=== PATIENT | female | born 1965 | race Two or more races ===

== ENCOUNTER 2019-12-07 19:19 | Emergency (ER) | payer OTHER ==
[~2019-12-07] VITALS: Ht 157.5 cm; Wt 164.7 kg
[2019-12-07 20:30] LABS: Basophils # (auto) 0.1 uL; Basophils % (auto) 0.8 % (0.0-2.0); Eosinophils # (auto) 0.1 uL; Eosinophils % (auto) 2.2 % (0.0-7.0); Hematocrit 37.6 % (36.0-46.0); Hemoglobin 12.5 g/dL (12.2-16.2); Lymphocytes # (auto) 1.5 uL; Lymphocytes % (auto) 24.2 % (10.0-50.0); Mean Corpuscular Hemoglobin 29.4 pg (28.0-32.0); Mean Corpuscular Hgb Conc. 33.3 g/dL (32.0-36.0); Mean Corpuscular Volume 88.4 fL (80.0-100.0); Monocytes # (auto) 0.5 uL; Monocytes % (auto) 7.3 % (0.0-12.0); Neutrophils # (auto) 4.1 uL; Neutrophils % (auto) 65.5 % (37.0-80.0); Platelet Count (auto) 228 10^3/uL (140-450); Red Blood Cells 4.26 10^6/uL (4.0-5.20); Red Cell Distribution Width 13.6 % (11.8-14.3); White Blood Cell 6.2 10^3/uL (4.4-10.8)
[2019-12-07 20:37] LABS: Urine Bacteria NONE SEEN /hpf (None Seen); Urine Blood Negative /uL (Negative); Urine Mucus FEW (None Seen); Urine Specific Gravity 1.028 (1.001-1.035); Urine WBC <1 /hpf (0 - 5)
[2019-12-07 20:46] LABS: INR 0.98 (0.9-1.15); Partial Thromboplastin Time 27.1 sec (23.64-32.05)
[2019-12-07 20:47] LABS: Albumin 3.2 g/dL (3.4-5.0); Amylase 63 U/L (25-115); Anion Gap 7 (5-15); BUN/Creatinine Ratio 16.7; Blood Urea Nitrogen 11 mg/dL (7-18); Calcium 8.2 mg/dL (8.5-10.1); Carbon Dioxide 23 mmol/L (21-32); Chloride 109 mmol/L (98-107); GFR African American 120 mL/min; GFR Non-African American 100 mL/min; Glucose 102 mg/dL (74-106); Lipase 77 U/L (73-393); Potassium 3.6 mmol/L (3.5-5.1); Sodium 139 mmol/L (136-145)
[2019-12-07 20:54] LABS: Alanine Aminotransferase 16 U/L (13-56); Alkaline Phosphatase 98 U/L (45-117); Aspartate Aminotransferase 15 U/L (15-37); Bilirubin, Total 0.9 mg/dL (0.2-1.0)
[2019-12-08] MEDS ORDERED: ONDANSETRON HCL 4 MG/2 ML VIAL IV ONE (00:15)
[2019-12-08] MEDS ORDERED: HYDROmorphone HCL 2 MG/ML VL IV ONE (00:15)
[2019-12-08] MEDS ORDERED: HYDROmorphone HCL 2 MG TAB PO ONE (00:45)
[2019-12-08] MEDS ORDERED: ONDANSETRON ODT 4 MG TAB PO ONE (00:45)
[2019-12-08 01:00] VITALS: BP 126/52
== END 2019-12-08 02:02 | disposition home or self-care (01) ==
LOC: ER 19:19
DX: N83.202 Unspecified ovarian cyst, left side (principal); J45.909 Unspecified asthma, uncomplicated; K21.9 Gastro-esophageal reflux disease without esophagitis
CPT/HCPCS: 36415; 74176; 80053; 81001; 82150; 83690; 83735; 85025; 85610; 85730; 99284; Q0162

== ENCOUNTER 2024-02-27 22:55 | Inpatient (IN) | payer OTHER ==
[~2024-02-27] VITALS: Ht 157.5 cm; Wt 186.6 kg
[2024-02-28 00:57] LABS: Basophils # (auto) 0 10 ^3/uL (0-0.2); Basophils % (auto) 0.2 % (0.0-2.0); Eosinophils # (auto) 0 10 ^3/uL (0-0.8); Eosinophils % (auto) 0.1 % (0.0-7.0); Hematocrit 39.1 % (36.0-46.0); Hemoglobin 12.7 g/dL (12.2-16.2); Lymphocytes # (auto) 0.7 10 ^3/uL (0.4-5.4); Mean Corpuscular Hemoglobin 26.2 pg (28.0-32.0); Mean Corpuscular Hgb Conc. 32.4 g/dL (32.0-36.0); Mean Corpuscular Volume 80.9 fL (80.0-100.0); Monocytes # (auto) 0.9 10 ^3/uL (0-1.3); Monocytes % (auto) 8.4 % (0.0-12.0); Neutrophils # (auto) 8.9 10 ^3/uL (1.6-8.6); Neutrophils % (auto) 84.3 % (37.0-80.0); Red Blood Cells 4.83 10^6/uL (4.0-5.20); Red Cell Distribution Width 17.4 % (11.8-14.3); White Blood Cell 10.5 10^3/uL (4.4-10.8)
[2024-02-28 01:15] LABS: INR 1.11 (0.9-1.15); Partial Thromboplastin Time 24.9 SEC (24.5-34.5); Prothrombin Time 11.6 sec (9.3-11.8)
[2024-02-28 01:16] LABS: Alanine Aminotransferase 13 U/L (7-40); Alkaline Phosphatase 88 U/L (46-116); Anion Gap 6 (5-15); Aspartate Aminotransferase 25 U/L (13-40); BUN/Creatinine Ratio 20.5 (10.0-20.0); Blood Urea Nitrogen 15 mg/dL (9-23); Carbon Dioxide 27 mmol/L (20-30); Chloride 103 mmol/L (98-107); Glucose 136 mg/dL (74-106); Lipase 22 U/L (12-53); Potassium 3.9 mmol/L (3.5-5.1); Sodium 136 mmol/L (136-145)
[2024-02-28 01:17] LABS: Albumin 4.1 g/dL (3.2-4.8); Bilirubin, Total 3.7 mg/dL (0.2-1.0); Total Protein 7.8 g/dL (5.7-8.2)
[2024-02-28 02:00] VITALS: PULSE 88; RESP 17; O2SAT 97
[2024-02-28] MEDS: SODIUM CHLORIDE 0.9% 1,000 ML IVB ONE (02:49)
[2024-02-28] MEDS: HYDROmorphone HCL 2 MG/ML VL/or syr IV ONE (02:50)
[2024-02-28] MEDS: METOCLOPRAMIDE HCL 5MG/ml INJ 2ml VIAL IV ONE (02:50)
[2024-02-28] MEDS ORDERED: HYDROcodone-ACET 5/325MG TAB PO PRN (03:15)
[2024-02-28] MEDS: SODIUM CHLORIDE 0.9% 1,000 ML IV SCH ×3 (03:15→21:01)
[2024-02-28] MEDS ORDERED: ACETAMINOPHEN 325 MG TAB PO PRN ×2 (03:15→07:00)
[2024-02-28] MEDS: PIPERACILLIN-TAZOB 3.375GM 100 ML IV ONE (04:24)
[2024-02-28 04:28] LABS: Basophils # (auto) 0 10 ^3/uL (0-0.2); Eosinophils # (auto) 0 10 ^3/uL (0-0.8); Mean Corpuscular Volume 81.2 fL (80.0-100.0)
[2024-02-28 04:32] LABS: Basophils % (auto) 0.2 % (0.0-2.0); Eosinophils % (auto) 0.1 % (0.0-7.0); Hematocrit 39.9 % (36.0-46.0); Hemoglobin 12.9 g/dL (12.2-16.2); Lymphocytes # (auto) 1.1 10 ^3/uL (0.4-5.4); Lymphocytes % (auto) 10.9 % (10.0-50.0); Mean Corpuscular Hemoglobin 26.2 pg (28.0-32.0); Mean Corpuscular Hgb Conc. 32.3 g/dL (32.0-36.0); Monocytes # (auto) 0.9 10 ^3/uL (0-1.3); Monocytes % (auto) 9.7 % (0.0-12.0); Neutrophils # (auto) 7.6 10 ^3/uL (1.6-8.6); Neutrophils % (auto) 79.1 % (37.0-80.0); Nucleated Red Blood Cells % 0.1 %; Red Blood Cells 4.92 10^6/uL (4.0-5.20); Red Cell Distribution Width 17.4 % (11.8-14.3); White Blood Cell 9.6 10^3/uL (4.4-10.8)
[2024-02-28 04:49] LABS: Alanine Aminotransferase 17 U/L (7-40); Albumin 4.2 g/dL (3.2-4.8); Alkaline Phosphatase 89 U/L (46-116); Anion Gap 6 (5-15); Aspartate Aminotransferase 36 U/L (13-40); BUN/Creatinine Ratio 18.9 (10.0-20.0); Bilirubin, Total 3.9 mg/dL (0.2-1.0); Blood Urea Nitrogen 14 mg/dL (9-23); Calcium 9.5 mg/dL (8.7-10.4); Carbon Dioxide 26 mmol/L (20-30); Chloride 104 mmol/L (98-107); Glucose 136 mg/dL (74-106); Potassium 4.1 mmol/L (3.5-5.1); Sodium 136 mmol/L (136-145); Total Protein 7.8 g/dL (5.7-8.2)
[2024-02-28] MEDS ORDERED: NITROGLYCERIN 0.4 MG SL TAB SL PRN (07:00)
[2024-02-28] MEDS ORDERED: MORPHINE SULFATE INJ 2 MG/ml SYRG IV PRN (07:00)
[2024-02-28] MEDS ORDERED: DOCUSATE SOD 100 MG CAP PO PRN (07:00)
[2024-02-28 08:00] VITALS: PULSE 76; RESP 8; O2SAT 97
[2024-02-28] MEDS: PANTOPRAZOLE 40 MG/10 ML VIAL INJ IV SCH (10:35)
[2024-02-28] MEDS: ONDANSETRON HCL 4 MG/2 ML VIAL IV PRN (10:35)
[2024-02-28] MEDS: HYDROmorphone HCL 2 MG/ML VL/or syr IV PRN (10:35)
[2024-02-28] MEDS: LIDOCAINE VISCOUS 2% 15ML UD PO ONE (13:25)
[2024-02-28 20:00] VITALS: PULSE 78; O2SAT 95
[2024-02-28 20:51] VITALS: BP 120/57; PULSE 77; RESP 18; TEMP 98; O2SAT 98
[2024-02-28] MEDS: cefTRIAXone 1GM/50ML D5W 50 ML IV ONE (21:01)
[2024-02-28] MEDS: metroNIDAZOLE 500MG/100ML 100 ML IV SCH (23:36)
[2024-02-29] MEDS: MORPHINE SULFATE INJ 2 MG/ml SYRG IV PRN (00:19)
[2024-02-29 00:44] VITALS: BP 134/71; PULSE 72; RESP 20; TEMP 97.9; O2SAT 100
[2024-02-29] MEDS: diphenhdrAMINE HCL 50 MG/1 ML VL IV PRN (02:23)
[2024-02-29] MEDS: HYDROmorphone HCL 2 MG/ML VL/or syr IV PRN (04:05)
[2024-02-29] MEDS: ONDANSETRON HCL 4 MG/2 ML VIAL IV PRN (04:05)
[2024-02-29 05:00] VITALS: BP 109/59; PULSE 92; RESP 20; TEMP 98.1; O2SAT 94
[2024-02-29] MEDS ORDERED: GABA-339 PO (05:36)
[2024-02-29 07:27] LABS: Basophils # (auto) 0 10 ^3/uL (0-0.2); Basophils % (auto) 0.2 % (0.0-2.0); Eosinophils # (auto) 0.1 10 ^3/uL (0-0.8); Hematocrit 35.9 % (36.0-46.0); Hemoglobin 11.4 g/dL (12.2-16.2); Monocytes # (auto) 0.7 10 ^3/uL (0-1.3); Neutrophils # (auto) 3.8 10 ^3/uL (1.6-8.6); Neutrophils % (auto) 68.4 % (37.0-80.0); Nucleated Red Blood Cells % 0.1 %; White Blood Cell 5.5 10^3/uL (4.4-10.8)
[2024-02-29 07:30] LABS: Eosinophils % (auto) 1.3 % (0.0-7.0); Lymphocytes % (auto) 17.5 % (10.0-50.0); Mean Corpuscular Hgb Conc. 31.7 g/dL (32.0-36.0); Monocytes % (auto) 12.6 % (0.0-12.0); Red Blood Cells 4.38 10^6/uL (4.0-5.20); Red Cell Distribution Width 16.9 % (11.8-14.3)
[2024-02-29 07:55] LABS: Alanine Aminotransferase 20 U/L (7-40); Alkaline Phosphatase 79 U/L (46-116); Amylase 23 U/L (30-118); Anion Gap 5 (5-15); BUN/Creatinine Ratio 19.7 (10.0-20.0); Blood Urea Nitrogen 15 mg/dL (9-23); Calcium 8.9 mg/dL (8.5-10.1); Carbon Dioxide 27 mmol/L (20-30); Chloride 106 mmol/L (98-107); Glucose 102 mg/dL (74-106); Potassium 4.1 mmol/L (3.5-5.1); Sodium 138 mmol/L (136-145)
[2024-02-29 07:56] LABS: Albumin 3.9 g/dL (3.2-4.8); Aspartate Aminotransferase 27 U/L (13-40); Bilirubin, Total 2.6 mg/dL (0.2-1.0); Total Protein 6.8 g/dL (5.7-8.2)
[2024-02-29 08:00] VITALS: PULSE 84
[2024-02-29 08:01] LABS: Urine Bacteria FEW /hpf (None Seen); Urine Blood Negative /uL (Negative); Urine Clarity Turbid (Clear); Urine Color Yellow (Yellow); Urine Mucus FEW (None Seen); Urine Protein, UAD 1+ (Negative); Urine Specific Gravity 1.029 (1.001-1.035); Urine Urobilinogen Normal (Negative); Urine WBC 5 /hpf (0 - 5); Urine pH 5.5 (5.0-9.0)
[2024-02-29] MEDS: cefTRIAXone 1GM/50ML D5W 50 ML IV SCH (08:35)
[2024-02-29 09:17] LABS: Lipase 22 U/L (12-53)
[2024-02-29] MEDS: ENOXAPARIN SOD 40 MG/0.4 ML SYRINGE SC SCH (10:00)
[2024-02-29] MEDS: GASTROGRAFIN 120 ML SOL ONE (10:31)
[2024-02-29] MEDS ORDERED: GABA-1250 PO (12:15)
[2024-02-29] MEDS ORDERED: CYCL-839 PO (12:15)
[2024-02-29] MEDS ORDERED: PANT1INJ3 PO (12:15)
[2024-02-29] MEDS ORDERED: CITA-77 PO (12:15)
[2024-02-29] MEDS ORDERED: KETO10TA PO (12:15)
[2024-02-29] MEDS ORDERED: ALBU2TAB11 IN (12:15)
[2024-02-29] MEDS ORDERED: BENA10TA93 PO (12:15)
[2024-02-29 17:00] VITALS: BP 136/69; PULSE 76; RESP 20; TEMP 98.1; O2SAT 89
[2024-02-29 20:00] VITALS: PULSE 95
[2024-02-29 21:00] VITALS: BP 110/63; PULSE 85; RESP 19; TEMP 98.3; O2SAT 95
[2024-03-01] VITALS (8 sets, daily range): BP systolic 105–123; BP diastolic 46–66; PULSE 65–80; RESP 17–20; TEMP 97.7–98.6; O2SAT 90–99
[2024-03-01] MEDS: HYDROcodone-ACET 5/325MG TAB PO PRN (09:52)
[2024-03-02] VITALS (7 sets, daily range): BP systolic 96–131; BP diastolic 58–75; PULSE 65–73; RESP 17–21; TEMP 97.6–97.9; O2SAT 92–100
[2024-03-02] MEDS ORDERED: CYCLOBENZAPRINE HCL 10 MG TAB PO PRN (11:15)
[2024-03-02] MEDS: GABAPENTIN 300 MG CAP PO SCH (21:46)
[2024-03-03] VITALS (8 sets, daily range): BP systolic 101–129; BP diastolic 54–71; PULSE 64–79; RESP 16–19; TEMP 97.2–98.6; O2SAT 95–99
[2024-03-03 06:08] LABS: Anion Gap 6 (5-15); Carbon Dioxide 32 mmol/L (20-30); Chloride 99 mmol/L (98-107); Sodium 137 mmol/L (136-145)
[2024-03-03 06:14] LABS: Glucose 106 mg/dL (74-106)
[2024-03-03 06:15] LABS: Magnesium 1.5 mg/dL (1.6-2.6)
[2024-03-03 06:24] LABS: BUN/Creatinine Ratio 8.1 (10.0-20.0); Blood Urea Nitrogen < 5 mg/dL (9-23)
[2024-03-03] MEDS: POTASSIUM CHL 20 Meq TABLET PO ONE (09:08)
[2024-03-03] MEDS: CITALOPRAM HYDROBR 20 MG TAB PO SCH (09:09)
[2024-03-03] MEDS: MAGNESIUM SULFATE 1GM/100ML 100 ML IV SCH (10:43)
[2024-03-04] VITALS (8 sets, daily range): BP systolic 99–137; BP diastolic 50–60; PULSE 64–76; RESP 16–19; TEMP 97.6–98.3; O2SAT 92–98
[2024-03-04 07:35] LABS: Chloride 100 mmol/L (98-107); Potassium 3.3 mmol/L (3.5-5.1); Sodium 137 mmol/L (136-145)
[2024-03-04 07:36] LABS: Anion Gap 4 (5-15); Carbon Dioxide 33 mmol/L (20-30)
[2024-03-04 07:37] LABS: Calcium 9.3 mg/dL (8.7-10.4)
[2024-03-04 07:41] LABS: Glucose 99 mg/dL (74-106)
[2024-03-04 07:42] LABS: Magnesium 1.7 mg/dL (1.6-2.6)
[2024-03-04 07:44] LABS: BUN/Creatinine Ratio 7.8 (10.0-20.0); Blood Urea Nitrogen < 5 mg/dL (9-23)
[2024-03-04] MEDS: POTASSIUM CHL 20 Meq TABLET PO ONE (10:45)
[2024-03-04] MEDS: MAGNESIUM SULFATE 1GM/100ML 100 ML IV SCH (11:00)
[2024-03-05 01:00] VITALS: BP 116/70; PULSE 64; RESP 16; TEMP 97.6; O2SAT 99
[2024-03-05 05:00] VITALS: BP 104/48; PULSE 64; RESP 18; TEMP 97.5; O2SAT 99
[2024-03-05 08:00] VITALS: PULSE 65
[2024-03-05 09:00] VITALS: BP 116/51; PULSE 62; RESP 19; TEMP 97.9; O2SAT 98
[2024-03-05 13:00] VITALS: BP 137/70; PULSE 70; RESP 19; TEMP 97.8; O2SAT 90
== END 2024-03-05 14:35 | disposition home or self-care (01) | DRG 389 ==
LOC: EDBD 22:55 → ER 22:55 → TELE 02-28 03:13 → ER 02-28 03:13 → TELE 02-28 06:56 → TELE-CENTR 02-28 16:54
PROVIDERS: ADMIT Nurse Practitioner Family; ATTEND Internal Medicine Geriatric Medicine
PROC: 0DH67UZ Insertion of Feeding Device into Stomach, Via Natural or Artificial Opening (ICD-10-PCS; principal; 2024-02-28)
PROC: 05HY33Z Insertion of Infusion Device into Upper Vein, Percutaneous Approach (ICD-10-PCS; 2024-03-02)
PROC: B54NZZA Ultrasonography of Left Upper Extremity Veins, Guidance (ICD-10-PCS; 2024-03-02)
DX: K56.600 Partial intestinal obstruction, unspecified as to cause (principal); Z68.45 Body mass index [BMI] 70 or greater, adult; K56.7 Ileus, unspecified; K42.9 Umbilical hernia without obstruction or gangrene; E66.01 Morbid (severe) obesity due to excess calories; I89.0 Lymphedema, not elsewhere classified; J45.909 Unspecified asthma, uncomplicated; F32.A Depression, unspecified; K21.9 Gastro-esophageal reflux disease without esophagitis; D64.9 Anemia, unspecified; E80.4 Gilbert syndrome; E87.6 Hypokalemia; E83.42 Hypomagnesemia
CPT/HCPCS: 36415; 71045; 74176; 74250; 80048; 80053; 81001; 82150; 83036; 83605; 83690; 83735; 84484; 85025; 85610; 85730; 87040; 96361; 96365; 96366; 96375; 97163; C9113; G0378; J2405; J2543; J3490

== ENCOUNTER 2024-08-24 16:51 | Inpatient (IN) | payer OTHER ==
[~2024-08-24] VITALS: Ht 157.5 cm; Wt 108.1 kg
[~2024-08-24 16:51] MED LIST: ALBU2TAB11 IN; BENA10TA93 PO; CITA-77 PO; CYCL-839 PO; GABA-339 PO; KETO10TA PO; PANT1INJ3 PO
[2024-08-24] MEDS: ONDANSETRON HCL 4 MG/2 ML VIAL IV ONE ×2 (18:56→23:26)
[2024-08-24] MEDS: MORPHINE SULFATE 4 MG/ML SYR/VIAL IV ONE ×2 (18:57→23:27)
[2024-08-24 19:10] LABS: Basophils # (auto) 0 10 ^3/uL (0-0.2); Basophils % (auto) 0.3 % (0.0-2.0); Eosinophils # (auto) 0.1 10 ^3/uL (0-0.8); Eosinophils % (auto) 1.1 % (0.0-7.0); Hematocrit 33.5 % (36.0-46.0); Lymphocytes # (auto) 1.3 10 ^3/uL (0.4-5.4); Lymphocytes % (auto) 20.2 % (10.0-50.0); Mean Corpuscular Hemoglobin 27.1 pg (28.0-32.0); Mean Corpuscular Hgb Conc. 32.8 g/dL (32.0-36.0); Mean Corpuscular Volume 82.8 fL (80.0-100.0); Monocytes # (auto) 0.4 10 ^3/uL (0-1.3); Monocytes % (auto) 6.8 % (0.0-12.0); Neutrophils # (auto) 4.6 10 ^3/uL (1.6-8.6); Neutrophils % (auto) 71.6 % (37.0-80.0); Nucleated Red Blood Cells % 0.3 %; Platelet Count (auto) 223 10^3/uL (140-450); Red Blood Cells 4.05 10^6/uL (4.0-5.20); Red Cell Distribution Width 16.6 % (11.8-14.3); White Blood Cell 6.5 10^3/uL (4.4-10.8)
[2024-08-24 19:47] LABS: Alkaline Phosphatase 96 U/L (46-116); Anion Gap 7 (5-15); Aspartate Aminotransferase 13 U/L (13-40); Blood Urea Nitrogen 8 mg/dL (9-23); Carbon Dioxide 30 mmol/L (20-31); Chloride 102 mmol/L (98-107); Glucose 104 mg/dL (74-106); Lipase 26 U/L (12-53); Potassium 3.6 mmol/L (3.5-5.1); Sodium 139 mmol/L (136-145)
[2024-08-24 19:48] LABS: Bilirubin, Total 2.1 mg/dL (0.2-1.0); Total Protein 7.5 g/dL (5.7-8.2)
[2024-08-24 20:41] LABS: Alanine Aminotransferase < 9 U/L (7-40)
[2024-08-24] MEDS ORDERED: ONDANSETRON HCL 4 MG/2 ML VIAL IM ONE (23:30)
[2024-08-25] MEDS: SODIUM CHLORIDE 0.9% 1,000 ML IV SCH (02:30)
[2024-08-25 05:00] VITALS: BP 116/56; PULSE 76; RESP 18; TEMP 97.6; O2SAT 92
[2024-08-25 09:00] VITALS: BP 120/72; PULSE 78; RESP 21; TEMP 97.9; O2SAT 94
[2024-08-25] MEDS: PANTOPRAZOLE 40 MG/10 ML VIAL INJ IV SCH (09:33)
[2024-08-25] MEDS: ONDANSETRON HCL 4 MG/2 ML VIAL IV PRN (09:34)
[2024-08-25] MEDS: MORPHINE SULFATE INJ 2 MG/ml SYRG IV PRN (09:38)
[2024-08-25 10:57] LABS: INR 1.07 (0.9-1.15); Partial Thromboplastin Time 24.4 SEC (24.5-34.5); Prothrombin Time 11.3 sec (9.3-11.8)
[2024-08-25 13:00] VITALS: BP 119/67; PULSE 70; RESP 20; TEMP 97.9; O2SAT 91
[2024-08-25] MEDS ORDERED: diphenhdrAMINE HCL 12.5 MG/5 ML UD PO PRN (14:45)
[2024-08-25] MEDS ORDERED: ACETAMINOPHEN 500 MG TAB PO PRN (14:45)
[2024-08-25 16:31] VITALS: BP 127/89; PULSE 75; RESP 19; TEMP 98.8; O2SAT 92
[2024-08-25 16:39] LABS: Basophils # (auto) 0 10 ^3/uL (0-0.2); Basophils % (auto) 0.2 % (0.0-2.0); Eosinophils # (auto) 0.1 10 ^3/uL (0-0.8); Hemoglobin 10.8 g/dL (12.2-16.2); Lymphocytes # (auto) 0.9 10 ^3/uL (0.4-5.4); Monocytes # (auto) 0.5 10 ^3/uL (0-1.3); Monocytes % (auto) 8.1 % (0.0-12.0); Neutrophils # (auto) 5.2 10 ^3/uL (1.6-8.6)
[2024-08-25 16:41] LABS: Eosinophils % (auto) 0.8 % (0.0-7.0); Hematocrit 33.1 % (36.0-46.0); Lymphocytes % (auto) 12.9 % (10.0-50.0); Mean Corpuscular Hgb Conc. 32.8 g/dL (32.0-36.0); Mean Corpuscular Volume 82.5 fL (80.0-100.0); Platelet Count (auto) 209 10^3/uL (140-450); Red Blood Cells 4.01 10^6/uL (4.0-5.20); Red Cell Distribution Width 16.3 % (11.8-14.3); White Blood Cell 6.6 10^3/uL (4.4-10.8)
[2024-08-25 16:50] LABS: Anion Gap 4 (5-15); Carbon Dioxide 33 mmol/L (20-31); Chloride 102 mmol/L (98-107); Potassium 3.7 mmol/L (3.5-5.1); Sodium 139 mmol/L (136-145)
[2024-08-25 16:52] LABS: Calcium 8.9 mg/dL (8.7-10.4)
[2024-08-25 16:56] LABS: BUN/Creatinine Ratio 12.5 (10.0-20.0); Blood Urea Nitrogen 9 mg/dL (9-23); Glucose 111 mg/dL (74-106)
[2024-08-25 20:30] VITALS: PULSE 84; RESP 18; O2SAT 99
[2024-08-25 21:00] VITALS: BP 126/75; PULSE 84; RESP 17; TEMP 98.4; O2SAT 99
[2024-08-26] VITALS (8 sets, daily range): BP systolic 119–134; BP diastolic 60–67; PULSE 60–79; RESP 16–21; TEMP 97.6–98.7; O2SAT 92–99
[2024-08-26] MEDS: HYDROcodone-ACET 5/325MG TAB PO PRN (00:57)
[2024-08-26 04:57] LABS: Basophils # (auto) 0 10 ^3/uL (0-0.2); Basophils % (auto) 0.2 % (0.0-2.0); Eosinophils # (auto) 0 10 ^3/uL (0-0.8); Eosinophils % (auto) 0.2 % (0.0-7.0); Hematocrit 32.9 % (36.0-46.0); Hemoglobin 10.7 g/dL (12.2-16.2); Lymphocytes % (auto) 15.7 % (10.0-50.0); Mean Corpuscular Hemoglobin 27.1 pg (28.0-32.0); Mean Corpuscular Hgb Conc. 32.4 g/dL (32.0-36.0); Mean Corpuscular Volume 83.5 fL (80.0-100.0); Monocytes # (auto) 0.5 10 ^3/uL (0-1.3); Monocytes % (auto) 8.4 % (0.0-12.0); Neutrophils # (auto) 4.9 10 ^3/uL (1.6-8.6); Neutrophils % (auto) 75.5 % (37.0-80.0); Platelet Count (auto) 196 10^3/uL (140-450); Red Blood Cells 3.94 10^6/uL (4.0-5.20); Red Cell Distribution Width 16.3 % (11.8-14.3); White Blood Cell 6.5 10^3/uL (4.4-10.8)
[2024-08-26 05:18] LABS: Alanine Aminotransferase 10 U/L (7-40); Albumin 3.9 g/dL (3.2-4.8); Alkaline Phosphatase 99 U/L (46-116); Anion Gap 5 (5-15); BUN/Creatinine Ratio 12.3 (10.0-20.0); Blood Urea Nitrogen 8 mg/dL (9-23); Calcium 8.9 mg/dL (8.7-10.4); Carbon Dioxide 32 mmol/L (20-31); Chloride 105 mmol/L (98-107); Glucose 106 mg/dL (74-106); Potassium 3.6 mmol/L (3.5-5.1); Sodium 142 mmol/L (136-145)
[2024-08-26 05:19] LABS: Aspartate Aminotransferase 18 U/L (13-40); Bilirubin, Total 2.1 mg/dL (0.2-1.0); Total Protein 7.3 g/dL (5.7-8.2)
[2024-08-26] MEDS: CITALOPRAM HYDROBR 20 MG TAB PO SCH (10:16)
[2024-08-27] VITALS (7 sets, daily range): BP systolic 108–140; BP diastolic 47–83; PULSE 61–71; RESP 18–23; TEMP 97–98; O2SAT 91–95
[2024-08-27 09:32] LABS: Chloride 102 mmol/L (98-107); Potassium 3.4 mmol/L (3.5-5.1); Sodium 140 mmol/L (136-145)
[2024-08-27 09:33] LABS: Anion Gap 4 (5-15); Carbon Dioxide 34 mmol/L (20-31)
[2024-08-27 09:34] LABS: Calcium 9.1 mg/dL (8.7-10.4)
[2024-08-27 09:39] LABS: BUN/Creatinine Ratio 9.2 (10.0-20.0); Blood Urea Nitrogen 6 mg/dL (9-23); Glucose 107 mg/dL (74-106)
[2024-08-27 10:15] LABS: Basophils # (auto) 0 10 ^3/uL (0-0.2); Basophils % (auto) 0.3 % (0.0-2.0); Eosinophils # (auto) 0.1 10 ^3/uL (0-0.8); Eosinophils % (auto) 1.8 % (0.0-7.0); Hematocrit 33.4 % (36.0-46.0); Hemoglobin 10.5 g/dL (12.2-16.2); Lymphocytes # (auto) 1.2 10 ^3/uL (0.4-5.4); Lymphocytes % (auto) 21.2 % (10.0-50.0); Mean Corpuscular Hemoglobin 26.5 pg (28.0-32.0); Mean Corpuscular Hgb Conc. 31.3 g/dL (32.0-36.0); Mean Corpuscular Volume 84.5 fL (80.0-100.0); Monocytes # (auto) 0.5 10 ^3/uL (0-1.3); Neutrophils # (auto) 3.9 10 ^3/uL (1.6-8.6); Neutrophils % (auto) 68.7 % (37.0-80.0); Nucleated Red Blood Cells % 0.2 %; Platelet Count (auto) 197 10^3/uL (140-450); Red Blood Cells 3.96 10^6/uL (4.0-5.20); Red Cell Distribution Width 16.3 % (11.8-14.3); White Blood Cell 5.7 10^3/uL (4.4-10.8)
[2024-08-27] MEDS: POTASSIUM EFFERVESENT TAB 25 MEQ PO ONE (12:21)
[2024-08-28] VITALS (8 sets, daily range): BP systolic 106–132; BP diastolic 57–85; PULSE 63–76; RESP 18–22; TEMP 36.7; O2SAT 92–95
[2024-08-28 07:28] LABS: Basophils # (auto) 0 10 ^3/uL (0-0.2); Basophils % (auto) 0.3 % (0.0-2.0); Eosinophils # (auto) 0.1 10 ^3/uL (0-0.8); Eosinophils % (auto) 1.6 % (0.0-7.0); Hematocrit 30.5 % (36.0-46.0); Lymphocytes % (auto) 17.6 % (10.0-50.0); Mean Corpuscular Hemoglobin 27.4 pg (28.0-32.0); Mean Corpuscular Hgb Conc. 32.8 g/dL (32.0-36.0); Mean Corpuscular Volume 83.5 fL (80.0-100.0); Monocytes # (auto) 0.5 10 ^3/uL (0-1.3); Monocytes % (auto) 8.6 % (0.0-12.0); Neutrophils # (auto) 3.9 10 ^3/uL (1.6-8.6); Neutrophils % (auto) 71.9 % (37.0-80.0); Nucleated Red Blood Cells % 0.1 %; Platelet Count (auto) 185 10^3/uL (140-450); Red Blood Cells 3.66 10^6/uL (4.0-5.20); Red Cell Distribution Width 16.7 % (11.8-14.3); White Blood Cell 5.5 10^3/uL (4.4-10.8)
[2024-08-28 07:30] LABS: Chloride 102 mmol/L (98-107); Potassium 3.3 mmol/L (3.5-5.1); Sodium 141 mmol/L (136-145)
[2024-08-28 07:31] LABS: Anion Gap 3 (5-15); Carbon Dioxide 36 mmol/L (20-31)
[2024-08-28 07:32] LABS: Calcium 8.6 mg/dL (8.7-10.4)
[2024-08-28 07:37] LABS: BUN/Creatinine Ratio 11.7 (10.0-20.0); Blood Urea Nitrogen 7 mg/dL (9-23); Glucose 95 mg/dL (74-106)
[2024-08-28] MEDS: GASTROGRAFIN 120 ML SOL ONE (07:40)
[2024-08-28] MEDS: POTASSIUM EFFERVESENT TAB 25 MEQ PO ONE (11:34)
[2024-08-28 12:54] LABS: Albumin 3.6 g/dL (3.2-4.8); Alkaline Phosphatase 85 U/L (46-116); Aspartate Aminotransferase 12 U/L (13-40)
[2024-08-28 12:55] LABS: Bilirubin, Direct 0.6 mg/dL (<0.3); Bilirubin, Total 1.7 mg/dL (0.2-1.0); Total Protein 6.9 g/dL (5.7-8.2)
[2024-08-28 13:05] LABS: Alanine Aminotransferase < 9 U/L (7-40)
[2024-08-28] MEDS: Juven Orange Powder PACKET 27.5gm PO SCH (18:00)
[2024-08-29 01:00] VITALS: BP 132/68; PULSE 63; RESP 92; TEMP 97.3; O2SAT 92
[2024-08-29 05:00] VITALS: BP 123/70; PULSE 68; RESP 20; TEMP 98.2; O2SAT 90
[2024-08-29 07:31] LABS: Basophils # (auto) 0 10 ^3/uL (0-0.2); Basophils % (auto) 0.5 % (0.0-2.0); Eosinophils # (auto) 0.1 10 ^3/uL (0-0.8); Eosinophils % (auto) 1.7 % (0.0-7.0); Hematocrit 32.3 % (36.0-46.0); Hemoglobin 10.4 g/dL (12.2-16.2); Lymphocytes # (auto) 1.2 10 ^3/uL (0.4-5.4); Lymphocytes % (auto) 19.5 % (10.0-50.0); Mean Corpuscular Hemoglobin 27.2 pg (28.0-32.0); Mean Corpuscular Hgb Conc. 32.4 g/dL (32.0-36.0); Mean Corpuscular Volume 83.9 fL (80.0-100.0); Monocytes # (auto) 0.5 10 ^3/uL (0-1.3); Monocytes % (auto) 7.8 % (0.0-12.0); Neutrophils # (auto) 4.2 10 ^3/uL (1.6-8.6); Neutrophils % (auto) 70.5 % (37.0-80.0); Platelet Count (auto) 179 10^3/uL (140-450); Red Blood Cells 3.84 10^6/uL (4.0-5.20); Red Cell Distribution Width 16.7 % (11.8-14.3); White Blood Cell 5.9 10^3/uL (4.4-10.8)
[2024-08-29 07:43] LABS: Anion Gap 4 (5-15); Carbon Dioxide 35 mmol/L (20-31); Chloride 101 mmol/L (98-107); Potassium 3.3 mmol/L (3.5-5.1); Sodium 140 mmol/L (136-145)
[2024-08-29 07:44] LABS: Calcium 8.7 mg/dL (8.7-10.4)
[2024-08-29 07:49] LABS: Blood Urea Nitrogen 6 mg/dL (9-23); Glucose 90 mg/dL (74-106)
[2024-08-29 09:00] VITALS: BP 139/55; PULSE 66; RESP 24; TEMP 98.3; O2SAT 91
[2024-08-29 12:50] VITALS: BP 125/68; PULSE 70; RESP 24; TEMP 98.5; O2SAT 89
[2024-08-29] MEDS: POTASSIUM CHL 20MEQ/100ML 100 ML IV ONE (14:36)
[2024-08-29 17:00] VITALS: BP 128/58; PULSE 67; RESP 24; TEMP 98.5; O2SAT 95
[2024-08-29 21:00] VITALS: BP 138/56; PULSE 64; RESP 19; TEMP 98.1; O2SAT 93
[2024-08-30 01:00] VITALS: BP 117/54; PULSE 60; RESP 19; TEMP 98.2; O2SAT 88
[2024-08-30 05:00] VITALS: BP 110/59; PULSE 58; RESP 18; TEMP 98.3; O2SAT 96
[2024-08-30 08:00] VITALS: PULSE 61; RESP 20; O2SAT 97
[2024-08-30 09:00] VITALS: BP 135/68; PULSE 61; RESP 20; TEMP 97.9; O2SAT 97
[2024-08-30 13:27] VITALS: BP 123/70; PULSE 70; RESP 20; TEMP 98.3; O2SAT 94
[2024-08-30] MEDS ORDERED: MUPI2CRE17 EX (14:00)
== END 2024-08-30 15:43 | disposition home or self-care (01) | DRG 394 ==
LOC: ER 16:51 → EDBD 16:51 → OVERFLOW 08-25 02:28 → WEST WING 08-25 04:00
PROVIDERS: ADMIT Internal Medicine; ATTEND Internal Medicine
DX: K42.0 Umbilical hernia with obstruction, without gangrene (principal); K56.600 Partial intestinal obstruction, unspecified as to cause; Z68.41 Body mass index [BMI] 40.0-44.9, adult; K43.2 Incisional hernia without obstruction or gangrene; E66.01 Morbid (severe) obesity due to excess calories; J45.909 Unspecified asthma, uncomplicated; I89.0 Lymphedema, not elsewhere classified; E80.4 Gilbert syndrome; K21.9 Gastro-esophageal reflux disease without esophagitis; F32.A Depression, unspecified; G47.30 Sleep apnea, unspecified; Z82.49 Family history of ischemic heart disease and other diseases of the circulatory system; Z83.3 Family history of diabetes mellitus; Z79.899 Other long term (current) drug therapy
CPT/HCPCS: 36415; 74018; 74176; 74250; 80048; 80053; 80076; 83615; 83690; 85025; 85610; 85730; 86850; 86900; 86901; 87077; 87186; 87205; 93005; 97163; G0378; J2405; J2470; J3480

== ENCOUNTER 2024-09-29 19:16 | Inpatient (IN) | payer OTHER ==
[~2024-09-29] VITALS: Ht 170.2 cm; Wt 182.5 kg
[~2024-09-29 19:16] MED LIST changes: +MUPI2CRE17 EX
--- NOTE | 2024-09-29 19:28 | ED.PDOC ---
GI ASSESSMENT HPI Comments 59-year-old female presents with a chief complaint of abdominal pain x 15 years but worsening over the past x 2 days with associated nausea, vomiting, and diarrhea. Patient reports that her pain is localized to her periumbilical region, non-radiating, and states that the source of her pain is her umbilical hernia. Patient has some distention to the periumbilical area. Patient was given Fentanyl and Zofran en route by EMS. Patient reports relief of symptoms after being given pain meds and nausea meds by EMS. Time Seen by MD: 19:22 Primary Care Provider: ILDEFONSO Hyman Notes: Medications, Allergies Allergies: Coded Allergies: NO KNOWN ALLERGIES (Unverified , 08/24/24) Home Meds Active Scripts Mupirocin Calcium (Topical) (MUPIROCIN) 2 % Cre, 2 % EX TID for 10 Days, #1 CRE Prov:FOSTER SERRANO RESIDENT 08/30/24 Reported Medications Albuterol Sulfate (Albuterol Sulfate) 2 Mg Tab, 2 MG IN Q6HP PRN for SHORTNESS OF BREATH, MG 02/29/24 Benazepril HCl (Benazepril Hydrochloride) 10 Mg Tab, 12.5 MG PO DAILY, TAB 02/29/24 Cyclobenzaprine Hcl (Cyclobenzaprine Hcl) 10 Mg Tab, 10 MG PO Q8HP PRN for FOR MUSCLE SPASM for 30 Days, MG 02/29/24 Ketorolac Tromethamine (Ketorolac Tromethamine) 10 Mg Tab, 10 MG PO DAILY, TAB 02/29/24 Citalopram Hydrobromide (Citalopram Hydrobromide) 20 Mg Tab, 20 MG PO DAILY, TAB 02/29/24 Pantoprazole Sodium (PANTOPRAZOLE SODIUM) 40 Mg Inj, 40 MG PO DAILY, INJ 02/29/24 Gabapentin (Gabapentin) 600 Mg Tab, 600 MG PO BID, TAB 02/29/24 Information Source: Patient, Emergency Med Personnel Mode of Arrival: EMS Timing: Days Duration: Since onset Prehospital treatment: Pain Meds (Fentanyl ), Treatment (Zofran ) Quality: Aching Vomitus: Bilious Stool: Loose Severity: Moderate Recent: None Recent Hx of: None Pain Location: Periumbilical Past Medical History PAST MEDICAL HISTORY: Asthma, Depression, GERD Surgical History: Denies all surgeries 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 Family History Family History: Reviewed,noncontributory to illness Social History Smoker: Non-Smoker Alcohol: Denies ETOH Use Drugs: Denies Drug Use Constitutional: denies: chills, diaphoresis, fatigue, fever, malaise, sweats, weakness, others EENTM: denies: blurred vision, double vision, ear bleeding, ear discharge, ear drainage, ear pain, ear ringing, eye pain, eye redness, hearing loss, mouth pain, mouth swelling, nasal discharge, nose bleeding, nose congestion, nose pain, photophobia, tearing, throat pain, throat swelling, voice changes, others Respiratory: denies: cough, hemoptysis, orthopnea, SOB at rest, shortness of breath, SOB with excertion, stridor, wheezing, others Cardiovascular: denies: chest pain, dizzy spells, diaphoresis, Dyspnea on exertion, edema, irregular heart beat, left arm pain, lightheadedness, palpitations, PND, syncope, others Gastrointestinal: reports: abdominal pain, diarrhea, nausea, vomiting; denies: abdomen distended, blood streaked bowels, constipated, dysphagia, difficulty swallowing, hematemesis, melena, poor appetite, poor fluid intake, rectal bleeding, rectal pain, others Genitourinary: denies: abnormal vagina bleeding, burning, dyspareunia, dysuria, flank pain, frequency, hematuria, incontinence, pain, , vagina discharge, urgency, others Neurological: denies: dizziness, fainting, headache, left sided numbness, left sided weakness, numbness, paresthesia, pre-existing deficit, right sided numbness, right sided weakness, seizure, speech problems, tingling, tremors, weakness, others Musculoskeletal: denies: back pain, gout, joint pain, joint swelling, muscle pain, muscle stiffness, neck pain, others Integumetry: denies: bruises, change in color, change in hair/nails, dryness, laceration, lesions, lumps, rash, wounds, others Allergic/Immunocompromised: denies: Difficulty Healing, Frequent Infections, Hives, Itching, others Hematologic/Lymphatic: denies: anemia, blood clots, easy bleeding, easy bruisi ng, swollen glands, others Endocrine: denies: excessive hunger, excessive sweating, excessive thirst, exce ssive urination, flushing, intolerance to cold, intolerance to heat, unexplained weight gain, unexplained weight loss, others Psychiatric: denies: anxiety, bipolar disorder, depression, hopeless, panic disorder, schizophrenia, sleepless, suicidal, others All Other Systems: Reviewed and Negative Physical Exam General Appearance: Moderate Distress, Obese HEENT: Normal ENT Inspection, Pharynx Normal, TMs Normal Neck: Full Range of Motion, Non-Tender, Normal, Normal Inspection Respiratory: Chest Non-Tender, Lungs Clear, No Accessory Muscle Use, No Respiratory Distress, Normal Breath Sounds Cardiovascular: No Edema, No JVD, No Murmur, No Gallop, Normal Peripheral Pulses, Regular Rate/Rhythm Breast Exam: Deferred Gastrointestinal: No Organomegaly, Non Tender, No Pulsatile Mass, Normal Bowel Sounds, Soft Genitalia: Deferred Pelvic: Deferred Rectal: Deferred Extremities: No calf tenderness, Normal capillary refill, Normal inspection, Normal range of motion, Non-tender, Pedal edema (Bilateral lower extremity lymph edema) Musculoskeletal : Apperance: Normal Neurologic: Alert, mailer apprentice II-XII nml as Tested, No Motor Deficits, Normal Affect, Normal Mood, No Sensory Deficits Cerebellar Function: Normal Reflexes: Normal Skin: Dry, Normal Color, Warm Lymphatic: No Adenopathy Was a procedure done? Was a procedure done?: No GI differential Dx Differential Diagnosis: Appendicitis, Cholecystitis, Constipation, Diverticular disease, Gastritis/PUD, Gastroenteritis, Hernia, Ovarian cyst/torsion, Pancreatitis X-Ray, Labs, Meds, VS Vital Signs Date Time Temp Pulse Resp B/P (MAP) Pulse Ox O2 Delivery O2 Flow Rate FiO2 09/30/24 00:34 84 16 124/74 09/29/24 23:32 89 18 121/86 09/29/24 23:04 89 18 90 Room Air* 0 21 09/29/24 23:04 97.8 89 18 121/86 (98) 90 97.8 09/29/24 19:37 98.2 89 20 149/86 (107) 98 09/29/24 19:20 82 Lab Test 09/29/24 23:00 09/29/24 20:30 Range/Units Urine Color Light-orange Yellow Urine Clarity Turbid H Clear Urine pH 5.5 5.0-9.0 Urine Specific [place] 1.027 1.001-1.035 Urine Protein Trace H Negative Urine Ketones Negative Negative Urine Blood Negative Negative /uL Urine Nitrite 2+ H Negative Urine Bilirubin Negative Negative Urine Urobilinogen 3 H Negative mg/dL Urine Leukocyte Esterase 3+ Negative /uL Urine RBC 5 0 - 4 /hpf Urine WBC 121 0 - 5 /hpf Urine WBC Clumps Present None Seen /hpf Urine Squamous Epithelial Cells Mod <5 /hpf Urine Bacteria Many H None Seen /hpf Urine Mucus Few None Seen Urine Glucose Normal Normal mg/dL White Blood Count 8.5 4.4-10.8 10^3/uL Red Blood Count 5.05 4.0-5.20 10^6/uL Hemoglobin 13.1 12.2-16.2 g/dL Hematocrit 40.9 36.0-46.0 % Mean Corpuscular Volume 81.1 80.0-100.0 fL Mean Corpuscular Hemoglobin 26.0 L 28.0-32.0 pg Mean Corpuscular Hemoglobin Concent 32.1 32.0-36.0 g/dL Red Cell Distribution Width 17.8 H 11.8-14.3 % Platelet Count 264 140-450 10^3/uL Mean Platelet Volume 8.0 6.9-10.8 fL Neutrophils (%) (Auto) 78.9 37.0-80.0 % Lymphocytes (%) (Auto) 13.7 10.0-50.0 % Monocytes (%) (Auto) 6.5 0.0-12.0 % Eosinophils (%) (Auto) 0.7 0.0-7.0 % Basophils (%) (Auto) 0.2 0.0-2.0 % Neutrophils # (Auto) 6.7 1.6-8.6 10 ^3/uL Lymphocytes # (Auto) 1.2 0.4-5.4 10 ^3/uL Monocytes # (Auto) 0.6 0-1.3 10 ^3/uL Eosinophils # (Auto) 0.1 0-0.8 10 ^3/uL Basophils # (Auto) 0 0-0.2 10 ^3/uL Nucleated Red Blood Cells 0.2 % Sodium Level 136 136-145 mmol/L Potassium Level 3.4 L 3.5-5.1 mmol/L Chloride Level 102 98-107 mmol/L Carbon Dioxide Level 27 20-31 mmol/L Anion Gap 7 5-15 Blood Urea Nitrogen 10 9-23 mg/dL Creatinine 0.70 0.550-1.02 mg/dL Glomerular Filtration Rate Calc 100 >90 mL/min BUN/Creatinine Ratio 14.3 10.0-20.0 Serum Glucose 101 74-106 mg/dL Lactic Acid Level 1.7 0.4-2.0 mmol/L Calcium Level 9.5 8.7-10.4 mg/dL Magnesium Level 1.9 1.6-2.6 mg/dL Total Bilirubin 2.9 H 0.2-1.0 mg/dL Aspartate Amino Transferase (AST) 15 13-40 U/L Alanine Aminotransferase (ALT) < 9 7-40 U/L Alkaline Phosphatase 106 46-116 U/L Total Protein 8.5 H 5.7-8.2 g/dL Albumin 4.5 3.2-4.8 g/dL Lipase 30 12-53 U/L Current Medications Medications (Trade) Dose Ordered Sig/Tello Route Start Time Stop Time Status Last Admin Ondansetron HCl (Zofran) 4 mg ONCE ONCE IV 09/29/24 19:30 09/29/24 19:38 DC 09/29/24 23:31 Morphine Sulfate 4 mg ONCE ONCE IV 09/29/24 23:15 09/29/24 23:18 DC 09/29/24 23:32 Levofloxacin/ Dextrose 100 ml @ 100 mls/hr ONCE ONCE IV 09/30/24 01:00 09/30/24 01:59 DC 09/30/24 01:11 PATIENT: PAUL MUHAMMADACCT: [id number]: [id number] : 1965 LOC: ER ROOM / BED: / AGE / SEX: 59 / F ADM STATUS: REG ER SERVICE 38 ORDERING PHYSICIAN: JORDEN SAWYER MD PROCEDURE(s): ABPL - CT AB PEL WO CON-NO ORAL OR IV REASON: umbilical hernia ORDER NUMBER(s): [id number], ACCESSION NUMBER(s): [id number] Exam: CT CT AB PEL WO CON-NO ORAL OR IV History: umbilical hernia Comparison Study: None available at time of dictation. TECHNIQUE: Multidetector CT of the abdomen was performed from lung bases to pubic symphysis. Imaging was performed without IV contrast. Axial, coronal and sagittal multiplanar reformats were obtained from the axial data set by the technologist. Radiation Dose Information: CT Dose: CTDI volume is 25.53 mGy. Dose-length product is 1413.87 mGy*cm FINDINGS: Evaluation of solid organs is limited due to lack of intravenous contrast use. Findings: Lung Bases: No acute or significant lung base finding. Normal heart size. No pleural or pericardial effusion. Liver: The liver is normal in size. No focal lesions. Gallbladder and Biliary Tree: Unremarkable Spleen: Unremarkable Pancreas: The pancreas is grossly normal in appearance. Adrenal Glands: Unremarkable Kidneys: Kidneys are grossly normal without calculi or hydronephrosis. Bladder: Grossly unremarkable for degree of distention. Bowel: The stomach is grossly normal in appearance. Small bowel and colon are normal in caliber and distribution. The appendix is not visualized; however, no secondary findings of acute appendicitis identified. Ascites: Absent Lymphadenopathy: No mesenteric, retroperitoneal or periportal lymphadenopathy. Abdominal Wall and Mesentery: Unremarkable. Vasculature: The visualized abdominal aorta is normal in size and caliber. Evaluation of abdominal and pelvic vessels is limited due to lack of intravenous contrast. Pelvic Organs: Unremarkable Musculoskeletal: No aggressive focal bony lesions, acute fractures or dislocation. Soft tissues: Unremarkable IMPRESSION: 1. Suboptimal study the anterior abdomen not included and therefore free air can not be excluded. Recommend repeat study. 2. Possible cholelithiasis correlate with surgical history. 3. Area of the umbilicus is excluded in this study. Radiation optimization: All CT scans at this facility use at least one of these dose optimization techniques: automated exposure control mA and/or kV adjustment per patient size (includes targeted exams where dose is matched to clinical indication) or iterative reconstruction. ENT: PAUL MUHAMMADACCT: [id number] UNIT: [id number] : 1965 LOC: ER ROOM / BED: / AGE / SEX: 59 / F ADM STATUS: REG ER SERVICE 25 ORDERING PHYSICIAN: JORDEN SAWYER MD PROCEDURE(s): ABDL - ABDOMEN LIMITED REASON: abd hernia ORDER NUMBER(s): [id number], ACCESSION NUMBER(s): [id number] ABDOMINAL ULTRASOUND CLINICAL HISTORY: abd hernia TECHNIQUE: Multiple grayscale and color Doppler ultrasound images were obtained of the abdomen. WID: COMPARISON: CT abdomen and pelvis from same day FINDINGS/IMPRESSION: 1. There is fat and bowel within an umbilical hernia. 2. Abdominal wall defect measures approximately 10.2 cm. 3. There is also dystrophic calcification within the hernia sac measuring 1.5 cm ATED BY: LINDA GARNER MD DICTATED DATE/TIME: 09/29/242231 SIGNED BY: LINDA GARNER MD SIGNED DATE/TIME: 09/29/242231 UA reveals urinary tract infection. Abdominal pelvis US reveals cholelithiasis and fat and bowel within the umbilical hernia. CBC is normal. Lipase is 30. Bilirubin is 2.9. The patient was placed on Levaquin for urinary tract infection. NG tube was ordered and Dr. Billy will take the patient to the emergency room for small bowel obstruction in a.m. Time of 1ST Reevaluation: 19:52 Reevaluation 1ST: Unchanged Patient Education/Counseling: Diagnosis, Treatment, Prognosis Family Education/Counseling: No Family Present Departure 1 Departure Time of Disposition: 04:31 Impression: Primary Impression: Urinary tract infection Qualified Codes: N30.01 - Acute cystitis with hematuria Additional Impressions: Acute abdominal pain Small bowel obstruction Umbilical hernia Qualified Codes: K42.9 - Umbilical hernia without obstruction or gangrene Left ovarian cyst Hepatosplenomegaly Cholelithiasis Qualified Codes: K80.20 - Calculus of gallbladder without cholecystitis without obstruction Disposition: ADMITTED INPATIENT Admit to: [facility] Condition: Guarded Discharged With: Self Critical Care Note Critical Care Time?: Yes (55 min-critical care time only) Stability Stability form required: No I personally scribed for JORDEN SAWYER MD ([email or web address]) on 09/29/24 at 19:28. Electronically submitted by Maximus Callaway ([email or web address]). I personally scribed for JORDEN SAWYER MD ([email or web address]) on 09/29/24 at 21:22. Electronically submitted by Maximus Callaway ([email or web address]). I personally scribed for JORDEN SAWYER MD ([email or web address]) on 09/30/24 at 00:54. E lectronically submitted by Maximus Callaway ([email or web address]). JORDEN SAWYER MD Sep 29, 2024 19:28
--- NOTE | 2024-09-29 20:54 | DVH ---
Exam: CT CT AB PEL WO CON-NO ORAL OR IV History: umbilical hernia Comparison Study: None available at time of dictation. TECHNIQUE: Multidetector CT of the abdomen was performed from lung bases to pubic symphysis. Imaging was performed without IV contrast. Axial, coronal and sagittal multiplanar reformats were obtained fr om the axial data set by the technologist. Radiation Dose Information: CT Dose: CTDI volume is 25.53 mGy. Dose-length product is 1413.87 mGy*cm FINDINGS: Evaluation of solid organs is limited due to lack of intravenous contrast use. Findings: Lung Bases: No acute or significant lung base finding. Normal heart size. No pleural or pericardial effusion. Liver: The liver is normal in size. No focal lesions. Gallbladder and Biliary Tree: Unremarkable Spleen: Unremarkable Pancreas: The pancreas is grossly normal in appearance. Adrenal Glands: Unremarkable Kidneys: Kidneys are grossly normal without calculi or hydronephrosis. Bladder: Grossly unremarkable for degree of distention. Bowel: The stomach is grossly normal in appearance. Small bowel and colon are normal in caliber and d istribution. The appendix is not visualized; however, no secondary findings of acute appendicitis id entified. Ascites: Absent Lymphadenopathy: No mesenteric, retroperitoneal or periportal lymphadenopathy. Abdominal Wall and Mesentery: Unremarkable. Vasculature: The visualized abdominal aorta is normal in size and caliber. Evaluation of abdominal a nd pelvic vessels is limited due to lack of intravenous contrast. Pelvic Organs: Unremarkable Musculoskeletal: No aggressive focal bony lesions, acute fractures or dislocation. Soft tissues: Unremarkable IMPRESSION: 1. Suboptimal study the anterior abdomen not included and therefore free air can not be excluded. Rec ommend repeat study. 2. Possible cholelithiasis correlate with surgical history. 3. Area of the umbilicus is excluded in this study. Radiation optimization: All CT scans at this facility use at least one of these dose optimization axel hniques: automated exposure control mA and/or kV adjustment per patient size (includes targeted exam s where dose is matched to clinical indication) or iterative reconstruction.
[2024-09-29 21:02] LABS: Basophils # (auto) 0 10 ^3/uL (0-0.2); Eosinophils # (auto) 0.1 10 ^3/uL (0-0.8); Eosinophils % (auto) 0.7 % (0.0-7.0); Lymphocytes # (auto) 1.2 10 ^3/uL (0.4-5.4); Monocytes # (auto) 0.6 10 ^3/uL (0-1.3); Neutrophils # (auto) 6.7 10 ^3/uL (1.6-8.6); Nucleated Red Blood Cells % 0.2 %; White Blood Cell 8.5 10^3/uL (4.4-10.8)
[2024-09-29 21:04] LABS: Basophils % (auto) 0.2 % (0.0-2.0); Hematocrit 40.9 % (36.0-46.0); Hemoglobin 13.1 g/dL (12.2-16.2); Lymphocytes % (auto) 13.7 % (10.0-50.0); Mean Corpuscular Hgb Conc. 32.1 g/dL (32.0-36.0); Mean Corpuscular Volume 81.1 fL (80.0-100.0); Monocytes % (auto) 6.5 % (0.0-12.0); Neutrophils % (auto) 78.9 % (37.0-80.0); Platelet Count (auto) 264 10^3/uL (140-450); Red Blood Cells 5.05 10^6/uL (4.0-5.20); Red Cell Distribution Width 17.8 % (11.8-14.3)
[2024-09-29 21:23] LABS: Albumin 4.5 g/dL (3.2-4.8); Alkaline Phosphatase 106 U/L (46-116); Anion Gap 7 (5-15); Aspartate Aminotransferase 15 U/L (13-40); BUN/Creatinine Ratio 14.3 (10.0-20.0); Bilirubin, Total 2.9 mg/dL (0.2-1.0); Blood Urea Nitrogen 10 mg/dL (9-23); Calcium 9.5 mg/dL (8.7-10.4); Carbon Dioxide 27 mmol/L (20-31); Chloride 102 mmol/L (98-107); Glucose 101 mg/dL (74-106); Lipase 30 U/L (12-53); Magnesium 1.9 mg/dL (1.6-2.6); Potassium 3.4 mmol/L (3.5-5.1); Sodium 136 mmol/L (136-145); Total Protein 8.5 g/dL (5.7-8.2)
[2024-09-29 21:24] LABS: Alanine Aminotransferase < 9 U/L (7-40)
--- NOTE | 2024-09-29 22:34 | DVH ---
ABDOMINAL ULTRASOUND CLINICAL HISTORY: abd hernia TECHNIQUE: Multiple grayscale and color Doppler ultrasound images were obtained of the abdomen. WID: COMPARISON: CT abdomen and pelvis from same day FINDINGS/IMPRESSION: 1. There is fat and bowel within an umbilical hernia. 2. Abdominal wall defect measures approximately 10.2 cm. 3. There is also dystrophic calcification within the hernia sac measuring 1.5 cm
[2024-09-29 23:04] VITALS: PULSE 89; RESP 18; O2SAT 90
[2024-09-29] MEDS: SODIUM CHLORIDE 0.9% 1,000 ML IV ONE (23:04)
[2024-09-29] MEDS: ONDANSETRON HCL 4 MG/2 ML VIAL IV ONE (23:04)
[2024-09-29] MEDS: MORPHINE SULFATE 4 MG/ML SYR/VIAL IV ONE (23:32)
[2024-09-29 23:52] LABS: Urine Bacteria MANY /hpf (None Seen); Urine Blood Negative /uL (Negative); Urine Clarity Turbid (Clear); Urine Color Light-Orange (Yellow); Urine Mucus FEW (None Seen); Urine Protein, UAD TRACE (Negative); Urine Specific Gravity 1.027 (1.001-1.035); Urine Urobilinogen 3 mg/dL (Negative); Urine WBC 121 /hpf (0 - 5); Urine WBC Clumps PRESENT /hpf (None Seen); Urine pH 5.5 (5.0-9.0)
[2024-09-30] MEDS: levoFLOXacin 500MG 100 ML IV ONE (01:11)
--- NOTE | 2024-09-30 02:05 | DVH ---
CLINICAL HISTORY: nonconclusive ct TECHNIQUE: CT of the abdomen and pelvis was performed without intravenous contrast. This exam was per formed according to our departmental dose optimization program. Up-to-date CT equipment and radiation dose reduction techniques are utilized as appropriate. [Radimetrics Exposure Report] CTDI: [CTDIvol] DLP: 1463.1 WID: COMPARISON: CT CT AB PEL WO CON-NO ORAL OR IV on DOS: 09/29/24 FINDINGS/IMPRESSION: 1. There is a moderate-sized umbilical hernia containing fat and a segment of small bowel as well as dystrophic calcification. The neck of the hernia measures 5.6 cm. 2. Findings of distal small bowel obstruction with transition point in the umbilical hernia; mild-to- moderate fluid distention of mid to lower small bowel loops leading to a segment of distal small maia l coursing in an umbilical hernia. The small bowel exiting the hernia sac is decompressed. 3. No free air, pneumatosis intestinalis, or fluid collection to suggest abscess. 4. Cystic lesion in the left ovary measuring 6.5 cm which has been present since most remote study fr om 12/08/2019 although has increased in size since then. This could reflect a benign cystic neoplasm . Recommend obtaining nonemergent/ outpatient with pelvic ultrasound for characterization. 5. Mild hepatosplenomegaly. 6. See separately dictated recent CT abdomen and pelvis for additional discussion of findings.
[2024-09-30] MEDS: cefTRIAXone 1GM/50ML D5W 50 ML IV ONE (05:34)
[2024-09-30 06:02] LABS: INR 1.08 (0.9-1.15); Partial Thromboplastin Time 26.5 SEC (24.5-34.5); Prothrombin Time 11.4 sec (9.3-11.8)
[2024-09-30] MEDS: POTASSIUM CHL 20MEQ/100ML 100 ML IV ONE (06:12)
[2024-09-30] MEDS: SODIUM CHLORIDE 0.9% 1,000 ML IV SCH (06:13)
--- NOTE | 2024-09-30 06:14 | DVHHP2 ---
History of Present Illness Reason for Visit: Abdominal pain History of Present Illness 59-year-old female presents for evaluation of abdominal pain. The patient reports worsening abdominal pain over the past two days. She states having abdominal pain for 15 years due to an abdominal hernia. She states that over the past two days she has been having worsening periumbilical sharp pain that is nonradiating with associated nausea, vomiting and some diarrhea. Denies fever or chills. No other acute complaints reported. Past Medical History GERD, Gilbert syndrome, depression, asthma Past Surgical History Denies Family History Noncontributory Smoke: No ALCOHOL: none Drugs: None Lives: with Family Review of Systems Review of Systems Review of systems are currently negative otherwise addressed in HPI. Allergies: Coded Allergies: NO KNOWN ALLERGIES (Unverified , 08/24/24) Medications Current Medications Medications Dose Ordered Sig/Tello Route Start Time Stop Time Status Last Admin Dose Admin Ceftriaxone Sodium 50 ml @ 100 mls/hr DAILY IV 10/01/24 10:00 Sodium Chloride 1,000 ml @ 75 mls/hr [id number] IV 09/30/24 05:00 Ondansetron HCl 4 mg Q4HP PRN IV 09/30/24 05:00 Morphine Sulfate 2 mg Q4HPRN PRN IV 09/30/24 05:00 Exam Vital Signs Vital Signs Date Time Temp Pulse Resp B/P (MAP) Pulse Ox O2 Delivery O2 Flow Rate FiO2 09/30/24 00:34 84 16 124/74 09/29/24 23:04 90 Room Air* 0 21 09/29/24 23:04 97.8 97.8 Exam Gen: 59-year-old female in mild distress, morbidly obese Skin: Warm, dry, normal color and texture, no rash. HEENT: Normocephalic atraumatic, mucous membranes moist and pink. Neck: Cervical and supraclavicular nodes normal without enlargement, trachea is midline, thyroid gland is normal without masses. Pulmonary: Clear to auscultation and percussion bilaterally. Cardiac: Regular rate and rhythm. No murmur Abdomen: Soft, periumbilical tenderness, nondistended, bowel sounds present all 4 quadrants, no guarding, no rigidity, no organomegaly. Extremities: No cyanosis, clubbing, no edema Neuro: Cranial nerves II through XII grossly intact, normal affect and speech, no focal motor deficits. Labs/Xrays ORDERING PHYSICIAN: JORDEN SAWYER MD PROCEDURE(s): ABDL - ABDOMEN LIMITED REASON: abd hernia ORDER NUMBER(s): [id number], ACCESSION NUMBER(s): [id number] ABDOMINAL ULTRASOUND CLINICAL HISTORY: abd hernia TECHNIQUE: Multiple grayscale and color Doppler ultrasound images were obtained of the abdomen. WID: COMPARISON: CT abdomen and pelvis from same day FINDINGS/IMPRESSION: 1. There is fat and bowel within an umbilical hernia. 2. Abdominal wall defect measures approximately 10.2 cm. 3. There is also dystrophic calcification within the hernia sac measuring 1.5 cm RING PHYSICIAN: JORDEN SAWYER MD PROCEDURE(s): ABPL - CT AB PEL WO CON-NO ORAL OR IV REASON: nonconclusive ct ORDER NUMBER(s): [id number], ACCESSION NUMBER(s): [id number] CLINICAL HISTORY: nonconclusive ct TECHNIQUE: CT of the abdomen and pelvis was performed without intravenous contrast. This exam was performed according to our departmental dose optimization program. Up-to-date CT equipment and radiation dose reduction techniques are utilized as appropriate. [Radimetrics Exposure Report] CTDI: [CTDIvol] DLP: 1463.1 WID: COMPARISON: CT CT AB PEL WO CON-NO ORAL OR IV on DOS: 09/29/24 FINDINGS/IMPRESSION: 1. There is a moderate-sized umbilical hernia containing fat and a segment of small bowel as well as dystrophic calcification. The neck of the hernia measures 5.6 cm. 2. Findings of distal small bowel obstruction with transition point in the umbilical hernia; [id number] fluid distention of mid to lower small bowel loops leading to a segment of distal small bowel coursing in an umbilical hernia. The small bowel exiting the hernia sac is decompressed. 3. No free air, pneumatosis intestinalis, or fluid collection to suggest abscess. 4. Cystic lesion in the left ovary measuring 6.5 cm which has been present since most remote study from 12/08/2019 although has increased in size since then. This could reflect a benign cystic neoplasm. Recommend obtaining nonemergent/ outpatient with pelvic ultrasound for characterization. 5. Mild hepatosplenomegaly. 6. See separately dictated recent CT abdomen and pelvis for additional discussi on of findings. Labs Test 09/30/24 05:19 09/29/24 23:00 09/29/24 20:30 Range/Units Prothrombin Time 11.4 9.3-11.8 sec Prothrombin Time INR 1.08 0.9-1.15 Activated Partial Thromboplast Time 26.5 24.5-34.5 SEC Urine Color Light-orange Yellow Urine Clarity Turbid H Clear Urine pH 5.5 5.0-9.0 Urine Specific [place] 1.027 1.001-1.035 Urine Protein Trace H Negative Urine Ketones Negative Negative Urine Blood Negative Negative /uL Urine Nitrite 2+ H Negative Urine Bilirubin Negative Negative Urine Urobilinogen 3 H Negative mg/dL Urine Leukocyte Esterase 3+ Negative /uL Urine RBC 5 0 - 4 /hpf Urine WBC 121 0 - 5 /hpf Urine WBC Clumps Present None Seen /hpf Urine Squamous Epithelial Cells Mod <5 /hpf Urine Bacteria Many H None Seen /hpf Urine Mucus Few None Seen Urine Glucose Normal Normal mg/dL White Blood Count 8.5 4.4-10.8 10^3/uL Red Blood Count 5.05 4.0-5.20 10^6/uL Hemoglobin 13.1 12.2-16.2 g/dL Hematocrit 40.9 36.0-46.0 % Mean Corpuscular Volume 81.1 80.0-100.0 fL Mean Corpuscular Hemoglobin 26.0 L 28.0-32.0 pg Mean Corpuscular Hemoglobin Concent 32.1 32.0-36.0 g/dL Red Cell Distribution Width 17.8 H 11.8-14.3 % Platelet Count 264 140-450 10^3/uL Mean Platelet Volume 8.0 6.9-10.8 fL Neutrophils (%) (Auto) 78.9 37.0-80.0 % Lymphocytes (%) (Auto) 13.7 10.0-50.0 % Monocytes (%) (Auto) 6.5 0.0-12.0 % Eosinophils (%) (Auto) 0.7 0.0-7.0 % Basophils (%) (Auto) 0.2 0.0-2.0 % Neutrophils # (Auto) 6.7 1.6-8.6 10 ^3/uL Lymphocytes # (Auto) 1.2 0.4-5.4 10 ^3/uL Monocytes # (Auto) 0.6 0-1.3 10 ^3/uL Eosinophils # (Auto) 0.1 0-0.8 10 ^3/uL Basophils # (Auto) 0 0-0.2 10 ^3/uL Nucleated Red Blood Cells 0.2 % Sodium Level 136 136-145 mmol/L Potassium Level 3.4 L 3.5-5.1 mmol/L Chloride Level 102 98-107 mmol/L Carbon Dioxide Level 27 20-31 mmol/L Anion Gap 7 5-15 Blood Urea Nitrogen 10 9-23 mg/dL Creatinine 0.70 0.550-1.02 mg/dL Glomerular Filtration Rate Calc 100 >90 mL/min BUN/Creatinine Ratio 14.3 10.0-20.0 Serum Glucose 101 74-106 mg/dL Lactic Acid Level 1.7 0.4-2.0 mmol/L Calcium Level 9.5 8.7-10.4 mg/dL Magnesium Level 1.9 1.6-2.6 mg/dL Total Bilirubin 2.9 H 0.2-1.0 mg/dL Aspartate Amino Transferase (AST) 15 13-40 U/L Alanine Aminotransferase (ALT) < 9 7-40 U/L Alkaline Phosphatase 106 46-116 U/L Total Protein 8.5 H 5.7-8.2 g/dL Albumin 4.5 3.2-4.8 g/dL Lipase 30 12-53 U/L Assessment/Plan Assessment/Plan Assessment Small-bowel obstruction Hypokalemia Morbid obesity Plan Admit the patient to [facility] to the hospitalist Surgical consultation NPO Maintenance IV fluids Pain management Continue treatment per orders. Plan discussed with: Patient My Orders Orders - JOSE SALVADOR AGACNP Procedure Category Date Status Time Chest Xray 1 View XY 09/30/24 Logged 04:46 Small Bowel Series-W XY 09/30/24 Logged Gastrogra 04:46 Type And Screen BBK 09/30/24 In Process 04:46 * Surgical Consult CONS 09/30/24 Transmitted Potassium Chl PHA 09/30/24 In Process 20meq/100ml 05:00 Sodium Chloride 0.9% PHA 11/13/24 In Process 05:00 Admit ADMIT 09/30/24 Transmitted 04:46 Ondansetron Hcl PHA 09/30/24 In Process (Zofran) 05:00 Complete Blood Count LAB 10/01/24 Verified 04:00 Comprehensive LAB 10/01/24 Verified Metabolic Panel 04:00 Npo (Nothing By DIET 09/30/24 Transmitted Mouth) Diet Breakfast Condition: Stable GISSEL 09/30/24 In Process 04:46 Bedrest With Bathroom GISSEL 09/30/24 In Process Privileg 04:46 Morphine Sulfate PHA 09/30/24 In Process Injection 05:00 Ceftriaxone 1gm/50ml PHA 10/01/24 In Process D5w (Rocephin) 10:00 Date of Service: Sep 30, 2024 Billing Provider: JOSE SALVADOR Common Visit Codes: [id number] INP/OBS CARE (HIGH) JOSE SALVADOR Sep 30, 2024 06:14
[2024-09-30] MEDS: SUCCINYLCHOLINE CHLORIDE 20 MG/ML 10ML VIAL IV ONE (06:54)
[2024-09-30] MEDS ORDERED: fentaNYL CITRATE 100 MCG/2 ML VL ONE (06:55)
[2024-09-30] MEDS ORDERED: PROPOFOL 10 MG/ML 20 ML IV ONE (06:55)
--- NOTE | 2024-09-30 07:00 | DVH ---
CHEST RADIOGRAPH Indication:sob Technique: Single frontal view of the chest was obtained Comparison: XY CHEST PORTABLE on DOS: 02/29/24, XY CHEST PORTABLE on DOS: 02/29/24 FINDINGS: Lines and Tubes: NG tube in stomach. Lungs: No focal consolidation. Pleura: No effusion. No pneumothorax. Cardiomediastinal contours: Unremarkable Bones: No acute osseous abnormality. IMPRESSION: NG tube in stomach. No acute cardiopulmonary disease.
[2024-09-30] MEDS: ceFAZolin 2 GM/D5W100ml 100 ML IV ONE (07:36)
--- NOTE | 2024-09-30 07:40 | DVHINCON2 ---
Date of service: Sep 30, 2024 Family History: Diabetes mellitus MOTHER BROTHER Hypercholesterolemia MOTHER Hypertension MOTHER Allergies: Coded Allergies: NO KNOWN ALLERGIES (Unverified , 08/24/24) Home Meds Active Scripts Mupirocin Calcium (Topical) (MUPIROCIN) 2 % Cre, 2 % EX TID for 10 Days, #1 CRE Prov:FOSTER SERRANO RESIDENT 08/30/24 Reported Medications Albuterol Sulfate (Albuterol Sulfate) 2 Mg Tab, 2 MG IN Q6HP PRN for SHORTNESS OF BREATH, MG 02/29/24 Benazepril HCl (Benazepril Hydrochloride) 10 Mg Tab, 12.5 MG PO DAILY, TAB 02/29/24 Cyclobenzaprine Hcl (Cyclobenzaprine Hcl) 10 Mg Tab, 10 MG PO Q8HP PRN for FOR MUSCLE SPASM for 30 Days, MG 02/29/24 Ketorolac Tromethamine (Ketorolac Tromethamine) 10 Mg Tab, 10 MG PO DAILY, TAB 02/29/24 Citalopram Hydrobromide (Citalopram Hydrobromide) 20 Mg Tab, 20 MG PO DAILY, TAB 02/29/24 Pantoprazole Sodium (PANTOPRAZOLE SODIUM) 40 Mg Inj, 40 MG PO DAILY, INJ 02/29/24 Gabapentin (Gabapentin) 600 Mg Tab, 600 MG PO BID, TAB 02/29/24 Current Medications Current Medications Medications (Trade) Dose Ordered Sig/Tello Route PRN Reason Start Time Stop Time Status Last Admin Ceftriaxone Sodium 50 ml @ 100 mls/hr DAILY IV 10/01/24 10:00 Sodium Chloride 1,000 ml @ 75 mls/hr [id number] IV 09/30/24 05:00 09/30/24 06:13 Ondansetron HCl (Zofran) 4 mg Q4HP PRN IV NAUSEA / VOMITING 09/30/24 05:00 Morphine Sulfate 2 mg Q4HPRN PRN IV SEVERE PAIN (7-10 PAIN SCALE) 09/30/24 05:00 Vital Signs Vital Signs Date Time Temp Pulse Resp B/P (MAP) Pulse Ox O2 Delivery O2 Flow Rate FiO2 09/30/24 06:00 85 14 135/76 (95) 96 09/30/24 04:10 98.1 98.1 09/29/24 23:04 Room Air* 0 21 Labs/Diagnostic Data Labs Test 09/30/24 05:19 09/29/24 23:00 09/29/24 20:30 Range/Units Prothrombin Time 11.4 9.3-11.8 sec Prothrombin Time INR 1.08 0.9-1.15 Activated Partial Thromboplast Time 26.5 24.5-34.5 SEC Urine Color Light-orange Yellow Urine Clarity Turbid H Clear Urine pH 5.5 5.0-9.0 Urine Specific [place] 1.027 1.001-1.035 Urine Protein Trace H Negative Urine Ketones Negative Negative Urine Blood Negative Negative /uL Urine Nitrite 2+ H Negative Urine Bilirubin Negative Negative Urine Urobilinogen 3 H Negative mg/dL Urine Leukocyte Esterase 3+ Negative /uL Urine RBC 5 0 - 4 /hpf Urine WBC 121 0 - 5 /hpf Urine WBC Clumps Present None Seen /hpf Urine Squamous Epithelial Cells Mod <5 /hpf Urine Bacteria Many H None Seen /hpf Urine Mucus Few None Seen Urine Glucose Normal Normal mg/dL White Blood Count 8.5 4.4-10.8 10^3/uL Red Blood Count 5.05 4.0-5.20 10^6/uL Hemoglobin 13.1 12.2-16.2 g/dL Hematocrit 40.9 36.0-46.0 % Mean Corpuscular Volume 81.1 80.0-100.0 fL Mean Corpuscular Hemoglobin 26.0 L 28.0-32.0 pg Mean Corpuscular Hemoglobin Concent 32.1 32.0-36.0 g/dL Red Cell Distribution Width 17.8 H 11.8-14.3 % Platelet Count 264 140-450 10^3/uL Mean Platelet Volume 8.0 6.9-10.8 fL Neutrophils (%) (Auto) 78.9 37.0-80.0 % Lymphocytes (%) (Auto) 13.7 10.0-50.0 % Monocytes (%) (Auto) 6.5 0.0-12.0 % Eosinophils (%) (Auto) 0.7 0.0-7.0 % Basophils (%) (Auto) 0.2 0.0-2.0 % Neutrophils # (Auto) 6.7 1.6-8.6 10 ^3/uL Lymphocytes # (Auto) 1.2 0.4-5.4 10 ^3/uL Monocytes # (Auto) 0.6 0-1.3 10 ^3/uL Eosinophils # (Auto) 0.1 0-0.8 10 ^3/uL Basophils # (Auto) 0 0-0.2 10 ^3/uL Nucleated Red Blood Cells 0.2 % Sodium Level 136 136-145 mmol/L Potassium Level 3.4 L 3.5-5.1 mmol/L Chloride Level 102 98-107 mmol/L Carbon Dioxide Level 27 20-31 mmol/L Anion Gap 7 5-15 Blood Urea Nitrogen 10 9-23 mg/dL Creatinine 0.70 0.550-1.02 mg/dL Glomerular Filtration Rate Calc 100 >90 mL/min BUN/Creatinine Ratio 14.3 10.0-20.0 Serum Glucose 101 74-106 mg/dL Lactic Acid Level 1.7 0.4-2.0 mmol/L Calcium Level 9.5 8.7-10.4 mg/dL Magnesium Level 1.9 1.6-2.6 mg/dL Total Bilirubin 2.9 H 0.2-1.0 mg/dL Aspartate Amino Transferase (AST) 15 13-40 U/L Alanine Aminotransferase (ALT) < 9 7-40 U/L Alkaline Phosphatase 106 46-116 U/L Total Protein 8.5 H 5.7-8.2 g/dL Albumin 4.5 3.2-4.8 g/dL Lipase 30 12-53 U/L Assessment 59 year old morbidly obese female with an umbilical hernia of"15 years standing" came in because of pain, was found to have an incarcerated umbilical hernia with developing bowel obstruction.abdomen obese with visible umbilical hernia and excoriation of her umbilicus with obvious omphalitis, explained to patient(and her daughter on the phone) that the hernia will most likely recur due to her obesity (BMI 47.1)) and that dueto the infection in her umbilicus we can not use any prosthetic material to reinforce the repair. Plan discussed with: Patient, Other BONIFACIO CHRISTENSEN MD Sep 30, 2024 07:40
[2024-09-30] MEDS ORDERED: ONDANSETRON HCL 4 MG/2 ML VIAL ONE (08:04)
[2024-09-30] MEDS ORDERED: ROCURONIUM 10MG/ML 10ML VIAL IV ONE (08:04)
[2024-09-30] MEDS ORDERED: MEPERIDINE HCL (50 MG/ML) 1 ML VIAL ONE (08:04)
[2024-09-30] MEDS ORDERED: PHENYLEPHRINE HCL 10 MG/ML VL ONE (08:06)
[2024-09-30] MEDS ORDERED: SUGAMMADEX 200mg/2ml Vial (100MG/ML) IV ONE (08:46)
[2024-09-30] MEDS: BUPIVACAINE 0.5% P/F INJ 10 ML VIAL ONE (08:51)
[2024-09-30] MEDS: LIDOCAINE W/ EPINEPHRINE 1% 20ML VIAL ONE (08:52)
--- NOTE | 2024-09-30 08:58 | ECG ---
[facility] Test Date: 2024-09-29 Test Time: 19:20:06 Pat Name: PAUL MUHAMMAD Department: ED Room: 0250 Gender: F [employer] Supervisor: cristo : 1965 Requested By: JORDEN SAWYER Order Number: [id number] Reading MD: Jagdeep Monteiro Measurements Intervals [place] Rate: 82 P: 54 FL: 141 QRS: -42 QRSD: 101 T: 56 QT: 394 QTc: 461 Interpretive Statements Sinus rhythm Left axis deviation Abnormal R-wave progression, late transition Electronically Signed On 10-08-2024 12:57:51 PST by Jagdeep Monteiro Please click the below link to view image of tracing.
[2024-09-30 09:02] VITALS: RESP 18; O2SAT 96
[2024-09-30] MEDS ORDERED: MEPERIDINE HCL (25 MG/ML) 1ML VIAL IV PRN (09:15)
[2024-09-30] MEDS: ONDANSETRON HCL 4 MG/2 ML VIAL IV ONE (09:15)
[2024-09-30] MEDS ORDERED: ACETAMINOPHEN IV 1000 MG/100ML (10MG/ML) IV PRN (09:15)
[2024-09-30] MEDS ORDERED: HYDROmorphone HCL 2 MG/ML VL/or syr IV PRN (09:15)
--- NOTE | 2024-09-30 09:18 | DVHOP ---
DATE OF SURGERY: 09/30/2024 PREOPERATIVE DIAGNOSES: Incarcerated umbilical hernia impending small-bowel obstruction and morbid obesity. POSTOPERATIVE DIAGNOSES: Incarcerated umbilical hernia impending small-bowel obstruction and morbid obesity. SURGEON: Vick Reis MD DIRECTOR PHYSICAL THERAPY: Cornel Jeffery NP ANESTHESIA: General endotracheal. ANESTHESIOLOGIST: ____. PROCEDURE: Repair of incarcerated umbilical hernia and omentectomy. DESCRIPTION OF PROCEDURE: Under adequate anesthesia, with the patient's skin prepped and draped, a vertical incision was made centered around the infected inflamed umbilicus with the incarcerated hernia visible and palpable. The adipose tissue was divided. The hernia defect was encountered. It was very difficult to reach inside of peritoneal cavity due to the patient's morbid obesity, incarcerated bowel, and huge amount of omental fat, which was incarcerated in the hernia. The defect measured approximately 3-4 cm in length. Through this, many loops of small bowel, which was viable and nonedematous and nonischemic appearing were reduced back into the peritoneal cavity. An omentectomy was accomplished, the stalks of the omentum were ligated with 0 ligatures and then the defect of the hernia was grasped with Garry clamps and the fascia placed on tension. The fascia was under swept with the dissecting finger so as to minimize the potential for inadvertent injury to the small bowel and the patient's hernia defect was approximated using #1 double stranded Prolene suture in a horizontal mattress suture that was then reinforced with nonabsorbable sutures through and through the resulting crest of the suture line. The subcutaneous tissues and skin were approximated. The patient remained stable throughout the procedure, left the operating room following an accurate needle and sponge count. No family members were in the waiting room. Vick Reis MD PF TID: [id number] RECEIPT: [id number]
[2024-09-30] MEDS: ONDANSETRON HCL 4 MG/2 ML VIAL IV PRN (10:33)
[2024-09-30 16:32] VITALS: BP 126/74; PULSE 88; RESP 20; TEMP 97.7; O2SAT 91
[2024-09-30] MEDS: MORPHINE SULFATE INJ 2 MG/ml SYRG IV PRN (17:00)
[2024-09-30] MEDS: D5W/SOD CHL 0.45%/KCL 20MEQ 1,000 ML IV SCH (18:01)
[2024-09-30 20:00] VITALS: PULSE 75; RESP 18; O2SAT 98
[2024-09-30 21:00] VITALS: BP 117/68; PULSE 75; RESP 18; TEMP 98.5; O2SAT 98
[2024-10-01] VITALS (8 sets, daily range): BP systolic 91–118; BP diastolic 54–67; PULSE 69–85; RESP 18–20; TEMP 97.7–98.7; O2SAT 80–99
[2024-10-01 07:09] LABS: Basophils # (auto) 0 10 ^3/uL (0-0.2); Basophils % (auto) 0.6 % (0.0-2.0); Eosinophils # (auto) 0.1 10 ^3/uL (0-0.8); Eosinophils % (auto) 1.4 % (0.0-7.0); Hematocrit 34.7 % (36.0-46.0); Hemoglobin 10.8 g/dL (12.2-16.2); Lymphocytes # (auto) 0.9 10 ^3/uL (0.4-5.4); Lymphocytes % (auto) 11.8 % (10.0-50.0); Mean Corpuscular Hemoglobin 25.9 pg (28.0-32.0); Mean Corpuscular Hgb Conc. 31.1 g/dL (32.0-36.0); Mean Corpuscular Volume 83.1 fL (80.0-100.0); Monocytes # (auto) 0.6 10 ^3/uL (0-1.3); Monocytes % (auto) 8.5 % (0.0-12.0); Neutrophils # (auto) 5.7 10 ^3/uL (1.6-8.6); Neutrophils % (auto) 77.7 % (37.0-80.0); Nucleated Red Blood Cells % 0.1 %; Platelet Count (auto) 237 10^3/uL (140-450); Red Blood Cells 4.18 10^6/uL (4.0-5.20); Red Cell Distribution Width 17.6 % (11.8-14.3); White Blood Cell 7.3 10^3/uL (4.4-10.8)
[2024-10-01 08:52] LABS: Albumin 3.5 g/dL (3.2-4.8); Alkaline Phosphatase 88 U/L (46-116); Aspartate Aminotransferase 19 U/L (13-40); BUN/Creatinine Ratio 13.6 (10.0-20.0); Blood Urea Nitrogen 8 mg/dL (9-23); Calcium 8.4 mg/dL (8.7-10.4); Carbon Dioxide 31 mmol/L (20-31); Glucose 114 mg/dL (74-106); Potassium 3.7 mmol/L (3.5-5.1); Sodium 140 mmol/L (136-145); Total Protein 6.9 g/dL (5.7-8.2)
[2024-10-01 08:55] LABS: Alanine Aminotransferase < 9 U/L (7-40)
--- NOTE | 2024-10-01 08:57 | DVHPN2 ---
Progress Note Date Seen: Oct 01, 2024 Medical Necessity Reason Pt with a Central, PICC or Fol: No Objective vital signs Vital Sign Date Time Temp Pulse Resp B/P (MAP) Pulse Ox O2 Delivery O2 Flow Rate FiO2 10/01/24 08:34 97.8 75 20 106/56 (73) 97 97.8 09/30/24 20:00 Nasal Cannula* 4 36 Total Intake and Output 09/30/24 09/30/24 10/01/24 15:00 23:00 07:00 Intake Total 1000 ml Balance 1000 ml medications Current Medications Medications Dose Ordered Sig/Tello Route Start Time Stop Time Status Last Admin Dose Admin Ceftriaxone Sodium 50 ml @ 100 mls/hr DAILY IV 10/01/24 10:00 Ondansetron HCl 4 mg Q4HP PRN IV 09/30/24 05:00 09/30/24 10:33 4 MG Morphine Sulfate 2 mg Q4HPRN PRN IV 09/30/24 05:00 10/01/24 03:21 2 MG Potassium Chloride/Dextrose/ Sod Cl 1,000 ml @ 120 mls/hr Q8H20M IV 09/30/24 09:00 10/01/24 03:15 120 MLS/HR laboratory and microbiology Laboratory Tests 10/01/24 05:41 Test 10/01/24 08:20 Range/Units Serum Glucose Pending Problem List/Assessment/Plan Problem List/Assessment/Plan 10/01/24 AWAKENS, COOPERATIVE, HAS NOT AMBULATED, NO FLATUS OR BM, ABDOMEN NONDISTENDED, APPROPRIATELY TENDER, DRAINAGE SEROUS Plan discussed with: Patient BONIFACIO CHRISTENSEN MD Oct 01, 2024 08:57
[2024-10-01 09:07] LABS: Anion Gap 5 (5-15); Chloride 104 mmol/L (98-107)
[2024-10-01] MEDS: cefTRIAXone 1GM/50ML D5W 50 ML IV SCH (09:39)
--- NOTE | 2024-10-01 14:41 | DVHPN2 ---
Reviewed: Care Plan, H&P, Labs, Medications, Previous Orders, Radiology Changes from previous H/P or p: No Changes General: Per HPI Objective Vitals Vital Signs Date Time Temp Pulse Resp B/P (MAP) Pulse Ox O2 Delivery O2 Flow Rate FiO2 10/01/24 13:32 97.7 69 18 112/58 (76) 96 97.7 10/01/24 08:00 Nasal Cannula* 4 36 Intake/Output Intake and Output 10/01/24 07:00 Intake Total 1000 ml Balance 1000 ml Intake Oral 0 ml IV Total 1000 ml # Voids 3 General Appearance: Alert, Oriented X3, Cooperative, No acute distress Lungs: Clear to auscultation Abdomen: Normal bowel sounds, Soft Medications Current Medications Medications Dose Ordered Sig/Tello Route Start Time Stop Time Status Last Admin Dose Admin Ondansetron HCl 4 mg Q4HP PRN IV 09/30/24 05:00 10/01/24 10:50 4 MG Morphine Sulfate 2 mg Q4HPRN PRN IV 09/30/24 05:00 10/01/24 11:15 2 MG Potassium Chloride/Dextrose/ Sod Cl 1,000 ml @ 120 mls/hr Q8H20M IV 09/30/24 09:00 10/01/24 09:39 120 MLS/HR Levofloxacin/ Dextrose 100 ml @ 100 mls/hr DAILY IV 10/02/24 10:00 10/07/24 10:00 Laboratory Results Laboratory Tests 10/01/24 05:41 10/01/24 08:20 Chemistry Test 10/01/24 08:20 Albumin 3.5 g/dL (3.2-4.8) Calcium Level 8.4 mg/dL (8.7-10.4) L Total Protein 6.9 g/dL (5.7-8.2) LFT Test 10/01/24 08:20 Alanine Aminotransferase (ALT) < 9 U/L (7-40) Alkaline Phosphatase 88 U/L (46-116) Aspartate Amino Transferase (AST) 19 U/L (13-40) Total Bilirubin 2.0 mg/dL (0.2-1.0) H Urinalysis Test 09/29/24 23:00 Urine Color Light-orange (Yellow) Urine Clarity Turbid (Clear) H Urine pH 5.5 (5.0-9.0) Urine Specific [place] 1.027 (1.001-1.035) Urine Protein Trace (Negative) H Urine Ketones Negative (Negative) Urine Blood Negative /uL (Negative) Urine Nitrite 2+ (Negative) H Urine Bilirubin Negative (Negative) Urine Urobilinogen 3 mg/dL (Negative) H Urine Leukocyte Esterase 3+ /uL (Negative) Urine RBC 5 /hpf (0 - 4) Urine WBC 121 /hpf (0 - 5) Urine WBC Clumps Present /hpf (None Seen) Urine Squamous Epithelial Cells Mod /hpf (<5) Urine Bacteria Many /hpf (None Seen) H Urine Mucus Few (None Seen) Urine Glucose Normal mg/dL (Normal) Labs and/or images reviewed: Labs reviewed by me, Image(s) reviewed by me Assessment/Plan Assessment/Plan Small-bowel obstruction Hypokalemia Morbid obesity undergoing surgery today Plan discussed with: Patient My Orders Orders - SONIDO PERRY DO Procedure Category Date Status Time Levofloxacin 500mg PHA 10/02/24 In Process (Levaquin 500mg/ 100m 10:00 Date of Service: Oct 01, 2024 Billing Provider: SONIDO PERRY DO Common Visit Codes: [id number] INP/OBS CARE(HIGH) SONIDO PERRY DO Oct 01, 2024 14:41
[2024-10-02] VITALS (7 sets, daily range): BP systolic 103–156; BP diastolic 38–83; PULSE 62–70; RESP 16–22; TEMP 97.6–98.7; O2SAT 93–100
[2024-10-02] MEDS: levoFLOXacin 500MG 100 ML IV SCH (08:59)
--- NOTE | 2024-10-02 11:10 | DVHPN2 ---
Progress Note Date Seen: Oct 02, 2024 Medical Necessity Reason Pt with a Central, PICC or Fol: No Objective vital signs Vital Sign Date Time Temp Pulse Resp B/P (MAP) Pulse Ox O2 Delivery O2 Flow Rate FiO2 10/02/24 10:42 70 16 148/57 10/02/24 09:00 97.9 93 97.9 10/02/24 08:00 Nasal Cannula* 4 36 Total Intake and Output 10/01/24 10/01/24 10/02/24 15:00 23:00 07:00 Intake Total 1410 ml 0 ml Output Total 100 ml 500 ml Balance 1310 ml -500 ml 0 ml medications Current Medications Medications Dose Ordered Sig/Tello Route Start Time Stop Time Status Last Admin Dose Admin Ondansetron HCl 4 mg Q4HP PRN IV 09/30/24 05:00 10/02/24 10:41 4 MG Morphine Sulfate 2 mg Q4HPRN PRN IV 09/30/24 05:00 10/02/24 10:42 2 MG Potassium Chloride/Dextrose/ Sod Cl 1,000 ml @ 120 mls/hr Q8H20M IV 09/30/24 09:00 10/02/24 08:59 120 MLS/HR Levofloxacin/ Dextrose 100 ml @ 100 mls/hr DAILY IV 10/02/24 10:00 10/07/24 10:00 10/02/24 08:59 100 MLS/HR laboratory and microbiology Laboratory Tests 10/01/24 08:20 10/01/24 05:41 Test 10/01/24 08:20 Range/Units Serum Glucose 114 H 74-106 mg/dL Problem List/Assessment/Plan Problem List/Assessment/Plan 10/01/24 AWAKENS, COOPERATIVE, HAS NOT AMBULATED, NO FLATUS OR BM, ABDOMEN NONDISTENDED, APPROPRIATELY TENDER, DRAINAGE SEROUS 10/02/24 passing flatus, abdopmen non distended, OK to DC NG tube, may have clear liquids, MUST AMBULATE Plan discussed with: Patient, Son BONIFACIO CHRISTENSEN MD Oct 02, 2024 11:10
[2024-10-03] VITALS (8 sets, daily range): BP systolic 102–115; BP diastolic 56–68; PULSE 60–79; RESP 17–20; TEMP 97.4–98.2; O2SAT 92–98
--- NOTE | 2024-10-03 15:30 | DVHPN2 ---
Reviewed: Care Plan, H&P, Labs, Medications, Previous Orders, Radiology Changes from previous H/P or p: No Changes General: Per HPI Objective Vitals Vital Signs Date Time Temp Pulse Resp B/P (MAP) Pulse Ox O2 Delivery O2 Flow Rate FiO2 10/03/24 13:12 98.2 69 20 115/61 (79) 97 98.2 10/03/24 08:04 Nasal Cannula* 4 36 Intake/Output Intake and Output 10/03/24 07:00 Intake Total 2940 ml Output Total 3 ml Balance 2937 ml Intake Oral 840 ml IV Total 2100 ml Output Urine Total 3 ml # Voids 4 General Appearance: Alert, Oriented X3, Cooperative Cardiovascular: Regular rate, Normal S1, Normal S2 Abdomen: Normal bowel sounds, Soft Medications Current Medications Medications Dose Ordered Sig/Tello Route Start Time Stop Time Status Last Admin Dose Admin Ondansetron HCl 4 mg Q4HP PRN IV 09/30/24 05:00 10/03/24 08:50 4 MG Morphine Sulfate 2 mg Q4HPRN PRN IV 09/30/24 05:00 10/03/24 08:51 2 MG Potassium Chloride/Dextrose/ Sod Cl 1,000 ml @ 120 mls/hr Q8H20M IV 09/30/24 09:00 10/03/24 03:40 120 MLS/HR Levofloxacin/ Dextrose 100 ml @ 100 mls/hr DAILY IV 10/02/24 10:00 10/07/24 10:00 10/03/24 08:54 100 MLS/HR Laboratory Results Laboratory Tests 10/01/24 05:41 10/01/24 08:20 Urinalysis Test 09/29/24 23:00 Urine Color Light-orange (Yellow) Urine Clarity Turbid (Clear) H Urine pH 5.5 (5.0-9.0) Urine Specific [place] 1.027 (1.001-1.035) Urine Protein Trace (Negative) H Urine Ketones Negative (Negative) Urine Blood Negative /uL (Negative) Urine Nitrite 2+ (Negative) H Urine Bilirubin Negative (Negative) Urine Urobilinogen 3 mg/dL (Negative) H Urine Leukocyte Esterase 3+ /uL (Negative) Urine RBC 5 /hpf (0 - 4) Urine WBC 121 /hpf (0 - 5) Urine WBC Clumps Present /hpf (None Seen) Urine Squamous Epithelial Cells Mod /hpf (<5) Urine Bacteria Many /hpf (None Seen) H Urine Mucus Few (None Seen) Urine Glucose Normal mg/dL (Normal) Labs and/or images reviewed: Labs reviewed by me, Image(s) reviewed by me Assessment/Plan Assessment/Plan Small-bowel obstruction s/p surgery Hypokalemia Morbid obesity 10/02/2024: encourage ambulation advance diet as tolerated Plan discussed with: Patient Date of Service: Oct 02, 2024 Billing Provider: SONIDO PERRY DO Common Visit Codes: [id number] INP/OBS CARE(HIGH) SONIDO PERRY DO Oct 03, 2024 15:30
--- NOTE | 2024-10-03 15:53 | DVHPN2 ---
Reviewed: Care Plan, H&P, Labs, Medications, Previous Orders, Radiology Changes from previous H/P or p: No Changes General: Per HPI Objective Vitals Vital Signs Date Time Temp Pulse Resp B/P (MAP) Pulse Ox O2 Delivery O2 Flow Rate FiO2 10/03/24 15:29 68 20 102/56 10/03/24 13:12 98.2 97 98.2 10/03/24 08:04 Nasal Cannula* 4 36 Intake/Output Intake and Output 10/03/24 07:00 Intake Total 2940 ml Output Total 3 ml Balance 2937 ml Intake Oral 840 ml IV Total 2100 ml Output Urine Total 3 ml # Voids 4 General Appearance: Alert, Oriented X3, Cooperative Cardiovascular: Regular rate, Normal S1, Normal S2 Abdomen: Normal bowel sounds, Soft Medications Current Medications Medications Dose Ordered Sig/Tello Route Start Time Stop Time Status Last Admin Dose Admin Ondansetron HCl 4 mg Q4HP PRN IV 09/30/24 05:00 10/03/24 15:33 4 MG Morphine Sulfate 2 mg Q4HPRN PRN IV 09/30/24 05:00 10/03/24 15:29 2 MG Levofloxacin/ Dextrose 100 ml @ 100 mls/hr DAILY IV 10/02/24 10:00 10/07/24 10:00 10/03/24 08:54 100 MLS/HR Laboratory Results Laboratory Tests 10/01/24 05:41 10/01/24 08:20 Urinalysis Test 09/29/24 23:00 Urine Color Light-orange (Yellow) Urine Clarity Turbid (Clear) H Urine pH 5.5 (5.0-9.0) Urine Specific [place] 1.027 (1.001-1.035) Urine Protein Trace (Negative) H Urine Ketones Negative (Negative) Urine Blood Negative /uL (Negative) Urine Nitrite 2+ (Negative) H Urine Bilirubin Negative (Negative) Urine Urobilinogen 3 mg/dL (Negative) H Urine Leukocyte Esterase 3+ /uL (Negative) Urine RBC 5 /hpf (0 - 4) Urine WBC 121 /hpf (0 - 5) Urine WBC Clumps Present /hpf (None Seen) Urine Squamous Epithelial Cells Mod /hpf (<5) Urine Bacteria Many /hpf (None Seen) H Urine Mucus Few (None Seen) Urine Glucose Normal mg/dL (Normal) Assessment/Plan Assessment/Plan Small-bowel obstruction s/p surgery Hypokalemia Morbid obesity 10/02/2024: encourage ambulation advance diet as tolerated 10/03/2024: tolerated full liquid, advance to soft pt is ambulating, some flatulence, no bm yet Plan discussed with: Patient My Orders Orders - SONIDO PERRY DO Procedure Category Date Status Time Full Liq Diet DIET 10/03/24 Transmitted Dinner Soft Diet DIET 10/03/24 Transmitted Dinner Date of Service: Oct 03, 2024 Billing Provider: SONIDO PERRY DO Common Visit Codes: [id number] INP/OBS CARE(HIGH) SONIDO PERRY DO Oct 03, 2024 15:53
[2024-10-04] VITALS (8 sets, daily range): BP systolic 103–117; BP diastolic 51–62; PULSE 64–80; RESP 17–24; TEMP 97.7–98.8; O2SAT 80–98
--- NOTE | 2024-10-04 07:42 | DVHPN2 ---
Progress Note Date Seen: Oct 04, 2024 Medical Necessity Reason Pt with a Central, PICC or Fol: No Objective vital signs Vital Sign Date Time Temp Pulse Resp B/P (MAP) Pulse Ox O2 Delivery O2 Flow Rate FiO2 10/04/24 05:00 98.8 65 18 103/55 (71) 94 98.8 10/03/24 20:00 Nasal Cannula* 3 32 Total Intake and Output 10/03/24 10/03/24 10/04/24 15:00 23:00 07:00 Intake Total 100 ml 3500 ml 400 ml Output Total 500 ml 1200 ml Balance 100 ml 3000 ml -800 ml medications Current Medications Medications Dose Ordered Sig/Tello Route Start Time Stop Time Status Last Admin Dose Admin Ondansetron HCl 4 mg Q4HP PRN IV 09/30/24 05:00 10/04/24 02:23 4 MG Morphine Sulfate 2 mg Q4HPRN PRN IV 09/30/24 05:00 10/04/24 02:22 2 MG Levofloxacin/ Dextrose 100 ml @ 100 mls/hr DAILY IV 10/02/24 10:00 10/07/24 10:00 10/03/24 08:54 100 MLS/HR laboratory and microbiology Laboratory Tests 10/01/24 08:20 10/01/24 05:41 Test 10/01/24 08:20 Range/Units Serum Glucose 114 H 74-106 mg/dL Problem List/Assessment/Plan Problem List/Assessment/Plan 10/01/24 AWAKENS, COOPERATIVE, HAS NOT AMBULATED, NO FLATUS OR BM, ABDOMEN NONDISTENDED, APPROPRIATELY TENDER, DRAINAGE SEROUS 10/02/24 passing flatus, abdopmen non distended, OK to DC NG tube, may have clear liquids, MUST AMBULATE 10/04/24 AWAKE, WOUND OK, ABDOMEN APPROPRIATELY TENDER, Plan discussed with: Patient BONIFACIO CHRISTENSEN MD Oct 04, 2024 07:42
[2024-10-04] MEDS ORDERED: DOCU-265 PO (16:07)
[2024-10-04] MEDS ORDERED: CEPH250C PO (16:07)
[2024-10-04] MEDS ORDERED: NAPR-746 PO (16:07)
--- NOTE | 2024-10-04 16:13 | DVHPN2 ---
Reviewed: Care Plan, H&P, Labs, Medications, Previous Orders, Radiology Changes from previous H/P or p: No Changes General: Per HPI Objective Vitals Vital Signs Date Time Temp Pulse Resp B/P (MAP) Pulse Ox O2 Delivery O2 Flow Rate FiO2 10/04/24 14:05 77 16 111/77 10/04/24 13:30 97.7 91 97.7 10/04/24 08:00 Nasal Cannula* 4 36 Intake/Output Intake and Output 10/04/24 07:00 Intake Total 4000 ml Output Total 1700 ml Balance 2300 ml Intake Oral 3900 ml IV Total 100 ml Output Urine Total 1700 ml General Appearance: Alert, Oriented X3, Cooperative, No acute distress Lungs: Clear to auscultation Cardiovascular: Regular rate, Normal S1, Normal S2 Abdomen: Normal bowel sounds, Soft Medications Current Medications Medications Dose Ordered Sig/Tello Route Start Time Stop Time Status Last Admin Dose Admin Ondansetron HCl 4 mg Q4HP PRN IV 09/30/24 05:00 10/04/24 14:06 4 MG Morphine Sulfate 2 mg Q4HPRN PRN IV 09/30/24 05:00 10/04/24 14:05 2 MG Levofloxacin/ Dextrose 100 ml @ 100 mls/hr DAILY IV 10/02/24 10:00 10/07/24 10:00 10/04/24 09:54 100 MLS/HR Laboratory Results Laboratory Tests 10/01/24 05:41 10/01/24 08:20 Urinalysis Test 09/29/24 23:00 Urine Color Light-orange (Yellow) Urine Clarity Turbid (Clear) H Urine pH 5.5 (5.0-9.0) Urine Specific [place] 1.027 (1.001-1.035) Urine Protein Trace (Negative) H Urine Ketones Negative (Negative) Urine Blood Negative /uL (Negative) Urine Nitrite 2+ (Negative) H Urine Bilirubin Negative (Negative) Urine Urobilinogen 3 mg/dL (Negative) H Urine Leukocyte Esterase 3+ /uL (Negative) Urine RBC 5 /hpf (0 - 4) Urine WBC 121 /hpf (0 - 5) Urine WBC Clumps Present /hpf (None Seen) Urine Squamous Epithelial Cells Mod /hpf (<5) Urine Bacteria Many /hpf (None Seen) H Urine Mucus Few (None Seen) Urine Glucose Normal mg/dL (Normal) Assessment/Plan Assessment/Plan Small-bowel obstruction s/p surgery Hypokalemia Morbid obesity 10/02/2024: encourage ambulation advance diet as tolerated 10/03/2024: tolerated full liquid, advance to soft pt is ambulating, some flatulence, no bm yet 10/04/2024: request renal social worker for home health. advancing diet Plan discussed with: Patient My Orders Orders - SONIDO PERRY DO Procedure Category Date Status Time Discharge DISCHARGE 10/04/24 Transmitted 16:07 Date of Service: Oct 04, 2024 Billing Provider: SONIDO PERRY DO Common Visit Codes: [id number] INP/OBS CARE(HIGH) SONIDO PERRY DO Oct 04, 2024 16:13
[2024-10-05] VITALS (8 sets, daily range): BP systolic 95–134; BP diastolic 50–75; PULSE 67–77; RESP 16–20; TEMP 97.7–98.7; O2SAT 91–97
--- NOTE | 2024-10-05 11:08 | DVHPN2 ---
Subjective The patient seen and examined at bedside. No change overnight. Reviewed: Care Plan, H&P, Labs, Medications, Previous Orders, Radiology Changes from previous H/P or p: No Changes General: Per HPI Objective Vitals Vital Signs Date Time Temp Pulse Resp B/P (MAP) Pulse Ox O2 Delivery O2 Flow Rate FiO2 10/05/24 08:40 70 16 118/75 10/05/24 05:00 98.6 95 98.6 10/04/24 20:00 Nasal Cannula* 3 32 Intake/Output Intake and Output 10/05/24 07:00 Intake Total 2780 ml Output Total 1863 ml Balance 917 ml Intake Oral 2680 ml IV Total 100 ml Output Urine Total 1863 ml General Appearance: Alert, Oriented X3, Cooperative, No acute distress Lungs: Clear to auscultation Cardiovascular: Regular rate, Normal S1, Normal S2 Abdomen: Normal bowel sounds, Soft Medications Current Medications Medications Dose Ordered Sig/Tello Route Start Time Stop Time Status Last Admin Dose Admin Ondansetron HCl 4 mg Q4HP PRN IV 09/30/24 05:00 10/05/24 08:07 4 MG Morphine Sulfate 2 mg Q4HPRN PRN IV 09/30/24 05:00 10/05/24 08:10 2 MG Levofloxacin/ Dextrose 100 ml @ 100 mls/hr DAILY IV 10/02/24 10:00 10/07/24 10:00 10/05/24 10:13 100 MLS/HR Laboratory Results Laboratory Tests 10/01/24 05:41 10/01/24 08:20 Urinalysis Test 09/29/24 23:00 Urine Color Light-orange (Yellow) Urine Clarity Turbid (Clear) H Urine pH 5.5 (5.0-9.0) Urine Specific [place] 1.027 (1.001-1.035) Urine Protein Trace (Negative) H Urine Ketones Negative (Negative) Urine Blood Negative /uL (Negative) Urine Nitrite 2+ (Negative) H Urine Bilirubin Negative (Negative) Urine Urobilinogen 3 mg/dL (Negative) H Urine Leukocyte Esterase 3+ /uL (Negative) Urine RBC 5 /hpf (0 - 4) Urine WBC 121 /hpf (0 - 5) Urine WBC Clumps Present /hpf (None Seen) Urine Squamous Epithelial Cells Mod /hpf (<5) Urine Bacteria Many /hpf (None Seen) H Urine Mucus Few (None Seen) Urine Glucose Normal mg/dL (Normal) Labs and/or images reviewed: Labs reviewed by me Assessment/Plan Assessment/Plan Small-bowel obstruction s/p surgery Hypokalemia Morbid obesity Plan: Continue current management. Diet advance per surgeon Encourage to be out of bed and ambulate with PT Discharge planning. Plan discussed with: Patient Date of Service: Oct 06, 2024 Billing Provider: OSCAR FIGUEROA MD Common Visit Codes: [id number] INP/OBS CARE(HIGH) OSCAR FIGUEROA MD Oct 05, 2024 11:08
[2024-10-06] VITALS (8 sets, daily range): BP systolic 103–133; BP diastolic 41–69; PULSE 60–70; RESP 17–22; TEMP 97.5–98.1; O2SAT 93–100
--- NOTE | 2024-10-06 11:11 | DVHPN2 ---
Subjective The patient seen and examined at bedside. No complains today. Pain control. Tolerate diet. Reviewed: Care Plan, H&P, Labs, Medications, Previous Orders, Radiology Changes from previous H/P or p: No Changes General: Per HPI Objective Vitals Vital Signs Date Time Temp Pulse Resp B/P (MAP) Pulse Ox O2 Delivery O2 Flow Rate FiO2 10/06/24 09:00 97.5 65 20 133/69 (90) 99 97.5 10/05/24 20:00 Nasal Cannula* 4 36 Intake/Output Intake and Output 10/06/24 07:00 Intake Total 2500 ml Output Total 950 ml Balance 1550 ml Intake Oral 2400 ml IV Total 100 ml Output Urine Total 950 ml # Bowel Movements 1 General Appearance: Alert, Oriented X3, Cooperative, No acute distress Lungs: Clear to auscultation Cardiovascular: Regular rate, Normal S1, Normal S2 Abdomen: Normal bowel sounds, Soft Medications Current Medications Medications Dose Ordered Sig/Tello Route Start Time Stop Time Status Last Admin Dose Admin Ondansetron HCl 4 mg Q4HP PRN IV 09/30/24 05:00 10/06/24 07:08 4 MG Morphine Sulfate 2 mg Q4HPRN PRN IV 09/30/24 05:00 10/06/24 08:17 2 MG Levofloxacin/ Dextrose 100 ml @ 100 mls/hr DAILY IV 10/02/24 10:00 10/07/24 10:00 10/06/24 10:20 100 MLS/HR Laboratory Results Laboratory Tests 10/01/24 05:41 10/01/24 08:20 Urinalysis Test 09/29/24 23:00 Urine Color Light-orange (Yellow) Urine Clarity Turbid (Clear) H Urine pH 5.5 (5.0-9.0) Urine Specific [place] 1.027 (1.001-1.035) Urine Protein Trace (Negative) H Urine Ketones Negative (Negative) Urine Blood Negative /uL (Negative) Urine Nitrite 2+ (Negative) H Urine Bilirubin Negative (Negative) Urine Urobilinogen 3 mg/dL (Negative) H Urine Leukocyte Esterase 3+ /uL (Negative) Urine RBC 5 /hpf (0 - 4) Urine WBC 121 /hpf (0 - 5) Urine WBC Clumps Present /hpf (None Seen) Urine Squamous Epithelial Cells Mod /hpf (<5) Urine Bacteria Many /hpf (None Seen) H Urine Mucus Few (None Seen) Urine Glucose Normal mg/dL (Normal) Labs and/or images reviewed: Labs reviewed by me Assessment/Plan Assessment/Plan Small-bowel obstruction s/p surgery Hypokalemia Morbid obesity Plan: Continue current management. Diet advance per surgeon Encourage to be out of bed and ambulate with PT Discharge planning. Plan discussed with: Patient My Orders Orders - OSCAR FIGUEROA MD Procedure Category Date Status Time Insert Midline ORDERS 10/06/24 Transmitted 10:28 Date of Service: Oct 06, 2024 Billing Provider: OSCAR FIGUEROA MD Common Visit Codes: [id number] INP/OBS CARE(HIGH) OSCAR FIGUEROA MD Oct 06, 2024 11:11
--- NOTE | 2024-10-06 12:17 | DVHPN2 ---
Progress Note Date Seen: Oct 06, 2024 Medical Necessity Reason Pt with a Central, PICC or Fol: No Objective vital signs Vital Sign Date Time Temp Pulse Resp B/P (MAP) Pulse Ox O2 Delivery O2 Flow Rate FiO2 10/06/24 09:00 97.5 65 20 133/69 (90) 99 97.5 10/05/24 20:00 Nasal Cannula* 4 36 Total Intake and Output 10/05/24 10/05/24 10/06/24 15:00 23:00 07:00 Intake Total 100 ml 1500 ml 900 ml Output Total 950 ml Balance 100 ml 550 ml 900 ml medications Current Medications Medications Dose Ordered Sig/Tello Route Start Time Stop Time Status Last Admin Dose Admin Ondansetron HCl 4 mg Q4HP PRN IV 09/30/24 05:00 10/06/24 07:08 4 MG Morphine Sulfate 2 mg Q4HPRN PRN IV 09/30/24 05:00 10/06/24 08:17 2 MG Levofloxacin/ Dextrose 100 ml @ 100 mls/hr DAILY IV 10/02/24 10:00 10/07/24 10:00 10/06/24 10:20 100 MLS/HR laboratory and microbiology Laboratory Tests 10/01/24 08:20 10/01/24 05:41 Test 10/01/24 08:20 Range/Units Serum Glucose 114 H 74-106 mg/dL Problem List/Assessment/Plan Problem List/Assessment/Plan 10/01/24 AWAKENS, COOPERATIVE, HAS NOT AMBULATED, NO FLATUS OR BM, ABDOMEN NONDISTENDED, APPROPRIATELY TENDER, DRAINAGE SEROUS 10/02/24 passing flatus, abdopmen non distended, OK to DC NG tube, may have clear liquids, MUST AMBULATE 10/04/24 AWAKE, WOUND OK, ABDOMEN APPROPRIATELY TENDER, 10/06/24 NL. BOWEL ACTIVITY WOUND CLEAN AND WELL APPROXIMATED, ABDOMEN NON DISTENDED, APPROPRIATELY TENDER, SHE IS CLEARED FOR DISCHARGE FROM SURGICAL POINT OF VIEW Plan discussed with: Patient BONIFACIO CHRISTENSEN MD Oct 06, 2024 12:17
[2024-10-07] VITALS (9 sets, daily range): BP systolic 105–124; BP diastolic 47–61; PULSE 60–74; RESP 16–21; TEMP 97.5–98.6; O2SAT 92–99
--- NOTE | 2024-10-07 11:16 | DVHDS2 ---
Discharge Summary Date of Admission Sep 30, 2024 at 04:50 Date of Discharge: Oct 07, 2024 Admitting Diagnosis Small-bowel obstruction Hypokalemia Morbid obesity. Incarcerated umbilical hernia impending small-bowel obstruction Labs/Diagnostic Data: Laboratory Results Test 10/01/24 08:20 10/01/24 05:41 09/30/24 05:19 09/29/24 23:00 Sodium Level 140 mmol/L (136-145) Potassium Level 3.7 mmol/L (3.5-5.1) Chloride Level 104 mmol/L (98-107) Carbon Dioxide Level 31 mmol/L (20-31) Anion Gap 5 (5-15) Blood Urea Nitrogen 8 mg/dL (9-23) Creatinine 0.59 mg/dL (0.550-1.02) Glomerular Filtration Rate Calc 104 mL/min (>90) BUN/Creatinine Ratio 13.6 (10.0-20.0) Serum Glucose 114 mg/dL (74-106) Calcium Level 8.4 mg/dL (8.7-10.4) Total Bilirubin 2.0 mg/dL (0.2-1.0) Aspartate Amino Transferase (AST) 19 U/L (13-40) Alanine Aminotransferase (ALT) < 9 U/L (7-40) Alkaline Phosphatase 88 U/L (46-116) Total Protein 6.9 g/dL (5.7-8.2) Albumin 3.5 g/dL (3.2-4.8) White Blood Count 7.3 10^3/uL (4.4-10.8) Red Blood Count 4.18 10^6/uL (4.0-5.20) Hemoglobin 10.8 g/dL (12.2-16.2) Hematocrit 34.7 % (36.0-46.0) Mean Corpuscular Volume 83.1 fL (80.0-100.0) Mean Corpuscular Hemoglobin 25.9 pg (28.0-32.0) Mean Corpuscular Hemoglobin Concent 31.1 g/dL (32.0-36.0) Red Cell Distribution Width 17.6 % (11.8-14.3) Platelet Count 237 10^3/uL (140-450) Mean Platelet Volume 8.2 fL (6.9-10.8) Neutrophils (%) (Auto) 77.7 % (37.0-80.0) Lymphocytes (%) (Auto) 11.8 % (10.0-50.0) Monocytes (%) (Auto) 8.5 % (0.0-12.0) Eosinophils (%) (Auto) 1.4 % (0.0-7.0) Basophils (%) (Auto) 0.6 % (0.0-2.0) Neutrophils # (Auto) 5.7 10 ^3/uL (1.6-8.6) Lymphocytes # (Auto) 0.9 10 ^3/uL (0.4-5.4) Monocytes # (Auto) 0.6 10 ^3/uL (0-1.3) Eosinophils # (Auto) 0.1 10 ^3/uL (0-0.8) Basophils # (Auto) 0 10 ^3/uL (0-0.2) Nucleated Red Blood Cells 0.1 % Prothrombin Time 11.4 sec (9.3-11.8) Prothrombin Time INR 1.08 (0.9-1.15) Activated Partial Thromboplast Time 26.5 SEC (24.5-34.5) Urine Color Light-orange (Yellow) Urine Clarity Turbid (Clear) Urine pH 5.5 (5.0-9.0) Urine Specific [place] 1.027 (1.001-1.035) Urine Protein Trace (Negative) Urine Ketones Negative (Negative) Urine Blood Negative /uL (Negative) Urine Nitrite 2+ (Negative) Urine Bilirubin Negative (Negative) Urine Urobilinogen 3 mg/dL (Negative) Urine Leukocyte Esterase 3+ /uL (Negative) Urine RBC 5 /hpf (0 - 4) Urine WBC 121 /hpf (0 - 5) Urine WBC Clumps Present /hpf (None Seen) Urine Squamous Epithelial Cells Mod /hpf (<5) Urine Bacteria Many /hpf (None Seen) Urine Mucus Few (None Seen) Urine Glucose Normal mg/dL (Normal) Test 09/29/24 20:30 Lactic Acid Level 1.7 mmol/L (0.4-2.0) Magnesium Level 1.9 mg/dL (1.6-2.6) Lipase 30 U/L (12-53) Other Laboratory Tests 10/01/24 08:20 10/01/24 05:41 Brief Hx & Hospital Course: This is a 59 years old female come to emergency department because severe abdominal pain for two days. The patient said that she had this pain for 15 years due to abdominal hernia. Patient start having worsening periumbilical sharp pain nonradiating and associated with nausea, vomiting and diarrhea. The patient came to emergency department for further evaluation. CT scan abdomen and pelvis showed: There is a moderate-sized umbilical hernia containing fat and a segment of small bowel as well as dystrophic calcification. The neck of the hernia measures 5.6 cm. Findings of distal small bowel obstruction with transition point in the umbilical hernia; [id number] fluid distention of mid to lower small bowel loops leading to a segment of distal small bowel coursing in an umbilical hernia. The small bowel exiting the hernia sac is decompressed. No free air, pneumatosis intestinalis, or fluid collection to suggest abscess. Cystic lesion in the left ovary measuring 6.5 cm which has been present since most remote study from 12/08/2019 although has increased in size since then. This could reflect a benign cystic neoplasm. Recommend obtaining nonemergent/ outpatient with pelvic ultrasound for characterization. Mild hepatosplenomegaly. So the patient has: Incarcerated umbilical hernia impending small-bowel obstruction. Dr. Reis, the surgeon recommend surgery. The patient subsequently had surgery done. The patient recover well after surgery. The patient tolerated clear liquid diet and advanced to soft diet. Patient was able to ambulate, pass gas and bowel movement in pain improved. The patient will be discharged today. Activity as tolerated . The patient was up advice do not lift anything more than 10 lb for two weeks. Diet per home diet. Follow up with primary care physician 1-2 weeks. Follow up with OBGYN as outpatient to further workup of her cystic lesion of the left ovary. Follow up with surgeon per schedule for postop follow up. Physical exam: HEENT: Normocephalic atraumatic pupils equal react to light and accommodation. Extraocular muscles intact, conjunctiva pink, oropharynx moist, no thrush, no exudate. Lymphatic: No lymphadenopathy Cardiovascular exam: S1, S2 was heard. No murmurs, rubs, gallops Lung: Clear on auscultation bilaterally, no wheeze, rale, rhonchi. GI: Abdominal soft, nondistended, nontenderness, positive bowel sounds. Extremity: No crepitus, cyanosis, edema. Pedal pulses present bilateral. Full range of motion. Skin: Normal turgor, no rash. Psych: Alert, oriented x3. Neurology: No focal deficits, cranial nerve II to XII grossly intact. Condition at Discharge: Stable Final Diagnosis/Problems List Incarcerated umbilical hernia with impending small-bowel obstruction s/p surgery Hypokalemia Morbid obesity Discharge Disposition: Home Discharge Instruct/Medications Diet: Cardiac 2g Na,low cholest Activity: No Restrictions, As Tolerated Discharge Statement: "Patient was advised to return to the ER or call 911 if any headaches, dizziness, shortness of breath, chest pain, abdominal pain, bleeding, fevers, or worsening of medical condition. Patient was counseled about treatment plan, medications, possible side effects, patientverbalized understanding. All questions were answered to the best of my ability. This discharge took greater then 30 minutes in planning, reviewing documentation, counseling the patient, and discussing with other team members." ASSESSMENT ASSESSMENT Assessment Date of Service: Oct 07, 2024 Billing Provider: OSCAR FIGUEROA MD Common Visit Codes: [id number] DISCH DAY >30min OSCAR FIGUEROA MD Oct 07, 2024 11:16
--- NOTE | 2024-10-07 12:35 | DVH ---
EXAM: XY CHEST PORTABLE Indication: SOB, on O2 Technique: Single frontal view of the chest was obtained Comparison: XY CHEST XRAY 1 VIEW on DOS: 09/30/24, XY CHEST PORTABLE on DOS: 02/29/24, XY CHEST PORTAB LE on DOS: 02/29/24 FINDINGS: Lines and Tubes: None Lungs: Pulmonary vascular congestion. Pleura: No effusion. No pneumothorax. Cardiomediastinal contours: Cardiomegaly. Bones: No acute osseous abnormality. IMPRESSION: Cardiomegaly with pulmonary vascular congestion.
[2024-10-07] MEDS ORDERED: IPRATROPIUM BROM 0.5 MG/2.5ML INH SOL NEB PRN (16:45)
[2024-10-08] VITALS (11 sets, daily range): BP systolic 105–130; BP diastolic 53–78; PULSE 63–82; RESP 18–22; TEMP 36.6; O2SAT 91–96
--- NOTE | 2024-10-08 10:52 | DVHPN2 ---
Subjective The patient seen and examined at bedside. No complains today. Pain control. Tolerate diet. The patient was supposed to discharge yesterday however her saturation oxygen dropped to 80 % when we take her off oxygen. ABG was done in the patient qualify for home oxygen Reviewed: Care Plan, H&P, Labs, Medications, Previous Orders, Radiology Changes from previous H/P or p: No Changes General: Per HPI Objective Vitals Vital Signs Date Time Temp Pulse Resp B/P (MAP) Pulse Ox O2 Delivery O2 Flow Rate FiO2 10/08/24 09:00 97.8 65 20 121/58 (79) 92 97.8 10/08/24 08:00 Nasal Cannula* 2 28 Intake/Output Intake and Output 10/08/24 07:00 Intake Total 1200 ml Balance 1200 ml Intake Oral 1100 ml IV Total 100 ml # Voids 11 # Bowel Movements 1 General Appearance: Alert, Oriented X3, Cooperative, No acute distress Lungs: Clear to auscultation Cardiovascular: Regular rate, Normal S1, Normal S2 Abdomen: Normal bowel sounds, Soft Medications Current Medications Medications Dose Ordered Sig/Tello Route Start Time Stop Time Status Last Admin Dose Admin Ondansetron HCl 4 mg Q4HP PRN IV 09/30/24 05:00 10/08/24 07:25 4 MG Morphine Sulfate 2 mg Q4HPRN PRN IV 09/30/24 05:00 10/08/24 07:26 2 MG Ipratropium [place] 0.5 mg Q6HPRN PRN NEB 10/07/24 16:45 Laboratory Results Laboratory Tests 10/01/24 05:41 10/01/24 08:20 Urinalysis Test 09/29/24 23:00 Urine Color Light-orange (Yellow) Urine Clarity Turbid (Clear) H Urine pH 5.5 (5.0-9.0) Urine Specific [place] 1.027 (1.001-1.035) Urine Protein Trace (Negative) H Urine Ketones Negative (Negative) Urine Blood Negative /uL (Negative) Urine Nitrite 2+ (Negative) H Urine Bilirubin Negative (Negative) Urine Urobilinogen 3 mg/dL (Negative) H Urine Leukocyte Esterase 3+ /uL (Negative) Urine RBC 5 /hpf (0 - 4) Urine WBC 121 /hpf (0 - 5) Urine WBC Clumps Present /hpf (None Seen) Urine Squamous Epithelial Cells Mod /hpf (<5) Urine Bacteria Many /hpf (None Seen) H Urine Mucus Few (None Seen) Urine Glucose Normal mg/dL (Normal) Labs and/or images reviewed: Labs reviewed by me Assessment/Plan Assessment/Plan Incarcerated umbilical hernia with impending Small-bowel obstruction s/p surgery Hypokalemia Morbid obesity Acute respiratory failure/chronic respiratory failure requiring oxygen Plan: Continuing current management. I have talked to case packer and sealer to requests home oxygen from her insurance. Continuing with pain medication Encouraged the patient to be out of bed and ambulate. Discharge when oxygen arrangement done Plan discussed with: Patient My Orders Orders - OSCAR FIGUEROA MD Procedure Category Date Status Time Chest Portable XY 10/07/24 Resulted 11:56 Pt Request For Service PT 10/07/24 Logged 11:56 Discharge DISCHARGE 10/08/24 Transmitted 11:15 Ipratropium Medneb PHA 10/07/24 In Process (Atrovent Medneb) 16:45 Cont Med Neb Intial Tx RT 10/07/24 Logged 16:45 Date of Service: Oct 08, 2024 Billing Provider: OSCAR FIGUEROA MD Common Visit Codes: [id number] INP/OBS CARE(HIGH) OSCAR FIGUEROA MD Oct 08, 2024 10:52
--- NOTE | 2024-10-08 11:30 | DVHPN2 ---
Progress Note Date Seen: Oct 08, 2024 Medical Necessity Reason Pt with a Central, PICC or Fol: No Objective vital signs Vital Sign Date Time Temp Pulse Resp B/P (MAP) Pulse Ox O2 Delivery O2 Flow Rate FiO2 10/08/24 11:05 36.6 10/08/24 09:00 65 20 121/58 (79) 92 10/08/24 08:00 Nasal Cannula* 2 28 Total Intake and Output 10/07/24 10/07/24 10/08/24 14:59 22:59 06:59 Intake Total 100 ml 900 ml 200 ml Balance 100 ml 900 ml 200 ml medications Current Medications Medications Dose Ordered Sig/Tello Route Start Time Stop Time Status Last Admin Dose Admin Ondansetron HCl 4 mg Q4HP PRN IV 09/30/24 05:00 10/08/24 07:25 4 MG Morphine Sulfate 2 mg Q4HPRN PRN IV 09/30/24 05:00 10/08/24 07:26 2 MG Ipratropium [place] 0.5 mg Q6HPRN PRN NEB 10/07/24 16:45 laboratory and microbiology Laboratory Tests 10/01/24 08:20 10/01/24 05:41 Test 10/01/24 08:20 Range/Units Serum Glucose 114 H 74-106 mg/dL Problem List/Assessment/Plan Problem List/Assessment/Plan 10/01/24 AWAKENS, COOPERATIVE, HAS NOT AMBULATED, NO FLATUS OR BM, ABDOMEN NONDISTENDED, APPROPRIATELY TENDER, DRAINAGE SEROUS 10/02/24 passing flatus, abdopmen non distended, OK to DC NG tube, may have clear liquids, MUST AMBULATE 10/04/24 AWAKE, WOUND OK, ABDOMEN APPROPRIATELY TENDER, 10/06/24 NL. BOWEL ACTIVITY WOUND CLEAN AND WELL APPROXIMATED, ABDOMEN NON DISTENDED, APPROPRIATELY TENDER, SHE IS CLEARED FOR DISCHARGE FROM SURGICAL POINT OF VIEW 10/08/24 awake, has not ambulated, wound ok, abdomen non distended, norm po intake, normal bowel activity, will sign off, please have her return to see me in two weeks after discharge(sooner if problems) Plan discussed with: Patient Dietary Evaluation Review Comments: Continue current plan of care Expected Outcomes/Goals: F/U in 3-5 days BONIFACIO CHRISTENSEN MD Oct 08, 2024 11:29
[2024-10-08 11:33] LABS: Base Excess 9.9 mmol/L (-2.0-3.0)
[2024-10-09] VITALS (9 sets, daily range): BP systolic 97–127; BP diastolic 42–67; PULSE 60–69; RESP 18–21; TEMP 97.8–98.3; O2SAT 95–99
--- NOTE | 2024-10-09 11:02 | DVHPN2 ---
Subjective The patient seen and examined at bedside. No complains today. Pain control. Tolerate diet. Still waiting for home oxygen Reviewed: Care Plan, H&P, Labs, Medications, Previous Orders, Radiology Changes from previous H/P or p: No Changes General: Per HPI Objective Vitals Vital Signs Date Time Temp Pulse Resp B/P (MAP) Pulse Ox O2 Delivery O2 Flow Rate FiO2 10/09/24 09:16 71 16 113/49 10/09/24 09:00 97.8 95 97.8 10/09/24 08:00 Nasal Cannula* 2 28 Intake/Output Intake and Output 10/09/24 07:00 Intake Total 1960 ml Balance 1960 ml Intake Oral 1960 ml # Voids 6 General Appearance: Alert, Oriented X3, Cooperative, No acute distress Lungs: Clear to auscultation Cardiovascular: Regular rate, Normal S1, Normal S2 Abdomen: Normal bowel sounds, Soft Medications Current Medications Medications Dose Ordered Sig/Tello Route Start Time Stop Time Status Last Admin Dose Admin Ondansetron HCl 4 mg Q4HP PRN IV 09/30/24 05:00 10/09/24 03:53 4 MG Morphine Sulfate 2 mg Q4HPRN PRN IV 09/30/24 05:00 10/09/24 09:16 2 MG Ipratropium [place] 0.5 mg Q6HPRN PRN NEB 10/07/24 16:45 Laboratory Results Laboratory Tests 10/01/24 05:41 10/01/24 08:20 Urinalysis Test 09/29/24 23:00 Urine Color Light-orange (Yellow) Urine Clarity Turbid (Clear) H Urine pH 5.5 (5.0-9.0) Urine Specific [place] 1.027 (1.001-1.035) Urine Protein Trace (Negative) H Urine Ketones Negative (Negative) Urine Blood Negative /uL (Negative) Urine Nitrite 2+ (Negative) H Urine Bilirubin Negative (Negative) Urine Urobilinogen 3 mg/dL (Negative) H Urine Leukocyte Esterase 3+ /uL (Negative) Urine RBC 5 /hpf (0 - 4) Urine WBC 121 /hpf (0 - 5) Urine WBC Clumps Present /hpf (None Seen) Urine Squamous Epithelial Cells Mod /hpf (<5) Urine Bacteria Many /hpf (None Seen) H Urine Mucus Few (None Seen) Urine Glucose Normal mg/dL (Normal) Blood Gas Results Test 11/21/24 11:25 Arterial Blood pH 7.371 (7.350-7.450) FiO2 % 21.0 Labs and/or images reviewed: Labs reviewed by me Assessment/Plan Assessment/Plan Incarcerated umbilical hernia with impending Small-bowel obstruction s/p surgery Hypokalemia Morbid obesity Acute respiratory failure/chronic respiratory failure requiring oxygen Plan: Continuing current management. Still waiting for approval for home oxygen from her insurance company. The patient needs 2 L of nasal cannula continuously at home Continuing with pain medication Encouraged the patient to be out of bed and ambulate. Discharge when oxygen arrangement done Plan discussed with: Patient Date of Service: Oct 09, 2024 Billing Provider: OSCAR FIGUEROA MD Common Visit Codes: [id number] INP/OBS CARE(HIGH) OSCAR FIGUEROA MD Oct 09, 2024 11:02
[2024-10-09] MEDS: HYDROcodone-ACET 5/325MG TAB PO PRN (16:01)
[2024-10-09] MEDS: MORPHINE SULFATE INJ 2 MG/ml SYRG IV ONE (21:44)
[2024-10-10] VITALS (7 sets, daily range): BP systolic 100–109; BP diastolic 55–67; PULSE 60–65; RESP 18–20; TEMP 97.2–98.6; O2SAT 91–97
[2024-10-10] MEDS: HYDROcodone-ACET 5/325MG TAB PO PRN (13:51)
--- NOTE | 2024-10-10 13:54 | DVHPN2 ---
Subjective The patient seen and examined at bedside. No complains today. Pain control. Tolerate diet. Waiting her home oxygen to delivery , hopefully today. Reviewed: Care Plan, H&P, Labs, Medications, Previous Orders, Radiology Changes from previous H/P or p: No Changes General: Per HPI Objective Vitals Vital Signs Date Time Temp Pulse Resp B/P (MAP) Pulse Ox O2 Delivery O2 Flow Rate FiO2 10/10/24 10:01 96 Nasal Cannula 2.0 10/10/24 10:01 28 10/10/24 09:00 97.2 65 20 100/58 (72) 97.2 Intake/Output Intake and Output 10/10/24 07:00 Intake Total 2400 ml Balance 2400 ml Intake Oral 2400 ml # Voids 6 # Bowel Movements 1 General Appearance: Alert, Oriented X3, Cooperative, No acute distress Lungs: Clear to auscultation Cardiovascular: Regular rate, Normal S1, Normal S2 Abdomen: Normal bowel sounds, Soft Medications Current Medications Medications Dose Ordered Sig/Tello Route Start Time Stop Time Status Last Admin Dose Admin Ondansetron HCl 4 mg Q4HP PRN IV 09/30/24 05:00 10/09/24 03:53 4 MG Ipratropium [place] 0.5 mg Q6HPRN PRN NEB 10/07/24 16:45 Acetaminophen/ Hydrocodone Bitart 1 tab Q4HPRN PRN PO 10/10/24 13:45 10/10/24 13:51 1 TAB Naproxen 500 mg TID PRN PO 10/10/24 13:45 Laboratory Results Laboratory Tests 10/01/24 05:41 10/01/24 08:20 Urinalysis Test 09/29/24 23:00 Urine Color Light-orange (Yellow) Urine Clarity Turbid (Clear) H Urine pH 5.5 (5.0-9.0) Urine Specific [place] 1.027 (1.001-1.035) Urine Protein Trace (Negative) H Urine Ketones Negative (Negative) Urine Blood Negative /uL (Negative) Urine Nitrite 2+ (Negative) H Urine Bilirubin Negative (Negative) Urine Urobilinogen 3 mg/dL (Negative) H Urine Leukocyte Esterase 3+ /uL (Negative) Urine RBC 5 /hpf (0 - 4) Urine WBC 121 /hpf (0 - 5) Urine WBC Clumps Present /hpf (None Seen) Urine Squamous Epithelial Cells Mod /hpf (<5) Urine Bacteria Many /hpf (None Seen) H Urine Mucus Few (None Seen) Urine Glucose Normal mg/dL (Normal) Labs and/or images reviewed: Labs reviewed by me Assessment/Plan Assessment/Plan Incarcerated umbilical hernia with impending Small-bowel obstruction s/p surgery Hypokalemia Morbid obesity Acute respiratory failure/chronic respiratory failure requiring oxygen Plan: Continuing current management. The patient needs 2 L of nasal cannula continuously at home Continuing with pain medication. The patient requests addition of naproxen 500 mg q.6 p.r.n. for pain. Encouraged the patient to be out of bed and ambulate. Her insurance approve for oxygen and oxygen had been delivery to her house today. I will discharge her home today. Plan discussed with: Patient My Orders Orders - OSCAR FIGUEROA MD Procedure Category Date Status Time Hydrocodone-Acet PHA 10/10/24 In Process 5/325mg Tab ([place] 13:45 Naproxen Tablet PHA 10/10/24 In Process (Naprosyn Tablet) 13:45 Date of Service: Oct 10, 2024 Billing Provider: OSCAR FIGUEROA MD Common Visit Codes: [id number] INP/OBS CARE(HIGH) OSCAR FIGUEROA MD Oct 10, 2024 13:54
[2024-10-10] MEDS: NAPROXEN 500 MG TAB PO PRN (15:53)
== END 2024-10-10 19:00 | disposition home or self-care (01) | DRG 353 ==
LOC: EDBD 19:16 → ER 19:16 → EDUNIT# 19:16 → OVERFLOW 09-30 04:50 → EAST 09-30 13:25
PROVIDERS: ADMIT Nurse Practitioner; ATTEND Internal Medicine
PROC: 0DBU0ZZ Excision of Omentum, Open Approach (ICD-10-PCS; 2024-09-30)
PROC: 05HY33Z Insertion of Infusion Device into Upper Vein, Percutaneous Approach (ICD-10-PCS; 2024-09-30)
PROC: B54MZZA Ultrasonography of Right Upper Extremity Veins, Guidance (ICD-10-PCS; 2024-09-30)
PROC: 0WQF0ZZ Repair Abdominal Wall, Open Approach (ICD-10-PCS; principal; 2024-09-30 07:42)
DX: K42.0 Umbilical hernia with obstruction, without gangrene (principal); J96.20 Acute and chronic respiratory failure, unspecified whether with hypoxia or hypercapnia; N39.0 Urinary tract infection, site not specified; Z68.42 Body mass index [BMI] 45.0-49.9, adult; K56.609 Unspecified intestinal obstruction, unspecified as to partial versus complete obstruction; E66.01 Morbid (severe) obesity due to excess calories; E87.6 Hypokalemia; K80.20 Calculus of gallbladder without cholecystitis without obstruction; J45.909 Unspecified asthma, uncomplicated; K21.9 Gastro-esophageal reflux disease without esophagitis; N83.202 Unspecified ovarian cyst, left side; Z82.49 Family history of ischemic heart disease and other diseases of the circulatory system; Z83.3 Family history of diabetes mellitus; Z79.899 Other long term (current) drug therapy
CPT/HCPCS: 36415; 36600; 71045; 74176; 76705; 80053; 81001; 82805; 83605; 83690; 83735; 85025; 85610; 85730; 86850; 86900; 86901; 88302; 93005; 97110; 97116; 97163; 97530; 99291; G0378; J0330; J1956; J2405; J2704; J3480; J3490

== ENCOUNTER 2024-12-23 18:05 | Inpatient (IN) | payer OTHER ==
[~2024-12-23] VITALS: Ht 157.5 cm; Wt 145.0 kg
[~2024-12-23 18:05] MED LIST changes: +CEPH250C PO; +DOCU-265 PO; +NAPR-746 PO
[2024-12-23] MEDS ORDERED: VANCOMYCIN PER PHARMACY 0 MG IV SCH (18:15)
[2024-12-23] MEDS ORDERED: ACETAMINOPHEN 325 MG TAB PO PRN ×2 (18:30→21:30)
[2024-12-23] MEDS: ACETAMINOPHEN 325 MG TAB PO ONE (18:36)
[2024-12-23] MEDS: SODIUM CHLORIDE 0.9% 1,550 ML IV ONE (18:36)
--- NOTE | 2024-12-23 18:38 | ED.PDOC ---
SOB-HPI HPI Comments Malinda Jeffery is a 59-year-old female patient who presents to ED with chief complaint of dyspnea in functional class III-IV which started approximately one week ago associated with productive cough with clear phlegm, fever and chills. Patient reports being in contact with sick family members who presented upper respiratory infection. Denies palpitation, syncope, chest pain, nausea, vomiting, diarrhea, bleeding, recent travel, dysuria and motor or sensory deficits. Past medical history: Asthma, lymphedema/elephantiasis, obstructive sleep apnea noncompliant with CPAP treatment, Gilbert's syndrome, GERD, depression, umbilical hernia status postop. Surgical history: Hysterectomy, umbilical hernia repair, cholecystectomy, three C-sections Family history: Mother is diabetic and hypertensive Social history: Lives in [place] with family. Denies current tobacco, alcohol and other drug abuse. Allergies: Ceftriaxone Home medication: Gabapentin, aspirin, montelukast, citalopram, pantoprazole, albuterol, Trilogy Chief Complaint: Shortness of Breath Time Seen by MD: 18:07 Primary Care Provider: ANDREWTAR Mode of Arrival: EMS Past Medical History PAST MEDICAL HISTORY: Asthma, Depression, GERD Surgical History: Denies all surgeries COMMERCIAL ENERGY AUDITOR History: No Pertinent COMMERCIAL ENERGY AUDITOR History Family History Family History: Reviewed,noncontributory to illness Social History Smoker: Non-Smoker Alcohol: Denies ETOH Use Drugs: Denies Drug Use Physical Exam General Appearance: Moderate Distress, Normal, Obese HEENT: Normal ENT Inspection, Pharynx Normal, TMs Normal Neck: Full Range of Motion, Non-Tender, Normal, Normal Inspection Respiratory: Accessory Muscle Use, Crackles, Expiration, Inspiration, Respiratory Distress, Rhonchi, Wheezing Cardiovascular: No Edema, No JVD, No Murmur, No Gallop, Normal Peripheral Pulses, Tachycardia Breast Exam: Deferred Gastrointestinal: No Organomegaly, Non Tender, No Pulsatile Mass, Normal Bowel Sounds, Soft Genitalia: Deferred Pelvic: Deferred Rectal: Deferred Extremities: Leg edema (Nonpitting edema (elephantiasis)), Normal capillary refill, Normal inspection, Normal range of motion, Non-tender Neurologic: Alert, tube drawer II-XII nml as Tested, No Motor Deficits, Normal Affect, Normal Mood, No Sensory Deficits Cerebellar Function: Normal Reflexes: Normal Skin: Dry, Normal Color, Warm Lymphatic: Other (Bilateral lower limb lymphedema) EKG EKG : Comments Sinus tachycardia with mild ST depression in inferior leads with rapid of ascending slope. Was a procedure done? Was a procedure done?: No Differential Dx Differential Diagnosis: Asthma, Bronchitis, CHF, Myocardial infarction, Pneumonia, Respiratory Distress, URI X-Ray, Labs, Meds, VS Vital Signs Date Time Temp Pulse Resp B/P (MAP) Pulse Ox O2 Delivery O2 Flow Rate FiO2 12/23/24 18:36 103.4 12/23/24 18:18 103.4 110 40 144/99 (114) 94 12/23/24 18:17 105 Current Medications Medications (Trade) Dose Ordered Sig/Tello Route Start Time Stop Time Status Last Admin Acetaminophen (Tylenol Tablet) 1,000 mg ONCE ONCE PO 12/23/24 18:30 12/23/24 18:31 DC 12/23/24 18:36 Sodium Chloride 1,550 ml @ 1,550 mls/hr ONCE ONCE IV 12/23/24 18:15 12/23/24 19:14 12/23/24 18:36 Cefepime HCl 50 ml @ 12.5 mls/hr ONCE ONCE IV 12/23/24 18:15 12/23/24 22:14 12/23/24 18:54 Methylprednisolone Sodium Succinate (Solu Medrol) 40 mg ONCE ONCE IV 12/23/24 18:45 12/23/24 18:46 DC 12/23/24 18:54 X-Ray, Labs, Meds, VS Comment Ordered chest x-ray, laboratory workup, urine analysis, cultures. Time of 1ST Reevaluation: 19:07 Reevaluation 1ST: Improved Patient Education/Counseling: Diagnosis, Treatment, Prognosis Family Education/Counseling: Diagnosis, Treatment, Prognosis Departure 1 Departure Time of Disposition: 19:07 Impression: Primary Impression: Sepsis Additional Impression: Pneumonia Disposition: ADMITTED INPATIENT Condition: Serious Additional Instructions: Patient presents vital signs compatible with sepsis. Awaiting rest of complementary workup. Patient will need to be admitted for oxygen therapy, bronchodilator, IV antibiotic therapy and steroids. Patient has poor prognosis. Critical Care Note Critical Care Time?: No Stability Stability form required: No Heart Score Heart Score: Heart Score Response (Comments) Value History N/A 0 EKG N/A 0 Age N/A 0 Risk Factors N/A 0 Troponin N/A 0 Total 0 CHACE RAJPUT RESIDENT Dec 23, 2024 18:38
--- NOTE | 2024-12-23 18:41 | DVH ---
EXAM: XR Chest, 1 View CLINICAL INDICATION: SOB TECHNIQUE: Frontal view of the chest. COMPARISON: XY CHEST PORTABLE on DOS: 10/07/24, XY CHEST XRAY 1 VIEW on DOS: 09/30/24, XY CHEST POR TABLE on DOS: 02/29/24, XY CHEST PORTABLE on DOS: 02/29/24 FINDINGS: LUNGS AND PLEURAL SPACES: See below. HEART: Cardiomegaly with pulmonary congestion and edema. Superimposed pneumonia cannot be excluded. MEDIASTINUM: Unremarkable. Normal mediastinal contour. BONES/JOINTS: Unremarkable. No acute fracture. OTHER FINDINGS: . . . .. IMPRESSION: Cardiomegaly with pulmonary congestion and edema. Superimposed pneumonia cannot be excluded.
[2024-12-23] MEDS: CEFEPIME 1GM/ 50ML 50 ML IV ONE (18:54)
[2024-12-23] MEDS: methylPREDNISolone SOD SUCC 40 MG/ML VL IV ONE (18:54)
--- NOTE | 2024-12-23 19:04 | ECG ---
[facility] Test Date: 2024-12-23 Test Time: 18:14:20 Pat Name: PAUL MUHAMMAD Department: ED Room: [address] [place] [address] Gender: F Records Management Analyst: WHIT : 1965 Requested By: CHACE RAJPUT Order Number: [id number] Reading MD: Jagdeep Monteiro Measurements Intervals [place] Rate: 105 P: 38 AL: 124 QRS: -25 QRSD: 98 T: 49 QT: 374 QTc: 495 Interpretive Statements Sinus tachycardia Borderline left axis deviation Borderline prolonged QT interval Baseline wander in lead(s) V3 Electronically Signed On 12-24-2024 9:49:48 PST by Jagdeep Monteiro Please click the below link to view image of tracing.
[2024-12-23] MEDS: ALBUTEROL SULF 2.5 MG/0.5ML(0.5%) NEB SOLN NEB ONE (19:28)
[2024-12-23] MEDS: IPRATROPIUM BROM 0.5 MG/2.5ML INH SOL NEB ONE (19:28)
[2024-12-23 19:57] VITALS: PULSE 22; RESP 22; O2SAT 95
[2024-12-23] MEDS ORDERED: NITROGLYCERIN 0.4 MG SL TAB SL PRN (20:00)
[2024-12-23] MEDS: VANCOMYCIN 1GM/250ML KIT 250 ML IV SCH (20:12)
[2024-12-23] MEDS: PANTOPRAZOLE 40 MG/10 ML VIAL INJ IV ONE (20:16)
[2024-12-23 20:20] LABS: Basophils # (auto) 0 10 ^3/uL (0-0.2); Basophils % (auto) 0.1 % (0.0-2.0); Eosinophils # (auto) 0 10 ^3/uL (0-0.8); Eosinophils % (auto) 0.1 % (0.0-7.0); Hemoglobin 9.8 g/dL (12.2-16.2); Lymphocytes # (auto) 0.6 10 ^3/uL (0.4-5.4); Lymphocytes % (auto) 4.6 % (10.0-50.0); Monocytes # (auto) 0.9 10 ^3/uL (0-1.3)
[2024-12-23 20:23] LABS: Hematocrit 30.6 % (36.0-46.0); Mean Corpuscular Hemoglobin 26.7 pg (28.0-32.0); Mean Corpuscular Hgb Conc. 32.2 g/dL (32.0-36.0); Monocytes % (auto) 6.9 % (0.0-12.0); Neutrophils # (auto) 11.7 10 ^3/uL (1.6-8.6); Neutrophils % (auto) 88.3 % (37.0-80.0); Platelet Count (auto) 207 10^3/uL (140-450); Red Blood Cells 3.69 10^6/uL (4.0-5.20); Red Cell Distribution Width 18.4 % (11.8-14.3); White Blood Cell 13.3 10^3/uL (4.4-10.8)
[2024-12-23 20:31] LABS: Base Excess 0.7 mmol/L (-2.0-3.0)
[2024-12-23 20:42] LABS: INR 1.08 (0.9-1.15); Partial Thromboplastin Time 25.1 SEC (24.5-34.5); Prothrombin Time 11.4 sec (9.3-11.8)
[2024-12-23 20:44] LABS: Albumin 3.7 g/dL (3.2-4.8); Alkaline Phosphatase 88 U/L (46-116); Anion Gap 8 (5-15); Aspartate Aminotransferase 27 U/L (13-40); BUN/Creatinine Ratio 13.5 (10.0-20.0); Blood Urea Nitrogen 10 mg/dL (9-23); Carbon Dioxide 30 mmol/L (20-31); Chloride 100 mmol/L (98-107); Potassium 3.7 mmol/L (3.5-5.1); Sodium 138 mmol/L (136-145)
[2024-12-23 20:45] LABS: Alanine Aminotransferase < 9 U/L (7-40); Bilirubin, Total 1.1 mg/dL (0.2-1.0); Calcium 8.2 mg/dL (8.7-10.4); Glucose 121 mg/dL (74-106); Magnesium 1.6 mg/dL (1.6-2.6); Phosphorus 1.8 mg/dL (2.4-5.1); Total Protein 6.6 g/dL (5.7-8.2)
[2024-12-23] MEDS ORDERED: TEMAZEPAM 15 MG CAP PO PRN (21:30)
--- NOTE | 2024-12-23 21:32 | DVHHP2 ---
History of Present Illness Reason for Visit: Shortness for breath History of Present Illness 59-year-old female with a history of asthma presents complaints of worsening shortness for breath with associated productive cough with fever and chills. Denies chest pain or palpitations. No other acute complaints reported. Past Medical History Depression, current, COPD, asthma Past Surgical History Denies Family History Noncontributory Smoke: No ALCOHOL: none Drugs: None Lives: with Family Review of Systems Review of Systems Review of systems are currently negative otherwise addressed in HPI. Allergies: Coded Allergies: Ceftriaxone (Verified Allergy, Unknown, Rash, 10/01/24) Medications Current Medications Medications Dose Ordered Sig/Tello Route Start Time Stop Time Status Last Admin Dose Admin Sodium Chloride 1,000 ml @ 75 mls/hr [id number] IV 12/23/24 18:15 Cefepime HCl 50 ml @ 12.5 mls/hr Q8HR IV 12/23/24 22:00 Vancomycin HCl 0 ml @ 0 mls/hr UD IV 12/23/24 18:15 Acetaminophen 650 mg Q6HP PRN PO 12/23/24 18:30 Ipratropium [place] 0.5 mg Q4HWA NEB 12/23/24 22:00 Albuterol 2.5 mg Q4HPRN PRN NEB 12/23/24 18:45 Methylprednisolone Sodium Succinate 40 mg BID IV 12/23/24 22:00 Citalopram Hydrobromide 20 mg DAILY PO 12/24/24 10:00 Gabapentin 600 mg BID PO 12/23/24 22:00 Pantoprazole Sodium 40 mg DAILY IV 12/24/24 10:00 Nitroglycerin 0.4 mg Q5MINP PRN SL 12/23/24 20:00 Morphine Sulfate 2 mg Q30M PRN IV 12/23/24 20:00 Exam Vital Signs Vital Signs Date Time Temp Pulse Resp B/P (MAP) Pulse Ox O2 Delivery O2 Flow Rate FiO2 12/23/24 19:57 22 22 95 Non-Rebreather 10 N/A 12/23/24 19:30 100.9 124/55 (78) 100.9 Exam Gen: 59-year-old female in mild distress, obese Skin: Warm, dry, normal color and texture, no rash. HEENT: Normocephalic atraumatic, mucous membranes moist and pink. Neck: Cervical and supraclavicular nodes normal without enlargement, trachea is midline, thyroid gland is normal without masses. Pulmonary: Bilateral wheeze Cardiac: Regular rate and rhythm. No murmur Abdomen: Soft, nontender, nondistended, bowel sounds present all 4 quadrants, no guarding, no rigidity, no organomegaly. Extremities: No cyanosis, clubbing, no edema Neuro: Cranial nerves II through XII grossly intact, normal affect and speech, no focal motor deficits. Labs/Xrays ORDERING PHYSICIAN: CHACE RAJPUT RESIDENT PROCEDURE(s): CXR1 - CHEST XRAY 1 VIEW REASON: SOB ORDER NUMBER(s): [id number], ACCESSION NUMBER(s): [id number] EXAM: XR Chest, 1 View CLINICAL INDICATION: SOB TECHNIQUE: Frontal view of the chest. COMPARISON: XY CHEST PORTABLE on DOS: 10/07/24, XY CHEST XRAY 1 VIEW on DOS: 09/30/24, XY CHEST PORTABLE on DOS: 02/29/24, XY CHEST PORTABLE on DOS: 02/29/24 FINDINGS: LUNGS AND PLEURAL SPACES: See below. HEART: Cardiomegaly with pulmonary congestion and edema. Superimposed pneumonia cannot be excluded. MEDIASTINUM: Unremarkable. Normal mediastinal contour. BONES/JOINTS: Unremarkable. No acute fracture. OTHER FINDINGS: . . . .. IMPRESSION: Cardiomegaly with pulmonary congestion and edema. Superimposed pneumonia cannot be excluded. Labs Test 12/23/24 20:20 12/23/24 19:17 12/23/24 19:13 Range/Units Blood Gas Specimen Type Arterial Blood Gas Sample Site Right radial Blood Gas Patient Temperature 37.0 Arterial Blood Date Drawn Arterial Blood pH 7.294 L 7.350-7.450 Arterial Blood Partial Pressure CO2 59.2 H 32.0-45.0 mmHg Arterial Blood Partial Pressure O2 174.5 H 83.0-108.0 mmHg Arterial Blood HCO3 28.1 H 21.0-28.0 mmol/L Arterial Blood Oxygen Saturation 99.1 H 94.0-98.0 % Arterial Blood Base Excess 0.7 -2.0-3.0 mmol/L Arterial Blood Oxyhemoglobin 97.6 94.0-98.0 % Arterial Blood Carboxyhemoglobin 0.3 L 0.5-1.5 % Arterial Blood Methemoglobin 1.2 0.0-1.5 % Ko Test Modified Blood Gas Total Hemoglobin 10.80 L 12.0-16.0 g/dL Blood Gas Liter Flow 15.00 Blood Gas Modality Mask - nrb FiO2 % 100.0 Lactic Acid Level 0.9 0.4-2.0 mmol/L White Blood Count 13.3 H 4.4-10.8 10^3/uL Red Blood Count 3.69 L 4.0-5.20 10^6/uL Hemoglobin 9.8 L 12.2-16.2 g/dL Hematocrit 30.6 L 36.0-46.0 % Mean Corpuscular Volume 83.0 80.0-100.0 fL Mean Corpuscular Hemoglobin 26.7 L 28.0-32.0 pg Mean Corpuscular Hemoglobin Concent 32.2 32.0-36.0 g/dL Red Cell Distribution Width 18.4 H 11.8-14.3 % Platelet Count 207 140-450 10^3/uL Mean Platelet Volume 7.2 6.9-10.8 fL Neutrophils (%) (Auto) 88.3 H 37.0-80.0 % Lymphocytes (%) (Auto) 4.6 L 10.0-50.0 % Monocytes (%) (Auto) 6.9 0.0-12.0 % Eosinophils (%) (Auto) 0.1 0.0-7.0 % Basophils (%) (Auto) 0.1 0.0-2.0 % Neutrophils # (Auto) 11.7 H 1.6-8.6 10 ^3/uL Lymphocytes # (Auto) 0.6 0.4-5.4 10 ^3/uL Monocytes # (Auto) 0.9 0-1.3 10 ^3/uL Eosinophils # (Auto) 0 0-0.8 10 ^3/uL Basophils # (Auto) 0 0-0.2 10 ^3/uL Nucleated Red Blood Cells 0.0 % Prothrombin Time 11.4 9.3-11.8 sec Prothrombin Time INR 1.08 0.9-1.15 Activated Partial Thromboplast Time 25.1 24.5-34.5 SEC Sodium Level 138 136-145 mmol/L Potassium Level 3.7 3.5-5.1 mmol/L Chloride Level 100 98-107 mmol/L Carbon Dioxide Level 30 20-31 mmol/L Anion Gap 8 5-15 Blood Urea Nitrogen 10 9-23 mg/dL Creatinine 0.74 0.550-1.02 mg/dL Glomerular Filtration Rate Calc 94 >90 mL/min BUN/Creatinine Ratio 13.5 10.0-20.0 Serum Glucose 121 H 74-106 mg/dL Calcium Level 8.2 L 8.7-10.4 mg/dL Phosphorus Level 1.8 L 2.4-5.1 mg/dL Magnesium Level 1.6 1.6-2.6 mg/dL Total Bilirubin 1.1 H 0.2-1.0 mg/dL Aspartate Amino Transferase (AST) 27 13-40 U/L Alanine Aminotransferase (ALT) < 9 7-40 U/L Alkaline Phosphatase 88 46-116 U/L Total Protein 6.6 5.7-8.2 g/dL Albumin 3.7 3.2-4.8 g/dL Thyroid Stimulating Hormone (TSH) 1.63 0.55-4.78 uIU/mL Assessment/Plan Assessment/Plan Assessment Hypoxic/hypercapnic respiratory failure Asthma COPD exacerbation Early sepsis Community-acquired pneumonia Morbid obesity Plan Admit the patient to [facility] to the hospitalist Cefepime/vancomycin Med nebs Resume home medications Continue treatment per orders. Plan discussed with: Patient My Orders Orders - JOSE SALVADOR Procedure Category Date Status Time Admit ADMIT 12/23/24 Transmitted 19:59 Nitroglycerin PHA 12/23/24 In Process Sublingual (Ntrostat 20:00 Morphine Sulfate PHA 12/23/24 In Process Injection 20:00 Stat Ekg For Chest GISSEL 12/23/24 In Process Pain 19:59 Notify Of Changes GIS[facility] 12/23/24 In Process From Base 19:59 Horticulturalist For GISSEL 12/23/24 In Process 24 Hours 19:59 Emergency Dysrhythmia GISSEL 12/23/24 In Process Protocol 19:59 Rhythm Strips Once GISSEL 12/23/24 In Process Every Shift 19:59 Oxygen By Nasal RT 12/23/24 Transmitted Cannula 19:59 B-Type Natriuretic LAB 12/23/24 Transmitted Peptide 21:19 Basic Metabolic Panel LAB 12/24/24 Verified 04:00 Oxygen Per Hour RT 12/23/24 Transmitted 21:19 Hydrocodone-Acet PHA 12/23/24 Transmitted 5/325mg Tab ([place] 21:30 Temazepam (Restoril) PHA 12/23/24 Transmitted 21:30 Ondansetron Hcl PHA 12/23/24 Transmitted (Zofran) 21:30 Enoxaparin Sodium PHA 12/24/24 Transmitted (Lovenox) 10:00 Complete Blood Count LAB 12/24/24 Verified 04:00 Cardiac DIET 12/24/24 Transmitted Diet-2gna,Lofat,Lochol Breakfast Echo 2d Mode Cardiac US 12/23/24 Transmitted DOP 21:19 Condition: Fair GISSEL 12/23/24 Transmitted 21:19 Acetaminophen Tablet PHA 12/23/24 Transmitted (Tylenol Tablet) 21:30 Bedrest With Bathroom GISSEL 12/23/24 Transmitted Privileg 21:19 Date of Service: Dec 23, 2024 Billing Provider: JOSE SALVADOR Common Visit Codes: [id number] CARE 30-74 MIN JOSE SALVADOR Dec 23, 2024 21:31
[2024-12-23 21:35] LABS: Urine Bacteria None Seen /hpf (None Seen)
[2024-12-23] MEDS: SODIUM CHLORIDE 0.9% 1,000 ML IV SCH (21:42)
[2024-12-23] MEDS: ALBUTEROL SULF 2.5 MG/0.5ML(0.5%) NEB SOLN NEB PRN (21:45)
[2024-12-23 21:46] VITALS: PULSE 84; RESP 16; O2SAT 99
[2024-12-23] MEDS: IPRATROPIUM BROM 0.5 MG/2.5ML INH SOL NEB SCH (21:46)
[2024-12-23 21:50] LABS: Urine Blood TRACE /uL (Negative); Urine Clarity Clear (Clear); Urine Color Yellow (Yellow); Urine Mucus FEW (None Seen); Urine Protein, UAD Negative (Negative); Urine Specific Gravity 1.015 (1.001-1.035); Urine Squamous Epithelial Cell FEW /hpf (<5); Urine Urobilinogen 2 mg/dL (Negative); Urine WBC < 1 /HPF (0-5); Urine pH 6.5 (5.0-9.0)
[2024-12-23 21:54] VITALS: PULSE 84; RESP 18; O2SAT 97
[2024-12-23 22:03] LABS: Amphetamine Screen, Urine Neg (NEGATIVE); Barbiturate Scree,Urine Neg (NEGATIVE); Benzodiazephine Screen, Urine Neg (NEGATIVE); Cannabinoid Screen, Urine Neg (NEGATIVE); Cocaine Screen, Urine Neg (NEGATIVE); Opiate Scree,Urine Neg (NEGATIVE); Phencyclidine Screen, Urine Neg (NEGATIVE)
[2024-12-23] MEDS: GABAPENTIN 300 MG CAP PO SCH (22:37)
[2024-12-23] MEDS: CEFEPIME 1GM/ 50ML 50 ML IV SCH (22:39)
[2024-12-23] MEDS: methylPREDNISolone SOD SUCC 40 MG/ML VL IV SCH (22:39)
[2024-12-23 23:52] VITALS: BP 124/55; PULSE 84; RESP 18; TEMP 100.9; O2SAT 97
[2024-12-24] VITALS (11 sets, daily range): BP systolic 122; BP diastolic 50; PULSE 65–80; RESP 14–20; O2SAT 92–99
[2024-12-24] MEDS: VANCOMYCIN 1GM/250ML KIT 250 ML IV SCH (04:33)
[2024-12-24 06:46] LABS: Chloride 101 mmol/L (98-107); Potassium 4.2 mmol/L (3.5-5.1); Sodium 138 mmol/L (136-145)
[2024-12-24 06:47] LABS: Anion Gap 7 (5-15); Carbon Dioxide 30 mmol/L (20-31)
[2024-12-24 06:49] LABS: Calcium 8.7 mg/dL (8.7-10.4)
[2024-12-24 06:53] LABS: BUN/Creatinine Ratio 14.7 (10.0-20.0); Blood Urea Nitrogen 10 mg/dL (9-23)
[2024-12-24 06:56] LABS: Glucose 164 mg/dL (74-106)
[2024-12-24 07:07] LABS: Basophils # (auto) 0.1 10 ^3/uL (0-0.2); Basophils % (auto) 0.6 % (0.0-2.0); Eosinophils # (auto) 0 10 ^3/uL (0-0.8); Eosinophils % (auto) 0.2 % (0.0-7.0); Hematocrit 31.1 % (36.0-46.0); Hemoglobin 9.9 g/dL (12.2-16.2); Lymphocytes # (auto) 0.8 10 ^3/uL (0.4-5.4); Lymphocytes % (auto) 4.1 % (10.0-50.0); Mean Corpuscular Hemoglobin 26.6 pg (28.0-32.0); Mean Corpuscular Hgb Conc. 31.9 g/dL (32.0-36.0); Mean Corpuscular Volume 83.4 fL (80.0-100.0); Monocytes # (auto) 0.7 10 ^3/uL (0-1.3); Monocytes % (auto) 3.5 % (0.0-12.0); Neutrophils % (auto) 91.6 % (37.0-80.0); Nucleated Red Blood Cells % 0.1 %; Platelet Count (auto) 198 10^3/uL (140-450); Red Blood Cells 3.72 10^6/uL (4.0-5.20); Red Cell Distribution Width 18.2 % (11.8-14.3); White Blood Cell 18.6 10^3/uL (4.4-10.8)
[2024-12-24 09:45] LABS: COVID19 ANTIGEN SOFIA FIA NEGATIVE (NEGATIVE); Rapid Influenza A Negative (Negative); Rapid Influenza B Negative (Negative)
[2024-12-24] MEDS: ENOXAPARIN SOD 40 MG/0.4 ML SYRINGE SC SCH (11:09)
[2024-12-24] MEDS: PANTOPRAZOLE 40 MG/10 ML VIAL INJ IV SCH (11:09)
[2024-12-24] MEDS: CITALOPRAM HYDROBR 20 MG TAB PO SCH (11:10)
--- NOTE | 2024-12-24 14:45 | DVHPN2 ---
Subjective Patient reports having persistent shortness of breath. Reviewed: Care Plan, H&P, Labs, Medications Changes from previous H/P or p: No Changes General: Per HPI Objective Vitals Vital Signs Date Time Temp Pulse Resp B/P (MAP) Pulse Ox O2 Delivery O2 Flow Rate FiO2 12/24/24 12:00 65 12/24/24 12:00 16 107/52 (70) 97 12/24/24 10:17 Nasal Cannula* 4 36 12/24/24 07:00 97.9 97.9 Intake/Output Intake and Output 12/24/24 07:00 Intake Total 2675.0 ml Output Total 1545 ml Balance 1130.0 ml Intake Oral 0 ml IV Total 2675.0 ml Output Urine Total 1545 ml General Appearance: Alert, Oriented X3, Cooperative, No acute distress HEENT: Atraumatic, PERRLA Lungs: Other (Cannula 4 L. Bilateral rhonchi with decreased breath sounds at bases.) Cardiovascular: Normal S1, Normal S2 Musculoskeletal: Normal sensory function, Normal motor function Extremities: No clubbing, No cyanosis Neuro: Normal gait, Normal speech Psych/Mental Status: Mental status NL, Mood NL Medications Current Medications Medications Dose Ordered Sig/Tello Route Start Time Stop Time Status Last Admin Dose Admin Sodium Chloride 1,000 ml @ 75 mls/hr [id number] IV 12/23/24 18:15 12/24/24 07:11 75 MLS/HR Cefepime HCl 50 ml @ 12.5 mls/hr Q8HR IV 12/23/24 22:00 12/24/24 14:09 12.5 MLS/HR Vancomycin HCl 0 ml @ 0 mls/hr UD IV 12/23/24 18:15 Ipratropium [place] 0.5 mg Q4HWA NEB 12/23/24 22:00 12/24/24 14:40 0.5 MG Albuterol 2.5 mg Q4HPRN PRN NEB 12/23/24 18:45 12/24/24 14:40 2.5 MG Methylprednisolone Sodium Succinate 40 mg BID IV 12/23/24 22:00 12/24/24 11:09 40 MG Citalopram Hydrobromide 20 mg DAILY PO 12/24/24 10:00 12/24/24 11:10 20 MG Gabapentin 600 mg BID PO 12/23/24 22:00 12/24/24 11:09 600 MG Pantoprazole Sodium 40 mg DAILY IV 12/24/24 10:00 12/24/24 11:09 40 MG Nitroglycerin 0.4 mg Q5MINP PRN SL 12/23/24 20:00 Morphine Sulfate 2 mg Q30M PRN IV 12/23/24 20:00 Acetaminophen/ Hydrocodone Bitart 1 tab Q4HP PRN PO 12/23/24 21:30 Temazepam 15 mg QHSP PRN PO 12/23/24 21:30 Ondansetron HCl 4 mg Q4HP PRN IV 12/23/24 21:30 Enoxaparin Sodium 40 mg DAILY SC 12/24/24 10:00 12/24/24 11:09 40 MG Acetaminophen 650 mg Q6HP PRN PO 12/23/24 21:30 Vancomycin HCl 250 ml @ 250 mls/hr Q8H IV 12/24/24 04:00 12/24/24 12:06 250 MLS/HR Laboratory Results Laboratory Tests 12/24/24 06:04 Chemistry Test 12/23/24 19:13 12/24/24 06:04 Albumin 3.7 g/dL (3.2-4.8) Calcium Level 8.2 mg/dL (8.7-10.4) L 8.7 mg/dL (8.7-10.4) Magnesium Level 1.6 mg/dL (1.6-2.6) Phosphorus Level 1.8 mg/dL (2.4-5.1) L Total Protein 6.6 g/dL (5.7-8.2) Coagulation Test 12/23/24 19:13 Prothrombin Time 11.4 sec (9.3-11.8) Prothrombin Time INR 1.08 (0.9-1.15) Activated Partial Thromboplast Time 25.1 SEC (24.5-34.5) Cardiac Markers Test 12/23/24 22:25 B-Type Natriuretic Peptide 85.45 pg/mL (0-100) LFT Test 12/23/24 19:13 Alanine Aminotransferase (ALT) < 9 U/L (7-40) Alkaline Phosphatase 88 U/L (46-116) Aspartate Amino Transferase (AST) 27 U/L (13-40) Total Bilirubin 1.1 mg/dL (0.2-1.0) H HgA1c, TSH Test 12/23/24 19:13 Thyroid Stimulating Hormone (TSH) 1.63 uIU/mL (0.55-4.78) Urinalysis Test 12/23/24 21:35 Urine Color Yellow (Yellow) Urine Clarity Clear (Clear) Urine pH 6.5 (5.0-9.0) Urine Specific [place] 1.015 (1.001-1.035) Urine Protein Negative (Negative) Urine Ketones Negative (Negative) Urine Blood Trace /uL (Negative) H Urine Nitrite Negative (Negative) Urine Bilirubin Negative (Negative) Urine Urobilinogen 2 mg/dL (Negative) H Urine Leukocyte Esterase Negative /uL (Negative) Urine RBC 2 /hpf (0 - 4) Urine Microscopic WBC < 1 /HPF (0-5) Urine Squamous Epithelial Cells Few /hpf (<5) Urine Bacteria None seen /hpf (None Seen) Urine Mucus Few (None Seen) Urine Glucose Normal mg/dL (Normal) Blood Gas Results Test 12/23/24 20:20 Arterial Blood pH 7.294 (7.350-7.450) FiO2 % 100.0 Labs and/or images reviewed: Labs reviewed by me, Image(s) reviewed by me Assessment/Plan Assessment/Plan Impression: -acute on chronic hypoxic respiratory failure -community-acquired pneumonia, probable Gram-positive/Gram-negative etiology -acute diastolic heart failure -morbid obesity -metabolic encephalopathy, rule out hypercarbic respiratory failure -bilateral lower extremity lymphedema -sepsis Plan: -continue antibiotic therapy with cefepime and vancomycin -repeat ABG -titrate O2 to keep saturation greater than 92% -head of bed greater than 30 -IV diuresis -PUD, DVT prophylaxis -bronchodilators -repeat labs and chest x-ray in a.m. -transferred to telemetry unit Total time spent with patient discussing and formulating plan of care: 35 minutes. This medical document was created using an electronic medical record system with [employer] dictation system. Although this document has been carefully reviewed, there may still be some phonetic and typographical errors. These areas are purely typographical due to imperfections of the software programs, and do not reflect any compromise in the patient's medical care. Plan discussed with: Patient, Other (RN) My Orders Orders - DIANE PA NP Procedure Category Date Status Time Transfer Orders XFER 12/24/24 Verified 14:37 Comprehensive LAB 12/25/24 Verified Metabolic Panel 04:00 Chest Xray 1 View XY 12/24/24 Verified 14:37 Date of Service: Dec 24, 2024 Billing Provider: DIANE PA NP Common Visit Codes: [id number] INP/OBS CARE(HIGH) DIANE PA NP Dec 24, 2024 14:45
[2024-12-24 15:07] LABS: Base Excess 4.4 mmol/L (-2.0-3.0)
--- NOTE | 2024-12-24 15:39 | DVH ---
EXAM: XY CHEST XRAY 1 VIEW Indication: pna Technique: Single frontal view of the chest was obtained Comparison: XY CHEST XRAY 1 VIEW on DOS: 12/23/24, XY CHEST PORTABLE on DOS: 10/07/24, XY CHEST XRAY 1 VIEW on DOS: 09/30/24, XY CHEST PORTABLE on DOS: 02/29/24, XY CHEST PORTABLE on DOS: 02/29/24 FINDINGS: Lines and Tubes: None Lungs: Pulmonary vascular congestion. Pleura: No effusion. No pneumothorax. Cardiomediastinal contours: Cardiomegaly. Bones: No acute osseous abnormality. IMPRESSION: Cardiomegaly with pulmonary vascular congestion.
--- NOTE | 2024-12-24 17:52 | DVHSR ---
APPROVED REPORT EXAM: Two-dimensional and M-mode echocardiogram with Doppler and color Doppler. Blood Pressure: 117/59 mmHg INDICATION EF RISK FACTORS Height: 63, Weight: 350 DIMENSIONS LVDd (3.8-5.7cm)LA (2D)4.4 (1.9-4.0cm)Aortic Root (2.0-3.7cm) EF (%) 67.0 (55-70%)Rt. Atrium5.0 (1.9-4.0cm)Asc. Aorta cm Mitral Valve MitralMitral Stenosis E wave1.11m/sMV Mean GR.mmHg A wave0.97m/sMV Peak GR.75mmHg E/A ratio1.12D MVAcm2 DECEL [id number] 1/2 Autd04sh IVRTmsDop MVA2.49cm2 Aortic Valve Aortic ValveAortic Stenosis V11.45m/Aubrey Mean GR.10mmHg V22.38m/Aubrey Peak GR.23mmHg Tricuspid Valve TR Velocity3.10m/s [id number] Other Information Technically limited study due to body habitus and patient laying flat on her back. Conclusion Sinus rhythm. Difficult acoustic windows. Off axis views. Left atrial enlargement with concentric LVH. Mild aortic root enlargement. Valves appear to be structurally normal. EF of 60% with normal RV function. Moderate tricuspid regurgitation. No pericardial effusion masses or vegetations discernible.
[2024-12-25] VITALS (14 sets, daily range): PULSE 74–88; RESP 15–24; O2SAT 91–100
[2024-12-25] MEDS: VANCOMYCIN 1.25GM/250ML 250 ML IV SCH (04:13)
[2024-12-25 05:59] LABS: Basophils # (auto) 0 10 ^3/uL (0-0.2); Basophils % (auto) 0.2 % (0.0-2.0); Eosinophils # (auto) 0 10 ^3/uL (0-0.8); Eosinophils % (auto) 0.1 % (0.0-7.0); Hematocrit 29.1 % (36.0-46.0); Hemoglobin 9.4 g/dL (12.2-16.2); Lymphocytes # (auto) 1.1 10 ^3/uL (0.4-5.4); Lymphocytes % (auto) 8.6 % (10.0-50.0); Mean Corpuscular Hgb Conc. 32.4 g/dL (32.0-36.0); Mean Corpuscular Volume 83.4 fL (80.0-100.0); Monocytes # (auto) 0.7 10 ^3/uL (0-1.3); Monocytes % (auto) 5.8 % (0.0-12.0); Neutrophils # (auto) 10.9 10 ^3/uL (1.6-8.6); Neutrophils % (auto) 85.3 % (37.0-80.0); Platelet Count (auto) 215 10^3/uL (140-450); Red Blood Cells 3.48 10^6/uL (4.0-5.20); Red Cell Distribution Width 18.4 % (11.8-14.3); White Blood Cell 12.8 10^3/uL (4.4-10.8)
[2024-12-25 06:16] LABS: Albumin 3.6 g/dL (3.2-4.8); Alkaline Phosphatase 65 U/L (46-116); Anion Gap 6 (5-15); BUN/Creatinine Ratio 23.4 (10.0-20.0); Bilirubin, Total 1.1 mg/dL (0.2-1.0); Blood Urea Nitrogen 15 mg/dL (9-23); Calcium 9.1 mg/dL (8.7-10.4); Chloride 101 mmol/L (98-107); Glucose 106 mg/dL (74-106); Sodium 139 mmol/L (136-145); Total Protein 6.9 g/dL (5.7-8.2)
[2024-12-25 06:19] LABS: Alanine Aminotransferase < 9 U/L (7-40); Aspartate Aminotransferase 12 U/L (13-40); Carbon Dioxide 32 mmol/L (20-31); Potassium 3.5 mmol/L (3.5-5.1)
[2024-12-25] MEDS: FUROSEMIDE 20 MG/2 ML VIAL IV SCH (10:56)
--- NOTE | 2024-12-25 12:20 | DVHPN2 ---
Subjective Patient reports having persistent shortness of breath. Reviewed: Care Plan, H&P, Labs, Medications Changes from previous H/P or p: No Changes General: Per HPI Objective Vitals Vital Signs Date Time Temp Pulse Resp B/P (MAP) Pulse Ox O2 Delivery O2 Flow Rate FiO2 12/25/24 11:56 98.0 98.0 12/25/24 11:23 85 20 127/66 (86) 93 12/25/24 09:23 Nasal Cannula* 2 28 Intake/Output Intake and Output 12/25/24 07:00 Intake Total 1737.5 ml Output Total 1725 ml Balance 12.5 ml IV Total 1737.5 ml Output Urine Total 1725 ml General Appearance: Alert, Oriented X3, Cooperative, No acute distress, Other (Morbid obesity) HEENT: Atraumatic, PERRLA Lungs: Other (Cannula 4 L. Bilateral rhonchi with decreased breath sounds at bases.) Cardiovascular: Normal S1, Normal S2 Musculoskeletal: Normal sensory function, Normal motor function Extremities: No clubbing, No cyanosis Neuro: Normal gait, Normal speech Psych/Mental Status: Mental status NL, Mood NL Medications Current Medications Medications Dose Ordered Sig/Tello Route Start Time Stop Time Status Last Admin Dose Admin Cefepime HCl 50 ml @ 12.5 mls/hr Q8HR IV 12/23/24 22:00 12/25/24 05:34 12.5 MLS/HR Vancomycin HCl 0 ml @ 0 mls/hr UD IV 12/23/24 18:15 Ipratropium [place] 0.5 mg Q4HWA NEB 12/23/24 22:00 12/25/24 09:23 0.5 MG Albuterol 2.5 mg Q4HPRN PRN NEB 12/23/24 18:45 12/25/24 09:23 2.5 MG Citalopram Hydrobromide 20 mg DAILY PO 12/24/24 10:00 12/25/24 10:56 20 MG Gabapentin 600 mg BID PO 12/23/24 22:00 12/25/24 10:56 600 MG Pantoprazole Sodium 40 mg DAILY IV 12/24/24 10:00 12/25/24 10:57 40 MG Nitroglycerin 0.4 mg Q5MINP PRN SL 12/23/24 20:00 Morphine Sulfate 2 mg Q30M PRN IV 12/23/24 20:00 Acetaminophen/ Hydrocodone Bitart 1 tab Q4HP PRN PO 12/23/24 21:30 Temazepam 15 mg QHSP PRN PO 12/23/24 21:30 Ondansetron HCl 4 mg Q4HP PRN IV 12/23/24 21:30 Enoxaparin Sodium 40 mg DAILY SC 12/24/24 10:00 12/25/24 10:57 40 MG Acetaminophen 650 mg Q6HP PRN PO 12/23/24 21:30 Furosemide 20 mg DAILY IV 12/25/24 10:00 12/25/24 10:56 20 MG Vancomycin HCl 250 ml @ 200 mls/hr Q8H IV 12/25/24 04:00 12/25/24 04:13 200 MLS/HR Diphenhydramine HCl 25 mg Q4HP PRN PO 12/25/24 05:15 Laboratory Results Laboratory Tests 12/25/24 05:43 Chemistry Test 12/25/24 05:43 Albumin 3.6 g/dL (3.2-4.8) Calcium Level 9.1 mg/dL (8.7-10.4) Total Protein 6.9 g/dL (5.7-8.2) LFT Test 12/25/24 05:43 Alanine Aminotransferase (ALT) < 9 U/L (7-40) Alkaline Phosphatase 65 U/L (46-116) Aspartate Amino Transferase (AST) 12 U/L (13-40) L Total Bilirubin 1.1 mg/dL (0.2-1.0) H Urinalysis Test 12/23/24 21:35 Urine Color Yellow (Yellow) Urine Clarity Clear (Clear) Urine pH 6.5 (5.0-9.0) Urine Specific [place] 1.015 (1.001-1.035) Urine Protein Negative (Negative) Urine Ketones Negative (Negative) Urine Blood Trace /uL (Negative) H Urine Nitrite Negative (Negative) Urine Bilirubin Negative (Negative) Urine Urobilinogen 2 mg/dL (Negative) H Urine Leukocyte Esterase Negative /uL (Negative) Urine RBC 2 /hpf (0 - 4) Urine Microscopic WBC < 1 /HPF (0-5) Urine Squamous Epithelial Cells Few /hpf (<5) Urine Bacteria None seen /hpf (None Seen) Urine Mucus Few (None Seen) Urine Glucose Normal mg/dL (Normal) Blood Gas Results Test 12/24/24 14:59 Arterial Blood pH 7.328 (7.350-7.450) FiO2 % 36.0 Microbiology Microbiology Date/Time Source Procedure Growth Status 12/23/24 21:35 Voided Urine Urine Culture - Preliminary Resulted 12/23/24 19:13 Blood Blood Culture - Preliminary NO GROWTH AFTER 24 HOURS OF INCUBATION. Resulted Labs and/or images reviewed: Labs reviewed by me, Image(s) reviewed by me Assessment/Plan Assessment/Plan Impression: -acute on chronic hypoxic respiratory failure -community-acquired pneumonia, probable Gram-positive/Gram-negative etiology -acute diastolic heart failure -morbid obesity -metabolic encephalopathy, rule out hypercarbic respiratory failure -bilateral lower extremity lymphedema -sepsis Plan: -patient with worsening hypercarbic respiratory failure yesterday. Corrected after being placed on BiPAP. Patient was now alert and oriented -continue antibiotic therapy with cefepime and vancomycin -titrate O2 to keep saturation greater than 92% -head of bed greater than 30 -IV diuresis -PUD, DVT prophylaxis -bronchodilators -repeat labs and chest x-ray in a.m. -transfer to Med/Surg Total time spent with patient discussing and formulating plan of care: 35 minutes. This medical document was created using an electronic medical record system with [employer] dictation system. Although this document has been carefully reviewed, there may still be some phonetic and typographical errors. These areas are purely typographical due to imperfections of the software programs, and do not reflect any compromise in the patient's medical care. Plan discussed with: Patient, Other My Orders Orders - DIANE PA NP Procedure Category Date Status Time Transfer Orders XFER 12/24/24 Transmitted 14:37 Chest Xray 1 View XY 12/24/24 Resulted 14:37 Abg W/ Co-Ox RT 12/24/24 Logged 14:41 Furosemide Injection PHA 12/25/24 In Process (Lasix Injection) 10:00 BIPAP RT 12/24/24 Logged 15:04 BIPAP RT 12/25/24 Logged 10:14 Date of Service: Dec 25, 2024 Billing Provider: DIANE PA NP Common Visit Codes: [id number] INP/OBS CARE(HIGH) DIANE PA NP Dec 25, 2024 12:20
[2024-12-25] MEDS: MORPHINE SULFATE INJ 2 MG/ml SYRG IV PRN (18:44)
[2024-12-25] MEDS: ONDANSETRON HCL 4 MG/2 ML VIAL IV PRN (18:45)
[2024-12-26] VITALS (21 sets, daily range): BP systolic 115–122; BP diastolic 61–71; PULSE 64–85; RESP 17–22; TEMP 97.1–98.5; O2SAT 90–100
[2024-12-26 03:37] LABS: Chloride 100 mmol/L (98-107); Potassium 3.6 mmol/L (3.5-5.1); Sodium 140 mmol/L (136-145)
[2024-12-26 03:38] LABS: Anion Gap 5 (5-15); Calcium 8.8 mg/dL (8.7-10.4)
[2024-12-26 03:43] LABS: BUN/Creatinine Ratio 26.2 (10.0-20.0); Blood Urea Nitrogen 16 mg/dL (9-23); Glucose 103 mg/dL (74-106)
[2024-12-26 03:45] LABS: Carbon Dioxide 35 mmol/L (20-31)
--- NOTE | 2024-12-26 05:53 | DVH ---
CHEST RADIOGRAPH Indication: pna Technique: Single frontal view of the chest was obtained Comparison: XY CHEST XRAY 1 VIEW on DOS: 12/24/24, XY CHEST XRAY 1 VIEW on DOS: 12/23/24, XY CHEST PORTAB LE on DOS: 10/07/24 IMPRESSION: Heart is enlarged. There is moderate pulmonary vascular congestion. No sizable effusion or pneumothor ax. Findings appear similar to prior examination.
[2024-12-26 07:18] LABS: Basophils # (auto) 0 10 ^3/uL (0-0.2); Basophils % (auto) 0.3 % (0.0-2.0); Eosinophils # (auto) 0 10 ^3/uL (0-0.8); Eosinophils % (auto) 0.4 % (0.0-7.0); Hematocrit 29.3 % (36.0-46.0); Hemoglobin 9.6 g/dL (12.2-16.2); Lymphocytes # (auto) 1.3 10 ^3/uL (0.4-5.4); Lymphocytes % (auto) 13.6 % (10.0-50.0); Mean Corpuscular Hemoglobin 27.2 pg (28.0-32.0); Mean Corpuscular Hgb Conc. 32.7 g/dL (32.0-36.0); Monocytes # (auto) 0.5 10 ^3/uL (0-1.3); Neutrophils # (auto) 7.4 10 ^3/uL (1.6-8.6); Neutrophils % (auto) 80.7 % (37.0-80.0); Platelet Count (auto) 210 10^3/uL (140-450); Red Blood Cells 3.53 10^6/uL (4.0-5.20); Red Cell Distribution Width 18.8 % (11.8-14.3); White Blood Cell 9.2 10^3/uL (4.4-10.8)
[2024-12-26] MEDS: CEFEPIME 1GM/ 50ML 50 ML IV SCH (10:27)
[2024-12-26] MEDS: HYDROcodone-ACET 5/325MG TAB PO PRN (10:31)
--- NOTE | 2024-12-26 14:53 | DVHPN2 ---
Subjective The patient is seen and examined at bedside. No complaint today Reviewed: Care Plan, H&P, Labs, Medications Changes from previous H/P or p: No Changes General: Per HPI Objective Vitals Vital Signs Date Time Temp Pulse Resp B/P (MAP) Pulse Ox O2 Delivery O2 Flow Rate FiO2 12/26/24 14:01 78 20 100 12/26/24 13:55 Nasal Cannula* 2 28 12/26/24 13:00 97.8 122/69 (86) 97.8 Intake/Output Intake and Output 12/26/24 07:00 Intake Total 337.5 ml Output Total 2900 ml Balance -2562.5 ml Intake Oral 0 ml IV Total 337.5 ml Output Urine Total 2900 ml General Appearance: Alert, Oriented X3, Cooperative, No acute distress, Other (Morbid obesity) HEENT: Atraumatic, PERRLA Lungs: Other (Cannula 4 L. Bilateral rhonchi with decreased breath sounds at bases.) Cardiovascular: Normal S1, Normal S2 Musculoskeletal: Normal sensory function, Normal motor function Extremities: No clubbing, No cyanosis Neuro: Normal gait, Normal speech Psych/Mental Status: Mental status NL, Mood NL Medications Current Medications Medications Dose Ordered Sig/Tello Route Start Time Stop Time Status Last Admin Dose Admin Ipratropium [place] 0.5 mg Q4HWA NEB 12/23/24 22:00 12/26/24 13:50 0.5 MG Albuterol 2.5 mg Q4HPRN PRN NEB 12/23/24 18:45 12/26/24 13:50 2.5 MG Citalopram Hydrobromide 20 mg DAILY PO 12/24/24 10:00 12/26/24 10:30 20 MG Gabapentin 600 mg BID PO 12/23/24 22:00 12/26/24 10:29 600 MG Pantoprazole Sodium 40 mg DAILY IV 12/24/24 10:00 12/26/24 10:29 40 MG Acetaminophen/ Hydrocodone Bitart 1 tab Q4HP PRN PO 12/23/24 21:30 12/26/24 10:31 1 TAB Temazepam 15 mg QHSP PRN PO 12/23/24 21:30 Ondansetron HCl 4 mg Q4HP PRN IV 12/23/24 21:30 12/25/24 18:45 4 MG Enoxaparin Sodium 40 mg DAILY SC 12/24/24 10:00 12/26/24 10:29 40 MG Acetaminophen 650 mg Q6HP PRN PO 12/23/24 21:30 Furosemide 20 mg DAILY IV 12/25/24 10:00 12/26/24 10:29 20 MG Diphenhydramine HCl 25 mg Q4HP PRN PO 12/25/24 05:15 Cefepime HCl 50 ml @ 12.5 mls/hr Q8H IV 12/26/24 09:00 12/26/24 10:27 12.5 MLS/HR Laboratory Results Laboratory Tests 12/26/24 02:55 12/26/24 06:55 Chemistry Test 12/26/24 02:55 Calcium Level 8.8 mg/dL (8.7-10.4) Urinalysis Test 12/23/24 21:35 Urine Color Yellow (Yellow) Urine Clarity Clear (Clear) Urine pH 6.5 (5.0-9.0) Urine Specific [place] 1.015 (1.001-1.035) Urine Protein Negative (Negative) Urine Ketones Negative (Negative) Urine Blood Trace /uL (Negative) H Urine Nitrite Negative (Negative) Urine Bilirubin Negative (Negative) Urine Urobilinogen 2 mg/dL (Negative) H Urine Leukocyte Esterase Negative /uL (Negative) Urine RBC 2 /hpf (0 - 4) Urine Microscopic WBC < 1 /HPF (0-5) Urine Squamous Epithelial Cells Few /hpf (<5) Urine Bacteria None seen /hpf (None Seen) Urine Mucus Few (None Seen) Urine Glucose Normal mg/dL (Normal) Microbiology Microbiology Date/Time Source Procedure Growth Status 12/24/24 21:10 Nose MRSA Screen - Final Methicillin Resistant S.aureus Complete 12/23/24 21:35 Voided Urine Urine Culture - Final Enterococcus faecalis Complete 12/23/24 19:13 Blood Blood Culture - Preliminary NO GROWTH AFTER 48 HOURS OF INCUBATION. Resulted Labs and/or images reviewed: Labs reviewed by me Assessment/Plan Assessment/Plan -acute on chronic hypoxic respiratory failure -community-acquired pneumonia, probable Gram-positive/Gram-negative etiology -acute diastolic heart failure -morbid obesity -metabolic encephalopathy, rule out hypercarbic respiratory failure -bilateral lower extremity lymphedema -sepsis Plan: Continuing current management. Patient with worsening hypercarbic respiratory failure yesterday. Corrected after being placed on BiPAP. Patient was now alert and oriented. Continuing with IV antibiotic cefepime and vancomycin. Continuing to titrate oxygen to keep saturation oxygen above 92%. Continuing to keep head of the bed greater than 30 degree. Continuing IV diuresis. -PUD, DVT prophylaxis. Continuing with bronchodilators. We will get the patient out of bed and ambulate. We will consult physical therapy This medical document was created using an electronic medical record system with [employer] computerized dictation system. Although this document has been carefully reviewed, there may still be some phonetic and typographical errors. These areas are purely typographical due to imperfections of the software programs, and do not reflect any compromise in the patient's medical care. Plan discussed with: Patient Date of Service: Dec 26, 2024 Billing Provider: OSCAR FIGUEROA MD Common Visit Codes: [id number] INP/OBS CARE(HIGH) OSCAR FIGUEROA MD Dec 26, 2024 14:53
[2024-12-27] VITALS (16 sets, daily range): BP systolic 105–133; BP diastolic 58–70; PULSE 64–92; RESP 16–21; TEMP 97.8–98.3; O2SAT 91–100
[2024-12-27] MEDS: MORPHINE SULFATE INJ 2 MG/ml SYRG IV PRN (05:37)
[2024-12-27] MEDS: MAGIC MOUTHWASH 55 ML SUSP MT SCH (18:39)
--- NOTE | 2024-12-27 19:14 | DVHPN2 ---
Subjective The patient is seen and examined at bedside. Complains of blister in the mouth after receive cefepime. Reviewed: Care Plan, H&P, Labs, Medications Changes from previous H/P or p: No Changes General: Per HPI Objective Vitals Vital Signs Date Time Temp Pulse Resp B/P (MAP) Pulse Ox O2 Delivery O2 Flow Rate FiO2 12/27/24 17:35 98.3 74 18 126/69 (88) 96 98.3 12/27/24 16:17 Nasal Cannula* 2 28 Intake/Output Intake and Output 12/27/24 07:00 Intake Total 1230 ml Output Total 2800 ml Balance -1570 ml Intake Oral 1205 ml IV Total 25 ml Output Urine Total 2800 ml General Appearance: Alert, Oriented X3, Cooperative, No acute distress, Other (Morbid obesity) HEENT: Atraumatic, PERRLA Lungs: Other (Cannula 4 L. Bilateral rhonchi with decreased breath sounds at bases.) Cardiovascular: Normal S1, Normal S2 Musculoskeletal: Normal sensory function, Normal motor function Extremities: No clubbing, No cyanosis Neuro: Normal gait, Normal speech Psych/Mental Status: Mental status NL, Mood NL Medications Current Medications Medications Dose Ordered Sig/Tello Route Start Time Stop Time Status Last Admin Dose Admin Ipratropium [place] 0.5 mg Q4HWA NEB 12/23/24 22:00 12/27/24 16:17 0.5 MG Albuterol 2.5 mg Q4HPRN PRN NEB 12/23/24 18:45 12/27/24 16:17 2.5 MG Citalopram Hydrobromide 20 mg DAILY PO 12/24/24 10:00 12/27/24 09:22 20 MG Gabapentin 600 mg BID PO 12/23/24 22:00 12/27/24 09:22 600 MG Pantoprazole Sodium 40 mg DAILY IV 12/24/24 10:00 12/27/24 14:42 40 MG Acetaminophen/ Hydrocodone Bitart 1 tab Q4HP PRN PO 12/23/24 21:30 12/27/24 09:23 1 TAB Temazepam 15 mg QHSP PRN PO 12/23/24 21:30 Ondansetron HCl 4 mg Q4HP PRN IV 12/23/24 21:30 12/25/24 18:45 4 MG Enoxaparin Sodium 40 mg DAILY SC 12/24/24 10:00 12/27/24 09:22 40 MG Acetaminophen 650 mg Q6HP PRN PO 12/23/24 21:30 Furosemide 20 mg DAILY IV 12/25/24 10:00 12/27/24 09:24 20 MG Diphenhydramine HCl 25 mg Q4HP PRN PO 12/25/24 05:15 Morphine Sulfate 1 mg Q4HP PRN IV 12/27/24 05:15 12/27/24 14:42 1 MG Azithromycin 250 ml @ 125 mls/hr DAILY IV 12/28/24 10:00 Al Hydrox/Mg Hydrox/Simethicone 5 ml QID MT 12/27/24 18:00 12/27/24 18:39 5 ML Laboratory Results Laboratory Tests 12/26/24 02:55 12/26/24 06:55 Urinalysis Test 12/23/24 21:35 Urine Color Yellow (Yellow) Urine Clarity Clear (Clear) Urine pH 6.5 (5.0-9.0) Urine Specific [place] 1.015 (1.001-1.035) Urine Protein Negative (Negative) Urine Ketones Negative (Negative) Urine Blood Trace /uL (Negative) H Urine Nitrite Negative (Negative) Urine Bilirubin Negative (Negative) Urine Urobilinogen 2 mg/dL (Negative) H Urine Leukocyte Esterase Negative /uL (Negative) Urine RBC 2 /hpf (0 - 4) Urine Microscopic WBC < 1 /HPF (0-5) Urine Squamous Epithelial Cells Few /hpf (<5) Urine Bacteria None seen /hpf (None Seen) Urine Mucus Few (None Seen) Urine Glucose Normal mg/dL (Normal) Microbiology Microbiology Date/Time Source Procedure Growth Status 12/24/24 21:10 Nose MRSA Screen - Final Methicillin Resistant S.aureus Complete 12/23/24 21:35 Voided Urine Urine Culture - Final Enterococcus faecalis Complete 12/23/24 19:13 Blood Blood Culture - Preliminary NO GROWTH AFTER 72 HOURS OF INCUBATION. Resulted Labs and/or images reviewed: Labs reviewed by me Assessment/Plan Assessment/Plan -acute on chronic hypoxic respiratory failure -community-acquired pneumonia, probable Gram-positive/Gram-negative etiology -acute diastolic heart failure -morbid obesity -metabolic encephalopathy, rule out hypercarbic respiratory failure -bilateral lower extremity lymphedema -sepsis Plan: Continuing current management. Patient with worsening hypercarbic respiratory failure yesterday. Corrected after being placed on BiPAP. Patient was now alert and oriented. Continuing with IV antibiotic but change to azithromax. Continuing to titrate oxygen to keep saturation oxygen above 92%. Continuing to keep head of the bed greater than 30 degree. Continuing IV diuresis. -PUD, DVT prophylaxis. Continuing with bronchodilators. We will get the patient out of bed and ambulate. We will consult physical therapy. Benadryl PRN for itching. This medical document was created using an electronic medical record system with [employer] computerized dictation system. Although this document has been carefully reviewed, there may still be some phonetic and typographical errors. These areas are purely typographical due to imperfections of the software programs, and do not reflect any compromise in the patient's medical care. Plan discussed with: Patient My Orders Orders - OSCAR FIGUEROA MD Procedure Category Date Status Time Azithromycin 500mg/ PHA 12/28/24 In Process 250ml (Zithromax 50 10:00 Magic Mouthwash PHA 12/27/24 In Process Suspension ([place] 18:00 Pt Request For Service PT 12/27/24 Logged 13:33 Date of Service: Dec 27, 2024 Billing Provider: OSCAR FIGUEROA MD Common Visit Codes: [id number] INP/OBS CARE(HIGH) OSCAR FIGUEROA MD Dec 27, 2024 19:14
[2024-12-28] VITALS (17 sets, daily range): BP systolic 106–117; BP diastolic 54–69; PULSE 69–84; RESP 16–20; TEMP 97.8–98.3; O2SAT 91–100
[2024-12-28] MEDS: AZITHROMYCIN 500MG/ 250ML 250 ML IV SCH (10:40)
--- NOTE | 2024-12-28 12:10 | DVHPN2 ---
Subjective Patient reports having persistent shortness of breath. Reviewed: Care Plan, H&P, Labs, Medications Changes from previous H/P or p: No Changes General: Per HPI Objective Vitals Vital Signs Date Time Temp Pulse Resp B/P (MAP) Pulse Ox O2 Delivery O2 Flow Rate FiO2 12/28/24 11:11 69 17 113/66 12/28/24 10:12 100 12/28/24 10:04 Nasal Cannula* 3 32 12/28/24 09:00 98.2 98.2 Intake/Output Intake and Output 12/28/24 07:00 Intake Total 1225 ml Output Total 2300 ml Balance -1075 ml Intake Oral 1225 ml Output Urine Total 2300 ml General Appearance: Alert, Oriented X3, Cooperative, No acute distress, Other (Morbid obesity) HEENT: Atraumatic, PERRLA Lungs: Other (Cannula 4 L. Bilateral rhonchi with decreased breath sounds at bases.) Cardiovascular: Normal S1, Normal S2 Musculoskeletal: Normal sensory function, Normal motor function Extremities: No clubbing, No cyanosis Neuro: Normal gait, Normal speech Skin: Dry, Intact Psych/Mental Status: Mental status NL, Mood NL Medications Current Medications Medications Dose Ordered Sig/Tello Route Start Time Stop Time Status Last Admin Dose Admin Ipratropium [place] 0.5 mg Q4HWA NEB 12/23/24 22:00 12/28/24 10:04 0.5 MG Albuterol 2.5 mg Q4HPRN PRN NEB 12/23/24 18:45 12/27/24 16:17 2.5 MG Citalopram Hydrobromide 20 mg DAILY PO 12/24/24 10:00 12/28/24 10:39 20 MG Gabapentin 600 mg BID PO 12/23/24 22:00 12/28/24 10:39 600 MG Pantoprazole Sodium 40 mg DAILY IV 12/24/24 10:00 12/28/24 10:40 40 MG Acetaminophen/ Hydrocodone Bitart 1 tab Q4HP PRN PO 12/23/24 21:30 12/27/24 09:23 1 TAB Temazepam 15 mg QHSP PRN PO 12/23/24 21:30 Ondansetron HCl 4 mg Q4HP PRN IV 12/23/24 21:30 12/25/24 18:45 4 MG Enoxaparin Sodium 40 mg DAILY SC 12/24/24 10:00 12/28/24 10:39 40 MG Acetaminophen 650 mg Q6HP PRN PO 12/23/24 21:30 Furosemide 20 mg DAILY IV 12/25/24 10:00 12/28/24 10:41 20 MG Diphenhydramine HCl 25 mg Q4HP PRN PO 12/25/24 05:15 Morphine Sulfate 1 mg Q4HP PRN IV 12/27/24 05:15 12/28/24 11:11 1 MG Al Hydrox/Mg Hydrox/Simethicone 5 ml QID MT 12/27/24 18:00 12/28/24 05:56 5 ML Levofloxacin 500 mg DAILY PO 12/28/24 11:00 UNV Mupirocin 1 applic BID EACHNOSTRI 12/28/24 22:00 01/02/25 21:59 UNV Laboratory Results Laboratory Tests 12/26/24 02:55 12/26/24 06:55 Urinalysis Test 12/23/24 21:35 Urine Color Yellow (Yellow) Urine Clarity Clear (Clear) Urine pH 6.5 (5.0-9.0) Urine Specific [place] 1.015 (1.001-1.035) Urine Protein Negative (Negative) Urine Ketones Negative (Negative) Urine Blood Trace /uL (Negative) H Urine Nitrite Negative (Negative) Urine Bilirubin Negative (Negative) Urine Urobilinogen 2 mg/dL (Negative) H Urine Leukocyte Esterase Negative /uL (Negative) Urine RBC 2 /hpf (0 - 4) Urine Microscopic WBC < 1 /HPF (0-5) Urine Squamous Epithelial Cells Few /hpf (<5) Urine Bacteria None seen /hpf (None Seen) Urine Mucus Few (None Seen) Urine Glucose Normal mg/dL (Normal) Microbiology Microbiology Date/Time Source Procedure Growth Status 12/24/24 21:10 Nose MRSA Screen - Final Methicillin Resistant S.aureus Complete 12/23/24 21:35 Voided Urine Urine Culture - Final Enterococcus faecalis Complete 12/23/24 19:13 Blood Blood Culture - Preliminary NO GROWTH AFTER 72 HOURS OF INCUBATION. Resulted Labs and/or images reviewed: Labs reviewed by me, Image(s) reviewed by me Assessment/Plan Assessment/Plan Impression: -acute on chronic hypoxic respiratory failure -community-acquired pneumonia, probable Gram-positive/Gram-negative etiology -acute diastolic heart failure -morbid obesity -metabolic encephalopathy, rule out hypercarbic respiratory failure -bilateral lower extremity lymphedema -sepsis Plan: -events: Patient states that her respiratory status improved, continues to report having generalized weakness. MRSA of the nares noted. Enterococcus faecalis in the urine. -antibiotic therapy: Add Levaquin p.o. -titrate O2 to keep saturation greater than 92% -head of bed greater than 30 -IV diuresis -PUD, DVT prophylaxis -bronchodilators -repeat labs today -re-evaluate for discharge in a.m. Total time spent with patient discussing and formulating plan of care: 35 minutes. This medical document was created using an electronic medical record system with [employer] dictation system. Although this document has been carefully reviewed, there may still be some phonetic and typographical errors. These areas are purely typographical due to imperfections of the software programs, and do not reflect any compromise in the patient's medical care. Plan discussed with: Patient, Other (RN) My Orders Orders - DIANE PA NP Procedure Category Date Status Time Levofloxacin Tablet PHA 12/28/24 Logged (Levaquin Tablet) 11:00 Basic Metabolic Panel LAB 12/28/24 Logged 12:04 Complete Blood Count LAB 12/28/24 Logged 12:04 Mupirocin 2% Oint PHA 12/28/24 Logged Mrsa Nares (Bactroban 22:00 Date of Service: Dec 28, 2024 Billing Provider: DIANE PA NP Common Visit Codes: [id number] INP/OBS CARE(HIGH) DIANE PA NP Dec 28, 2024 12:10
[2024-12-28 13:35] LABS: Basophils # (auto) 0 10 ^3/uL (0-0.2); Basophils % (auto) 0.4 % (0.0-2.0); Eosinophils # (auto) 0.2 10 ^3/uL (0-0.8); Hemoglobin 10.6 g/dL (12.2-16.2); Lymphocytes # (auto) 1.1 10 ^3/uL (0.4-5.4); Lymphocytes % (auto) 18.4 % (10.0-50.0); Mean Corpuscular Hgb Conc. 31.3 g/dL (32.0-36.0); Neutrophils # (auto) 4.5 10 ^3/uL (1.6-8.6); Red Blood Cells 4.12 10^6/uL (4.0-5.20); Red Cell Distribution Width 18.1 % (11.8-14.3); White Blood Cell 6.2 10^3/uL (4.4-10.8)
[2024-12-28 13:41] LABS: Eosinophils % (auto) 2.7 % (0.0-7.0); Hematocrit 33.9 % (36.0-46.0); Mean Corpuscular Hemoglobin 25.8 pg (28.0-32.0); Mean Corpuscular Volume 82.4 fL (80.0-100.0); Monocytes # (auto) 0.3 10 ^3/uL (0-1.3); Monocytes % (auto) 5.6 % (0.0-12.0); Neutrophils % (auto) 72.9 % (37.0-80.0); Nucleated Red Blood Cells % 0.2 %; Platelet Count (auto) 285 10^3/uL (140-450)
[2024-12-28 13:51] LABS: Anion Gap 5 (5-15)
[2024-12-28 13:52] LABS: Calcium 9.5 mg/dL (8.7-10.4)
[2024-12-28 13:56] LABS: Carbon Dioxide 37 mmol/L (20-31); Chloride 93 mmol/L (98-107); Potassium 3.4 mmol/L (3.5-5.1); Sodium 135 mmol/L (136-145)
[2024-12-28 13:59] LABS: BUN/Creatinine Ratio 12.1 (10.0-20.0); Blood Urea Nitrogen 7 mg/dL (9-23); Glucose 141 mg/dL (74-106)
[2024-12-28] MEDS: levoFLOXacin 500 MG TAB PO SCH (14:07)
[2024-12-28] MEDS: diphenhdrAMINE HCL 25 MG CAP PO PRN (15:16)
[2024-12-28] MEDS: MUPIROCIN 2% OINT 15gm or 22gm FOR MRSA NARES EACHNOSTRI SCH (21:56)
[2024-12-29] VITALS (12 sets, daily range): BP systolic 105–118; BP diastolic 64–85; PULSE 10–96; RESP 16–18; TEMP 36.7; O2SAT 92–100
--- NOTE | 2024-12-29 10:52 | DVHDS2 ---
Discharge Summary Date of Admission Dec 23, 2024 at 19:59 Date of Discharge: Dec 29, 2024 Admitting Diagnosis Hypoxic and hypercarbic respiratory failure. Labs/Diagnostic Data: Laboratory Results Test 12/28/24 13:15 12/26/24 02:55 12/25/24 05:43 12/24/24 14:59 White Blood Count 6.2 10^3/uL (4.4-10.8) Red Blood Count 4.12 10^6/uL (4.0-5.20) Hemoglobin 10.6 g/dL (12.2-16.2) Hematocrit 33.9 % (36.0-46.0) Mean Corpuscular Volume 82.4 fL (80.0-100.0) Mean Corpuscular Hemoglobin 25.8 pg (28.0-32.0) Mean Corpuscular Hemoglobin Concent 31.3 g/dL (32.0-36.0) Red Cell Distribution Width 18.1 % (11.8-14.3) Platelet Count 285 10^3/uL (140-450) Mean Platelet Volume 7.6 fL (6.9-10.8) Neutrophils (%) (Auto) 72.9 % (37.0-80.0) Lymphocytes (%) (Auto) 18.4 % (10.0-50.0) Monocytes (%) (Auto) 5.6 % (0.0-12.0) Eosinophils (%) (Auto) 2.7 % (0.0-7.0) Basophils (%) (Auto) 0.4 % (0.0-2.0) Neutrophils # (Auto) 4.5 10 ^3/uL (1.6-8.6) Lymphocytes # (Auto) 1.1 10 ^3/uL (0.4-5.4) Monocytes # (Auto) 0.3 10 ^3/uL (0-1.3) Eosinophils # (Auto) 0.2 10 ^3/uL (0-0.8) Basophils # (Auto) 0 10 ^3/uL (0-0.2) Nucleated Red Blood Cells 0.2 % Sodium Level 135 mmol/L (136-145) Potassium Level 3.4 mmol/L (3.5-5.1) Chloride Level 93 mmol/L (98-107) Carbon Dioxide Level 37 mmol/L (20-31) Anion Gap 5 (5-15) Blood Urea Nitrogen 7 mg/dL (9-23) Creatinine 0.58 mg/dL (0.550-1.02) Glomerular Filtration Rate Calc 105 mL/min (>90) BUN/Creatinine Ratio 12.1 (10.0-20.0) Serum Glucose 141 mg/dL (74-106) Calcium Level 9.5 mg/dL (8.7-10.4) Vancomycin Level Trough 11.3 ug/mL (5-10) Total Bilirubin 1.1 mg/dL (0.2-1.0) Aspartate Amino Transferase (AST) 12 U/L (13-40) Alanine Aminotransferase (ALT) < 9 U/L (7-40) Alkaline Phosphatase 65 U/L (46-116) Total Protein 6.9 g/dL (5.7-8.2) Albumin 3.6 g/dL (3.2-4.8) Blood Gas Specimen Type Arterial Blood Gas Sample Site Right radial Blood Gas Patient Temperature 37.0 Arterial Blood Date Drawn [id number] Arterial Blood pH 7.328 (7.350-7.450) Arterial Blood Partial Pressure CO2 61.5 mmHg (32.0-45.0) Arterial Blood Partial Pressure O2 77.5 mmHg (83.0-108.0) Arterial Blood HCO3 31.6 mmol/L (21.0-28.0) Arterial Blood Oxygen Saturation 93.7 % (94.0-98.0) Arterial Blood Base Excess 4.4 mmol/L (-2.0-3.0) Arterial Blood Oxyhemoglobin 92.5 % (94.0-98.0) Arterial Blood Carboxyhemoglobin 0.6 % (0.5-1.5) Arterial Blood Methemoglobin 0.7 % (0.0-1.5) Ko Test Yes Blood Gas Total Hemoglobin 10.40 g/dL (12.0-16.0) Blood Gas Liter Flow 4.00 Blood Gas Modality Nasal cannula FiO2 % 36.0 Blood Gas Critical Value Read Back yes Blood Gas Notified Whom luis Pa np Blood Gas Notified Time [id number] Blood Gas Notified By Test 12/24/24 08:50 12/23/24 22:25 12/23/24 21:35 2/5/25 21:25 Influenza Type A Antigen Negative (Negative) Influenza Type B Antigen Negative (Negative) SARS-CoV-2 Antigen (Rapid) Negative (NEGATIVE) B-Type Natriuretic Peptide 85.45 pg/mL (0-100) Urine Color Yellow (Yellow) Urine Clarity Clear (Clear) Urine pH 6.5 (5.0-9.0) Urine Specific [place] 1.015 (1.001-1.035) Urine Protein Negative (Negative) Urine Ketones Negative (Negative) Urine Blood Trace /uL (Negative) Urine Nitrite Negative (Negative) Urine Bilirubin Negative (Negative) Urine Urobilinogen 2 mg/dL (Negative) Urine Leukocyte Esterase Negative /uL (Negative) Urine RBC 2 /hpf (0 - 4) Urine Microscopic WBC < 1 /HPF (0-5) Urine Squamous Epithelial Cells Few /hpf (<5) Urine Bacteria None seen /hpf (None Seen) Urine Mucus Few (None Seen) Urine Glucose Normal mg/dL (Normal) Urine Opiates Screen Neg (NEGATIVE) Urine Fentanyl Screen Neg (NEGATIVE) Urine Barbiturates Screen Neg (NEGATIVE) Urine Phencyclidine Screen Neg (NEGATIVE) Urine Amphetamines Screen Neg (NEGATIVE) Urine Benzodiazepines Screen Neg (NEGATIVE) Urine Cocaine Screen Neg (NEGATIVE) Urine Cannabinoids Screen Neg (NEGATIVE) Test 12/23/24 19:17 12/23/24 19:13 Lactic Acid Level 0.9 mmol/L (0.4-2.0) Prothrombin Time 11.4 sec (9.3-11.8) Prothrombin Time INR 1.08 (0.9-1.15) Activated Partial Thromboplast Time 25.1 SEC (24.5-34.5) Phosphorus Level 1.8 mg/dL (2.4-5.1) Magnesium Level 1.6 mg/dL (1.6-2.6) Thyroid Stimulating Hormone (TSH) 1.63 uIU/mL (0.55-4.78) Other Laboratory Tests 12/28/24 13:15 Brief Hx & Hospital Course: History of Present Illness 59-year-old female with a history of asthma presents complaints of worsening shortness for breath with associated productive cough with fever and chills. Denies chest pain or palpitations. No other acute complaints reported. Course of hospitalization: Patient was noted to have elevated white blood cell count. Her initial assessment of the patient she was found to be somewhat slow to respond, with patient having hypercarbic, respiratory acidosis. Patient was treated with BiPAP, weaned off of BiPAP with patient's mentation improving dramatically. Urine culture came back positive for Enterococcus faecalis, sensitive to Levaquin. Antibiotic therapy was switched from azithromycin to Levaquin. Patient was respiratory status also improved. White blood cell count is now normalized. She has been afebrile. Patient will have Wolff catheter removed, ambulated today, and we will be discharged home. She was instructed to follow up with her PCP in 1-2 weeks. Physical examination General: Alert and Oriented x3. No acute distress. Well-nourished. Morbid obesity Eyes: EOMI. Anicteric. HENT: Moist mucous membranes. Lungs: Clear to auscultation bilaterally. No accessory muscle use. Cardiovascular: Regular rate and rhythm. No murmur. No JVD. Abdomen: Soft, non-tender and non-distended. No palpable masses. Extremities: Non-tender. Bilateral lower extremity lymphedema Skin: No rashes or lesions. Warm. Neurologic: No focal neurological deficits. CN II-XII grossly intact, but not individually tested. Psychiatric: Cooperative. Appropriate mood and affect. Total time spent with patient discussing and formulating plan of care: 35 minutes. This medical document was created using an electronic medical record system with [employer] dictation system. Although this document has been carefully reviewed, there may still be some phonetic and typographical errors. These areas are purely typographical due to imperfections of the software programs, and do not reflect any compromise in the patient's medical care. Condition at Discharge: Guarded Final Diagnosis/Problems List Acute on chronic hypoxic and hypercarbic respiratory failure Secondary diagnosis: -acute on chronic hypoxic respiratory failure -community-acquired pneumonia, probable Gram-positive/Gram-negative etiology -acute diastolic heart failure -morbid obesity -metabolic encephalopathy, rule out hypercarbic respiratory failure -bilateral lower extremity lymphedema -sepsis-complicated cystitis with Enterococcus faecalis Discharge Disposition: Home Discharge Instruct/Medications Diet: Consistent carbohydrate, Cardiac 2g Na,low cholest Activity: No Restrictions, As Tolerated Follow Up/Referral: PCP in 1-2 weeks Medications: Levaquin 500 mg p.o. daily times seven days Continue all home medications 36 Discharge Statement: "Patient was advised to return to the ER or call 911 if any headaches, dizziness, shortness of breath, chest pain, abdominal pain, bleeding, fevers, or worsening of medical condition. Patient was counseled about treatment plan, medications, possible side effects, patientverbalized understanding. All questions were answered to the best of my ability. This discharge took greater then 30 minutes in planning, reviewing documentation, counseling the patient, and discussing with other team members." ASSESSMENT ASSESSMENT Assessment Acute on chronic hypoxic and hypercarbic respiratory failure Date of Service: Dec 29, 2024 Billing Provider: DIANE PA NP Common Visit Codes: [id number]/[id number] DISCH DAY >30min DIANE PA NP Dec 29, 2024 10:52
[2024-12-29] MEDS: POTASSIUM EFFERVESENT TAB 25 MEQ PO ONE (11:02)
[2024-12-29] MEDS ORDERED: LEVO500T91 PO (16:13)
== END 2024-12-29 18:50 | disposition home or self-care (01) | DRG 871 ==
LOC: ER 18:05 → EDUNIT# 18:05 → EDBD 18:05 → OVERFLOW 19:59 → CENTRAL 12-25 23:26
PROVIDERS: ADMIT Nurse Practitioner Acute Care; ATTEND Nurse Practitioner Acute Care
PROC: 5A09357 Assistance with Respiratory Ventilation, Less than 24 Consecutive Hours, Continuous Positive Airway Pressure (ICD-10-PCS; principal; 2024-12-24)
DX: A41.81 Sepsis due to Enterococcus (principal); G93.41 Metabolic encephalopathy; J96.21 Acute and chronic respiratory failure with hypoxia; J96.22 Acute and chronic respiratory failure with hypercapnia; I50.31 Acute diastolic (congestive) heart failure; J15.69 Pneumonia due to other Gram-negative bacteria; J15.9 Unspecified bacterial pneumonia; J44.1 Chronic obstructive pulmonary disease with (acute) exacerbation; J44.0 Chronic obstructive pulmonary disease with (acute) lower respiratory infection; E87.29 Other acidosis; Z68.43 Body mass index [BMI] 50.0-59.9, adult; Z20.822 Contact with and (suspected) exposure to COVID-19; E66.01 Morbid (severe) obesity due to excess calories; I89.0 Lymphedema, not elsewhere classified; K21.9 Gastro-esophageal reflux disease without esophagitis; F32.A Depression, unspecified; N30.90 Cystitis, unspecified without hematuria; Z83.3 Family history of diabetes mellitus; Z90.710 Acquired absence of both cervix and uterus; Z79.899 Other long term (current) drug therapy
CPT/HCPCS: 36415; 36600; 71045; 80048; 80053; 80202; 80307; 81001; 82805; 83605; 83735; 83880; 84100; 84443; 85025; 85610; 85730; 87040; 87081; 87086; 87088; 87186; 87426; 87804; 93005; 93306; 94640; 94660; 97163; G0378; J2405; J2470

== ENCOUNTER 2025-03-08 09:15 | Inpatient (IN) | payer OTHER ==
[~2025-03-08] VITALS: Ht 165.1 cm; Wt 189.0 kg
[~2025-03-08 09:15] MED LIST changes: +LEVO500T91 PO
--- NOTE | 2025-03-08 09:45 | ED.PDOC ---
Musculoskeletal HPI Comments 59 y.o female with PMHx of lymphedema and asthma, presents to the ED for a chief complaint of bilateral leg swelling and pain that started one week ago. Patient reports similar episode in the past but this time it is worse and was told by her PCP to come into the ED if symptoms next time it occurred. Patient denies any trauma to her legs, numbness, tingling sensation, wounds, erythema, fever, chills, chest pain, or SOB> Patient is able to ambulate with a cane. Per EMS, patient ambulated to the [facility] on scene, did take a small ground level fall but no head injury or LOC reported. Chief Complaint: Lower Extremity Time Seen by MD: 09:18 Primary Care Provider: FRANCES Reviewed Notes: Nurses Notes, Framer Notes, Medications, Allergies Allergies: Coded Allergies: Vancomycin (Verified Allergy, Intermediate, 12/25/24) pt became hot and started sweating. redness and swelliong to the IV site. Ceftriaxone (Verified Allergy, Unknown, Rash, 10/01/24) Home Meds Reported Medications Pantoprazole Sodium Sesquihydr (Pantoprazole Sodium) 40 Mg Tab, 1 TAB PO DAILY 03/08/25 Albuterol Sulfate (Albuterol Sulfate) 2 Mg Tab, 2 MG IN Q6HP PRN for SHORTNESS OF BREATH, MG 02/29/24 Benazepril HCl (Benazepril Hydrochloride) 10 Mg Tab, 12.5 MG PO DAILY, TAB 02/29/24 Cyclobenzaprine Hcl (Cyclobenzaprine Hcl) 10 Mg Tab, 10 MG PO Q8HP PRN for FOR MUSCLE SPASM for 30 Days, MG 02/29/24 Ketorolac Tromethamine (Ketorolac Tromethamine) 10 Mg Tab, 10 MG PO DAILY, TAB 02/29/24 Citalopram Hydrobromide (Citalopram Hydrobromide) 20 Mg Tab, 20 MG PO DAILY, TAB 02/29/24 Gabapentin (Gabapentin) 600 Mg Tab, 600 MG PO BID, TAB 02/29/24 Discontinued Reported Medications Pantoprazole Sodium (PANTOPRAZOLE SODIUM) 40 Mg Inj, 40 MG PO DAILY, INJ 02/29/24 Discontinued Scripts Levofloxacin Hemihydrate (LEVAQUIN 500 MG) 500 Mg Tab, 1 TAB PO DAILY, #7 TAB Prov:DIANE PA COAL TRAM DRIVER 12/29/24 Docusate Sodium (Docusate Sodium) 100 Mg Cap, 100 MG PO BID PRN for 5 Days, #10 CAP Prov:SONIDO PERRY DO 10/04/24 Naproxen (Naproxen) 500 Mg Tab, 500 MG PO TID PRN for 10 Days, #30 TAB Prov:SONIDO PERRY DO 10/04/24 Cephalexin (KEFLEX CAPSULE) 250 Mg Cp, 2 CAP PO BID for 5 Days, #20 CAP Prov:SONIDO PERRY DO 10/04/24 Mupirocin Calcium (Topical) (MUPIROCIN) 2 % Cre, 2 % EX TID for 10 Days, #1 CRE Prov:FOSTER SERRANO 08/30/24 Information Source: Patient, Emergency Med Personnel Mode of Arrival: EMS Location: Bilateral Extremity Location: Leg Timing: Weeks (1) Severity: Moderate Able to Move Extremity: Yes Bear Weight: Limited Pain: Moderate Mechanism: None Circumstances: Spontaneous Onset of Symptoms: Spontaneous Symptoms: Swelling, Pain DVT Risk Factors: NONE Associated signs and symptoms: Swelling, Leg pain Past Medical History PAST MEDICAL HISTORY: Asthma, Depression, GERD Surgical History: Denies all surgeries 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 Family History Family History: Reviewed,noncontributory to illness Social History Smoker: Non-Smoker Alcohol: Denies ETOH Use Drugs: Denies Drug Use Lives In: Home Constitutional: denies: chills, diaphoresis, fatigue, fever, malaise, sweats, weakness, others EENTM: denies: blurred vision, double vision, ear bleeding, ear discharge, ear drainage, ear pain, ear ringing, eye pain, eye redness, hearing loss, mouth pain, mouth swelling, nasal discharge, nose bleeding, nose congestion, nose pain, photophobia, tearing, throat pain, throat swelling, voice changes, others Respiratory: denies: cough, hemoptysis, orthopnea, SOB at rest, shortness of breath, SOB with excertion, stridor, wheezing, others Cardiovascular: denies: chest pain, dizzy spells, diaphoresis, Dyspnea on exertion, edema, irregular heart beat, left arm pain, lightheadedness, palpitations, PND, syncope, others Gastrointestinal: denies: abdomen distended, abdominal pain, blood streaked bowels, constipated, diarrhea, dysphagia, difficulty swallowing, hematemesis, melena, nausea, poor appetite, poor fluid intake, rectal bleeding, rectal pain, vomiting, others Genitourinary: denies: abnormal vagina bleeding, burning, dyspareunia, dysuria, flank pain, frequency, hematuria, incontinence, pain, , vagina discharge, urgency, others Neurological: denies: dizziness, fainting, headache, left sided numbness, left sided weakness, numbness, paresthesia, pre-existing deficit, right sided numbness, right sided weakness, seizure, speech problems, tingling, tremors, weakness, others Musculoskeletal: reports: others (bilateral leg swelling and pain ); denies: back pain, gout, joint pain, joint swelling, muscle pain, muscle stiffness, neck pain Integumetry: denies: bruises, change in color, change in hair/nails, dryness, laceration, lesions, lumps, rash, wounds, others Allergic/Immunocompromised: denies: Difficulty Healing, Frequent Infections, Hives, Itching, others Hematologic/Lymphatic: denies: anemia, blood clots, easy bleeding, easy bruising, swollen glands, others Endocrine: denies: excessive hunger, excessive sweating, excessive thirst, excessive urination, flushing, intolerance to cold, intolerance to heat, unexplained weight gain, unexplained weight loss, others Psychiatric: denies: anxiety, bipolar disorder, depression, hopeless, panic disorder, schizophrenia, sleepless, suicidal, others All Other Systems: Reviewed and Negative Physical Exam General Appearance: Moderate Distress, Obese HEENT: Normal ENT Inspection, Pharynx Normal, TMs Normal Neck: Full Range of Motion, Non-Tender, Normal, Normal Inspection Respiratory: Chest Non-Tender, Lungs Clear, No Accessory Muscle Use, No Respiratory Distress, Normal Breath Sounds Cardiovascular: No Edema, No JVD, No Murmur, No Gallop, Normal Peripheral Pulses, Regular Rate/Rhythm Breast Exam: Deferred Gastrointestinal: No Organomegaly, Non Tender, No Pulsatile Mass, Normal Bowel Sounds, Soft Genitalia: Deferred Pelvic: Deferred Rectal: Deferred Extremities: Other (Elephantiasis) Musculoskeletal : Apperance: Normal Neurologic: Alert, No Motor Deficits, No Sensory Deficits Cerebellar Function: NOT DONE Reflexes: NOT DONE Skin: Normal Color Peripheral Pulses: 3+ Radial (R), 3+ Radial (L) Lymphatic: No Adenopathy Was a procedure done? Was a procedure done?: No Differential Diagnosis EXT Differential Diagnosis: Cellulitis, CHF, Deep Vein Thrombosis, Gout, Strain X-Ray, Labs, Meds, VS Vital Signs Date Time Temp Pulse Resp B/P (MAP) Pulse Ox O2 Delivery O2 Flow Rate FiO2 03/08/25 16:00 73 13 136/88 (104) 97 03/08/25 14:40 97.4 75 13 139/75 (96) 97 97.4 03/08/25 12:00 76 18 139/96 (110) 98 03/08/25 10:00 97.7 74 18 122/80 (94) 96 97.7 03/08/25 09:22 97.9 72 17 122/80 (94) 96 97.9 Lab Test 03/08/25 15:19 03/08/25 10:15 Range/Units Urine Color Yellow Yellow Urine Clarity Clear Clear Urine pH 5.5 5.0-9.0 Urine Specific [place] 1.022 1.001-1.035 Urine Protein Negative Negative Urine Ketones Negative Negative Urine Blood Negative Negative /uL Urine Nitrite Negative Negative Urine Bilirubin Negative Negative Urine Urobilinogen Normal Negative mg/dL Urine Leukocyte Esterase Negative Negative /uL Urine RBC 1 0 - 4 /hpf Urine Microscopic WBC 7 H 0-5 /HPF Urine Squamous Epithelial Cells Few <5 /hpf Urine Bacteria Mod H None Seen /hpf Urine Mucus Few None Seen Urine Glucose Normal Normal mg/dL White Blood Count 7.1 4.4-10.8 10^3/uL Red Blood Count 3.79 L 4.0-5.20 10^6/uL Hemoglobin 9.1 L 12.2-16.2 g/dL Hematocrit 29.0 L 36.0-46.0 % Mean Corpuscular Volume 76.6 L 80.0-100.0 fL Mean Corpuscular Hemoglobin 24.1 L 28.0-32.0 pg Mean Corpuscular Hemoglobin Concent 31.4 L 32.0-36.0 g/dL Red Cell Distribution Width 18.0 H 11.8-14.3 % Platelet Count 276 140-450 10^3/uL Mean Platelet Volume 7.0 6.9-10.8 fL Neutrophils (%) (Auto) 76.6 37.0-80.0 % Lymphocytes (%) (Auto) 14.4 10.0-50.0 % Monocytes (%) (Auto) 6.7 0.0-12.0 % Eosinophils (%) (Auto) 1.9 0.0-7.0 % Basophils (%) (Auto) 0.4 0.0-2.0 % Neutrophils # (Auto) 5.4 1.6-8.6 10 ^3/uL Lymphocytes # (Auto) 1.0 0.4-5.4 10 ^3/uL Monocytes # (Auto) 0.5 0-1.3 10 ^3/uL Eosinophils # (Auto) 0.1 0-0.8 10 ^3/uL Basophils # (Auto) 0 0-0.2 10 ^3/uL Nucleated Red Blood Cells 0.0 % Sodium Level 138 136-145 mmol/L Potassium Level 3.7 3.5-5.1 mmol/L Chloride Level 98 98-107 mmol/L Carbon Dioxide Level 37 H 20-31 mmol/L Anion Gap 3 L 5-15 Blood Urea Nitrogen 8 L 9-23 mg/dL Creatinine 0.63 0.550-1.02 mg/dL Glomerular Filtration Rate Calc 103 >90 mL/min BUN/Creatinine Ratio 12.7 10.0-20.0 Serum Glucose 110 H 74-106 mg/dL Calcium Level 9.6 8.7-10.4 mg/dL Current Medications Medications (Trade) Dose Ordered Sig/Tello Route Start Time Stop Time Status Last Admin Acetaminophen/ Hydrocodone Bitart ([place] 10/325MG Tab) 1 tab ONCE ONCE PO 03/08/25 09:45 03/08/25 09:46 DC 03/08/25 10:19 Acetaminophen/ Hydrocodone Bitart ([place] 10/325MG Tab) 1 tab ONCE ONCE PO 03/08/25 15:30 03/08/25 15:31 DC 03/08/25 15:34 Patient alert. Complaining of bilateral lower extremity pain. She does have elephantiasis. Vitals stable. Answering questions. Was given [place]. Blood pressure within normal limits pain Heart rate within normal limits. Reviewed her history. Explained to the patient. Continue monitoring. Bilateral lower extremity venous duplex Clinical History: edema Comparison: None Findings: Duplex Doppler evaluation of the deep venous systems of both lower extremities from the common femoral veins to the popliteal veins including color Doppler and spectral/pulsed waveform analysis was performed. RIGHT SIDE: The common femoral vein demonstrates appropriate compressibility and waveform variability. There is compressibility/patency of the great saphenous vein at the proximal thigh. The femoral vein demonstrates appropriate compressibility and waveform variability. The deep femoral vein demonstrates appropriate compressibility and waveform variability. The popliteal vein demonstrates appropriate compressibility and waveform variability. There is normal compressibility at the tibioperoneal trunk. LEFT SIDE: The common femoral vein demonstrates appropriate compressibility and waveform variability. There is compressibility/patency of the great saphenous vein at the proximal thigh. The femoral vein demonstrates appropriate compressibility and waveform variability. The deep femoral vein demonstrates appropriate compressibility and waveform variability. The popliteal vein demonstrates appropriate compressibility and waveform variability. There is normal compressibility at the tibioperoneal trunk. IMPRESSION: No right or left femoropopliteal venous thrombosis. If clinical concern/symptoms persist or worsen, short-interval follow-up study is suggested. END IMPRESSION: CATION: sob TECHNIQUE: Frontal view of the chest. COMPARISON: XY CHEST PORTABLE on DOS: 12/26/24, XY CHEST XRAY 1 VIEW on DOS: 12/24/24, XY CHEST XRAY 1 VIEW on DOS: 12/23/24, XY CHEST PORTABLE on DOS: 10/07/24, XY CHEST XRAY 1 VIEW on DOS: 09/30/24 FINDINGS: . The heart and mediastinal contours are grossly unremarkable. There is no evidence of pleural disease. The lungs are clear. The bony structures of the chest are intact without fracture. IMPRESSION: 1. No evidence of acute disease. Time of 1ST Reevaluation: 09:40 Reevaluation 1ST: Unchanged Patient Education/Counseling: Diagnosis, Treatment, Prognosis Family Education/Counseling: No Family Present Departure 1 Departure Time of Disposition: 17:46 Impression: Primary Impression: Chronic leg pain Qualified Codes: M79.604 - Pain in right leg; M79.605 - Pain in left leg; G89.29 - Other chronic pain Additional Impressions: Lymphedema Symptomatic anemia Disposition: 09 ADMITTED INPATIENT Admit to: Med Surg Condition: Guarded Critical Care Note Critical Care Time?: No Stability Stability form required: No I personally scribed for KWABENA LUBIN MD ([email or web address]) on 03/08/25 at 09:45. Electronically submitted by Latricia Beckman ([facility]). I personally scribed for KWABENA LUBIN MD ([email or web address]) on 03/08/25 at 14:37. Electronically submitted by Latricia Beckman ([facility]). KWABENA LUBIN MD Mar 08, 2025 09:45
[2025-03-08] MEDS: HYDROcodone-ACET 10/325MG TAB PO ONE ×2 (10:19→15:34)
[2025-03-08 10:24] LABS: Basophils # (auto) 0 10 ^3/uL (0-0.2); Monocytes # (auto) 0.5 10 ^3/uL (0-1.3)
[2025-03-08 10:31] LABS: Basophils % (auto) 0.4 % (0.0-2.0); Eosinophils # (auto) 0.1 10 ^3/uL (0-0.8); Eosinophils % (auto) 1.9 % (0.0-7.0); Hemoglobin 9.1 g/dL (12.2-16.2); Lymphocytes % (auto) 14.4 % (10.0-50.0); Mean Corpuscular Hemoglobin 24.1 pg (28.0-32.0); Mean Corpuscular Hgb Conc. 31.4 g/dL (32.0-36.0); Mean Corpuscular Volume 76.6 fL (80.0-100.0); Monocytes % (auto) 6.7 % (0.0-12.0); Neutrophils # (auto) 5.4 10 ^3/uL (1.6-8.6); Neutrophils % (auto) 76.6 % (37.0-80.0); Platelet Count (auto) 276 10^3/uL (140-450); Red Blood Cells 3.79 10^6/uL (4.0-5.20); White Blood Cell 7.1 10^3/uL (4.4-10.8)
--- NOTE | 2025-03-08 10:31 | DVH ---
INDICATION: sob TECHNIQUE: Frontal view of the chest. COMPARISON: XY CHEST PORTABLE on DOS: 12/26/24, XY CHEST XRAY 1 VIEW on DOS: 12/24/24, XY CHEST XRAY 1 EW on DOS: 12/23/24, XY CHEST PORTABLE on DOS: 10/07/24, XY CHEST XRAY 1 VIEW on DOS: 09/30/24 FINDINGS: . The heart and mediastinal contours are grossly unremarkable. There is no evidence of pleural disea se. The lungs are clear. The bony structures of the chest are intact without fracture. IMPRESSION: 1. No evidence of acute disease.
[2025-03-08 10:42] LABS: Potassium 3.7 mmol/L (3.5-5.1); Sodium 138 mmol/L (136-145)
[2025-03-08 10:43] LABS: Calcium 9.6 mg/dL (8.7-10.4)
[2025-03-08 10:45] LABS: Anion Gap 3 (5-15); Carbon Dioxide 37 mmol/L (20-31); Chloride 98 mmol/L (98-107)
[2025-03-08 10:48] LABS: BUN/Creatinine Ratio 12.7 (10.0-20.0)
[2025-03-08 10:50] LABS: Blood Urea Nitrogen 8 mg/dL (9-23); Glucose 110 mg/dL (74-106)
--- NOTE | 2025-03-08 11:35 | DVH ---
Bilateral lower extremity venous duplex Clinical History: edema Comparison: None Findings: Duplex Doppler evaluation of the deep venous systems of both lower extremities from the common femora l veins to the popliteal veins including color Doppler and spectral/pulsed waveform analysis was perf ormed. RIGHT SIDE: The common femoral vein demonstrates appropriate compressibility and waveform variability. There is compressibility/patency of the great saphenous vein at the proximal thigh. The femoral vein demonstrates appropriate compressibility and waveform variability. The deep femoral vein demonstrates appropriate compressibility and waveform variability. The popliteal vein demonstrates appropriate compressibility and waveform variability. There is normal compressibility at the tibioperoneal trunk. LEFT SIDE: The common femoral vein demonstrates appropriate compressibility and waveform variability. There is compressibility/patency of the great saphenous vein at the proximal thigh. The femoral vein demonstrates appropriate compressibility and waveform variability. The deep femoral vein demonstrates appropriate compressibility and waveform variability. The popliteal vein demonstrates appropriate compressibility and waveform variability. There is normal compressibility at the tibioperoneal trunk. IMPRESSION: No right or left femoropopliteal venous thrombosis. If clinical concern/symptoms persist or worsen, short-interval follow-up study is suggested. END IMPRESSION:
[2025-03-08 15:44] LABS: Urine Bacteria MOD /hpf (None Seen); Urine Blood Negative /uL (Negative); Urine Clarity Clear (Clear); Urine Color Yellow (Yellow); Urine Mucus FEW (None Seen); Urine Protein, UAD Negative (Negative); Urine Specific Gravity 1.022 (1.001-1.035); Urine Squamous Epithelial Cell FEW /hpf (<5); Urine Urobilinogen Normal (Negative); Urine WBC 7 /HPF (0-5); Urine pH 5.5 (5.0-9.0)
[2025-03-08] MEDS ORDERED: PANT40T PO (16:11)
[2025-03-08] MEDS ORDERED: ONDANSETRON HCL 4 MG/2 ML VIAL IV PRN (16:15)
[2025-03-08] MEDS ORDERED: DOCUSATE SOD 100 MG CAP PO PRN (16:15)
--- NOTE | 2025-03-08 16:28 | DVHHP2 ---
History of Present Illness Reason for Visit: Bilateral lower extremity pain History of Present Illness Malinda Jeffery is a 59-year-old female with past medical history of asthma, morbid obesity, chronic pain, and lymphedema, who came in for bilateral lower extremity pain. Patient states she has been experiencing bilateral lower extremity pain for a little over a week. She states the left is worse than the right. She came to the hospital today due to the pain increasing making it hard for her to sleep. When patient was transferring from the [facility] she had a ground level fall and states her right hand/wrist now hurts, X-rays ordered. Patient states she can walk at home with a walker, but refuses to because she doesn't see the point. Pulmonary: Asthma Musculoskeletal: Other (chronic pain, lymphedema) Past Surgical History: Cholecystectomy, (x 3), Hernia Repair Smoke: No ALCOHOL: none Drugs: None Lives: with Family Domestic Violence: Neg Review of Systems Constitutional: No: Fever, Chills, Sweats, Weakness, Malaise, Other Eyes: No: Pain, Vision change, Conjunctivae inflammation, Eyelid inflammation, Other, Redness ENT: No: Ear pain, Ear discharge, Nose pain, Nose discharge, Nose congestion, Mouth pain, Mouth swelling, Throat pain, Throat swelling, Other Respiratory: No: Cough, Dry, Shortness of breath, SOB with excertion, Wheezing, Hemoptysis, Pleuritic Pain, Sputum, Wheezing, Other Gastrointestinal: No: Nausea, Vomiting, Abdominal Pain, Diarrhea, Constipation, Melena, Hematochezia, Other Genitourinary: No Dysuria, No Frequency, No Incontinence, No Hematuria, No Retention, No Other Musculoskeletal: leg pain (bilateral leg/hip pain); No: other, neck pain, shoulder pain, arm pain, back pain, hand pain, foot pain Skin: No: Rash, Lesions, Jaundice, Bruising, Other Neurological: No: Weakness, Numbness, Incoordination, Change in speech, Confusion, Seizures, Other Allergies: Coded Allergies: Vancomycin (Verified Allergy, Intermediate, 12/25/24) pt became hot and started sweating. redness and swelliong to the IV site. Ceftriaxone (Verified Allergy, Unknown, Rash, 10/01/24) Medications Current Medications Medications Dose Ordered Sig/Tello Route Start Time Stop Time Status Last Admin Dose Admin Sodium Chloride 10 ml Q8HR IV 03/08/25 22:00 UNV Acetaminophen/ Hydrocodone Bitart 1 tab Q4HP PRN PO 03/08/25 16:15 UNV Ondansetron HCl 4 mg Q4HP PRN IV 03/08/25 16:15 UNV Docusate Sodium 100 mg BIDPRN PRN PO 03/08/25 16:15 UNV Acetaminophen 650 mg Q6HP PRN PO 03/08/25 16:15 UNV Benazepril HCl 12.5 mg DAILY PO 03/09/25 10:00 UNV Citalopram Hydrobromide 20 mg DAILY PO 03/09/25 10:00 UNV Cyclobenzaprine HCl 10 mg Q8HP PRN PO 03/08/25 16:15 UNV Ketorolac Tromethamine 10 mg DAILY PO 03/09/25 10:00 03/14/25 09:59 UNV Patient Own Medication 600 mg BID PO 03/08/25 22:00 UNV Pantoprazole Sodium 40 mg DAILY PO 03/09/25 10:00 UNV Exam Vital Signs Vital Signs Date Time Temp Pulse Resp B/P (MAP) Pulse Ox O2 Delivery O2 Flow Rate FiO2 03/08/25 14:40 97.4 75 13 139/75 (96) 97 97.4 General Appearance: Alert, Oriented X3, Cooperative, No acute distress HEENT: Atraumatic, PERRLA Respiratory: Clear to auscultation, Normal air movement Cardiovascular: Regular rate, Normal S1, Normal S2, No murmurs Abdominal: Normal bowel sounds, Soft, No tenderness, No hepatospenomegaly Extremities: No clubbing, Other (bilateral lymphedema) Skin: No rashes, No breakdown, No significant lesion Neuro: Normal speech Psych/Mental Status: Mental status NL, Mood NL Labs/Xrays Labs Test 03/08/25 15:19 03/08/25 10:15 Range/Units Urine Color Yellow Yellow Urine Clarity Clear Clear Urine pH 5.5 5.0-9.0 Urine Specific [place] 1.022 1.001-1.035 Urine Protein Negative Negative Urine Ketones Negative Negative Urine Blood Negative Negative /uL Urine Nitrite Negative Negative Urine Bilirubin Negative Negative Urine Urobilinogen Normal Negative mg/dL Urine Leukocyte Esterase Negative Negative /uL Urine RBC 1 0 - 4 /hpf Urine Microscopic WBC 7 H 0-5 /HPF Urine Squamous Epithelial Cells Few <5 /hpf Urine Bacteria Mod H None Seen /hpf Urine Mucus Few None Seen Urine Glucose Normal Normal mg/dL White Blood Count 7.1 4.4-10.8 10^3/uL Red Blood Count 3.79 L 4.0-5.20 10^6/uL Hemoglobin 9.1 L 12.2-16.2 g/dL Hematocrit 29.0 L 36.0-46.0 % Mean Corpuscular Volume 76.6 L 80.0-100.0 fL Mean Corpuscular Hemoglobin 24.1 L 28.0-32.0 pg Mean Corpuscular Hemoglobin Concent 31.4 L 32.0-36.0 g/dL Red Cell Distribution Width 18.0 H 11.8-14.3 % Platelet Count 276 140-450 10^3/uL Mean Platelet Volume 7.0 6.9-10.8 fL Neutrophils (%) (Auto) 76.6 37.0-80.0 % Lymphocytes (%) (Auto) 14.4 10.0-50.0 % Monocytes (%) (Auto) 6.7 0.0-12.0 % Eosinophils (%) (Auto) 1.9 0.0-7.0 % Basophils (%) (Auto) 0.4 0.0-2.0 % Neutrophils # (Auto) 5.4 1.6-8.6 10 ^3/uL Lymphocytes # (Auto) 1.0 0.4-5.4 10 ^3/uL Monocytes # (Auto) 0.5 0-1.3 10 ^3/uL Eosinophils # (Auto) 0.1 0-0.8 10 ^3/uL Basophils # (Auto) 0 0-0.2 10 ^3/uL Nucleated Red Blood Cells 0.0 % Sodium Level 138 136-145 mmol/L Potassium Level 3.7 3.5-5.1 mmol/L Chloride Level 98 98-107 mmol/L Carbon Dioxide Level 37 H 20-31 mmol/L Anion Gap 3 L 5-15 Blood Urea Nitrogen 8 L 9-23 mg/dL Creatinine 0.63 0.550-1.02 mg/dL Glomerular Filtration Rate Calc 103 >90 mL/min BUN/Creatinine Ratio 12.7 10.0-20.0 Serum Glucose 110 H 74-106 mg/dL Calcium Level 9.6 8.7-10.4 mg/dL Bilateral lower extremity venous duplex Findings: Duplex Doppler evaluation of the deep venous systems of both lower extremities from the common femoral veins to the popliteal veins including color Doppler and spectral/pulsed waveform analysis was performed. RIGHT SIDE: The common femoral vein demonstrates appropriate compressibility and waveform variability. There is compressibility/patency of the great saphenous vein at the proximal thigh. The femoral vein demonstrates appropriate compressibility and waveform variability. The deep femoral vein demonstrates appropriate compressibility and waveform variability. The popliteal vein demonstrates appropriate compressibility and waveform variability. There is normal compressibility at the tibioperoneal trunk. LEFT SIDE: The common femoral vein demonstrates appropriate compressibility and waveform variability. There is compressibility/patency of the great saphenous vein at the proximal thigh. The femoral vein demonstrates appropriate compressibility and waveform variability. The deep femoral vein demonstrates appropriate compressibility and waveform variability. The popliteal vein demonstrates appropriate compressibility and waveform variability. There is normal compressibility at the tibioperoneal trunk. IMPRESSION: No right or left femoropopliteal venous thrombosis. If clinical concern/symptoms persist or worsen, short-interval follow-up study is suggested. END IMPRESSION: Chest X-Ray FINDINGS: . The heart and mediastinal contours are grossly unremarkable. There is no evidence of pleural disease. The lungs are clear. The bony structures of the chest are intact without fracture. IMPRESSION: 1. No evidence of acute disease. EXAM: XY R HAND 3 VIEW XRAY Findings/Impression: 3 views of the right hand. Possible nondisplaced fracture of the tuft of the 4th distal phalanx. Nondisplaced triquetral fracture. Mild soft tissue edema. There is no evidence of dislocation, blastic, or lytic lesions. No radiopaque foreign bodies. Assessment/Plan Assessment/Plan Assessment: Lymphedema, Asthma, Supplemental oxygen dependent, Chronic pain, Morbid obesity, Plan: Admit to Med-Surg, Bilateral lower extremity venous duplex shows no occlusions, Right wrist/hand X-ray ordered, Pain management, Home medications reconciled, Plan discussed with: Patient My Orders Orders - HAYLEE LUJAN COP WINDER Procedure Category Date Status Time Admit ADMIT 03/08/25 Transmitted 16:06 Code Status CODE 03/08/25 Transmitted 16:06 2 Gm Sodium Diet DIET 03/08/25 Transmitted Dinner Sodium Chloride Lock PHA 03/08/25 Logged (Saline Lock Ns) 22:00 Hydrocodone-Acet PHA 03/08/25 Logged 5/325mg Tab ([place] 16:15 Ondansetron Hcl PHA 03/08/25 Logged (Zofran) 16:15 Docusate Sodium PHA 03/08/25 Logged Capsule (Colace 16:15 Complete Blood Count LAB 03/09/25 Verified 04:00 Comprehensive LAB 03/09/25 Verified Metabolic Panel 04:00 Pt Request For Service PT 03/08/25 Logged 16:06 Condition: Serious GISSEL 03/08/25 In Process 16:06 Acetaminophen Tablet PHA 03/08/25 Logged (Tylenol Tablet) 16:15 Benazepril Hcl Tablet PHA 03/09/25 Logged (Lotensin Tablet) 10:00 Citalopram Tablet PHA 03/09/25 Logged (Celexa Tablet) 10:00 Cyclobenzaprine PHA 03/08/25 Logged Tablet (Flexeril 16:15 Ketorolac Tablet PHA 03/09/25 Logged (Toradol Tablet) 10:00 (Nf) Gabapentin PHA 03/08/25 Logged 22:00 Pantoprazole Tablet PHA 03/09/25 Logged (Protonix Tablet) 10:00 R Hand 3 View Xray XY 03/08/25 Transmitted 16:12 Date of Service: Mar 08, 2025 Billing Provider: HAYLEE LUJAN Common Visit Codes: [id number] INP/OBS CARE (MOD) HAYLEE LUJAN Mar 08, 2025 16:28
--- NOTE | 2025-03-08 16:56 | DVH ---
EXAM: XY R HAND 3 VIEW XRAY CLINICAL HISTORY: Pain S/P fall COMPARISON: None TECHNIQUE: XY R HAND 3 VIEW XRAY Findings/Impression: 3 views of the right hand. Possible nondisplaced fracture of the tuft of the 4th distal phalanx. Nondisplaced triquetral fracture. Mild soft tissue edema. There is no evidence of dislocation, blastic, or lytic lesions. No radiopaque foreign bodies.
[2025-03-08 18:08] VITALS: BP 120/75; PULSE 72; RESP 20; TEMP 98.2; O2SAT 98
[2025-03-08] MEDS: HYDROcodone-ACET 5/325MG TAB PO PRN (19:57)
[2025-03-08 21:00] VITALS: BP 145/75; PULSE 80; RESP 18; TEMP 97.7; O2SAT 95
[2025-03-08] MEDS: GABAPENTIN 300 MG CAP PO SCH (21:40)
[2025-03-08] MEDS: CYCLOBENZAPRINE HCL 10 MG TAB PO PRN (21:40)
[2025-03-08] MEDS: SODIUM CHLOR 0.9% PF (SALINE LOCK) 10ML VIAL/SYR IV SCH (21:40)
[2025-03-08] MEDS ORDERED: PATIENTS OWN MEDICATION (Gabapentin 600 MG) PO SCH (22:00)
[2025-03-09] VITALS (9 sets, daily range): BP systolic 84–168; BP diastolic 48–68; PULSE 70–82; RESP 18–21; TEMP 97.9–98.4; O2SAT 90–98
[2025-03-09] MEDS: ACETAMINOPHEN 325 MG TAB PO PRN (05:15)
[2025-03-09 08:20] LABS: Basophils # (auto) 0 10 ^3/uL (0-0.2); Basophils % (auto) 0.5 % (0.0-2.0); Eosinophils # (auto) 0.1 10 ^3/uL (0-0.8); Eosinophils % (auto) 1.9 % (0.0-7.0); Hematocrit 26.9 % (36.0-46.0); Hemoglobin 8.4 g/dL (12.2-16.2); Lymphocytes # (auto) 0.8 10 ^3/uL (0.4-5.4); Lymphocytes % (auto) 11.3 % (10.0-50.0); Mean Corpuscular Hemoglobin 24.1 pg (28.0-32.0); Mean Corpuscular Hgb Conc. 31.4 g/dL (32.0-36.0); Mean Corpuscular Volume 76.9 fL (80.0-100.0); Monocytes # (auto) 0.5 10 ^3/uL (0-1.3); Monocytes % (auto) 7.7 % (0.0-12.0); Neutrophils # (auto) 5.4 10 ^3/uL (1.6-8.6); Neutrophils % (auto) 78.6 % (37.0-80.0); Nucleated Red Blood Cells % 0.1 %; Platelet Count (auto) 259 10^3/uL (140-450); Red Blood Cells 3.49 10^6/uL (4.0-5.20); Red Cell Distribution Width 17.6 % (11.8-14.3); White Blood Cell 6.9 10^3/uL (4.4-10.8)
[2025-03-09 08:34] LABS: Albumin 3.8 g/dL (3.2-4.8); Alkaline Phosphatase 105 U/L (46-116); Anion Gap 5 (5-15); BUN/Creatinine Ratio 14.8 (10.0-20.0); Calcium 9.3 mg/dL (8.7-10.4); Glucose 106 mg/dL (74-106); Potassium 3.9 mmol/L (3.5-5.1); Sodium 138 mmol/L (136-145); Total Protein 7.1 g/dL (5.7-8.2)
[2025-03-09 08:35] LABS: Alanine Aminotransferase < 9 U/L (7-40); Aspartate Aminotransferase 13 U/L (13-40); Bilirubin, Total 1.5 mg/dL (0.2-1.0); Blood Urea Nitrogen 8 mg/dL (9-23); Carbon Dioxide 37 mmol/L (20-31); Chloride 96 mmol/L (98-107)
[2025-03-09] MEDS: PANTOPRAZOLE 40 MG TAB PO SCH (10:06)
[2025-03-09] MEDS: CITALOPRAM HYDROBR 20 MG TAB PO SCH (10:23)
[2025-03-09] MEDS: BENAZEPRIL HCL 10 MG TAB PO SCH (10:24)
[2025-03-09 10:56] LABS: Base Excess 9.8 mmol/L (-2.0-3.0)
[2025-03-09] MEDS: KETOROLAC TROMETH 30 MG/ML 1ML VIAL IV PRN (14:10)
--- NOTE | 2025-03-09 17:34 | DVHDSRES ---
Discharge Summary Date of Admission Resident Creating Document: [facility] CAPONE RESIDENT Mar 08, 2025 at 16:06 Date of Discharge: Mar 09, 2025 Admitting Diagnosis lymphedema Labs/Diagnostic Data: Laboratory Results Test 03/09/25 10:40 03/09/25 06:28 03/08/25 15:19 Blood Gas Specimen Type Arterial Blood Gas Sample Site Right radial Blood Gas Patient Temperature 37.0 Arterial Blood Date Drawn [id number] Arterial Blood pH 7.413 (7.350-7.450) Arterial Blood Partial Pressure CO2 57.2 mmHg (32.0-45.0) Arterial Blood Partial Pressure O2 64.6 mmHg (83.0-108.0) Arterial Blood HCO3 35.7 mmol/L (21.0-28.0) Arterial Blood Oxygen Saturation 92.7 % (94.0-98.0) Arterial Blood Base Excess 9.8 mmol/L (-2.0-3.0) Arterial Blood Oxyhemoglobin 90.4 % (94.0-98.0) Arterial Blood Carboxyhemoglobin 2.0 % (0.5-1.5) Arterial Blood Methemoglobin 0.5 % (0.0-1.5) Ko Test Yes Blood Gas Total Hemoglobin 8.70 g/dL (12.0-16.0) Blood Gas Liter Flow 2.00 Blood Gas Modality Nasal cannula FiO2 % 28.0 White Blood Count 6.9 10^3/uL (4.4-10.8) Red Blood Count 3.49 10^6/uL (4.0-5.20) Hemoglobin 8.4 g/dL (12.2-16.2) Hematocrit 26.9 % (36.0-46.0) Mean Corpuscular Volume 76.9 fL (80.0-100.0) Mean Corpuscular Hemoglobin 24.1 pg (28.0-32.0) Mean Corpuscular Hemoglobin Concent 31.4 g/dL (32.0-36.0) Red Cell Distribution Width 17.6 % (11.8-14.3) Platelet Count 259 10^3/uL (140-450) Mean Platelet Volume 7.1 fL (6.9-10.8) Neutrophils (%) (Auto) 78.6 % (37.0-80.0) Lymphocytes (%) (Auto) 11.3 % (10.0-50.0) Monocytes (%) (Auto) 7.7 % (0.0-12.0) Eosinophils (%) (Auto) 1.9 % (0.0-7.0) Basophils (%) (Auto) 0.5 % (0.0-2.0) Neutrophils # (Auto) 5.4 10 ^3/uL (1.6-8.6) Lymphocytes # (Auto) 0.8 10 ^3/uL (0.4-5.4) Monocytes # (Auto) 0.5 10 ^3/uL (0-1.3) Eosinophils # (Auto) 0.1 10 ^3/uL (0-0.8) Basophils # (Auto) 0 10 ^3/uL (0-0.2) Nucleated Red Blood Cells 0.1 % Sodium Level 138 mmol/L (136-145) Potassium Level 3.9 mmol/L (3.5-5.1) Chloride Level 96 mmol/L (98-107) Carbon Dioxide Level 37 mmol/L (20-31) Anion Gap 5 (5-15) Blood Urea Nitrogen 8 mg/dL (9-23) Creatinine 0.54 mg/dL (0.550-1.02) Glomerular Filtration Rate Calc 107 mL/min (>90) BUN/Creatinine Ratio 14.8 (10.0-20.0) Serum Glucose 106 mg/dL (74-106) Calcium Level 9.3 mg/dL (8.7-10.4) Total Bilirubin 1.5 mg/dL (0.2-1.0) Aspartate Amino Transferase (AST) 13 U/L (13-40) Alanine Aminotransferase (ALT) < 9 U/L (7-40) Alkaline Phosphatase 105 U/L (46-116) Total Protein 7.1 g/dL (5.7-8.2) Albumin 3.8 g/dL (3.2-4.8) Urine Color Yellow (Yellow) Urine Clarity Clear (Clear) Urine pH 5.5 (5.0-9.0) Urine Specific [place] 1.022 (1.001-1.035) Urine Protein Negative (Negative) Urine Ketones Negative (Negative) Urine Blood Negative /uL (Negative) Urine Nitrite Negative (Negative) Urine Bilirubin Negative (Negative) Urine Urobilinogen Normal mg/dL (Negative) Urine Leukocyte Esterase Negative /uL (Negative) Urine RBC 1 /hpf (0 - 4) Urine Microscopic WBC 7 /HPF (0-5) Urine Squamous Epithelial Cells Few /hpf (<5) Urine Bacteria Mod /hpf (None Seen) Urine Mucus Few (None Seen) Urine Glucose Normal mg/dL (Normal) Other Laboratory Tests 03/09/25 06:28 Brief Hx & Hospital Course: Patient is 51 atrial female with past medical history of morbid obesity, bilateral lower extremity lymphedema, chronic back pain, chronic back pain radiating to legs, asthma on oxygen, sleep apnea who came to the hospital with a chief complaint of bilateral lower extremity pain mainly in left-sided radiating from back. As per patient she had this issue for the last 10 years, evaluated by pain management doctor as well, assessed with bilateral knee pain. She came to the hospital given she started the pain that prompted visit to the hospital. We will transfer him from going to initiate a ground level fall for which underwent x-ray which was unremarkable. Given patient does not have any acute condition, patient advised to follow-up with primary care physician and pain management doctor for chronic pain control. Condition at Discharge: Stable Final Diagnosis/Problems List Lymphedema Chronic back pain Chronic hypercapnic respiratory failure Sleep apnea. Morbid obesity BMI 68.2 kg/meter squared Asthma, Supplemental oxygen dependent Discharge Disposition: Home Discharge Instruct/Medications Diet: Regular Activity: No Restrictions, As Tolerated Follow Up/Referral: -follow up with pcp and pain management in outpatient setting Medications: continue home medications Discharge Statement: "Patient was advised to return to the ER or call 911 if any headaches, dizziness, shortness of breath, chest pain, abdominal pain, bleeding, fevers, or worsening of medical condition. Patient was counseled about treatment plan, medications, possible side effects, patientverbalized understanding. All questions were answered to the best of my ability. This discharge took greater then 30 minutes in planning, reviewing documentation, counseling the patient, and discussing with other team members." ASSESSMENT ASSESSMENT Assessment chronic back pain and leg pain lymphedema Date of Service: Mar 10, 2025 Billing Provider: MU QUINTERO MD Common Visit Codes: 41600-FZX/OBS DISCH DAY >30min [facility] CAPONE Mar 09, 2025 17:34 MU QUINTERO MD Mar 09, 2025 21:52
[2025-03-10 01:00] VITALS: BP 144/55; PULSE 78; RESP 18; TEMP 98.8; O2SAT 96
[2025-03-10 05:00] VITALS: BP 140/50; PULSE 74; RESP 18; TEMP 98.7; O2SAT 98
[2025-03-10 09:00] VITALS: BP 125/51; PULSE 74; RESP 18; TEMP 98; O2SAT 91
[2025-03-10] MEDS ORDERED: TRAM-626 PO (10:33)
--- NOTE | 2025-03-10 19:58 | DVHPNRES ---
Progress Note Date Seen: Mar 10, 2025 Resident Creating Document: [facility] CAPONE RESIDENT Medical Necessity Reason Pt with a Central, PICC or Fol: No Subjective Review of Systems Brief Hx & Hospital Course: Patient is 51 yo female with past medical history of morbid obesity, bilateral lower extremity lymphedema, chronic back pain, chronic back pain radiating to legs, asthma on oxygen, sleep apnea who came to the hospital with a chief complaint of bilateral lower extremity pain mainly in left-sided radiating from back. As per patient she had this issue for the last 10 years, evaluated by pain management doctor as well, assessed with bilateral knee pain. She came to the hospital given she started the pain that prompted visit to the hospital. We will transfer him from going to initiate a ground level fall for which underwent x-ray which was unremarkable. Given patient does not have any acute condition, patient advised to follow-up with primary care physician and pain management doctor for chronic pain control. Patient seen and examined at bedside. Patient counseled on follow up with primary care physician and pain management doctor for chronic back pain and leg pain. No any other new complaints. Patient will be discharged home today. ROS Constitutional: No: Fever, Chills, Sweats, Weakness, Malaise, Other Eyes: No: Pain, Vision change, Conjunctivae inflammation, Eyelid inflammation, Other, Redness ENT: No: Ear pain, Ear discharge, Nose pain, Nose discharge, Nose congestion, Mouth pain, Mouth swelling, Throat pain, Throat swelling, Other Respiratory: No: Cough, Dry, Shortness of breath, SOB with excertion, Wheezing, Hemoptysis, Pleuritic Pain, Sputum, Wheezing, Other Cardiovascular: No: Chest Pain, Palpitations, Orthopnea, Paroxysmal Noc. Dyspnea, Edema, Lt Headedness, Other Gastrointestinal: No: Nausea, Vomiting, Abdominal Pain, Diarrhea, Constipation, Melena, Hematochezia, Other Musculoskeletal: No: other, neck pain, shoulder pain, arm pain, back pain, hand pain, yes leg pain, foot pain, yes neck pain Neurological:; No: Weakness, Numbness, Incoordination, Change in speech, Confusion, Seizures Objective vital signs Vital Sign Date Time Temp Pulse Resp B/P (MAP) Pulse Ox O2 Delivery O2 Flow Rate FiO2 03/10/25 09:04 106/48 03/10/25 09:00 98.0 74 18 91 98.0 03/10/25 08:00 Nasal Cannula* 2 28 Total Intake and Output 03/09/25 03/09/25 03/10/25 15:00 23:00 07:00 Intake Total 725 ml 800 ml Output Total 750 ml 1800 ml Balance -25 ml -1000 ml medications Current Medications Medications Dose Ordered Sig/Tello Route Start Time Stop Time Status Last Admin Dose Admin Patient Own Medication 600 mg BID PO 03/08/25 22:00 UNV Examination Examination General Appearance: Alert, Oriented X3, Cooperative, No acute distress, morbidly obese, HEENT: EOMI Respiratory: Clear to auscultation, Normal air movement Cardiovascular: Regular rate, Normal S1, Normal S2 Abdominal: Normal bowel sounds Extremities: No cyanosis, No edema, Normal pulses, morbidly obese with swelling, no pitting edema. Pressors of pedal pulse. Skin: No rashes, No breakdown Neuro: Normal gait, Normal speech, Strength at 5/5 X4 ext, Normal tone, Sensation intact, Cranial nerves 3-12 NL, Reflexes 2+ Psych/Mental Status: Mental status NL, Mood NL laboratory and microbiology Laboratory Tests 03/09/25 06:28 Test 03/09/25 06:28 Range/Units Serum Glucose 106 74-106 mg/dL Problem List/Assessment/Plan Problem List/Assessment/Plan Lymphedema Chronic back pain Chronic hypercapnic respiratory failure Sleep apnea. Morbid obesity BMI 68.2 kg/meter squared Asthma, Supplemental oxygen dependent Plan/assessment -patient has been discharged home, given chronic lymphedema with possible venous insufficiency, chronic back pain with radiating pain to lower extremity, patient has been following with primary care physician pain management -advised to continue follow up with pain management for chronic back pain -given no acute condition, patient is hemodynamically stable, patient will be discharged home. -counseled on lifestyle modification such as regular exercise, healthy diet options such as low-carbohydrate index food, high-protein diet, avoid carbohydrates beverages. -Plan discussed with patient greater than 24 minutes, patient has been discharged home. Plan discussed with Dr. Archuleta Plan discussed with: Patient, Other (RN) My Orders My Orders Orders - [facility] CAPONE Procedure Category Date Status Time Discharge DISCHARGE 03/10/25 Transmitted 08:12 Date of Service: Mar 10, 2025 Billing Provider: ARCHULETA,IMRAN M MD Common Visit Codes: [id number] INP/OBS CARE(HIGH) [facility] CAPONE Mar 10, 2025 19:58 MU ARCHULETA MD Mar 10, 2025 21:24
== END 2025-03-10 10:40 | disposition home or self-care (01) | DRG 607 ==
LOC: ER 09:15 → EDUNIT# 09:15 → EDBD 09:15 → OVERFLOW 16:06 → WEST WING 18:15
PROVIDERS: ADMIT Internal Medicine; ATTEND Emergency Medicine
DX: I89.0 Lymphedema, not elsewhere classified (principal); Z68.44 Body mass index [BMI] 60.0-69.9, adult; J96.12 Chronic respiratory failure with hypercapnia; J45.909 Unspecified asthma, uncomplicated; G89.29 Other chronic pain; E66.01 Morbid (severe) obesity due to excess calories; G47.30 Sleep apnea, unspecified; F32.A Depression, unspecified; K21.9 Gastro-esophageal reflux disease without esophagitis; D64.9 Anemia, unspecified; M79.604 Pain in right leg; M79.605 Pain in left leg; M25.561 Pain in right knee; I87.2 Venous insufficiency (chronic) (peripheral); M25.562 Pain in left knee; Z88.1 Allergy status to other antibiotic agents; Z79.899 Other long term (current) drug therapy; Z79.2 Long term (current) use of antibiotics; Z90.49 Acquired absence of other specified parts of digestive tract; Z98.891 History of uterine scar from previous surgery; Z99.81 Dependence on supplemental oxygen
CPT/HCPCS: 36415; 36600; 71045; 73130; 80048; 80053; 81001; 82805; 85025; 93970; 97110; 97163; 97530; G0378; J1885

== ENCOUNTER 2025-05-04 16:04 | Inpatient (IN) | payer OTHER ==
[~2025-05-04] VITALS: Ht 157.5 cm; Wt 221.0 kg
[~2025-05-04 16:04] MED LIST changes: -CEPH250C PO; -DOCU-265 PO; -LEVO500T91 PO; -MUPI2CRE17 EX; -NAPR-746 PO; -PANT1INJ3 PO; +PANT40T PO; +TRAM-626 PO
[2025-05-04 16:24] LABS: Basophils # (auto) 0 10 ^3/uL (0-0.2); Basophils % (auto) 0.6 % (0.0-2.0); Eosinophils # (auto) 0.1 10 ^3/uL (0-0.8); Eosinophils % (auto) 1.5 % (0.0-7.0); Hematocrit 26.7 % (36.0-46.0); Lymphocytes # (auto) 0.8 10 ^3/uL (0.4-5.4); Lymphocytes % (auto) 12.4 % (10.0-50.0); Mean Corpuscular Hemoglobin 21.4 pg (28.0-32.0); Mean Corpuscular Hgb Conc. 29.9 g/dL (32.0-36.0); Mean Corpuscular Volume 71.4 fL (80.0-100.0); Monocytes # (auto) 0.6 10 ^3/uL (0-1.3); Monocytes % (auto) 9.6 % (0.0-12.0); Neutrophils # (auto) 4.7 10 ^3/uL (1.6-8.6); Neutrophils % (auto) 75.9 % (37.0-80.0); Nucleated Red Blood Cells % 0.1 %; Platelet Count (auto) 250 10^3/uL (140-450); Red Blood Cells 3.75 10^6/uL (4.0-5.20); Red Cell Distribution Width 19.8 % (11.8-14.3); White Blood Cell 6.2 10^3/uL (4.4-10.8)
[2025-05-04 16:40] LABS: Albumin 3.8 g/dL (3.2-4.8); Alkaline Phosphatase 106 U/L (46-116); Anion Gap 6 (5-15); Aspartate Aminotransferase 11 U/L (<34); BUN/Creatinine Ratio 11.4 (10.0-20.0); Calcium 9.1 mg/dL (8.7-10.4); Sodium 141 mmol/L (136-145); Total Protein 7.1 g/dL (5.7-8.2)
[2025-05-04 16:42] LABS: Alanine Aminotransferase < 9 U/L (7-40); Bilirubin, Total 2.2 mg/dL (0.2-1.0); Blood Urea Nitrogen 8 mg/dL (9-23); Carbon Dioxide 38 mmol/L (20-31); Chloride 97 mmol/L (98-107); Glucose 110 mg/dL (74-106); Potassium 3.4 mmol/L (3.5-5.1)
[2025-05-04 16:59] LABS: Lipase 21 U/L (12-53)
[2025-05-04 17:16] VITALS: PULSE 71; RESP 19; O2SAT 94
--- NOTE | 2025-05-04 17:48 | ED.PDOC ---
History of Present Illness HPI Comments A [place] year old woman with morbid obesity and a history of cholecystectomy 30+ he has a gout presents with 2 days of worsening 10/10 right upper quadrant pain that radiates into her back. Patient reports that feels similar to when she had a gallbladder attack many years ago. The pain associated with nausea vomiting and diarrhea. She denies any fever chest pain shortness of breath Chief Complaint: Flank Pain Time Seen by MD: 16:05 Primary Care Provider: NILAY Allergies: Coded Allergies: Vancomycin (Verified Allergy, Intermediate, 12/25/24) pt became hot and started sweating. redness and swelliong to the IV site. Ceftriaxone (Verified Allergy, Unknown, Rash, 10/01/24) Home Meds Reported Medications Tramadol HCl (Tramadol HCl) 50 Mg Tab, 50 MG PO BID for 7 Days, #14 TAB 03/10/25 Pantoprazole Sodium Sesquihydr (Pantoprazole Sodium) 40 Mg Tab, 1 TAB PO DAILY 03/08/25 Albuterol Sulfate (Albuterol Sulfate) 2 Mg Tab, 2 MG IN Q6HP PRN for SHORTNESS OF BREATH, MG 02/29/24 Benazepril HCl (Benazepril Hydrochloride) 10 Mg Tab, 12.5 MG PO DAILY, TAB 02/29/24 Cyclobenzaprine Hcl (Cyclobenzaprine Hcl) 10 Mg Tab, 10 MG PO Q8HP PRN for FOR MUSCLE SPASM for 30 Days, MG 02/29/24 Ketorolac Tromethamine (Ketorolac Tromethamine) 10 Mg Tab, 10 MG PO DAILY, TAB 02/29/24 Citalopram Hydrobromide (Citalopram Hydrobromide) 20 Mg Tab, 20 MG PO DAILY, TAB 02/29/24 Gabapentin (Gabapentin) 600 Mg Tab, 600 MG PO BID, TAB 02/29/24 Mode of Arrival: EMS Past Medical History PAST MEDICAL HISTORY: Asthma, Depression, GERD Surgical History: Denies all surgeries [employer]RO[employer]ING [employer]ER History: No Pertinent [employer]RO[employer]FINING [employer]ER History Family History Family History: Reviewed,noncontributory to illness Social History Smoker: Non-Smoker Alcohol: Denies ETOH Use Drugs: Denies Drug Use Lives In: Home Physical Exam General Appearance: Obese HEENT: Pharynx Normal Neck: Normal Inspection Respiratory: Other (Muffled breath sounds) Cardiovascular: Regular Rate/Rhythm Breast Exam: Deferred Gastrointestinal: Non Tender Genitalia: Deferred Pelvic: Deferred Rectal: Deferred Extremities: Other (Diffusely edematous) Neurologic: No Motor Deficits Cerebellar Function: NOT DONE Reflexes: NOT DONE Skin: Normal Color Lymphatic: NOT DONE Was a procedure done? Was a procedure done?: No Differential Dx Considerations may include: Gastroenteritis, colitis, viral syndrome, pancreatitis X-Ray, Labs, Meds, VS Vital Signs Date Time Temp Pulse Resp B/P (MAP) Pulse Ox O2 Delivery O2 Flow Rate FiO2 05/04/25 17:16 71 19 94 Nasal Cannula* 2 28 05/04/25 16:55 98.7 71 19 109/48 (68) 94 98.7 05/04/25 16:15 98.5 84 16 102/64 (77) 94 98.5 Lab Test 05/04/25 16:15 Range/Units White Blood Count 6.2 4.4-10.8 10^3/uL Red Blood Count 3.75 L 4.0-5.20 10^6/uL Hemoglobin 8.0 L 12.2-16.2 g/dL Hematocrit 26.7 L 36.0-46.0 % Mean Corpuscular Volume 71.4 L 80.0-100.0 fL Mean Corpuscular Hemoglobin 21.4 L 28.0-32.0 pg Mean Corpuscular Hemoglobin Concent 29.9 L 32.0-36.0 g/dL Red Cell Distribution Width 19.8 H 11.8-14.3 % Platelet Count 250 140-450 10^3/uL Mean Platelet Volume 7.2 6.9-10.8 fL Neutrophils (%) (Auto) 75.9 37.0-80.0 % Lymphocytes (%) (Auto) 12.4 10.0-50.0 % Monocytes (%) (Auto) 9.6 0.0-12.0 % Eosinophils (%) (Auto) 1.5 0.0-7.0 % Basophils (%) (Auto) 0.6 0.0-2.0 % Neutrophils # (Auto) 4.7 1.6-8.6 10 ^3/uL Lymphocytes # (Auto) 0.8 0.4-5.4 10 ^3/uL Monocytes # (Auto) 0.6 0-1.3 10 ^3/uL Eosinophils # (Auto) 0.1 0-0.8 10 ^3/uL Basophils # (Auto) 0 0-0.2 10 ^3/uL Nucleated Red Blood Cells 0.1 % Sodium Level 141 136-145 mmol/L Potassium Level 3.4 L 3.5-5.1 mmol/L Chloride Level 97 L 98-107 mmol/L Carbon Dioxide Level 38 H 20-31 mmol/L Anion Gap 6 5-15 Blood Urea Nitrogen 8 L 9-23 mg/dL Creatinine 0.70 0.550-1.02 mg/dL Glomerular Filtration Rate Calc 100 >90 mL/min BUN/Creatinine Ratio 11.4 10.0-20.0 Serum Glucose 110 H 74-106 mg/dL Calcium Level 9.1 8.7-10.4 mg/dL Total Bilirubin 2.2 H 0.2-1.0 mg/dL Aspartate Amino Transferase (AST) 11 <34 U/L Alanine Aminotransferase (ALT) < 9 7-40 U/L Alkaline Phosphatase 106 46-116 U/L Total Protein 7.1 5.7-8.2 g/dL Albumin 3.8 3.2-4.8 g/dL Lipase 21 12-53 U/L Time of 1ST Reevaluation: 17:47 Reevaluation 1ST: Improved Patient Education/Counseling: Diagnosis, Treatment Family Education/Counseling: No Family Present SEPSIS Sepsis Screen Date sepsis recognized/suspect: May 04, 2025 Time Sepsis recognized/suspect: 1614 Recent Procedure: No On Antibiotic Therapy: No Respiratory Rate >20: No Heart Rate >90: No Temp<36 C (96.8 F) or >38.3 C: No SBP <90 or MAP <65 mmHG: No New Acute Mental Status Change: No Is the patient on CPAP, BIPAP,: No Orders/Vitals/Labs Physician Orders Urinalysis (05/04/25 16:05) Vital Signs Date Time Temp Pulse Resp B/P (MAP) Pulse Ox O2 Delivery O2 Flow Rate FiO2 05/04/25 17:16 71 19 94 Nasal Cannula* 2 28 05/04/25 16:55 98.7 71 19 109/48 (68) 94 98.7 05/04/25 16:15 98.5 84 16 102/64 (77) 94 98.5 Laboratory Tests Test 05/04/25 16:15 White Blood Count 6.2 10^3/uL (4.4-10.8) Departure 1 Departure Time of Disposition: 17:48 (Patient's too large to fit in the CT scan. Patient's labs are benign. Patient with intractable abdominal pain and we will admit patient for further workup) Impression: Primary Impression: Intractable abdominal pain Additional Impression: Right upper quadrant pain Disposition: ADMITTED INPATIENT Admit to: Med Surg Condition: Serious Critical Care Note Critical Care Time?: Yes Critical care comment: Intractable abdominal pain Authorized and Performed by: Crystal Campbell MD Total critical care time: Approximately 37 minutes Due to a high probability of clinically significant, life threatening dete rioration, the patient required my highest level of preparedness to intervene emergently and I personally spent this critical care time directly and personally managing the patient. This critical care time included obtaining a history; examining the patient; pulse oximetry; ordering and review of studies; arranging urgent treatment with development of a management plan; evaluation of patient's response to treatment; frequent reassessment; and, discussions with other providers. This critical care time was performed to assess and manage the high probability of imminent, life-threatening deterioration that could result in multi-organ f ailure. It was exclusive of separately billable procedures and treating other patients and teaching time. Please see my other sections and the rest of the note for further information on patient assessment and treatment. Stability Stability form required: No Heart Score Heart Score: Heart Score Response (Comments) Value History N/A 0 EKG N/A 0 Age N/A 0 Risk Factors N/A 0 Troponin N/A 0 Total 0 CRYSTAL CAMPBELL MD May 04, 2025 17:48
[2025-05-04] MEDS: SODIUM CHLORIDE 0.9% 1,000 ML IV ONE (18:27)
[2025-05-04] MEDS ORDERED: ACETAMINOPHEN 325 MG TAB PO PRN (18:45)
[2025-05-04] MEDS ORDERED: ONDANSETRON HCL 4 MG/2 ML VIAL IV PRN (18:45)
[2025-05-04] MEDS ORDERED: ALBUTEROL SULF 2.5 MG/0.5ML(0.5%) NEB SOLN NEB PRN (18:45)
[2025-05-04] MEDS ORDERED: IPRATROPIUM BROM 0.5 MG/2.5ML INH SOL NEB PRN (18:45)
[2025-05-04] MEDS ORDERED: DOCUSATE SOD 100 MG CAP PO PRN (18:45)
--- NOTE | 2025-05-04 18:49 | DVHHP2 ---
History of Present Illness Reason for Visit: Generalized weakness History of Present Illness The patient is a 60-year-old female with past medical history of depression, asthma, and GERD who presented to [facility] ED with complaint of right upper quadrant abdominal pain. Patient reports she has been experiencing upper quadrant abdominal pain radiating to her back, rating 10/10 numeric scale, generalized weakness, nausea, vomiting, and diarrhea. Patient was seen and evaluated in the ED, laboratory data shows WBC 6.2, hemoglobin 8.0, hematocrit 26.7, platelets 250, sodium 141, potassium 3.4, BUN 8, creatinine 0.70, glucose 110, calcium 9.1, lipase 21, total bilirubin 2.2, blood pressure 121/67, heart rate 72, temperature 98.7 F, O2 saturation 94% on oxygen. Please see medication orders section in the computer. On my assessment, patient denied chest pain, no headache, no dizziness, no diaphoresis, currently on oxygen, no abdominal pain, diarrhea, nausea, vomiting at this moment, no fever, no chills. Patient was admitted for further evaluation and medical management. Past Medical History Asthma, Depression, GERD Past Surgical History Denies all surgeries Family History Reviewed, noncontributory to the management of this case. Past Social History The patient lives at home, denies smoking, alcohol or illicit drugs abuse. Review of Systems Constitutional: Yes: Weakness; No: Fever, Chills, Sweats, Malaise, Other Eyes: No: Pain, Vision change, Conjunctivae inflammation, Eyelid inflammation, Other, Redness ENT: No: Ear pain, Ear discharge, Nose pain, Nose discharge, Nose congestion, Mouth pain, Mouth swelling, Throat pain, Throat swelling, Other Respiratory: No: Cough, Dry, Shortness of breath, SOB with excertion, Wheezing, Hemoptysis, Pleuritic Pain, Sputum, Wheezing, Other Cardiovascular: No: Chest Pain, Palpitations, Orthopnea, Paroxysmal Noc. Dyspnea, Edema, Lt Headedness, Other Gastrointestinal: Nausea, Vomiting, Abdominal Pain, Diarrhea; No: Constipation, Melena, Hematochezia, Other Genitourinary: No Dysuria, No Frequency, No Incontinence, No Hematuria, No Retention, No Other Musculoskeletal: No: other, neck pain, shoulder pain, arm pain, back pain, hand pain, leg pain, foot pain Skin: No: Rash, Lesions, Jaundice, Bruising, Other Neurological: No: Weakness, Numbness, Incoordination, Change in speech, Confusion, Seizures, Other Allergies: Coded Allergies: Vancomycin (Verified Allergy, Intermediate, 12/25/24) pt became hot and started sweating. redness and swelliong to the IV site. Ceftriaxone (Verified Allergy, Unknown, Rash, 10/01/24) Medications Current Medications Medications Dose Ordered Sig/Tello Route Start Time Stop Time Status Last Admin Dose Admin Famotidine 20 mg Q12HR IV 05/04/25 22:00 UNV Albuterol 2.5 mg Q4HPRN PRN NEB 05/04/25 18:45 UNV Ipratropium [place] 0.5 mg Q4HPRN PRN NEB 05/04/25 18:45 UNV Sodium Chloride 10 ml Q8HR IV 05/04/25 22:00 UNV Acetaminophen/ Hydrocodone Bitart 1 tab Q4HP PRN PO 05/04/25 18:45 UNV Ondansetron HCl 4 mg Q4HP PRN IV 05/04/25 18:45 UNV Docusate Sodium 100 mg BIDPRN PRN PO 05/04/25 18:45 UNV Acetaminophen 650 mg Q6HP PRN PO 05/04/25 18:45 UNV Exam Vital Signs Vital Signs Date Time Temp Pulse Resp B/P (MAP) Pulse Ox O2 Delivery O2 Flow Rate FiO2 05/04/25 18:35 72 16 129/59 (82) 99 05/04/25 17:16 Nasal Cannula* 2 28 05/04/25 16:55 98.7 98.7 General Appearance: Alert, Oriented X3, Cooperative, No acute distress, Other (Morbid obesity) HEENT: Atraumatic, PERRLA, EOMI, Mucous membr. moist/pink Respiratory: Normal air movement Cardiovascular: Regular rate, Normal S1, Normal S2, No murmurs Abdominal: Normal bowel sounds, Soft, No tenderness, No hepatospenomegaly, No masses Extremities: No clubbing, No cyanosis, No edema, Normal pulses, No tenderness/swelling Skin: No rashes, No breakdown, No significant lesion Neuro: Normal speech, Normal tone, Sensation intact, Cranial nerves 3-12 NL, Reflexes 2+, Other (Generalized weakness) Psych/Mental Status: Mental status NL, Mood NL Labs/Xrays Labs Test 05/04/25 16:15 Range/Units White Blood Count 6.2 4.4-10.8 10^3/uL Red Blood Count 3.75 L 4.0-5.20 10^6/uL Hemoglobin 8.0 L 12.2-16.2 g/dL Hematocrit 26.7 L 36.0-46.0 % Mean Corpuscular Volume 71.4 L 80.0-100.0 fL Mean Corpuscular Hemoglobin 21.4 L 28.0-32.0 pg Mean Corpuscular Hemoglobin Concent 29.9 L 32.0-36.0 g/dL Red Cell Distribution Width 19.8 H 11.8-14.3 % Platelet Count 250 140-450 10^3/uL Mean Platelet Volume 7.2 6.9-10.8 fL Neutrophils (%) (Auto) 75.9 37.0-80.0 % Lymphocytes (%) (Auto) 12.4 10.0-50.0 % Monocytes (%) (Auto) 9.6 0.0-12.0 % Eosinophils (%) (Auto) 1.5 0.0-7.0 % Basophils (%) (Auto) 0.6 0.0-2.0 % Neutrophils # (Auto) 4.7 1.6-8.6 10 ^3/uL Lymphocytes # (Auto) 0.8 0.4-5.4 10 ^3/uL Monocytes # (Auto) 0.6 0-1.3 10 ^3/uL Eosinophils # (Auto) 0.1 0-0.8 10 ^3/uL Basophils # (Auto) 0 0-0.2 10 ^3/uL Nucleated Red Blood Cells 0.1 % Sodium Level 141 136-145 mmol/L Potassium Level 3.4 L 3.5-5.1 mmol/L Chloride Level 97 L 98-107 mmol/L Carbon Dioxide Level 38 H 20-31 mmol/L Anion Gap 6 5-15 Blood Urea Nitrogen 8 L 9-23 mg/dL Creatinine 0.70 0.550-1.02 mg/dL Glomerular Filtration Rate Calc 100 >90 mL/min BUN/Creatinine Ratio 11.4 10.0-20.0 Serum Glucose 110 H 74-106 mg/dL Calcium Level 9.1 8.7-10.4 mg/dL Total Bilirubin 2.2 H 0.2-1.0 mg/dL Aspartate Amino Transferase (AST) 11 <34 U/L Alanine Aminotransferase (ALT) < 9 7-40 U/L Alkaline Phosphatase 106 46-116 U/L Total Protein 7.1 5.7-8.2 g/dL Albumin 3.8 3.2-4.8 g/dL Lipase 21 12-53 U/L Assessment/Plan Assessment/Plan Intractable abdominal pain Hypokalemia Morbid obesity Right upper quadrant pain Anemia, unspecified Generalized weakness Plan 1. Admit to telemetry unit 2. Breathing treatment 3. Pain control management 4. Management of fluids and electrolytes 5. Consultation for hospitalist 6. Diagnostic tests chest x-ray 7. DVT prophylaxis -on SCDs 8. Repeat labs CBC, CMP in a.m. 9. Continue with current medical management 10. Treatment plan discussed with patient and RN. Patient verbalized understanding. Plan discussed with: Patient, Other (EN) My Orders Orders - MARLENA DE LA O DNP Procedure Category Date Status Time Type And Screen BBK 05/04/25 Logged 18:33 Famotidine Injection PHA 05/04/25 Logged (Pepcid Injection) 22:00 Potassium Er Tablet PHA 05/04/25 Logged (Klor-Con Tablet) 18:45 Albuterol Medneb PHA 05/04/25 Logged (Ventolin Medneb) 18:45 Ipratropium Medneb PHA 05/04/25 Logged (Atrovent Medneb) 18:45 Allergies GISSEL 05/04/25 In Process 18:33 Code Status CODE 05/04/25 Transmitted 18:33 Sodium Chloride Lock PHA 05/04/25 Logged (Saline Lock Ns) 22:00 Oxygen Per Hour RT 05/04/25 Transmitted 18:33 Hydrocodone-Acet PHA 05/04/25 Logged 5/325mg Tab ([place] 18:45 Ondansetron Hcl PHA 05/04/25 Logged (Zofran) 18:45 Docusate Sodium PHA 05/04/25 Logged Capsule (Colace 18:45 Fall Risk Precautions GISSEL 05/04/[address] 18:33 Complete Blood Count LAB 05/05/25 Verified 04:00 Comprehensive LAB 05/05/25 Verified Metabolic Panel 04:00 Cardiac DIET 05/05/25 Transmitted Diet-2gna,Lofat,Lochol Breakfast Condition: Serious GISSEL 05/04/25 In Process 18:33 Acetaminophen Tablet [facility] 05/04/25 Logged (Tylenol Tablet) 18:45 Bedrest With Bathroom [facility] 05/04/25 In Process Privileg 18:33 Sequential [facility] 05/04/25 In Process Compression Device Admit ADMIT 05/04/25 Verified 18:48 Nitroglycerin [facility] 05/04/25 Verified Sublingual (Ntrostat 19:00 Morphine Sulfate PHA 05/04/25 Verified Injection 19:00 Stat Ekg For Chest [facility] 05/04/25 Verified Pain 18:48 Notify Md Of Changes [facility] 05/04/25 Verified From Base 18:48 Cad Developer For [facility] 05/04/25 Verified 24 Hours 18:48 Emergency Dysrhythmia [facility] 05/04/25 Verified Protocol 18:48 Rhythm Strips Once [facility] 05/04/25 Verified Every Shift 18:48 Oxygen By Nasal 05/04/25 Verified Cannula 18:48 Problem List: (1) Intractable abdominal pain (2) Hypokalemia (3) Morbid obesity (4) Right upper quadrant pain (5) Anemia, unspecified (6) Generalized weakness Date of Service: May 04, 2025 Billing Provider: MARLENA DE LA O DNP Common Visit Codes: [id number] INP/OBS CARE (HIGH) MARLENA DE LA O DNP May 04, 2025 18:49
[2025-05-04] MEDS ORDERED: NITROGLYCERIN 0.4 MG SL TAB SL PRN (19:00)
[2025-05-04] MEDS ORDERED: MORPHINE SULFATE INJ 2 MG/ml SYRG IV PRN (19:00)
[2025-05-04 19:05] VITALS: O2SAT 97
[2025-05-04 19:30] VITALS: PULSE 70; RESP 16; O2SAT 93
[2025-05-04] MEDS: ONDANSETRON HCL 4 MG/2 ML VIAL IV ONE (19:59)
[2025-05-04] MEDS: MORPHINE SULFATE 4 MG/ML SYR/VIAL IV ONE (19:59)
[2025-05-04 20:00] VITALS: BP 121/67; PULSE 81; RESP 20; TEMP 97.9; O2SAT 97
[2025-05-04] MEDS: POTASSIUM CHL 20 Meq TABLET PO ONE (20:32)
[2025-05-04 20:38] VITALS: BP 113/53; PULSE 72; RESP 18; TEMP 97.7; O2SAT 95
[2025-05-04 20:45] VITALS: PULSE 72; RESP 18; O2SAT 95
[2025-05-04] MEDS ORDERED: CYCL-611 PO (21:09)
[2025-05-04] MEDS ORDERED: ASPI-325 PO (21:09)
[2025-05-04] MEDS ORDERED: ALBU108A5 INH (21:09)
[2025-05-04] MEDS ORDERED: CITA10TA5 PO (21:09)
[2025-05-04] MEDS ORDERED: MONT-8 PO (21:09)
[2025-05-04] MEDS: SODIUM CHLOR 0.9% PF (SALINE LOCK) 10ML VIAL/SYR IV SCH (22:00)
[2025-05-04] MEDS: HYDROcodone-ACET 5/325MG TAB PO PRN (22:41)
[2025-05-04] MEDS: FAMOTIDINE (10MG/ML) 2ML VL IV SCH (22:42)
[2025-05-05] VITALS (12 sets, daily range): BP systolic 105–146; BP diastolic 43–96; PULSE 67–80; RESP 16–22; TEMP 97.2–98.1; O2SAT 95–99
[2025-05-05 01:33] LABS: Urine Bacteria MANY /hpf (None Seen); Urine Blood Negative /uL (Negative); Urine Clarity Turbid (Clear); Urine Color Yellow (Yellow); Urine Mucus MODERATE (None Seen); Urine Protein, UAD 1+ (Negative); Urine Specific Gravity 1.029 (1.001-1.035); Urine Squamous Epithelial Cell FEW /hpf (<5); Urine Urobilinogen 2 mg/dL (Negative); Urine WBC 8 /HPF (0-5); Urine pH 5.5 (5.0-9.0)
[2025-05-05 06:10] LABS: Basophils # (auto) 0 10 ^3/uL (0-0.2); Basophils % (auto) 0.8 % (0.0-2.0); Eosinophils # (auto) 0.1 10 ^3/uL (0-0.8); Hematocrit 25.7 % (36.0-46.0); Hemoglobin 7.8 g/dL (12.2-16.2); Monocytes # (auto) 0.5 10 ^3/uL (0-1.3); Red Blood Cells 3.59 10^6/uL (4.0-5.20); White Blood Cell 5.6 10^3/uL (4.4-10.8)
[2025-05-05 06:12] LABS: Eosinophils % (auto) 1.8 % (0.0-7.0); Lymphocytes % (auto) 17.7 % (10.0-50.0); Mean Corpuscular Hemoglobin 21.7 pg (28.0-32.0); Mean Corpuscular Hgb Conc. 30.3 g/dL (32.0-36.0); Mean Corpuscular Volume 71.6 fL (80.0-100.0); Monocytes % (auto) 8.7 % (0.0-12.0); Nucleated Red Blood Cells % 0.1 %; Platelet Count (auto) 237 10^3/uL (140-450); Red Cell Distribution Width 19.6 % (11.8-14.3)
[2025-05-05 06:31] LABS: Albumin 3.7 g/dL (3.2-4.8); Alkaline Phosphatase 101 U/L (46-116); Aspartate Aminotransferase 9 U/L (<34); Blood Urea Nitrogen 9 mg/dL (9-23); Chloride 99 mmol/L (98-107); Potassium 3.6 mmol/L (3.5-5.1); Sodium 144 mmol/L (136-145)
[2025-05-05 06:32] LABS: Glucose 104 mg/dL (74-106)
[2025-05-05 06:35] LABS: Anion Gap 4.99999 (5-15)
[2025-05-05 06:36] LABS: Alanine Aminotransferase < 9 U/L (7-40); Bilirubin, Total 1.9 mg/dL (0.2-1.0)
[2025-05-05 06:39] LABS: Carbon Dioxide > 40 mmol/L (20-31)
--- NOTE | 2025-05-05 09:32 | DVH ---
US ABDOMEN COMPLETE INDICATION: abdominal pain TECHNIQUE: Multiple real-time sonographic images of the abdomen were obtained. COMPARISON: None FINDINGS: The liver is homogenous in echogenicity. The liver measures 20.2cm. No intrahepatic biliar y ductal dilatation is noted. Status post cholecystectomy. The common bile duct is not visualized. The kidneys were not evaluated. The spleen was not evaluated. The visualized pancreas is unremarkable. The visualized portions of the IVC and aorta are grossly unremarkable. IMPRESSION: Limited exam with poor visualization and the study was terminated before completion. 1. Hepatomegaly. 2. Status post cholecystectomy. 3. The common bile duct, kidneys, and spleen were not visualized.
[2025-05-05] MEDS: MUPIROCIN 2% OINT 15gm or 22gm FOR MRSA NARES EACHNOSTRI SCH (10:00)
--- NOTE | 2025-05-05 13:03 | ECG ---
[facility] Test Date: 2025-05-05 Test Time: 13:01:58 Pat Name: PAUL MUHAMMAD Department: Respiratoy Room: 0231T A Gender: F Statement Clerks Manager: SIERRA : 1965 Requested By: MEE SALCIDO Order Number: [id number] Reading MD: Jagdeep Monteiro Measurements Intervals [place] Rate: 70 P: 45 SC: 124 QRS: -3 QRSD: 107 T: 58 QT: 426 QTc: 460 Interpretive Statements Sinus rhythm Electronically Signed On 05-07-2025 21:11:50 PDT by Jagdeep Monteiro Please click the below link to view image of tracing.
--- NOTE | 2025-05-05 16:59 | DVHDSRES ---
Discharge Summary Date of Admission Resident Creating Document: MEE SALCIDO RESDIENT May 04, 2025 at 18:48 Date of Discharge: May 05, 2025 Admitting Diagnosis Abdominal pain Labs/Diagnostic Data: Laboratory Results Test 05/05/25 05:52 05/05/25 01:00 05/04/25 16:15 White Blood Count 5.6 10^3/uL (4.4-10.8) Red Blood Count 3.59 10^6/uL (4.0-5.20) Hemoglobin 7.8 g/dL (12.2-16.2) Hematocrit 25.7 % (36.0-46.0) Mean Corpuscular Volume 71.6 fL (80.0-100.0) Mean Corpuscular Hemoglobin 21.7 pg (28.0-32.0) Mean Corpuscular Hemoglobin Concent 30.3 g/dL (32.0-36.0) Red Cell Distribution Width 19.6 % (11.8-14.3) Platelet Count 237 10^3/uL (140-450) Mean Platelet Volume 7.3 fL (6.9-10.8) Neutrophils (%) (Auto) 71.0 % (37.0-80.0) Lymphocytes (%) (Auto) 17.7 % (10.0-50.0) Monocytes (%) (Auto) 8.7 % (0.0-12.0) Eosinophils (%) (Auto) 1.8 % (0.0-7.0) Basophils (%) (Auto) 0.8 % (0.0-2.0) Neutrophils # (Auto) 4.0 10 ^3/uL (1.6-8.6) Lymphocytes # (Auto) 1.0 10 ^3/uL (0.4-5.4) Monocytes # (Auto) 0.5 10 ^3/uL (0-1.3) Eosinophils # (Auto) 0.1 10 ^3/uL (0-0.8) Basophils # (Auto) 0 10 ^3/uL (0-0.2) Nucleated Red Blood Cells 0.1 % Sodium Level 144 mmol/L (136-145) Potassium Level 3.6 mmol/L (3.5-5.1) Chloride Level 99 mmol/L (98-107) Carbon Dioxide Level > 40 mmol/L (20-31) Anion Gap 4.60455 (5-15) Blood Urea Nitrogen 9 mg/dL (9-23) Creatinine 0.69 mg/dL (0.550-1.02) Glomerular Filtration Rate Calc 100 mL/min (>90) BUN/Creatinine Ratio 13.0 (10.0-20.0) Serum Glucose 104 mg/dL (74-106) Calcium Level 9.0 mg/dL (8.7-10.4) Total Bilirubin 1.9 mg/dL (0.2-1.0) Aspartate Amino Transferase (AST) 9 U/L (<34) Alanine Aminotransferase (ALT) < 9 U/L (7-40) Alkaline Phosphatase 101 U/L (46-116) Troponin I High Sensitivity 8 ng/L (</=34) Total Protein 7.0 g/dL (5.7-8.2) Albumin 3.7 g/dL (3.2-4.8) Urine Color Yellow (Yellow) Urine Clarity Turbid (Clear) Urine pH 5.5 (5.0-9.0) Urine Specific [place] 1.029 (1.001-1.035) Urine Protein 1+ (Negative) Urine Ketones Trace (Negative) Urine Blood Negative /uL (Negative) Urine Nitrite 2+ (Negative) Urine Bilirubin Negative (Negative) Urine Urobilinogen 2 mg/dL (Negative) Urine Leukocyte Esterase Trace /uL (Negative) Urine RBC None seen /hpf (0 - 4) Urine Microscopic WBC 8 /HPF (0-5) Urine Squamous Epithelial Cells Few /hpf (<5) Urine Bacteria Many /hpf (None Seen) Urine Mucus Moderate (None Seen) Urine Glucose Normal mg/dL (Normal) Lipase 21 U/L (12-53) Other Laboratory Tests 05/05/25 05:52 Brief Hx & Hospital Course: The patient is a 60-year-old female with past medical history of depression, asthma, and GERD who presented to [facility] ED with complaint of right upper quadrant abdominal pain. Patient reports she has been experiencing upper quadrant abdominal pain radiating to her back, rating 10/10 numeric scale, generalized weakness, nausea, vomiting, and diarrhea. Patient was seen and evaluated in the ED, laboratory data shows WBC 6.2, hemoglobin 8.0, hematocrit 26.7, platelets 250, sodium 141, potassium 3.4, BUN 8, creatinine 0.70, glucose 110, calcium 9.1, lipase 21, total bilirubin 2.2, blood pressure 121/67, heart rate 72, temperature 98.7 F, O2 saturation 94% on oxygen. Please see medication orders section in the computer. On my assessment, patient denied chest pain, no headache, no dizziness, no diaphoresis, currently on oxygen, no abdominal pain, diarrhea, nausea, vomiting at this moment, no fever, no chills. Patient was admitted for further evaluation and medical management. Past Medical HistoryL: Asthma, Depression, GERD Hospital course: The patient was admitted at the line of intractable abdominal pain and chest pain. Patient was given pain killer, and IV fluid. EKG performed, showed normal sinus rhythm with no significant ST or T-wave changes. Serial trop I was within normal limits. Ultrasound showed hepatomegaly, hepatic steatosis otherwise nonsignificant. Patient was observed on the telemetry for 24 hours, which showed no significant arrhythmia episode.. Physical examination was significant for right lower chest tenderness possibly due to costochondritis/musculoskeletal origin pain. During hospital course, electrolyte abnormalities including hypokalemia was repleted. On 05/05/2024, the patient was feeling better since admission. Discharge plan discussed with the patient patient discharged home. Discharge plan: Follow up with the PCP within 1 week of the discharge. Tablet ibuprofen 600 mg b.i.d. as needed for pain for 7 days Continue home meds Condition at Discharge: Good Final Diagnosis/Problems List Chest pain non-cardiac related Ruled out ACS is Intractable lower chest/abdominal pain, likely due to costochondritis/musculoskeletal Morbid obesity Hypokalemia Severe anemia, likely due to iron deficiency Obstructive sleep apnea Obesity hyperventilation syndrome Asymptomatic bacteriuria Discharge Disposition: Home Discharge Instruct/Medications Diet: Cardiac 2g Na,low cholest Activity: No Restrictions, As Tolerated Follow Up/Referral: Follow up with the PCP within 1 week of the discharge Medications: Tablet ibuprofen 600 mg 2 times a daily as needed for 7 days Continue home meds Discharge Statement: "Patient was advised to return to the ER or call 911 if any headaches, dizziness, shortness of breath, chest pain, abdominal pain, bleeding, fevers, or worsening of medical condition. Patient was counseled about treatment plan, medications, possible side effects, patientverbalized understanding. All questions were answered to the best of my ability. This discharge took greater then 30 minutes in planning, reviewing documentation, counseling the patient, and discussing with other team members." ASSESSMENT ASSESSMENT Assessment Chest pain non-cardiac related MEE SALCIDO [facility] May 05, 2025 16:59
--- NOTE | 2025-05-05 22:09 | DVHPNRES ---
Progress Note Date Seen: May 05, 2025 Resident Creating Document: MEE SALCIDO CADEN Has the PT tested + for MRSA If YES, has PT been informed?: No Medical Necessity Reason Pt with a Central, PICC or Fol: No Subjective Review of Systems The patient is a 60-year-old female with past medical history of depression, asthma, and GERD who presented to [facility] ED with complaint of right upper quadrant abdominal pain. Patient reports she has been experiencing upper quadrant abdominal pain radiating to her back, rating 10/10 numeric scale, generalized weakness, nausea, vomiting, and diarrhea. Patient was seen and evaluated in the ED, laboratory data shows WBC 6.2, hemoglobin 8.0, hematocrit 26.7, platelets 250, sodium 141, potassium 3.4, BUN 8, creatinine 0.70, glucose 110, calcium 9.1, lipase 21, total bilirubin 2.2, blood pressure 121/67, heart rate 72, temperature 98.7 F, O2 saturation 94% on oxygen. Please see medication orders section in the computer. On my assessment, patient denied chest pain, no headache, no dizziness, no diaphoresis, currently on oxygen, no abdominal pain, diarrhea, nausea, vomiting at this moment, no fever, no chills. Patient was admitted for further evaluation and medical management. Past Medical HistoryL: Asthma, Depression, GERD Patient seen and examined at the bedside. Patient is willing more shortness of bed at baseline, and also complained of chest pain and right upper quadrant. Due to severe shortness of the patient could not speak in full sentences. Patient reports: No new complaints Changes from previous H/P or p: No Changes Objective vital signs Vital Sign Date Time Temp Pulse Resp B/P (MAP) Pulse Ox O2 Delivery O2 Flow Rate FiO2 05/05/25 21:08 75 22 99 05/05/25 21:06 Nasal Cannula* 3 32 05/05/25 17:00 97.3 105/56 (72) 97.3 Total Intake and Output 05/04/25 05/04/25 05/05/25 15:00 23:00 07:00 Intake Total 1000 ml 480 ml Output Total 200 ml Balance 1000 ml 280 ml medications Current Medications Medications Dose Ordered Sig/Tello Route Start Time Stop Time Status Last Admin Dose Admin Famotidine 20 mg Q12HR IV 05/04/25 22:00 05/05/25 11:32 20 MG Albuterol 2.5 mg Q4HPRN PRN NEB 05/04/25 18:45 Ipratropium [place] 0.5 mg Q4HPRN PRN NEB 05/04/25 18:45 Sodium Chloride 10 ml Q8HR IV 05/04/25 22:00 05/05/25 14:00 10 ML Acetaminophen/ Hydrocodone Bitart 1 tab Q4HP PRN PO 05/04/25 18:45 05/05/25 20:22 1 TAB Ondansetron HCl 4 mg Q4HP PRN IV 05/04/25 18:45 Docusate Sodium 100 mg BIDPRN PRN PO 05/04/25 18:45 Acetaminophen 650 mg Q6HP PRN PO 05/04/25 18:45 Nitroglycerin 0.4 mg Q5MINP PRN SL 05/04/25 19:00 Morphine Sulfate 2 mg Q30M PRN IV 05/04/25 19:00 Mupirocin 1 applic BID EACHNOSTRI 05/05/25 10:00 05/10/25 09:59 Examination General Appearance: Alert, Oriented X3, Cooperative, in moderate respiratory distress, using accessory muscles HEENT: Atraumatic, PERRLA, EOMI, Mucous membrane moist/pink Respiratory: Bilateral mild rhonchi Cardiovascular: Regular rate, Normal S1, Normal S2, No murmurs, no chest wall tenderness Abdominal: Normal bowel sounds, Soft, No tenderness, No hepatospenomegaly, No masses Extremities: No clubbing, No cyanosis, No edema, Normal pulses, No tenderness/swelling Skin: No rashes, No breakdown, No significant lesion Neuro: Normal gait, Normal speech, Strength at 5/5 X4 ext, Normal tone, Sensation intact, Cranial nerves 3-12 NL, Reflexes 2+ Psych/Mental Status: Mental status NL, Mood NL laboratory and microbiology Laboratory Tests 05/05/25 05:52 Test 05/05/25 05:52 Range/Units Serum Glucose 104 74-106 mg/dL Labs and/or images reviewed: Labs reviewed by me, Image(s) reviewed by me Problem List/Assessment/Plan Problem List/Assessment/Plan Acute on chronic respiratory failure, likely due to asthma exacerbation Asthma exacerbation Obstructive sleep apnea, on home oxygen Obesity hypoventilation syndrome Morbid obesity Possible ACS Asymptomatic bacteriuria Severe anemia, microcytic hypochromic Hypokalemia Hyperbilirubinemia Hepatomegaly MRSA nares positive * EKGs shows, normal sinus rhythm and no significant ST or T-wave changes * Abdominal ultrasound shows hepatomegaly, status post cholecystectomy Plan/recommendation * IV Solu-Medrol, breathing treatment * Oxygen through nasal cannula * Montelukast * Continue home meds * Check influenza, and COVID-19 DIET: Regular diet DVT PROPHYLAXIS: Lovenox CODE STATUS: Goal of care discussed for more than 18 minutes, full code DISPOSITION: Telemetry Patient's status and plan discussed with the patient. Case discussed with Dr. Glez. Plan discussed with: Patient, Daughter, Other (RN RN) My Orders My Orders Orders - MEE SALCIDO Procedure Category Date Status Time Abdomen Complete US 05/05/25 Resulted Sonogram 08:31 Mupirocin 2% Oint PHA 05/05/25 In Process Mrsa Nares (Bactroban 10:00 Stool Occult Blood LAB 05/05/25 Logged 09:17 * Nursing Home Social Worker CONS 05/05/25 Transmitted Consult Mrsa Screen LARRY 05/05/25 In Process 21:25 Date of Service: May 05, 2025 Billing Provider: CHUCKY GLEZ MD Common Visit Codes: [id number] INP/OBS CARE(HIGH) MEE SALCIDO RESDIENT May 05, 2025 22:09 CHUCKY GLEZ MD May 07, 2025 15:21
[2025-05-05] MEDS: methylPREDNISolone SOD SUCC 40 MG/ML VL IV ONE (22:49)
[2025-05-06] VITALS (12 sets, daily range): BP systolic 100–121; BP diastolic 54–69; PULSE 56–82; RESP 18–20; TEMP 97.5–98.6; O2SAT 94–100
[2025-05-06] MEDS: ALBUTEROL SULF 2.5 MG/0.5ML(0.5%) NEB SOLN NEB SCH
[2025-05-06] MEDS: IPRATROPIUM BROM 0.5 MG/2.5ML INH SOL NEB SCH
[2025-05-06 01:32] LABS: Rapid Influenza A Negative (Negative); Rapid Influenza B Negative (Negative)
[2025-05-06 06:42] LABS: Potassium 3.9 mmol/L (3.5-5.1); Sodium 142 mmol/L (136-145)
[2025-05-06 06:43] LABS: Anion Gap 5 (5-15); Calcium 9.1 mg/dL (8.7-10.4)
[2025-05-06 06:47] LABS: Basophils # (auto) 0 10 ^3/uL (0-0.2); Basophils % (auto) 0.1 % (0.0-2.0); Eosinophils # (auto) 0 10 ^3/uL (0-0.8); Eosinophils % (auto) 0.1 % (0.0-7.0); Hematocrit 26.4 % (36.0-46.0); Lymphocytes # (auto) 0.3 10 ^3/uL (0.4-5.4); Lymphocytes % (auto) 5.2 % (10.0-50.0); Mean Corpuscular Hemoglobin 21.8 pg (28.0-32.0); Mean Corpuscular Hgb Conc. 30.3 g/dL (32.0-36.0); Mean Corpuscular Volume 71.8 fL (80.0-100.0); Monocytes # (auto) 0.1 10 ^3/uL (0-1.3); Monocytes % (auto) 2.3 % (0.0-12.0); Neutrophils # (auto) 4.7 10 ^3/uL (1.6-8.6); Neutrophils % (auto) 92.3 % (37.0-80.0); Platelet Count (auto) 217 10^3/uL (140-450); Red Blood Cells 3.68 10^6/uL (4.0-5.20); Red Cell Distribution Width 19.7 % (11.8-14.3); White Blood Cell 5.1 10^3/uL (4.4-10.8)
[2025-05-06 06:50] LABS: Glucose 144 mg/dL (74-106)
[2025-05-06 06:51] LABS: Carbon Dioxide 39 mmol/L (20-31); Chloride 98 mmol/L (98-107)
[2025-05-06 07:16] LABS: BUN/Creatinine Ratio 12.9 (10.0-20.0); Blood Urea Nitrogen 9 mg/dL (9-23)
[2025-05-06] MEDS: methylPREDNISolone SOD SUCC 40 MG/ML VL IV SCH (08:57)
--- NOTE | 2025-05-06 09:03 | DVH ---
CHEST RADIOGRAPH Indication: SHORTNESS OF BREATH Technique: Single frontal view of the chest was obtained COMPARISON: XY CHEST PORTABLE on DOS: 03/08/25, XY CHEST PORTABLE on DOS: 12/26/24, XY CHEST XRAY 1 VIEW on DOS: 12/24/24, XY CHEST XRAY 1 VIEW on DOS: 12/23/24, XY CHEST PORTABLE on DOS: 10/07/24 FINDINGS: Lines and Tubes: None Lungs: Increased interstitial prominence Pleura: No effusion. No pneumothorax. Cardiomediastinal contours: Cardiomegaly Bones: Unremarkable IMPRESSION: Pulmonary vascular congestion
[2025-05-06] MEDS: MORPHINE SULFATE INJ 2 MG/ml SYRG IV ONE (10:57)
[2025-05-06] MEDS ORDERED: PRED20TA2 PO (11:16)
--- NOTE | 2025-05-06 18:05 | DVHDSRES ---
Discharge Summary Date of Admission Resident Creating Document: MEE SALCIDO RESDIENT May 04, 2025 at 18:48 Date of Discharge: May 05, 2025 Admitting Diagnosis Chest pain Labs/Diagnostic Data: Laboratory Results Test 05/06/25 05:00 05/06/25 01:00 05/05/25 05:52 05/05/25 01:00 White Blood Count 5.1 10^3/uL (4.4-10.8) Red Blood Count 3.68 10^6/uL (4.0-5.20) Hemoglobin 8.0 g/dL (12.2-16.2) Hematocrit 26.4 % (36.0-46.0) Mean Corpuscular Volume 71.8 fL (80.0-100.0) Mean Corpuscular Hemoglobin 21.8 pg (28.0-32.0) Mean Corpuscular Hemoglobin Concent 30.3 g/dL (32.0-36.0) Red Cell Distribution Width 19.7 % (11.8-14.3) Platelet Count 217 10^3/uL (140-450) Mean Platelet Volume 7.5 fL (6.9-10.8) Neutrophils (%) (Auto) 92.3 % (37.0-80.0) Lymphocytes (%) (Auto) 5.2 % (10.0-50.0) Monocytes (%) (Auto) 2.3 % (0.0-12.0) Eosinophils (%) (Auto) 0.1 % (0.0-7.0) Basophils (%) (Auto) 0.1 % (0.0-2.0) Neutrophils # (Auto) 4.7 10 ^3/uL (1.6-8.6) Lymphocytes # (Auto) 0.3 10 ^3/uL (0.4-5.4) Monocytes # (Auto) 0.1 10 ^3/uL (0-1.3) Eosinophils # (Auto) 0 10 ^3/uL (0-0.8) Basophils # (Auto) 0 10 ^3/uL (0-0.2) Nucleated Red Blood Cells 0.0 % Sodium Level 142 mmol/L (136-145) Potassium Level 3.9 mmol/L (3.5-5.1) Chloride Level 98 mmol/L (98-107) Carbon Dioxide Level 39 mmol/L (20-31) Anion Gap 5 (5-15) Blood Urea Nitrogen 9 mg/dL (9-23) Creatinine 0.70 mg/dL (0.550-1.02) Glomerular Filtration Rate Calc 100 mL/min (>90) BUN/Creatinine Ratio 12.9 (10.0-20.0) Serum Glucose 144 mg/dL (74-106) Calcium Level 9.1 mg/dL (8.7-10.4) Influenza Type A Antigen Negative (Negative) Influenza Type B Antigen Negative (Negative) Iron Level 27 ug/dL (50-170) Total Iron Binding Capacity 337 ug/dL (250-425) Percent Iron Saturation 8.0 % (15-50) Ferritin 6.5 ng/mL (10-291) Total Bilirubin 1.9 mg/dL (0.2-1.0) Aspartate Amino Transferase (AST) 9 U/L (<34) Alanine Aminotransferase (ALT) < 9 U/L (7-40) Alkaline Phosphatase 101 U/L (46-116) Troponin I High Sensitivity 8 ng/L (</=34) Total Protein 7.0 g/dL (5.7-8.2) Albumin 3.7 g/dL (3.2-4.8) Urine Color Yellow (Yellow) Urine Clarity Turbid (Clear) Urine pH 5.5 (5.0-9.0) Urine Specific [place] 1.029 (1.001-1.035) Urine Protein 1+ (Negative) Urine Ketones Trace (Negative) Urine Blood Negative /uL (Negative) Urine Nitrite 2+ (Negative) Urine Bilirubin Negative (Negative) Urine Urobilinogen 2 mg/dL (Negative) Urine Leukocyte Esterase Trace /uL (Negative) Urine RBC None seen /hpf (0 - 4) Urine Microscopic WBC 8 /HPF (0-5) Urine Squamous Epithelial Cells Few /hpf (<5) Urine Bacteria Many /hpf (None Seen) Urine Mucus Moderate (None Seen) Urine Glucose Normal mg/dL (Normal) Test 05/04/25 16:15 Lipase 21 U/L (12-53) Other Laboratory Tests 05/06/25 05:00 Brief Hx & Hospital Course: The patient is a 60-year-old female with past medical history of depression, asthma, and GERD who presented to [facility] ED with complaint of right upper quadrant abdominal pain. Patient reports she has been experiencing upper quadrant abdominal pain radiating to her back, rating 10/10 numeric scale, generalized weakness, nausea, vomiting, and diarrhea. Patient was seen and evaluated in the ED, laboratory data shows WBC 6.2, hemoglobin 8.0, hematocrit 26.7, platelets 250, sodium 141, potassium 3.4, BUN 8, creatinine 0.70, glucose 110, calcium 9.1, lipase 21, total bilirubin 2.2, blood pressure 121/67, heart rate 72, temperature 98.7 F, O2 saturation 94% on oxygen. Please see medication orders section in the computer. On my assessment, patient denied chest pain, no headache, no dizziness, no diaphoresis, currently on oxygen, no abdominal pain, diarrhea, nausea, vomiting at this moment, no fever, no chills. Patient was admitted for further evaluation and medical management. Past Medical HistoryL: Asthma, Depression, GERD Hospital course: The patient was admitted at the line of acute exacerbation. The patient was started on IV Solu-Medrol, oxygen through nasal cannula and breathing treatment. The secretions were cardiomegaly with bilateral lower zone infiltration. EKGs shows, normal sinus rhythm and no significant ST or T-wave changes, Abdominal ultrasound shows hepatomegaly, status post cholecystectomy. During hospital course, home medicine were continued. Influenza and COVID-19 were checked which were not negative. On 05/06/2025 the patient was feeling better since admission. Shortness of breaths and chest discomfort had improved. Discharge plan discussed with the patient the patient discharged home. DC plan: Follow up with the PCP within 1 week of the discharge. Tablet prednisone 40 mg daily for 4 days Condition at Discharge: Good Final Diagnosis/Problems List Acute on chronic hypoxic respiratory failure, likely due to asthma exacerbation Asthma exacerbation Obstructive sleep apnea, on home oxygen Obesity hypoventilation syndrome Morbid obesity Possible ACS Asymptomatic bacteriuria Severe anemia, microcytic hypochromic Hypokalemia Hyperbilirubinemia Hepatomegaly MRSA nares positive Discharge Disposition: Home Discharge Instruct/Medications Diet: Cardiac 2g Na,low cholest Activity: No Restrictions, As Tolerated Follow Up/Referral: Follow up with the PCP within 1 week of the discharge Medications: Tablet prednisone 40 mg daily for 4 days Tablet ibuprofen 600 mg 2 times a daily as needed for 7 days Continue home meds Discharge Statement: "Patient was advised to return to the ER or call 911 if any headaches, dizziness, shortness of breath, chest pain, abdominal pain, bleeding, fevers, or worsening of medical condition. Patient was counseled about treatment plan, medications, possible side effects, patientverbalized understanding. All questions were answered to the best of my ability. This discharge took greater then 30 minutes in planning, reviewing documentation, counseling the patient, and discussing with other team members." ASSESSMENT ASSESSMENT Assessment Asthma exacerbation [facility] May 06, 2025 18:05
== END 2025-05-06 16:30 | disposition home or self-care (01) | DRG 189 ==
LOC: EDUNIT# 16:04 → ER 16:04 → EDBD 16:04 → OVERFLOW 18:48 → TELE-EAST 20:38
PROVIDERS: ADMIT Student in an Organized Health Care Education/Training Program; ATTEND Student in an Organized Health Care Education/Training Program
DX: J96.20 Acute and chronic respiratory failure, unspecified whether with hypoxia or hypercapnia (principal); I24.9 Acute ischemic heart disease, unspecified; J45.901 Unspecified asthma with (acute) exacerbation; E87.6 Hypokalemia; F32.A Depression, unspecified; K21.9 Gastro-esophageal reflux disease without esophagitis; M10.9 Gout, unspecified; B95.62 Methicillin resistant Staphylococcus aureus infection as the cause of diseases classified elsewhere; E66.01 Morbid (severe) obesity due to excess calories; E80.6 Other disorders of bilirubin metabolism; D50.9 Iron deficiency anemia, unspecified; R16.0 Hepatomegaly, not elsewhere classified; G47.33 Obstructive sleep apnea (adult) (pediatric); Z90.49 Acquired absence of other specified parts of digestive tract; Z88.1 Allergy status to other antibiotic agents; Z22.322 Carrier or suspected carrier of Methicillin resistant Staphylococcus aureus
CPT/HCPCS: 36415; 71045; 76700; 80048; 80053; 81001; 82728; 83540; 83550; 83690; 84484; 85025; 86850; 86900; 86901; 87081; 87804; 93005; 94640; 96361; 96374; 99291; G0378; J3490

== ENCOUNTER 2025-07-16 20:55 | Inpatient (IN) | payer OTHER ==
[~2025-07-16] VITALS: Ht 157.5 cm; Wt 178.6 kg
[~2025-07-16 20:55] MED LIST changes: +ALBU108A5 INH; +ASPI-325 PO; +CITA10TA5 PO; +CYCL-611 PO; +MONT-8 PO; +PRED20TA2 PO
--- NOTE | 2025-07-16 21:21 | ED.PDOC ---
History of Present Illness HPI Comments 60-year-old female came to ER via EMS for bilateral leg weakness. Patient is morbidly obese, states she was admitted at [facility] for 3 weeks, due to chest pains, and was discharged this morning. Patient states she was bed-bound during her entire stay at [facility]. As she got home, she attempted to stand up but could not feel any strength on her legs. Chief Complaint: Lower Extremity Time Seen by MD: 21:21 Primary Care Provider: NILAY Hyman Notes: Food Preparer Notes Allergies: Coded Allergies: Vancomycin (Verified Allergy, Intermediate, 12/25/24) pt became hot and started sweating. redness and swelliong to the IV site. Ceftriaxone (Verified Allergy, Unknown, Rash, 10/01/24) Home Meds Active Scripts Prednisone (Prednisone) 20 Mg Tab, 40 MG PO DAILY for 4 Days, #10 MG Prov:MEE SALCIDO RESDIENT 05/06/25 Reported Medications Aspirin (Aspirin Low Dose) 81 Mg Tab, 1 TAB PO DAILY 05/04/25 Albuterol Sulfate (Albuterol Sulfate Hfa) 108 Mcg/Act Aer, INH 05/04/25 Citalopram Hydrobromide (Citalopram Hydrobromide) 10 Mg Tab, 1 TAB PO DAILY 05/04/25 Cyclobenzaprine HCl (Cyclobenzaprine Hydrochlo) 10 Mg Tab, 1 TAB PO 05/04/25 Montelukast Sodium (MONTELUKAST SODIUM) 10 Mg Tab, 1 TAB PO DAILY 05/04/25 Tramadol HCl (Tramadol HCl) 50 Mg Tab, 50 MG PO BID for 7 Days, #14 TAB 03/10/25 Pantoprazole Sodium Sesquihydr (Pantoprazole Sodium) 40 Mg Tab, 1 TAB PO DAILY 03/08/25 Albuterol Sulfate (Albuterol Sulfate) 2 Mg Tab, 2 MG IN Q6HP PRN for SHORTNESS OF BREATH, MG 02/29/24 Benazepril HCl (Benazepril Hydrochloride) 10 Mg Tab, 12.5 MG PO DAILY, TAB 02/29/24 Cyclobenzaprine Hcl (Cyclobenzaprine Hcl) 10 Mg Tab, 10 MG PO Q8HP PRN for FOR MUSCLE SPASM for 30 Days, MG 02/29/24 Ketorolac Tromethamine (Ketorolac Tromethamine) 10 Mg Tab, 10 MG PO DAILY, TAB 02/29/24 Citalopram Hydrobromide (Citalopram Hydrobromide) 20 Mg Tab, 20 MG PO DAILY, TAB 02/29/24 Gabapentin (Gabapentin) 600 Mg Tab, 600 MG PO BID, TAB 02/29/24 Information Source: Patient, Emergency Med Personnel Mode of Arrival: EMS Severity: Moderate Timing: Weeks Past Medical History PAST MEDICAL HISTORY: Asthma, Depression, GERD Past Medical History (Other): Morbid obesity Surgical History: Denies all surgeries CONSUMER EXPERIENCE CONSULTANT History: No Pertinent CONSUMER EXPERIENCE CONSULTANT History Family History Family History: Reviewed,noncontributory to illness Social History Smoker: Non-Smoker Alcohol: Denies ETOH Use Drugs: Denies Drug Use Lives In: Home Constitutional: reports: weakness; denies: chills, diaphoresis, fatigue, fever, malaise, sweats, others EENTM: denies: blurred vision, double vision, ear bleeding, ear discharge, ear drainage, ear pain, ear ringing, eye pain, eye redness, hearing loss, mouth pain, mouth swelling, nasal discharge, nose bleeding, nose congestion, nose pain, photophobia, tearing, throat pain, throat swelling, voice changes, others Respiratory: denies: cough, hemoptysis, orthopnea, SOB at rest, shortness of breath, SOB with excertion, stridor, wheezing, others Cardiovascular: denies: chest pain, dizzy spells, diaphoresis, Dyspnea on exertion, edema, irregular heart beat, left arm pain, lightheadedness, palpitations, PND, syncope, others Gastrointestinal: denies: abdomen distended, abdominal pain, blood streaked bowels, constipated, diarrhea, dysphagia, difficulty swallowing, hematemesis, melena, nausea, poor appetite, poor fluid intake, rectal bleeding, rectal pain, vomiting, others Genitourinary: denies: abnormal vagina bleeding, burning, dyspareunia, dysuria, flank pain, frequency, hematuria, incontinence, pain, , vagina discharge, urgency, others Neurological: denies: dizziness, fainting, headache, left sided numbness, left sided weakness, numbness, paresthesia, pre-existing deficit, right sided numbness, right sided weakness, seizure, speech problems, tingling, tremors, weakness, others Musculoskeletal: denies: back pain, gout, joint pain, joint swelling, muscle pain, muscle stiffness, neck pain, others Integumetry: denies: bruises, change in color, change in hair/nails, dryness, laceration, lesions, lumps, rash, wounds, others Allergic/Immunocompromised: denies: Difficulty Healing, Frequent Infections, Hives, Itching, others Hematologic/Lymphatic: denies: anemia, blood clots, easy bleeding, easy bruising, swollen glands, others Endocrine: denies: excessive hunger, excessive sweating, excessive thirst, excessive urination, flushing, intolerance to cold, intolerance to heat, unexplained weight gain, unexplained weight loss, others Psychiatric: denies: anxiety, bipolar disorder, depression, hopeless, panic disorder, schizophrenia, sleepless, suicidal, others Physical Exam General Appearance: No Apparent Distress, Obese HEENT: Normal ENT Inspection, Pharynx Normal, TMs Normal Neck: Full Range of Motion, Non-Tender, Normal, Normal Inspection Respiratory: Chest Non-Tender, Lungs Clear, No Accessory Muscle Use, No Respiratory Distress, Normal Breath Sounds Cardiovascular: No Edema, No JVD, No Murmur, No Gallop, Normal Peripheral Pulses, Regular Rate/Rhythm Breast Exam: Deferred Gastrointestinal: No Organomegaly, Non Tender, No Pulsatile Mass, Normal Bowel Sounds, Soft Genitalia: Deferred Pelvic: Deferred Rectal: Deferred Extremities: No calf tenderness, Normal capillary refill, Normal inspection, Normal range of motion, Non-tender, No pedal edema Musculoskeletal : Apperance: Normal Neurologic: Alert, sports physiologist II-XII nml as Tested, No Motor Deficits, Normal Affect, Normal Mood, No Sensory Deficits Cerebellar Function: Normal Reflexes: Normal Skin: Dry, Normal Color, Warm Lymphatic: No Adenopathy Was a procedure done? Was a procedure done?: No Differential Dx Considerations may include: Morbidly obese, urinary tract infection, weakness, DVT X-Ray, Labs, Meds, VS Vital Signs Date Time Temp Pulse Resp B/P (MAP) Pulse Ox O2 Delivery O2 Flow Rate FiO2 07/16/25 23:58 98.1 90 22 118/75 (89) 92 98.1 07/16/25 23:58 90 20 93 Nasal Cannula* 2 28 07/16/25 21:00 112 07/16/25 20:55 99.2 110 25 122/75 97 99.2 Lab Test 07/17/25 00:20 07/16/25 21:22 Range/Units Troponin I High Sensitivity Pending 7 </=34 ng/L White Blood Count 18.0 H 4.4-10.8 10^3/uL Red Blood Count 4.12 4.0-5.20 10^6/uL Hemoglobin 9.0 L 12.2-16.2 g/dL Hematocrit 29.8 L 36.0-46.0 % Mean Corpuscular Volume 72.4 L 80.0-100.0 fL Mean Corpuscular Hemoglobin 21.8 L 28.0-32.0 pg Mean Corpuscular Hemoglobin Concent 30.2 L 32.0-36.0 g/dL Red Cell Distribution Width 22.5 H 11.8-14.3 % Platelet Count 430 140-450 10^3/uL Mean Platelet Volume 7.2 6.9-10.8 fL Neutrophils (%) (Auto) 83.7 H 37.0-80.0 % Lymphocytes (%) (Auto) 7.9 L 10.0-50.0 % Monocytes (%) (Auto) 7.2 0.0-12.0 % Eosinophils (%) (Auto) 0.8 0.0-7.0 % Basophils (%) (Auto) 0.4 0.0-2.0 % Neutrophils # (Auto) 15.1 H 1.6-8.6 10 ^3/uL Lymphocytes # (Auto) 1.4 0.4-5.4 10 ^3/uL Monocytes # (Auto) 1.3 0-1.3 10 ^3/uL Eosinophils # (Auto) 0.1 0-0.8 10 ^3/uL Basophils # (Auto) 0.1 0-0.2 10 ^3/uL Nucleated Red Blood Cells 0.1 % Prothrombin Time 12.4 H 9.3-11.8 sec Prothrombin Time INR 1.19 H 0.9-1.15 Activated Partial Thromboplast Time 27.8 24.5-34.5 SEC Sodium Level 138 136-145 mmol/L Potassium Level 4.1 3.5-5.1 mmol/L Chloride Level 96 L 98-107 mmol/L Carbon Dioxide Level 37 H 20-31 mmol/L Anion Gap 5 5-15 Blood Urea Nitrogen 10 9-23 mg/dL Creatinine 0.48 L 0.550-1.02 mg/dL Glomerular Filtration Rate Calc 109 >90 mL/min BUN/Creatinine Ratio 20.8 H 10.0-20.0 Serum Glucose 114 H 74-106 mg/dL Lactic Acid Level 1.6 0.4-2.0 mmol/L Calcium Level 8.8 8.7-10.4 mg/dL Magnesium Level 1.3 L 1.6-2.6 mg/dL Total Bilirubin 1.9 H 0.2-1.0 mg/dL Aspartate Amino Transferase (AST) 15 13-40 U/L Alanine Aminotransferase (ALT) < 9 7-40 U/L Alkaline Phosphatase 107 46-116 U/L Total Protein 7.5 5.7-8.2 g/dL Albumin 3.6 3.2-4.8 g/dL Time of 1ST Reevaluation: 21:15 Reevaluation 1ST: Unchanged Patient Education/Counseling: Diagnosis, Treatment Family Education/Counseling: No Family Present SEPSIS Sepsis Screen Physician Orders Troponin-I Hs (07/17/25 03:00) Urinalysis (07/16/25 21:07) Blood Culture (07/16/25 21:07) Chest Portable (07/16/25 21:07) Rt Lower Dvt (07/16/25 21:07) Vital Signs Date Time Temp Pulse Resp B/P (MAP) Pulse Ox O2 Delivery O2 Flow Rate FiO2 07/16/25 23:58 98.1 90 22 118/75 (89) 92 98.1 07/16/25 23:58 90 20 93 Nasal Cannula* 2 28 07/16/25 21:00 112 07/16/25 20:55 99.2 110 25 122/75 97 99.2 Laboratory Tests Test 07/16/25 21:22 Lactic Acid Level 1.6 mmol/L (0.4-2.0) White Blood Count 18.0 10^3/uL (4.4-10.8) H Departure 1 Departure Time of Disposition: 00:54 Impression: Primary Impression: Morbid obesity Additional Impressions: Generalized weakness Lymphocytosis Disposition: 09 ADMITTED INPATIENT Condition: Guarded Comments 60-year-old female with morbid obesity. Patient has been in the hospital for 3 weeks and now is too weak to stand up when she tried to go home. Patient had some pain in her right leg. We did an ultrasound there was no obvious blood clot but there could be some kind of fluid collection. Patient's white count is elevated at 18. Mild anemia with H and H of 9 and 30. Patient was given a IV antibiotics for the white count. Patient will need admission for supportive care and further workup. Critical Care Note Critical Care Time?: No Stability Stability form required: No Heart Score Heart Score: Heart Score Response (Comments) Value History N/A 0 EKG N/A 0 Age N/A 0 Risk Factors N/A 0 Troponin N/A 0 Total 0 I personally scribed for LUCY GOLDSTEIN MD ([email or web address]) on 07/16/25 at 21:21. Electronically submitted by Axel Chinchilla ([email or web address]). LUCY GOLDSTEIN MD Jul 16, 2025 21:21
[2025-07-16 21:45] LABS: Nucleated Red Blood Cells % 0.1 %
[2025-07-16 21:47] LABS: Hematocrit 29.8 % (36.0-46.0); Hemoglobin 9.0 g/dL (12.2-16.2); Mean Corpuscular Hemoglobin 21.8 pg (28.0-32.0); Mean Corpuscular Volume 72.4 fL (80.0-100.0)
[2025-07-16 21:52] LABS: Albumin 3.6 g/dL (3.2-4.8); Alkaline Phosphatase 107 U/L (46-116); Anion Gap 5 (5-15); BUN/Creatinine Ratio 20.8 (10.0-20.0); Blood Urea Nitrogen 10 mg/dL (9-23); Calcium 8.8 mg/dL (8.7-10.4); Potassium 4.1 mmol/L (3.5-5.1); Sodium 138 mmol/L (136-145); Total Protein 7.5 g/dL (5.7-8.2)
[2025-07-16 21:53] LABS: Alanine Aminotransferase < 9 U/L (7-40); Bilirubin, Total 1.9 mg/dL (0.2-1.0); Carbon Dioxide 37 mmol/L (20-31); Chloride 96 mmol/L (98-107); Glucose 114 mg/dL (74-106); Magnesium 1.3 mg/dL (1.6-2.6)
[2025-07-16 22:00] LABS: INR 1.19 (0.9-1.15); Partial Thromboplastin Time 27.8 SEC (24.5-34.5); Prothrombin Time 12.4 sec (9.3-11.8)
--- NOTE | 2025-07-16 22:44 | DVH ---
CLINICAL HISTORY: right leg pain, laying in bed for 3 wks TECHNIQUE: Color and duplex doppler imaging of the right lower extremity veins was performed. Vessel compression if possible was also performed. WID: COMPARISON: US BILAT LOWER DVT on DOS: 03/08/25 FINDINGS: Right common femoral vein: Normal compressibility and flow. Right femoral vein: Normal compressibility and flow although the mid superficial femoral vein unable to do compression due to patient intolerance and pain. Right popliteal vein: Normal compressibility and flow. The posterior tibial vein is not visualized. Multiple fluid-filled structures are seen in the right lower extremity in the medial thigh measures u p to 8.7 cm and in the medial calf measures 8.5 cm. There is subcutaneous edema in the right lower ex tremity. IMPRESSION: 1. NO SONOGRAPHIC EVIDENCE FOR DEEP VENOUS THROMBOSIS IN THE RIGHT LOWER EXTREMITY VEINS. 2. Moderate-sized Anechoic fluid filled structures in the right lower extremity in the medial thigh a nd medial calf. DDX includes seroma, chronic hematoma, less likely abscess in the appropriate clinica l setting. Correlate with clinical exam. 3. Mild subcutaneous edema in the right lower extremity.
--- NOTE | 2025-07-16 23:19 | ECG ---
[facility] Test Date: 2025-07-16 Test Time: 21:00:25 Pat Name: PAUL MUHAMMAD Department: Room: 0238T Gender: F Student Truck Driver: CHRISTOPHER : 1965 Requested By: LUCY GOLDSTEIN Order Number: [id number] Reading MD: Jagdeep Monteiro Measurements Intervals [place] Rate: 112 P: 0 OH: 0 QRS: 0 QRSD: 121 T: 19 QT: 328 QTc: 448 Interpretive Statements Atrial fibrillation Nonspecific intraventricular conduction delay Probable anterolateral infarct, old Minimal ST elevation, inferior leads Artifact in lead(s) I,II,III,aVR,aVL,aVF,V1,V2 Electronically Signed On 07-17-2025 16:45:30 PDT by Jagdeep Monteiro Please click the below link to view image of tracing.
--- NOTE | 2025-07-16 23:51 | DVH ---
EXAMINATION: XY CHEST PORTABLE CLINICAL HISTORY: SOB COMPARISON: XY CHEST PORTABLE on DOS: 05/06/25, XY CHEST PORTABLE on DOS: 03/08/25 FINDINGS: Patient is rotated and leaning to the right. Right costophrenic angle partially excluded. Cardiomediastinal silhouette is again noted to be enlarged. Diffuse interstitial prominence with hazy airspace opacification. No definite pleural effusion or pneumothorax as visualized. IMPRESSION: Limited study. Persistent congestive type pattern. Please correlate to exclude concomitant infection.
[2025-07-16 23:58] VITALS: PULSE 90; RESP 20; O2SAT 93
[2025-07-17] MEDS: ENOXAPARIN SOD 40 MG/0.4 ML SYRINGE SC SCH (03:11)
[2025-07-17] MEDS: LACTATED RINGER'S 1,500 ML IV ONE (03:15)
--- NOTE | 2025-07-17 03:21 | DVHHPRES ---
History of Present Illness Resident Creating Document: MAYRA FIGUEROA RESIDENT History of Present Illness Malinda Jeffery is a 60-year-old female with past medical history of asthma, depression, GERD, questionable DvT who came to the ER with chief complaints of severe bilateral leg weakness and burning pain in the right leg, rated 10/10 in intensity since one week. She reports that earlier today, upon attempting to stand, she experienced complete numbness in both legs and was unable to bear weight. Sensation has returned, and she is now able to wiggle her toes.She was recently discharged from [facility] this morning after a 3-week admission for chest pain and shortness of breath. During her hospital stay, she was bed-bound on a water bed. Prior to admission, she was ambulatory with the assistance of a cane.She also experienced two episodes of vomiting and dizziness before arriving at the ER. On arrival patient had tachycardia, tachypnea, the increased WBC, and is on 3.5 L oxygen, increased from her baseline of 2 L at home and 3 L during her hospitalization. Her last bowel movement was yesterday. As patient is allergic to ceftriaxone, vancomycin patient is given IV meropenem and IV Zyvox. Awaiting PICC line. Surgical history: Denies Personal history: Quit smoking 8 years ago, denies any alcohol or drug use Lives with: Family PCP : With [facility] Review of Systems Constitutional: Yes: Weakness; No: Fever, Chills, Sweats, Malaise, Other Eyes: No: Pain, Vision change, Conjunctivae inflammation, Eyelid inflammation, Other, Redness ENT: No: Ear pain, Ear discharge, Nose pain, Nose discharge, Nose congestion, Mouth pain, Mouth swelling, Throat pain, Throat swelling, Other Respiratory: Shortness of breath Cardiovascular: No: Chest Pain, Palpitations, Orthopnea, Paroxysmal Noc. Dyspnea, Edema, Lt Headedness, Other Genitourinary: No Dysuria, No Frequency, No Incontinence, No Hematuria, No Retention, No Other Musculoskeletal: leg pain; No: other, neck pain, shoulder pain, arm pain, back pain, hand pain, foot pain Skin: No: Rash, Lesions, Jaundice, Bruising, Other Neurological: No: Weakness, Numbness, Incoordination, Change in speech, Confusion, Seizures, Other Allergies: Coded Allergies: Vancomycin (Verified Allergy, Intermediate, 12/25/24) pt became hot and started sweating. redness and swelliong to the IV site. Ceftriaxone (Verified Allergy, Unknown, Rash, 10/01/24) Medications Current Medications Medications Dose Ordered Sig/Etllo Route Start Time Stop Time Status Last Admin Dose Admin Acetaminophen 325 mg Q4HP PRN PO 07/17/25 02:45 Acetaminophen/ Hydrocodone Bitart 1 tab Q4HP PRN PO 07/17/25 02:45 Enoxaparin Sodium 40 mg DAILY SC 07/17/25 02:45 07/17/25 03:11 40 MG Aspirin 81 mg DAILY PO 07/17/25 10:00 Citalopram Hydrobromide 20 mg DAILY PO 07/17/25 10:00 Cyclobenzaprine HCl 10 mg Q8HP PRN PO 07/17/25 03:00 Montelukast Sodium 10 mg DAILY PO 07/17/25 10:00 Pantoprazole Sodium 40 mg DAILY PO 07/17/25 10:00 Exam Vital Signs Vital Signs Date Time Temp Pulse Resp B/P (MAP) Pulse Ox O2 Delivery O2 Flow Rate FiO2 07/16/25 23:58 98.1 90 22 118/75 (89) 92 98.1 07/16/25 23:58 Nasal Cannula* 2 28 Exam General: Patient alert and oriented in person, place and time. Patient following commands. In moderate distress HEENT: Normocephalic, atraumatic, moist mucous membranes, increased neck circumference Respiratory/pulmonary: Clear lungs bilaterally, vesicular murmurs present in almost all lung ayers, no associated crackles or wheezes. Cardiovascular: Normal heart sounds S1 and S2 with no associated murmurs Abdomen: Abdomen nondistended, there is no pain to palpation in any of the abdominal quadrants, no palpable masses. Morbidly obese Extremities: Left Lower leg erythema, tenderness, warmth to touch, bilateral +2 pitting edema Peripheral Pulses: 3+ Radial (R). 3+ Radial (L). 3+ Dorsalis pedis (R). 3+ Dorsalis pedis(L) Skin: No rashes or pruritus, there is no sacral edema present at this time. Neurological: Intact cranial nerves with no focal neurologic deficits Psych/mental status: Normal mental status, mood Labs/Xrays Labs Test 07/17/25 00:20 8/29/25 21:22 Range/Units Troponin I High Sensitivity 9 </=34 ng/L White Blood Count 18.0 H 4.4-10.8 10^3/uL Red Blood Count 4.12 4.0-5.20 10^6/uL Hemoglobin 9.0 L 12.2-16.2 g/dL Hematocrit 29.8 L 36.0-46.0 % Mean Corpuscular Volume 72.4 L 80.0-100.0 fL Mean Corpuscular Hemoglobin 21.8 L 28.0-32.0 pg Mean Corpuscular Hemoglobin Concent 30.2 L 32.0-36.0 g/dL Red Cell Distribution Width 22.5 H 11.8-14.3 % Platelet Count 430 140-450 10^3/uL Mean Platelet Volume 7.2 6.9-10.8 fL Neutrophils (%) (Auto) 83.7 H 37.0-80.0 % Lymphocytes (%) (Auto) 7.9 L 10.0-50.0 % Monocytes (%) (Auto) 7.2 0.0-12.0 % Eosinophils (%) (Auto) 0.8 0.0-7.0 % Basophils (%) (Auto) 0.4 0.0-2.0 % Neutrophils # (Auto) 15.1 H 1.6-8.6 10 ^3/uL Lymphocytes # (Auto) 1.4 0.4-5.4 10 ^3/uL Monocytes # (Auto) 1.3 0-1.3 10 ^3/uL Eosinophils # (Auto) 0.1 0-0.8 10 ^3/uL Basophils # (Auto) 0.1 0-0.2 10 ^3/uL Nucleated Red Blood Cells 0.1 % Prothrombin Time 12.4 H 9.3-11.8 sec Prothrombin Time INR 1.19 H 0.9-1.15 Activated Partial Thromboplast Time 27.8 24.5-34.5 SEC Sodium Level 138 136-145 mmol/L Potassium Level 4.1 3.5-5.1 mmol/L Chloride Level 96 L 98-107 mmol/L Carbon Dioxide Level 37 H 20-31 mmol/L Anion Gap 5 5-15 Blood Urea Nitrogen 10 9-23 mg/dL Creatinine 0.48 L 0.550-1.02 mg/dL Glomerular Filtration Rate Calc 109 >90 mL/min BUN/Creatinine Ratio 20.8 H 10.0-20.0 Serum Glucose 114 H 74-106 mg/dL Lactic Acid Level 1.6 0.4-2.0 mmol/L Calcium Level 8.8 8.7-10.4 mg/dL Magnesium Level 1.3 L 1.6-2.6 mg/dL Total Bilirubin 1.9 H 0.2-1.0 mg/dL Aspartate Amino Transferase (AST) 15 13-40 U/L Alanine Aminotransferase (ALT) < 9 7-40 U/L Alkaline Phosphatase 107 46-116 U/L Total Protein 7.5 5.7-8.2 g/dL Albumin 3.6 3.2-4.8 g/dL SEPSIS Sepsis Screen Date sepsis recognized/suspect: Jul 17, 2025 Time Sepsis recognized/suspect: 0002 Recent Procedure: No On Antibiotic Therapy: No Respiratory Rate >20: No Heart Rate >90: No Temp<36 C (96.8 F) or >38.3 C: No SBP <90 or MAP <65 mmHG: No New Acute Mental Status Change: No Is the patient on CPAP, BIPAP,: No Physician Orders Urinalysis (07/16/25 21:07) Blood Culture (07/16/25 21:07) Chest Portable (07/16/25 21:07) Rt Lower Dvt (07/16/25 21:07) * Picc Line Consult (07/17/25 01:36) Admit (07/17/25 02:42) Allergies (07/17/25 02:42) Code Status (07/17/25 02:42) Acetaminophen Tablet (Tylenol Tablet) (07/17/25 02:45) Hydrocodone-Acet 5/325mg Tab ([place] 5/32 (07/17/25 02:45) Complete Blood Count (07/18/25 04:00) Comprehensive Metabolic Panel (07/18/25 04:00) Npo (Nothing By Mouth) Diet (07/17/25 Breakfast) Condition: Serious (07/17/25 02:42) Bedrest With Bathroom Privileg (07/17/25 02:42) Enoxaparin Sodium (Lovenox) (07/17/25 02:45) Oxygen By Nasal Cannula (07/17/25 02:42) Stat Ekg For Chest Pain (07/17/25 02:42) Notify Md Of Changes From Base (07/17/25 02:42) Harness Builder For 24 Hours (07/17/25 02:42) Emergency Dysrhythmia Protocol (07/17/25 02:42) Rhythm Strips Once Every Shift (07/17/25 02:42) Aspirin Enteric Coated Tablet (Ecotrin E (07/17/25 10:00) Citalopram Tablet (Celexa Tablet) (07/17/25 10:00) Cyclobenzaprine Tablet (Flexeril Tablet) (07/17/25 03:00) Montelukast Tablet (Singulair Tablet) (07/17/25 10:00) Pantoprazole Tablet (Protonix Tablet) (07/17/25 10:00) Vital Signs Date Time Temp Pulse Resp B/P (MAP) Pulse Ox O2 Delivery O2 Flow Rate FiO2 07/16/25 23:58 98.1 90 22 118/75 (89) 92 98.1 07/16/25 23:58 90 20 93 Nasal Cannula* 2 28 07/16/25 21:00 112 07/16/25 20:55 99.2 110 25 122/75 97 99.2 Laboratory Tests Test 07/16/25 21:22 Lactic Acid Level 1.6 mmol/L (0.4-2.0) White Blood Count 18.0 10^3/uL (4.4-10.8) H Medications Medications Dose Ordered Sig/Tello Route Start Time Stop Time Status Last Admin Dose Admin Enoxaparin Sodium 40 mg DAILY SC 07/17/25 02:45 07/17/25 03:11 40 MG Assessment/Plan Assessment/Plan # Sepsis possibly due to Left leg cellulitis - started on IV meropenem, Zyvox - PICC line ordered - # Rule out DVT - Right lower extremity Doppler showed NO SONOGRAPHIC EVIDENCE FOR DEEP VENOUS THROMBOSIS IN THE RIGHT LOWER EXTREMITY VEINS. Moderate-sized Anechoic fluid filled structures in the right lower extremity in the medial thigh and medial calf. DDX includes seroma, chronic hematoma, less likely abscess in the appropriate clinical setting. Correlate with clinical exam. Mild subcutaneous edema in the right lower extremity. # history of bilateral leg lymphedema # history of asthma # hyperbilirubinemia # Hepatomegaly # hypomagnesemia # history of ESBL UTI #Obstructive sleep apnea, on home oxygen 2L #Obesity hypoventilation syndrome # morbidly obese - BMI 81 - patient is on 3.5 L oxygen # depression: Continue home meds PPI prophylaxis: Pantoprazole 40 mg DVT prophylaxis: Lovenox 30 mg Goals of care addressed with the patient for more than 27 minutes: Full code status Case discussed with , patient and nurse Plan discussed with: Patient My Orders Orders - MAYRA FIGUEROA RESIDENT Procedure Category Date Status Time Admit ADMIT 07/17/25 Transmitted 02:42 Allergies [facility] 07/17/25 In Process 02:42 Code Status CODE 07/17/25 Transmitted 02:42 Acetaminophen Tablet PHA 07/17/25 In Process (Tylenol Tablet) 02:45 Hydrocodone-Acet PHA 07/17/25 In Process 5/325mg Tab ([place] 02:45 Complete Blood Count LAB 07/18/25 Verified 04:00 Comprehensive LAB 07/18/25 Verified Metabolic Panel 04:00 Npo (Nothing By DIET 07/17/25 Transmitted Mouth) Diet Breakfast Condition: Serious [facility] 07/17/25 In Process 02:42 Bedrest With Bathroom [facility] 07/17/25 In Process Privileg 02:42 Enoxaparin Sodium PHA 07/17/25 In Process (Lovenox) 02:45 Oxygen By Nasal RT 07/17/25 Transmitted Cannula 02:42 Stat Ekg For Chest [facility] 07/17/25 In Process Pain 02:42 Notify Md Of Changes [facility] 07/17/25 In Process From Base 02:42 Harness Builder For [facility] 07/17/25 In Process 24 Hours 02:42 Emergency Dysrhythmia [facility] 07/17/25 In Process Protocol 02:42 Rhythm Strips Once [facility] 07/17/25 In Process Every Shift 02:42 Aspirin Enteric PHA 07/17/25 In Process Coated Tablet 10:00 Citalopram Tablet PHA 07/17/25 In Process (Celexa Tablet) 10:00 Cyclobenzaprine PHA 07/17/25 In Process Tablet (Flexeril 03:00 Montelukast Tablet PHA 07/17/25 In Process (Singulair Tablet) 10:00 Pantoprazole Tablet PHA 07/17/25 In Process (Protonix Tablet) 10:00 Date of Service: Jul 17, 2025 Billing Provider: MU QUINTERO MD Common Visit Codes: [id number] INP/OBS CARE (HIGH) Secondary Visit Codes: [id number] CARE PLAN 30 MINUTES MAYRA FIGUEROA RESIDENT Jul 17, 2025 03:21
[2025-07-17] MEDS: LINEZOLID 600MG/300ML 300 ML IV SCH (06:00)
[2025-07-17] MEDS: MEROPENEM 1GM IVPB 50 ML IV ONE ×2 (06:07→15:00)
[2025-07-17] MEDS: MAGNESIUM SULFATE 1GM/100ML 100 ML IV SCH (06:37)
[2025-07-17 07:43] LABS: Total Iron Binding Capacity 279.0 ug/dL (250-425)
[2025-07-17 07:45] LABS: Iron 27.0 ug/dL (50-170)
[2025-07-17 08:00] VITALS: PULSE 84; RESP 20; O2SAT 98
[2025-07-17 09:46] LABS: Urine Protein, UAD TRACE (Negative)
[2025-07-17 09:55] LABS: Amphetamine Screen, Urine Neg (NEGATIVE); Barbiturate Scree,Urine Neg (NEGATIVE); Benzodiazephine Screen, Urine Neg (NEGATIVE); Opiate Scree,Urine Neg (NEGATIVE); Phencyclidine Screen, Urine Neg (NEGATIVE)
[2025-07-17 09:56] LABS: Cannabinoid Screen, Urine Neg (NEGATIVE); Cocaine Screen, Urine Neg (NEGATIVE)
[2025-07-17] MEDS ORDERED: ALBUTEROL SULF HFA 90MCG INH 200DOSE IN SCH (10:00)
[2025-07-17] MEDS ORDERED: CYCLOBENZAPRINE HCL 10 MG TAB PO SCH (10:00)
[2025-07-17] MEDS: ASPirin-EC 81 mg tab PO SCH (11:48)
[2025-07-17] MEDS: CITALOPRAM HYDROBR 20 MG TAB PO SCH (11:48)
[2025-07-17] MEDS: MONTELUKAST SODIUM 10 MG TAB PO SCH (11:48)
[2025-07-17] MEDS: FERROUS SULFATE 325mg EC TAB PO SCH (11:49)
[2025-07-17] MEDS: PANTOPRAZOLE 40 MG TAB PO SCH (11:49)
[2025-07-17 15:53] VITALS: PULSE 60; RESP 17; TEMP 98.4; O2SAT 96
[2025-07-17 17:00] VITALS: BP 123/63; PULSE 60; RESP 17; TEMP 97.9; O2SAT 96
[2025-07-17 20:00] VITALS: PULSE 72; PULSE 73; RESP 18; O2SAT 98
[2025-07-17 21:00] VITALS: BP 121/73; PULSE 72; RESP 18; TEMP 97.7; O2SAT 99
[2025-07-17] MEDS: MEROPENEM 1GM IVPB 50 ML IV SCH (22:00)
[2025-07-17 23:25] LABS: COVID19 ANTIGEN SOFIA FIA NEGATIVE (NEGATIVE)
[2025-07-18] VITALS (8 sets, daily range): BP systolic 96–126; BP diastolic 41–65; PULSE 65–85; RESP 17–22; TEMP 97.6–98.4; O2SAT 90–99
[2025-07-18] MEDS: HYDROcodone-ACET 5/325MG TAB PO PRN (05:20)
[2025-07-18 07:00] LABS: Hemoglobin 7.7 g/dL (12.2-16.2); Mean Corpuscular Hemoglobin 22.3 pg (28.0-32.0); Nucleated Red Blood Cells % 0.0 %
[2025-07-18 07:02] LABS: Hematocrit 25.5 % (36.0-46.0); Mean Corpuscular Volume 74.0 fL (80.0-100.0)
[2025-07-18 07:19] LABS: Alkaline Phosphatase 87 U/L (46-116); BUN/Creatinine Ratio 27.6 (10.0-20.0); Glucose 103 mg/dL (74-106); Potassium 3.9 mmol/L (3.5-5.1); Sodium 139 mmol/L (136-145); Total Protein 6.6 g/dL (5.7-8.2)
[2025-07-18 07:53] LABS: Chloride 95 mmol/L (98-107)
[2025-07-18 07:54] LABS: Alanine Aminotransferase < 9 U/L (7-40); Albumin 3.2 g/dL (3.2-4.8); Anion Gap 3.99999 (5-15); Bilirubin, Total 1.4 mg/dL (0.2-1.0); Blood Urea Nitrogen 8 mg/dL (9-23); Calcium 8.6 mg/dL (8.7-10.4); Carbon Dioxide > 40 mmol/L (20-31)
[2025-07-18 08:21] LABS: Anisocytosis Slight
[2025-07-18 08:22] LABS: Stomatocytes Few
[2025-07-18] MEDS: CYCLOBENZAPRINE HCL 10 MG TAB PO PRN (10:03)
--- NOTE | 2025-07-18 18:04 | DVHPN2 ---
Subjective Patient denies any complaints feeling much better. Changes from previous H/P or p: No Changes Eyes: No Pain, No Vision change, No Conjunctivae inflammation, No Eyelid inflammation, No Other, No Redness ENT: No Ear pain, No Ear discharge, No Nose pain, No Nose discharge, No Nose congestion, No Mouth pain, No Mouth swelling, No Throat pain, No Throat swelling, No Other Cardiovascular: No Chest Pain, No Palpitations, No Orthopnea, No Paroxysmal Noc. Dyspnea, No Edema, No Lt Headedness, No Other Respiratory: Shortness of breath Genitourinary: No Dysuria, No Frequency, No Incontinence, No Hematuria, No Retention, No Other Musculoskeletal: No other, No neck pain, No shoulder pain, No arm pain, No back pain, No hand pain; leg pain; No foot pain Skin: No Rash, No Lesions, No Jaundice, No Bruising, No Other Objective Vitals Vital Signs Date Time Temp Pulse Resp B/P (MAP) Pulse Ox O2 Delivery O2 Flow Rate FiO2 07/18/25 17:00 98.1 84 22 113/41 (65) 98 98.1 07/18/25 07:30 Nasal Cannula* 2 28 Intake/Output Intake and Output 07/18/25 07:00 Intake Total 350 ml Output Total 625 ml Balance -275 ml Intake Oral 0 ml IV Total 350 ml Output Urine Total 625 ml Exam HEENT pupils are reactive Neck is supple CV is S1-S2 regular rate and rhythm Respiratory diminished breath sounds bases GI positive bowel sound Extremity bilateral lymphedema, right lower extremity cellulitis [employer]E [employer] no motor deficit Medications Current Medications Medications Dose Ordered Sig/Tello Route Start Time Stop Time Status Last Admin Dose Admin Acetaminophen 325 mg Q4HP PRN PO 07/17/25 02:45 Acetaminophen/ Hydrocodone Bitart 1 tab Q4HP PRN PO 07/17/25 02:45 07/18/25 17:48 1 TAB Enoxaparin Sodium 40 mg DAILY SC 07/17/25 02:45 07/18/25 10:03 40 MG Aspirin 81 mg DAILY PO 07/17/25 10:00 07/18/25 10:03 81 MG Citalopram Hydrobromide 20 mg DAILY PO 07/17/25 10:00 07/18/25 10:02 20 MG Cyclobenzaprine HCl 10 mg Q8HP PRN PO 07/17/25 03:00 07/18/25 10:03 10 MG Montelukast Sodium 10 mg DAILY PO 07/17/25 10:00 07/18/25 10:02 10 MG Pantoprazole Sodium 40 mg DAILY PO 07/17/25 10:00 07/18/25 10:03 40 MG Linezolid 300 ml @ 150 mls/hr Q12HR IV 07/17/25 06:00 07/18/25 10:03 150 MLS/HR Meropenem 50 ml @ 17 mls/hr Q8HR IV 07/17/25 22:00 07/18/25 17:48 17 MLS/HR Ferrous Sulfate 325 mg DAILY PO 07/17/25 10:00 07/18/25 10:03 325 MG Laboratory Results Laboratory Tests 07/18/25 06:30 Chemistry Test 07/18/25 06:30 Albumin 3.2 g/dL (3.2-4.8) Calcium Level 8.6 mg/dL (8.7-10.4) L Total Protein 6.6 g/dL (5.7-8.2) LFT Test 07/18/25 06:30 Alanine Aminotransferase (ALT) < 9 U/L (7-40) Alkaline Phosphatase 87 U/L (46-116) Aspartate Amino Transferase (AST) 14 U/L (13-40) Total Bilirubin 1.4 mg/dL (0.2-1.0) H Urinalysis Test 07/17/25 09:00 Urine Color Yellow (Yellow) Urine Clarity Turbid (Clear) H Urine pH 6.0 (5.0-9.0) Urine Specific [place] 1.018 (1.001-1.035) Urine Protein Trace (Negative) H Urine Ketones Negative (Negative) Urine Blood 1+ /uL (Negative) H Urine Nitrite Negative (Negative) Urine Bilirubin Negative (Negative) Urine Urobilinogen 2 mg/dL (Negative) H Urine Leukocyte Esterase Trace /uL (Negative) Urine RBC 9 /hpf (0 - 4) Urine Microscopic WBC 3 /HPF (0-5) Urine Squamous Epithelial Cells Mod /hpf (<5) Urine Bacteria Few /hpf (None Seen) H Urine Mucus Few (None Seen) Urine Glucose Normal mg/dL (Normal) Microbiology Microbiology Date/Time Source Procedure Growth Status 07/17/25 16:00 Nose MRSA Screen - Final Complete 07/16/25 21:24 Blood Blood Culture - Preliminary NO GROWTH AFTER 24 HOURS OF INCUBATION. Resulted Assessment/Plan Assessment/Plan 71-year-old female with a known history of bilateral lower extremity lymphedema chronically, morbid obesity classIII, asthma, GERD, hypertension who was recently hospitalized at [facility] was sent home presented to the hospital with generalized weakness found to have 1. Right lower extremity cellulitis 2. Leukocytosis secondary to 1. 3. Bilateral lower extremity lymphedema 4. Morbid obesity classIII 5. Chronic asthma 6. GERD 7. Hypertension 8. Anxiety and depression disorder currently compensated -72 IV antibiotics, PT evaluation and treatment, discharge plan. Plan discussed with: Patient My Orders Orders - LI CARDENAS MD Procedure Category Date Status Time Cleanse Wound With GISSEL 07/18/25 In Process Mild Soap A 11:00 Cardiac DIET 07/18/25 Transmitted Diet-2gna,Lofat,Lochol Dinner Date of Service: Jul 18, 2025 Billing Provider: LI CARDENAS MD Common Visit Codes: [id number] INP/OBS CARE(MOD) LI CARDENAS MD Jul 18, 2025 18:04
[2025-07-19] VITALS (8 sets, daily range): BP systolic 111–129; BP diastolic 59–84; PULSE 75–103; RESP 18–21; TEMP 97.9–98.8; O2SAT 94–99
--- NOTE | 2025-07-19 17:46 | DVHPN2 ---
Subjective Patient's right lower extremity cellulitis as improving. Changes from previous H/P or p: No Changes Eyes: No Pain, No Vision change, No Conjunctivae inflammation, No Eyelid inflammation, No Other, No Redness ENT: No Ear pain, No Ear discharge, No Nose pain, No Nose discharge, No Nose congestion, No Mouth pain, No Mouth swelling, No Throat pain, No Throat swelling, No Other Cardiovascular: No Chest Pain, No Palpitations, No Orthopnea, No Paroxysmal Noc. Dyspnea, No Edema, No Lt Headedness, No Other Respiratory: Shortness of breath Genitourinary: No Dysuria, No Frequency, No Incontinence, No Hematuria, No Retention, No Other Musculoskeletal: No other, No neck pain, No shoulder pain, No arm pain, No back pain, No hand pain; leg pain; No foot pain Skin: No Rash, No Lesions, No Jaundice, No Bruising, No Other Objective Vitals Vital Signs Date Time Temp Pulse Resp B/P (MAP) Pulse Ox O2 Delivery O2 Flow Rate FiO2 07/19/25 16:45 98.8 79 18 119/59 (79) 97 98.8 07/19/25 08:00 Nasal Cannula* 3 32 Intake/Output Intake and Output 07/19/25 07:00 Intake Total 2065 ml Output Total 1240 ml Balance 825 ml Intake Oral 2065 ml Output Urine Total 1240 ml Exam HEENT pupils are reactive Neck is supple CV is S1-S2 regular rate and rhythm Respiratory diminished breath sounds bases GI positive bowel sound Extremity bilateral lymphedema, right lower extremity 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 Medications Current Medications Medications Dose Ordered Sig/Tello Route Start Time Stop Time Status Last Admin Dose Admin Acetaminophen 325 mg Q4HP PRN PO 07/17/25 02:45 Acetaminophen/ Hydrocodone Bitart 1 tab Q4HP PRN PO 07/17/25 02:45 07/19/25 14:45 1 TAB Enoxaparin Sodium 40 mg DAILY SC 07/17/25 02:45 07/19/25 10:12 40 MG Aspirin 81 mg DAILY PO 07/17/25 10:00 07/19/25 10:12 81 MG Citalopram Hydrobromide 20 mg DAILY PO 07/17/25 10:00 07/19/25 10:12 20 MG Cyclobenzaprine HCl 10 mg Q8HP PRN PO 07/17/25 03:00 07/18/25 21:20 10 MG Montelukast Sodium 10 mg DAILY PO 07/17/25 10:00 07/19/25 10:12 10 MG Pantoprazole Sodium 40 mg DAILY PO 07/17/25 10:00 07/19/25 10:11 40 MG Linezolid 300 ml @ 150 mls/hr Q12HR IV 07/17/25 06:00 07/19/25 10:12 150 MLS/HR Meropenem 50 ml @ 17 mls/hr Q8HR IV 07/17/25 22:00 07/19/25 16:33 17 MLS/HR Ferrous Sulfate 325 mg DAILY PO 07/17/25 10:00 07/19/25 10:12 325 MG Laboratory Results Laboratory Tests 07/18/25 06:30 Urinalysis Test 07/17/25 09:00 Urine Color Yellow (Yellow) Urine Clarity Turbid (Clear) H Urine pH 6.0 (5.0-9.0) Urine Specific [place] 1.018 (1.001-1.035) Urine Protein Trace (Negative) H Urine Ketones Negative (Negative) Urine Blood 1+ /uL (Negative) H Urine Nitrite Negative (Negative) Urine Bilirubin Negative (Negative) Urine Urobilinogen 2 mg/dL (Negative) H Urine Leukocyte Esterase Trace /uL (Negative) Urine RBC 9 /hpf (0 - 4) Urine Microscopic WBC 3 /HPF (0-5) Urine Squamous Epithelial Cells Mod /hpf (<5) Urine Bacteria Few /hpf (None Seen) H Urine Mucus Few (None Seen) Urine Glucose Normal mg/dL (Normal) Microbiology Microbiology Date/Time Source Procedure Growth Status 07/17/25 16:00 Nose MRSA Screen - Final Complete 07/16/25 21:24 Blood Blood Culture - Preliminary NO GROWTH AFTER 48 HOURS OF INCUBATION. Resulted Assessment/Plan Assessment/Plan 71-year-old female with a known history of bilateral lower extremity lymphedema chronically, morbid obesity classIII, asthma, GERD, hypertension who was recently hospitalized at [facility] was sent home presented to the hospital with generalized weakness found to have 1. Right lower extremity cellulitis 2. Leukocytosis secondary to 1. 3. Bilateral lower extremity lymphedema 4. Morbid obesity classIII 5. Chronic asthma 6. GERD 7. Hypertension 8. Anxiety and depression disorder currently compensated -72 IV antibiotics, PT evaluation and treatment, discharge plan. Plan discussed with: Patient Date of Service: Jul 19, 2025 Billing Provider: LI CARDENAS MD Common Visit Codes: [id number] INP/OBS CARE(MOD) LI CARDENAS MD Jul 19, 2025 17:46
[2025-07-20] VITALS (8 sets, daily range): BP systolic 108–142; BP diastolic 58–83; PULSE 77–83; RESP 17–23; TEMP 97.7–98.2; O2SAT 96–98
--- NOTE | 2025-07-20 18:12 | DVHPN2 ---
Subjective Patient's right lower extremity cellulitis as improving. Changes from previous H/P or p: No Changes Eyes: No Pain, No Vision change, No Conjunctivae inflammation, No Eyelid inflammation, No Other, No Redness ENT: No Ear pain, No Ear discharge, No Nose pain, No Nose discharge, No Nose congestion, No Mouth pain, No Mouth swelling, No Throat pain, No Throat swelling, No Other Cardiovascular: No Chest Pain, No Palpitations, No Orthopnea, No Paroxysmal Noc. Dyspnea, No Edema, No Lt Headedness, No Other Respiratory: Shortness of breath Genitourinary: No Dysuria, No Frequency, No Incontinence, No Hematuria, No Retention, No Other Musculoskeletal: No other, No neck pain, No shoulder pain, No arm pain, No back pain, No hand pain; leg pain; No foot pain Skin: No Rash, No Lesions, No Jaundice, No Bruising, No Other Objective Vitals Vital Signs Date Time Temp Pulse Resp B/P (MAP) Pulse Ox O2 Delivery O2 Flow Rate FiO2 07/20/25 16:53 98.2 80 17 108/58 (75) 97 98.2 07/19/25 20:00 Nasal Cannula* 3 32 Intake/Output Intake and Output 07/20/25 07:00 Intake Total 2000 ml Output Total 950 ml Balance 1050 ml Intake Oral 1650 ml IV Total 350 ml Output Urine Total 950 ml Exam HEENT pupils are reactive Neck is supple CV is S1-S2 regular rate and rhythm Respiratory diminished breath sounds bases GI positive bowel sound Extremity bilateral lymphedema, right lower extremity cellulitis [employer]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 Medications Current Medications Medications Dose Ordered Sig/Tello Route Start Time Stop Time Status Last Admin Dose Admin Acetaminophen 325 mg Q4HP PRN PO 07/17/25 02:45 Acetaminophen/ Hydrocodone Bitart 1 tab Q4HP PRN PO 07/17/25 02:45 07/20/25 13:38 1 TAB Enoxaparin Sodium 40 mg DAILY SC 07/17/25 02:45 07/20/25 10:15 40 MG Aspirin 81 mg DAILY PO 07/17/25 10:00 07/20/25 10:16 81 MG Citalopram Hydrobromide 20 mg DAILY PO 07/17/25 10:00 07/20/25 10:16 20 MG Cyclobenzaprine HCl 10 mg Q8HP PRN PO 07/17/25 03:00 07/18/25 21:20 10 MG Montelukast Sodium 10 mg DAILY PO 07/17/25 10:00 07/20/25 10:16 10 MG Pantoprazole Sodium 40 mg DAILY PO 07/17/25 10:00 07/20/25 10:16 40 MG Linezolid 300 ml @ 150 mls/hr Q12HR IV 07/17/25 06:00 07/19/25 21:03 150 MLS/HR Meropenem 50 ml @ 17 mls/hr Q8HR IV 07/17/25 22:00 07/20/25 14:36 17 MLS/HR Ferrous Sulfate 325 mg DAILY PO 07/17/25 10:00 07/20/25 10:16 325 MG Laboratory Results Laboratory Tests 07/18/25 06:30 Urinalysis Test 07/17/25 09:00 Urine Color Yellow (Yellow) Urine Clarity Turbid (Clear) H Urine pH 6.0 (5.0-9.0) Urine Specific [place] 1.018 (1.001-1.035) Urine Protein Trace (Negative) H Urine Ketones Negative (Negative) Urine Blood 1+ /uL (Negative) H Urine Nitrite Negative (Negative) Urine Bilirubin Negative (Negative) Urine Urobilinogen 2 mg/dL (Negative) H Urine Leukocyte Esterase Trace /uL (Negative) Urine RBC 9 /hpf (0 - 4) Urine Microscopic WBC 3 /HPF (0-5) Urine Squamous Epithelial Cells Mod /hpf (<5) Urine Bacteria Few /hpf (None Seen) H Urine Mucus Few (None Seen) Urine Glucose Normal mg/dL (Normal) Microbiology Microbiology Date/Time Source Procedure Growth Status 07/17/25 16:00 Nose MRSA Screen - Final Complete 07/16/25 21:24 Blood Blood Culture - Preliminary NO GROWTH AFTER 72 HOURS OF INCUBATION. Resulted Assessment/Plan Assessment/Plan 71-year-old female with a known history of bilateral lower extremity lymphedema chronically, morbid obesity classIII, asthma, GERD, hypertension who was recently hospitalized at [facility] was sent home presented to the hospital with generalized weakness found to have 1. Right lower extremity cellulitis 2. Leukocytosis secondary to 1. 3. Bilateral lower extremity lymphedema 4. Morbid obesity classIII 5. Chronic asthma 6. GERD 7. Hypertension 8. Anxiety and depression disorder currently compensated -72 IV antibiotics, PT evaluation and treatment, discharge plan. Plan discussed with: Patient Date of Service: Jul 20, 2025 Billing Provider: LI CARDENAS MD Common Visit Codes: [id number] INP/OBS CARE(MOD) LI CARDENAS MD Jul 20, 2025 18:12
[2025-07-21] VITALS (8 sets, daily range): BP systolic 96–120; BP diastolic 52–75; PULSE 75–87; RESP 17–20; TEMP 97.2–98.2; O2SAT 95–98
--- NOTE | 2025-07-21 16:48 | DVHPN2 ---
Subjective Patient's right lower extremity cellulitis as improving. Changes from previous H/P or p: No Changes Eyes: No Pain, No Vision change, No Conjunctivae inflammation, No Eyelid inflammation, No Other, No Redness ENT: No Ear pain, No Ear discharge, No Nose pain, No Nose discharge, No Nose congestion, No Mouth pain, No Mouth swelling, No Throat pain, No Throat swelling, No Other Cardiovascular: No Chest Pain, No Palpitations, No Orthopnea, No Paroxysmal Noc. Dyspnea, No Edema, No Lt Headedness, No Other Respiratory: Shortness of breath Genitourinary: No Dysuria, No Frequency, No Incontinence, No Hematuria, No Retention, No Other Musculoskeletal: No other, No neck pain, No shoulder pain, No arm pain, No back pain, No hand pain; leg pain; No foot pain Skin: No Rash, No Lesions, No Jaundice, No Bruising, No Other Objective Vitals Vital Signs Date Time Temp Pulse Resp B/P (MAP) Pulse Ox O2 Delivery O2 Flow Rate FiO2 07/21/25 16:45 98.1 80 18 117/75 (89) 97 98.1 07/21/25 08:00 Nasal Cannula* 3 32 Intake/Output Intake and Output 07/21/25 07:00 Intake Total 2520 ml Output Total 1050 ml Balance 1470 ml Intake Oral 2150 ml IV Total 370 ml Output Urine Total 1050 ml Exam HEENT pupils are reactive Neck is supple CV is S1-S2 regular rate and rhythm Respiratory diminished breath sounds bases GI positive bowel sound Extremity bilateral lymphedema, right lower 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 Medications Current Medications Medications Dose Ordered Sig/Tello Route Start Time Stop Time Status Last Admin Dose Admin Acetaminophen 325 mg Q4HP PRN PO 07/17/25 02:45 Acetaminophen/ Hydrocodone Bitart 1 tab Q4HP PRN PO 07/17/25 02:45 07/21/25 09:09 1 TAB Enoxaparin Sodium 40 mg DAILY SC 07/17/25 02:45 07/21/25 09:08 40 MG Aspirin 81 mg DAILY PO 07/17/25 10:00 07/21/25 11:24 81 MG Citalopram Hydrobromide 20 mg DAILY PO 07/17/25 10:00 07/21/25 11:25 20 MG Cyclobenzaprine HCl 10 mg Q8HP PRN PO 07/17/25 03:00 07/18/25 21:20 10 MG Montelukast Sodium 10 mg DAILY PO 07/17/25 10:00 07/21/25 09:09 10 MG Pantoprazole Sodium 40 mg DAILY PO 07/17/25 10:00 07/21/25 09:09 40 MG Linezolid 300 ml @ 150 mls/hr Q12HR IV 07/17/25 06:00 07/21/25 11:24 150 MLS/HR Meropenem 50 ml @ 17 mls/hr Q8HR IV 07/17/25 22:00 07/21/25 15:32 17 MLS/HR Ferrous Sulfate 325 mg DAILY PO 07/17/25 10:00 07/21/25 09:09 325 MG Laboratory Results Laboratory Tests 07/18/25 06:30 Urinalysis Test 07/17/25 09:00 Urine Color Yellow (Yellow) Urine Clarity Turbid (Clear) H Urine pH 6.0 (5.0-9.0) Urine Specific [place] 1.018 (1.001-1.035) Urine Protein Trace (Negative) H Urine Ketones Negative (Negative) Urine Blood 1+ /uL (Negative) H Urine Nitrite Negative (Negative) Urine Bilirubin Negative (Negative) Urine Urobilinogen 2 mg/dL (Negative) H Urine Leukocyte Esterase Trace /uL (Negative) Urine RBC 9 /hpf (0 - 4) Urine Microscopic WBC 3 /HPF (0-5) Urine Squamous Epithelial Cells Mod /hpf (<5) Urine Bacteria Few /hpf (None Seen) H Urine Mucus Few (None Seen) Urine Glucose Normal mg/dL (Normal) Microbiology Microbiology Date/Time Source Procedure Growth Status 07/17/25 16:00 Nose MRSA Screen - Final Complete 07/16/25 21:24 Blood Blood Culture - Preliminary NO GROWTH AFTER 72 HOURS OF INCUBATION. Resulted Assessment/Plan Assessment/Plan 71-year-old female with a known history of bilateral lower extremity lymphedema chronically, morbid obesity classIII, asthma, GERD, hypertension who was recently hospitalized at [facility] was sent home presented to the hospital with generalized weakness found to have 1. Right lower extremity cellulitis 2. Leukocytosis secondary to 1. 3. Bilateral lower extremity lymphedema 4. Morbid obesity classIII 5. Chronic asthma 6. GERD 7. Hypertension 8. Anxiety and depression disorder currently compensated -continue IV antibiotics, PT evaluation and treatment, discharge plan. Plan discussed with: Patient Date of Service: Jul 21, 2025 Billing Provider: LI CARDENAS MD Common Visit Codes: [id number] INP/OBS CARE(MOD) LI CARDENAS MD Jul 21, 2025 16:48
[2025-07-21 18:32] LABS: Hematocrit 28.3 % (36.0-46.0); Hemoglobin 8.5 g/dL (12.2-16.2); Mean Corpuscular Hemoglobin 22.1 pg (28.0-32.0); Mean Corpuscular Volume 73.6 fL (80.0-100.0); Nucleated Red Blood Cells % 0.0 %
[2025-07-21 18:37] LABS: Potassium 4.2 mmol/L (3.5-5.1); Sodium 139 mmol/L (136-145)
[2025-07-21 18:43] LABS: BUN/Creatinine Ratio 25.0 (10.0-20.0); Blood Urea Nitrogen 9 mg/dL (9-23); Glucose 95 mg/dL (74-106)
[2025-07-21 18:47] LABS: Anion Gap 7.99999 (5-15); Calcium 8.6 mg/dL (8.7-10.4); Chloride 91 mmol/L (98-107)
[2025-07-21 18:56] LABS: Carbon Dioxide > 40 mmol/L (20-31)
[2025-07-22] VITALS (10 sets, daily range): BP systolic 90–115; BP diastolic 46–69; PULSE 43–82; RESP 18–20; TEMP 98–98.7; O2SAT 90–96
[2025-07-22 13:50] LABS: Base Excess 20.2 mmol/L (-2.0-3.0)
--- NOTE | 2025-07-22 15:01 | DVHPN2 ---
Subjective Patient's right lower extremity cellulitis as improving. Patient's CO2 level is more than 40, ABG was done which shows evidence of hypercapnia, recommended to be started on BiPAP. Changes from previous H/P or p: No Changes Eyes: No Pain, No Vision change, No Conjunctivae inflammation, No Eyelid inflammation, No Other, No Redness ENT: No Ear pain, No Ear discharge, No Nose pain, No Nose discharge, No Nose congestion, No Mouth pain, No Mouth swelling, No Throat pain, No Throat swelling, No Other Cardiovascular: No Chest Pain, No Palpitations, No Orthopnea, No Paroxysmal Noc. Dyspnea, No Edema, No Lt Headedness, No Other Respiratory: Shortness of breath Genitourinary: No Dysuria, No Frequency, No Incontinence, No Hematuria, No Retention, No Other Musculoskeletal: No other, No neck pain, No shoulder pain, No arm pain, No back pain, No hand pain; leg pain; No foot pain Skin: No Rash, No Lesions, No Jaundice, No Bruising, No Other Objective Vitals Vital Signs Date Time Temp Pulse Resp B/P (MAP) Pulse Ox O2 Delivery O2 Flow Rate FiO2 07/22/25 12:24 98.6 43 20 90/51 (64) 90 98.6 07/22/25 08:00 Nasal Cannula* 3 32 Intake/Output Intake and Output 07/22/25 07:00 Intake Total 1950 ml Output Total 1150 ml Balance 800 ml Intake Oral 1150 ml IV Total 800 ml Output Urine Total 1150 ml # Bowel Movements 1 Exam HEENT pupils are reactive Neck is supple CV is S1-S2 regular rate and rhythm Respiratory diminished breath sounds bases GI positive bowel sound Extremity bilateral lymphedema, 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 Medications Current Medications Medications Dose Ordered Sig/Tello Route Start Time Stop Time Status Last Admin Dose Admin Acetaminophen 325 mg Q4HP PRN PO 07/17/25 02:45 Acetaminophen/ Hydrocodone Bitart 1 tab Q4HP PRN PO 07/17/25 02:45 07/22/25 09:36 1 TAB Enoxaparin Sodium 40 mg DAILY SC 07/17/25 02:45 07/22/25 09:37 40 MG Aspirin 81 mg DAILY PO 07/17/25 10:00 07/22/25 09:36 81 MG Citalopram Hydrobromide 20 mg DAILY PO 07/17/25 10:00 9/4/25 09:35 20 MG Cyclobenzaprine HCl 10 mg Q8HP PRN PO 07/17/25 03:00 07/18/25 21:20 10 MG Montelukast Sodium 10 mg DAILY PO 07/17/25 10:00 07/22/25 09:36 10 MG Pantoprazole Sodium 40 mg DAILY PO 07/17/25 10:00 07/22/25 09:35 40 MG Linezolid 300 ml @ 150 mls/hr Q12HR IV 07/17/25 06:00 07/22/25 09:37 150 MLS/HR Meropenem 50 ml @ 17 mls/hr Q8HR IV 07/17/25 22:00 07/22/25 05:37 17 MLS/HR Ferrous Sulfate 325 mg DAILY PO 07/17/25 10:00 07/22/25 09:36 325 MG Laboratory Results Laboratory Tests 07/21/25 18:06 Chemistry Test 07/21/25 18:06 Calcium Level 8.6 mg/dL (8.7-10.4) L Urinalysis Test 07/17/25 09:00 Urine Color Yellow (Yellow) Urine Clarity Turbid (Clear) H Urine pH 6.0 (5.0-9.0) Urine Specific [place] 1.018 (1.001-1.035) Urine Protein Trace (Negative) H Urine Ketones Negative (Negative) Urine Blood 1+ /uL (Negative) H Urine Nitrite Negative (Negative) Urine Bilirubin Negative (Negative) Urine Urobilinogen 2 mg/dL (Negative) H Urine Leukocyte Esterase Trace /uL (Negative) Urine RBC 9 /hpf (0 - 4) Urine Microscopic WBC 3 /HPF (0-5) Urine Squamous Epithelial Cells Mod /hpf (<5) Urine Bacteria Few /hpf (None Seen) H Urine Mucus Few (None Seen) Urine Glucose Normal mg/dL (Normal) Blood Gas Results Test 07/22/25 12:05 Arterial Blood pH 7.417 (7.350-7.450) FiO2 % 32.0 Microbiology Microbiology Date/Time Source Procedure Growth Status 07/17/25 16:00 Nose MRSA Screen - Final Complete 07/16/25 21:24 Blood Blood Culture - Final NO GROWTH AFTER 5 DAYS OF INCUBATION. Complete Assessment/Plan Assessment/Plan 71-year-old female with a known history of bilateral lower extremity lymphedema chronically, morbid obesity classIII, asthma, GERD, hypertension who was recently hospitalized at [facility] was sent home presented to the hospital with generalized weakness found to have 1. Right lower extremity cellulitis 2. Acute hypercapnic respiratory failure, start BiPAP 3. Bilateral lower extremity lymphedema 4. Morbid obesity classIII 5. Chronic asthma 6. GERD 7. Hypertension 8. Anxiety and depression disorder currently compensated 9. Leukocytosis, improved -ABG reviewed, start BiPAP. -continue IV antibiotics, PT evaluation and treatment, discharge plan. Plan discussed with: Patient My Orders Orders - LI CARDENAS MD Procedure Category Date Status Time Abg W/ Co-Ox RT 07/22/25 Logged 11:37 Date of Service: Jul 22, 2025 Billing Provider: LI CARDENAS MD Common Visit Codes: [id number] INP/OBS CARE(MOD) LI CARDENAS MD Jul 22, 2025 15:01
[2025-07-22 18:25] LABS: Base Excess 21.7 mmol/L (-2.0-3.0)
[2025-07-23] VITALS (9 sets, daily range): BP systolic 95–122; BP diastolic 50–72; PULSE 64–80; RESP 15–18; TEMP 97.3–98.6; O2SAT 94–99
--- NOTE | 2025-07-23 12:45 | DVHPN2 ---
Subjective Patient's ABG is reviewed. Patient is currently on 2 L of oxygen by nasal cannula. Patient's right lower extremity wound burst, currently draining serosanguineous fluid. Changes from previous H/P or p: No Changes Eyes: No Pain, No Vision change, No Conjunctivae inflammation, No Eyelid inflammation, No Other, No Redness ENT: No Ear pain, No Ear discharge, No Nose pain, No Nose discharge, No Nose congestion, No Mouth pain, No Mouth swelling, No Throat pain, No Throat swelling, No Other Cardiovascular: No Chest Pain, No Palpitations, No Orthopnea, No Paroxysmal Noc. Dyspnea, No Edema, No Lt Headedness, No Other Respiratory: Shortness of breath Genitourinary: No Dysuria, No Frequency, No Incontinence, No Hematuria, No Retention, No Other Musculoskeletal: No other, No neck pain, No shoulder pain, No arm pain, No back pain, No hand pain; leg pain; No foot pain Skin: No Rash, No Lesions, No Jaundice, No Bruising, No Other Objective Vitals Vital Signs Date Time Temp Pulse Resp B/P (MAP) Pulse Ox O2 Delivery O2 Flow Rate FiO2 07/23/25 09:00 97.6 69 17 103/57 (72) 99 97.6 07/23/25 08:00 Nasal Cannula* 3 32 Intake/Output Intake and Output 07/23/25 07:00 Intake Total 1050 ml Output Total 800 ml Balance 250 ml Intake Oral 650 ml IV Total 400 ml Output Urine Total 800 ml Exam HEENT pupils are reactive Neck is supple CV is S1-S2 regular rate and rhythm Respiratory diminished breath sounds bases GI positive bowel sound Extremity bilateral lymphedema, right lower extremity cellulitis wound status post antiseptic dressing 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 Medications Current Medications Medications Dose Ordered Sig/Tello Route Start Time Stop Time Status Last Admin Dose Admin Acetaminophen 325 mg Q4HP PRN PO 07/17/25 02:45 Acetaminophen/ Hydrocodone Bitart 1 tab Q4HP PRN PO 07/17/25 02:45 07/23/25 05:57 1 TAB Enoxaparin Sodium 40 mg DAILY SC 07/17/25 02:45 07/23/25 09:32 40 MG Aspirin 81 mg DAILY PO 07/17/25 10:00 07/23/25 09:33 81 MG Citalopram Hydrobromide 20 mg DAILY PO 07/17/25 10:00 07/23/25 09:33 20 MG Cyclobenzaprine HCl 10 mg Q8HP PRN PO 07/17/25 03:00 07/18/25 21:20 10 MG Montelukast Sodium 10 mg DAILY PO 07/17/25 10:00 07/23/25 09:33 10 MG Pantoprazole Sodium 40 mg DAILY PO 07/17/25 10:00 07/23/25 09:33 40 MG Linezolid 300 ml @ 150 mls/hr Q12HR IV 07/17/25 06:00 07/23/25 09:32 150 MLS/HR Meropenem 50 ml @ 17 mls/hr Q8HR IV 07/17/25 22:00 07/23/25 05:51 17 MLS/HR Ferrous Sulfate 325 mg DAILY PO 07/17/25 10:00 07/23/25 09:33 325 MG Laboratory Results Laboratory Tests 07/21/25 18:06 Urinalysis Test 07/17/25 09:00 Urine Color Yellow (Yellow) Urine Clarity Turbid (Clear) H Urine pH 6.0 (5.0-9.0) Urine Specific [place] 1.018 (1.001-1.035) Urine Protein Trace (Negative) H Urine Ketones Negative (Negative) Urine Blood 1+ /uL (Negative) H Urine Nitrite Negative (Negative) Urine Bilirubin Negative (Negative) Urine Urobilinogen 2 mg/dL (Negative) H Urine Leukocyte Esterase Trace /uL (Negative) Urine RBC 9 /hpf (0 - 4) Urine Microscopic WBC 3 /HPF (0-5) Urine Squamous Epithelial Cells Mod /hpf (<5) Urine Bacteria Few /hpf (None Seen) H Urine Mucus Few (None Seen) Urine Glucose Normal mg/dL (Normal) Blood Gas Results Test 07/22/25 18:05 Arterial Blood pH 7.425 (7.350-7.450) FiO2 % 32.0 Microbiology Microbiology Date/Time Source Procedure Growth Status 07/22/25 17:00 Leg Right Gram Stain Pending Resulted 07/22/25 17:00 Leg Right Wound Culture - Preliminary Resulted 07/16/25 21:24 Blood Blood Culture - Final NO GROWTH AFTER 5 DAYS OF INCUBATION. Complete Assessment/Plan Assessment/Plan 71-year-old female with a known history of bilateral lower extremity lymphedema chronically, morbid obesity classIII, asthma, GERD, hypertension who was recently hospitalized at [facility] was sent home presented to the hospital with generalized weakness found to have 1. Right lower extremity cellulitis with the open wound 2. Acute hypercapnic respiratory failure 3. Respiratory acidosis with a metabolic alkalosis 4. Morbid obesity classIII 5. Chronic asthma 6. GERD 7. Hypertension 8. Anxiety and depression disorder currently compensated 9. Leukocytosis, improved -wound Gram stain and culture, wound care -continue IV antibiotics, PT evaluation and treatment. Plan discussed with: Patient My Orders Orders - LI CARDENAS MD Procedure Category Date Status Time *Consult CONS 07/22/25 Transmitted / 15:00 Wound Culture W/ Gs LARRY 07/22/25 In Process 16:44 Abg W/ Co-Ox RT 07/22/25 Logged 18:00 * Wound Consult CONS 07/22/25 Transmitted Cleanse Wound With GISSEL 07/23/25 In Process Wound Clean 10:47 Date of Service: Jul 23, 2025 Billing Provider: LI CARDENAS MD Common Visit Codes: [id number] INP/OBS CARE(MOD) LI CARDENAS MD Jul 23, 2025 12:45
--- NOTE | 2025-07-23 14:55 | DVHINCON2 ---
Date of service: Jul 22, [address] Godwin Reason for Consultation Acute respiratory failure History of Present Illness History Source: Patient Exam Limitations: No limitations HPI Patient is a 60-year old lady with a history of morbid obesity, obesity hypoventilation syndrome, peripheral vascular disease and chronic leg wounds who presented with shortness of breath. Was seen in the emergency room where she was found to have evidence cellulitis of the lower extremities and she was admitted for IV antibiotics. ABG was obtained and revealed hypercapnia with an pCO2 of 76, pulmonology was consulted to assist in management. Home Meds Active Scripts Prednisone (Prednisone) 20 Mg Tab, 40 MG PO DAILY for 4 Days, #10 MG Prov:MEE SALCIDO CADEN 05/06/25 Reported Medications Aspirin (Aspirin Low Dose) 81 Mg Tab, 1 TAB PO DAILY 05/04/25 Albuterol Sulfate (Albuterol Sulfate Hfa) 108 Mcg/Act Aer, INH 05/04/25 Citalopram Hydrobromide (Citalopram Hydrobromide) 10 Mg Tab, 1 TAB PO DAILY 05/04/25 Cyclobenzaprine HCl (Cyclobenzaprine Hydrochlo) 10 Mg Tab, 1 TAB PO 05/04/25 Montelukast Sodium (MONTELUKAST SODIUM) 10 Mg Tab, 1 TAB PO DAILY 05/04/25 Tramadol HCl (Tramadol HCl) 50 Mg Tab, 50 MG PO BID for 7 Days, #14 TAB 03/10/25 Pantoprazole Sodium Sesquihydr (Pantoprazole Sodium) 40 Mg Tab, 1 TAB PO DAILY 03/08/25 Albuterol Sulfate (Albuterol Sulfate) 2 Mg Tab, 2 MG IN Q6HP PRN for SHORTNESS OF BREATH, MG 02/29/24 Benazepril HCl (Benazepril Hydrochloride) 10 Mg Tab, 12.5 MG PO DAILY, TAB 02/29/24 Cyclobenzaprine Hcl (Cyclobenzaprine Hcl) 10 Mg Tab, 10 MG PO Q8HP PRN for FOR MUSCLE SPASM for 30 Days, MG 02/29/24 Ketorolac Tromethamine (Ketorolac Tromethamine) 10 Mg Tab, 10 MG PO DAILY, TAB 02/29/24 Citalopram Hydrobromide (Citalopram Hydrobromide) 20 Mg Tab, 20 MG PO DAILY, TAB 02/29/24 Gabapentin (Gabapentin) 600 Mg Tab, 600 MG PO BID, TAB 02/29/24 Past Medical History Cardiac: No pertinent Hx Pulmonary: No pertinent Hx Central Nervous System: No pertinent Hx GI: No pertinent Hx Hemotology/Oncology: No pertinent Hx Hepatobiliary: No pertinent Hx Psychiatric: No pertinent Hx Musculoskeletal: No pertinent Hx Rheumotologic: No pertinent Hx Infectious Disease: No peritnent Hx ENT: No pertinent Hx Renal/: No pertinent Hx Endocrine: No pertinent Hx Dermatology: Cellulitis Past Surgical History: No pertinent Hx Family History: DM, Hypertension Patient Family History: Diabetes mellitus MOTHER, Onset:Unknown Hypercholesterolemia MOTHER, Onset:Unknown Hypertension MOTHER, Onset:Unknown Smoker: No Hx (Negative) Alocohol: None Drugs: None Lives with: With family Domestic Violence: Neg Review of Systems Constitutional: No symptom reported Ears, Nose, & Throat: No symptom reported Eyes: No symptom reported Pulmonary/Respiratory: Dyspnea Cardiovascular: No symptom reported Gastrointestinal: No symptom reported Genitourinary: No symptom reported Musculoskeletal: No symptom reported Skin: No symptom reported Psychiatric: No symptom reported Endocrine: No symptom reported Hemotologic/Lymphatic: No symptom reported H&P Exam Vital Signs Vital Signs Date Time Temp Pulse Resp B/P (MAP) Pulse Ox O2 Delivery O2 Flow Rate FiO2 07/23/25 13:00 97.8 68 17 102/55 (71) 98 97.8 07/23/25 08:00 Nasal Cannula* 3 32 General Appeara: Well developed, Well nourished, Normal Appearance Head Exam: Normal inspection Neck Exam: Normal inspection, Non-tender, Normal alignment Eye Exam: bilateral eye Normal inspection, bilateral eye PERRL, bilateral eye EOMI Ear Exam: bilateral ear Auricle normal, bilateral ear Canal normal, bilateral ear TM normal Nasal Exam: Normal inspection Mouth: Normal Inspection Pulmonary/Respiratory: Decreased breath sounds Cardiovascular/Chest: Normal inspection Peripheral Pulses: 4+ Radial (R), 4+ Radial (L), 4+ Brachial (R), 4+ Brachial (L) Abdominal Exam: Normal bowel sounds Labs/Xrays Labs Test 07/22/25 18:05 07/21/25 18:06 07/18/25 06:30 07/17/25 22:21 Range/Units Blood Gas Specimen Type Arterial Blood Gas Sample Site Left radial Blood Gas Patient Temperature 37.0 Arterial Blood Date Drawn [id number] Arterial Blood pH 7.425 7.350-7.450 Arterial Blood Partial Pressure CO2 76.6 *H 32.0-45.0 mmHg Arterial Blood Partial Pressure O2 75.7 L 83.0-108.0 mmHg Arterial Blood HCO3 49.1 H 21.0-28.0 mmol/L Arterial Blood Oxygen Saturation 94.9 94.0-98.0 % Arterial Blood Base Excess 21.7 H -2.0-3.0 mmol/L Arterial Blood Oxyhemoglobin 93.2 L 94.0-98.0 % Arterial Blood Carboxyhemoglobin 1.3 0.5-1.5 % Arterial Blood Methemoglobin 0.5 0.0-1.5 % Ko Test Modified Blood Gas Total Hemoglobin 9.20 L 12.0-16.0 g/dL Blood Gas Liter Flow 3.00 Blood Gas Modality Nasal cannula FiO2 % 32.0 Blood Gas Critical Value Read Back Yes Blood Gas Notified Whom sepideh Godwin md Blood Gas Notified Time [id number] Blood Gas Notified By jaylan Valdez rrt White Blood Count 9.2 4.4-10.8 10^3/uL Red Blood Count 3.85 L 4.0-5.20 10^6/uL Hemoglobin 8.5 L 12.2-16.2 g/dL Hematocrit 28.3 #L 36.0-46.0 % Mean Corpuscular Volume 73.6 L 80.0-100.0 fL Mean Corpuscular Hemoglobin 22.1 L 28.0-32.0 pg Mean Corpuscular Hemoglobin Concent 30.0 L 32.0-36.0 g/dL Red Cell Distribution Width 23.5 H 11.8-14.3 % Platelet Count 360 140-450 10^3/uL Mean Platelet Volume 6.9 6.9-10.8 fL Neutrophils (%) (Auto) 80.6 H 37.0-80.0 % Lymphocytes (%) (Auto) 11.8 10.0-50.0 % Monocytes (%) (Auto) 6.1 0.0-12.0 % Eosinophils (%) (Auto) 1.3 0.0-7.0 % Basophils (%) (Auto) 0.2 0.0-2.0 % Neutrophils # (Auto) 7.4 1.6-8.6 10 ^3/uL Lymphocytes # (Auto) 1.1 0.4-5.4 10 ^3/uL Monocytes # (Auto) 0.6 0-1.3 10 ^3/uL Eosinophils # (Auto) 0.1 0-0.8 10 ^3/uL Basophils # (Auto) 0 0-0.2 10 ^3/uL Nucleated Red Blood Cells 0.0 % Sodium Level 139 136-145 mmol/L Potassium Level 4.2 3.5-5.1 mmol/L Chloride Level 91 L 98-107 mmol/L Carbon Dioxide Level > 40 *H 20-31 mmol/L Anion Gap 7.25022 5-15 Blood Urea Nitrogen 9 9-23 mg/dL Creatinine 0.36 L 0.550-1.02 mg/dL Glomerular Filtration Rate Calc 117 >90 mL/min BUN/Creatinine Ratio 25.0 H 10.0-20.0 Serum Glucose 95 74-106 mg/dL Calcium Level 8.6 L 8.7-10.4 mg/dL Platelet Estimate Adequate Hypochromasia (manual) Slight Anisocytosis (manual) Slight Microcytosis Slight Stomatocytes Few Total Bilirubin 1.4 H 0.2-1.0 mg/dL Aspartate Amino Transferase (AST) 14 13-40 U/L Alanine Aminotransferase (ALT) < 9 7-40 U/L Alkaline Phosphatase 87 46-116 U/L Total Protein 6.6 5.7-8.2 g/dL Albumin 3.2 3.2-4.8 g/dL Influenza Type A Antigen Negative Negative Influenza Type B Antigen Negative Negative SARS-CoV-2 Antigen (Rapid) Negative NEGATIVE Test 07/17/25 09:00 07/17/25 06:12 07/17/25 03:12 07/17/25 00:20 Range/Units Urine Color Yellow Yellow Urine Clarity Turbid H Clear Urine pH 6.0 5.0-9.0 Urine Specific [place] 1.018 1.001-1.035 Urine Protein Trace H Negative Urine Ketones Negative Negative Urine Blood 1+ H Negative /uL Urine Nitrite Negative Negative Urine Bilirubin Negative Negative Urine Urobilinogen 2 H Negative mg/dL Urine Leukocyte Esterase Trace Negative /uL Urine RBC 9 0 - 4 /hpf Urine Microscopic WBC 3 0-5 /HPF Urine Squamous Epithelial Cells Mod <5 /hpf Urine Bacteria Few H None Seen /hpf Urine Mucus Few None Seen Urine Glucose Normal Normal mg/dL Iron Level 27 L 50-170 ug/dL Total Iron Binding Capacity 279 250-425 ug/dL Percent Iron Saturation 9.7 L 15-50 % Ferritin 63.5 10-291 ng/mL Urine Opiates Screen Neg NEGATIVE Urine Fentanyl Screen Pos NEGATIVE Urine Barbiturates Screen Neg NEGATIVE Urine Phencyclidine Screen Neg NEGATIVE Urine Amphetamines Screen Neg NEGATIVE Urine Benzodiazepines Screen Neg NEGATIVE Urine Cocaine Screen Neg NEGATIVE Urine Cannabinoids Screen Neg NEGATIVE Troponin I High Sensitivity 9 </=34 ng/L Thyroid Stimulating Hormone (TSH) 2.62 0.55-4.78 uIU/mL Test 07/16/25 21:22 Range/Units Prothrombin Time 12.4 H 9.3-11.8 sec Prothrombin Time INR 1.19 H 0.9-1.15 Activated Partial Thromboplast Time 27.8 24.5-34.5 SEC Lactic Acid Level 1.6 0.4-2.0 mmol/L Magnesium Level 1.3 L 1.6-2.6 mg/dL Microbiology Date/Time Source Procedure Growth Status 07/22/25 17:00 Leg Right Gram Stain Pending Resulted 07/22/25 17:00 Leg Right Wound Culture - Preliminary Resulted 07/16/25 21:24 Blood Blood Culture - Final NO GROWTH AFTER 5 DAYS OF INCUBATION. Complete Assessment/Plan Plan Impression Acute hypercapnic respiratory failure Obesity hypoventilation syndrome Chronic leg wounds Cellulitis Patient seen and examined Events Low oxygen requirements On 3 liters nasal cannula Vital signs stable Labs and imaging reviewed ABG revieed pH 7.42, pO2 76, pO2 75 Management Supplemental oxygen Titrate to maintain sats 90% or above Incentive spirometry Okay to use bipap 10/24 during sleep and at night Previously noncompliant with treatment due to claustrophobia Antibiotics F/u cultures Bronchodilators Monitor renal function Monitor electrolytes Supplement as needed DVT prophylaxis Plan discussed with: Patient JEREMIE BAILEY MD Jul 23, 2025 14:55
--- NOTE | 2025-07-23 14:56 | DVHPN2 ---
Progress Note - Dictate Date Seen: Jul 23, 2025 Medical Necessity Reason Pt with a Central, PICC or Fol: No vital signs Vital Sign Date Time Temp Pulse Resp B/P (MAP) Pulse Ox O2 Delivery O2 Flow Rate FiO2 07/23/25 13:00 97.8 68 17 102/55 (71) 98 97.8 07/23/25 08:00 Nasal Cannula* 3 32 Total Intake and Output 07/22/25 07/22/25 07/23/25 15:00 23:00 07:00 Intake Total 650 ml 400 ml Output Total 450 ml 350 ml Balance 200 ml 50 ml medications Current Medications Medications Dose Ordered Sig/Tello Route Start Time Stop Time Status Last Admin Dose Admin Acetaminophen 325 mg Q4HP PRN PO 07/17/25 02:45 Acetaminophen/ Hydrocodone Bitart 1 tab Q4HP PRN PO 07/17/25 02:45 07/23/25 05:57 1 TAB Enoxaparin Sodium 40 mg DAILY SC 07/17/25 02:45 07/23/25 09:32 40 MG Aspirin 81 mg DAILY PO 07/17/25 10:00 07/23/25 09:33 81 MG Citalopram Hydrobromide 20 mg DAILY PO 07/17/25 10:00 07/23/25 09:33 20 MG Cyclobenzaprine HCl 10 mg Q8HP PRN PO 07/17/25 03:00 07/18/25 21:20 10 MG Montelukast Sodium 10 mg DAILY PO 07/17/25 10:00 07/23/25 09:33 10 MG Pantoprazole Sodium 40 mg DAILY PO 07/17/25 10:00 07/23/25 09:33 40 MG Linezolid 300 ml @ 150 mls/hr Q12HR IV 07/17/25 06:00 07/23/25 09:32 150 MLS/HR Meropenem 50 ml @ 17 mls/hr Q8HR IV 07/17/25 22:00 07/23/25 14:12 17 MLS/HR Ferrous Sulfate 325 mg DAILY PO 07/17/25 10:00 07/23/25 09:33 325 MG laboratory and microbiology Laboratory Tests 07/21/25 18:06 Test 07/21/25 18:06 Range/Units Serum Glucose 95 74-106 mg/dL Assessment/Plan Impression Acute hypercapnic respiratory failure Obesity hypoventilation syndrome Chronic leg wounds Cellulitis Patient seen and examined Events Low oxygen requirements On 3 liters nasal cannula No acute events Labs and imaging reviewed ABG revieed Management Supplemental oxygen Titrate to maintain sats 90% or above Incentive spirometry Okay to use bipap / during sleep and at night Previously noncompliant with treatment due to claustrophobia Continue antibiotics F/u cultures Bronchodilators Diurese- Lasix 40mg IV daily Monitor renal function Monitor electrolytes Supplement as needed Start Diamox 250mg IV BID DVT prophylaxis Dietary Evaluation Review Comments: 1) Initiate MVI @ 1 tb qd 2) Initiate Vitamin C @ 500 mg bid and zinc sulfate @ 220 mg for 7 days 3) Encourage optimal PO intake 4) Refer to outpatient RD for weight management 5) Follow-up with cardiology 6) Continue to monitor I&O, labs, and skin integrity Expected Outcomes/Goals: 1) appetite and labs to improve 2) wounds to improve 3) f/u in 3-5 days Plan discussed with: Patient JEREMIE BAILEY MD Jul 23, 2025 14:56
[2025-07-23] MEDS: acetaZOLAMIDE SODIUM 500 MG VL IV SCH (22:00)
[2025-07-24] VITALS (8 sets, daily range): BP systolic 102–123; BP diastolic 32–74; PULSE 71–80; RESP 16–20; TEMP 97.4–98.4; O2SAT 94–98
[2025-07-24] MEDS: ACETAMINOPHEN 325 MG TAB PO PRN (01:05)
[2025-07-24] MEDS: FUROSEMIDE 40 MG/4 ML VIAL IV SCH (10:16)
--- NOTE | 2025-07-24 13:26 | DVHPN2 ---
Reviewed: Care Plan, H&P, Labs, Medications, Previous Orders, Radiology Changes from previous H/P or p: No Changes Eyes: No Pain, No Vision change, No Conjunctivae inflammation, No Eyelid inflammation, No Other, No Redness ENT: No Ear pain, No Ear discharge, No Nose pain, No Nose discharge, No Nose congestion, No Mouth pain, No Mouth swelling, No Throat pain, No Throat swelling, No Other Cardiovascular: No Chest Pain, No Palpitations, No Orthopnea, No Paroxysmal Noc. Dyspnea, No Edema, No Lt Headedness, No Other Respiratory: Shortness of breath Genitourinary: No Dysuria, No Frequency, No Incontinence, No Hematuria, No Retention, No Other Musculoskeletal: No other, No neck pain, No shoulder pain, No arm pain, No back pain, No hand pain; leg pain; No foot pain Skin: No Rash, No Lesions, No Jaundice, No Bruising, No Other Objective Vitals Vital Signs Date Time Temp Pulse Resp B/P (MAP) Pulse Ox O2 Delivery O2 Flow Rate FiO2 07/24/25 12:51 98.0 74 19 104/59 (74) 97 98.0 07/23/25 21:56 Nasal Cannula* 2 28 Intake/Output Intake and Output 07/24/25 07:00 Intake Total 2870 ml Output Total 1100 ml Balance 1770 ml Intake Oral 2520 ml IV Total 350 ml Output Urine Total 1100 ml # Bowel Movements 1 Medications Current Medications Medications Dose Ordered Sig/Tello Route Start Time Stop Time Status Last Admin Dose Admin Acetaminophen 325 mg Q4HP PRN PO 07/17/25 02:45 07/24/25 01:05 325 MG Acetaminophen/ Hydrocodone Bitart 1 tab Q4HP PRN PO 07/17/25 02:45 07/24/25 10:18 1 TAB Enoxaparin Sodium 40 mg DAILY SC 07/17/25 02:45 07/24/25 10:19 40 MG Aspirin 81 mg DAILY PO 07/17/25 10:00 07/24/25 10:18 81 MG Citalopram Hydrobromide 20 mg DAILY PO 07/17/25 10:00 07/24/25 10:18 20 MG Cyclobenzaprine HCl 10 mg Q8HP PRN PO 07/17/25 03:00 07/18/25 21:20 10 MG Montelukast Sodium 10 mg DAILY PO 07/17/25 10:00 07/24/25 10:17 10 MG Pantoprazole Sodium 40 mg DAILY PO 07/17/25 10:00 07/24/25 10:17 40 MG Linezolid 300 ml @ 150 mls/hr Q12HR IV 07/17/25 06:00 07/24/25 10:17 150 MLS/HR Meropenem 50 ml @ 17 mls/hr Q8HR IV 07/17/25 22:00 07/24/25 05:02 17 MLS/HR Ferrous Sulfate 325 mg DAILY PO 07/17/25 10:00 07/24/25 10:17 325 MG Acetazolamide Sodium 250 mg BID IV 07/23/25 22:00 Furosemide 40 mg DAILY IV 07/24/25 10:00 07/24/25 10:16 40 MG Laboratory Results Laboratory Tests 07/21/25 18:06 Urinalysis Test 07/17/25 09:00 Urine Color Yellow (Yellow) Urine Clarity Turbid (Clear) H Urine pH 6.0 (5.0-9.0) Urine Specific [place] 1.018 (1.001-1.035) Urine Protein Trace (Negative) H Urine Ketones Negative (Negative) Urine Blood 1+ /uL (Negative) H Urine Nitrite Negative (Negative) Urine Bilirubin Negative (Negative) Urine Urobilinogen 2 mg/dL (Negative) H Urine Leukocyte Esterase Trace /uL (Negative) Urine RBC 9 /hpf (0 - 4) Urine Microscopic WBC 3 /HPF (0-5) Urine Squamous Epithelial Cells Mod /hpf (<5) Urine Bacteria Few /hpf (None Seen) H Urine Mucus Few (None Seen) Urine Glucose Normal mg/dL (Normal) Microbiology Microbiology Date/Time Source Procedure Growth Status 07/22/25 17:00 Leg Right Gram Stain - Final Resulted 07/22/25 17:00 Wound Culture - Preliminary Escherichia coli Resulted 07/16/25 21:24 Blood Blood Culture - Final NO GROWTH AFTER 5 DAYS OF INCUBATION. Complete Labs and/or images reviewed: Labs reviewed by me, Image(s) reviewed by me Assessment/Plan Assessment/Plan Covering for Dr. Godwin 1. Right lower extremity cellulitis with the open wound, wound cultures growing E coli, continue meropenem and Zyvox 2. Acute hypercapnic respiratory failure 3. Respiratory acidosis with a metabolic alkalosis 4. Morbid obesity classIII 5. Chronic asthma 6. GERD 7. Hypertension 8. Anxiety and depression disorder currently compensated 9. Leukocytosis, improved Time spent 50 minute Plan discussed with: Patient Date of Service: Jul 24, 2025 Billing Provider: RADHA KATHLEEN MD Common Visit Codes: [id number] INP/OBS CARE(HIGH) RADHA KATHLEEN MD Jul 24, 2025 13:25
--- NOTE | 2025-07-24 14:12 | DVHPN2 ---
Progress Note - Dictate Date Seen: Jul 24, 2025 Medical Necessity Reason Pt with a Central, PICC or Fol: No vital signs Vital Sign Date Time Temp Pulse Resp B/P (MAP) Pulse Ox O2 Delivery O2 Flow Rate FiO2 07/24/25 12:51 98.0 74 19 104/59 (74) 97 98.0 07/23/25 21:56 Nasal Cannula* 2 28 Total Intake and Output 07/23/25 07/23/25 07/24/25 15:00 23:00 07:00 Intake Total 300 ml 450 ml 2120 ml Output Total 450 ml 650 ml Balance 300 ml 0 ml 1470 ml medications Current Medications Medications Dose Ordered Sig/Tello Route Start Time Stop Time Status Last Admin Dose Admin Acetaminophen 325 mg Q4HP PRN PO 07/17/25 02:45 07/24/25 01:05 325 MG Acetaminophen/ Hydrocodone Bitart 1 tab Q4HP PRN PO 07/17/25 02:45 07/24/25 10:18 1 TAB Enoxaparin Sodium 40 mg DAILY SC 07/17/25 02:45 07/24/25 10:19 40 MG Aspirin 81 mg DAILY PO 07/17/25 10:00 07/24/25 10:18 81 MG Citalopram Hydrobromide 20 mg DAILY PO 07/17/25 10:00 07/24/25 10:18 20 MG Cyclobenzaprine HCl 10 mg Q8HP PRN PO 07/17/25 03:00 07/18/25 21:20 10 MG Montelukast Sodium 10 mg DAILY PO 07/17/25 10:00 07/24/25 10:17 10 MG Pantoprazole Sodium 40 mg DAILY PO 07/17/25 10:00 07/24/25 10:17 40 MG Linezolid 300 ml @ 150 mls/hr Q12HR IV 07/17/25 06:00 07/24/25 10:17 150 MLS/HR Meropenem 50 ml @ 17 mls/hr Q8HR IV 07/17/25 22:00 07/24/25 05:02 17 MLS/HR Ferrous Sulfate 325 mg DAILY PO 07/17/25 10:00 07/24/25 10:17 325 MG Acetazolamide Sodium 250 mg BID IV 07/23/25 22:00 Furosemide 40 mg DAILY IV 07/24/25 10:00 07/24/25 10:16 40 MG laboratory and microbiology Laboratory Tests 07/21/25 18:06 Test 07/21/25 18:06 Range/Units Serum Glucose 95 74-106 mg/dL Assessment/Plan Impression Acute hypercapnic respiratory failure Obesity hypoventilation syndrome Chronic leg wounds Cellulitis Patient seen and examined Events Low oxygen requirements On 3 liters nasal cannula No distress Labs and imaging reviewed ABG reviewed Management Supplemental oxygen Titrate to maintain sats 90% or above Incentive spirometry Okay to use bipap 10/24 during sleep and at night Previously noncompliant with treatment due to claustrophobia Continue antibiotics F/u cultures Bronchodilators Diurese Monitor renal function Monitor electrolytes Supplement as needed Recommend sleep study as outpatient when more stable DVT prophylaxis Dietary Evaluation Review Comments: 1) Initiate MVI @ 1 tb qd 2) Initiate Vitamin C @ 500 mg bid and zinc sulfate @ 220 mg for 7 days 3) Encourage optimal PO intake 4) Refer to outpatient RD for weight management 5) Follow-up with cardiology 6) Continue to monitor I&O, labs, and skin integrity Expected Outcomes/Goals: 1) appetite and labs to improve 2) wounds to improve 3) f/u in 3-5 days Plan discussed with: Patient JEREMIE BAILEY MD Jul 24, 2025 14:12
[2025-07-25] VITALS (9 sets, daily range): BP systolic 106–127; BP diastolic 43–61; PULSE 69–80; RESP 16–20; TEMP 97.6–98.4; O2SAT 95–98
--- NOTE | 2025-07-25 11:38 | DVHPN2 ---
Reviewed: Care Plan, H&P, Labs, Medications, Previous Orders, Radiology Changes from previous H/P or p: No Changes Eyes: No Pain, No Vision change, No Conjunctivae inflammation, No Eyelid inflammation, No Other, No Redness ENT: No Ear pain, No Ear discharge, No Nose pain, No Nose discharge, No Nose congestion, No Mouth pain, No Mouth swelling, No Throat pain, No Throat swelling, No Other Cardiovascular: No Chest Pain, No Palpitations, No Orthopnea, No Paroxysmal Noc. Dyspnea, No Edema, No Lt Headedness, No Other Respiratory: Shortness of breath Genitourinary: No Dysuria, No Frequency, No Incontinence, No Hematuria, No Retention, No Other Musculoskeletal: No other, No neck pain, No shoulder pain, No arm pain, No back pain, No hand pain; leg pain; No foot pain Skin: No Rash, No Lesions, No Jaundice, No Bruising, No Other Objective Vitals Vital Signs Date Time Temp Pulse Resp B/P (MAP) Pulse Ox O2 Delivery O2 Flow Rate FiO2 07/25/25 09:17 108/47 07/25/25 09:00 97.6 71 18 97 97.6 07/25/25 08:00 Nasal Cannula* 3 32 Intake/Output Intake and Output 07/25/25 07:00 Intake Total 1900 ml Output Total 3000 ml Balance -1100 ml Intake Oral 1150 ml IV Total 750 ml Output Urine Total 3000 ml # Bowel Movements 1 Medications Current Medications Medications Dose Ordered Sig/Tello Route Start Time Stop Time Status Last Admin Dose Admin Acetaminophen 325 mg Q4HP PRN PO 07/17/25 02:45 07/24/25 01:05 325 MG Acetaminophen/ Hydrocodone Bitart 1 tab Q4HP PRN PO 07/17/25 02:45 07/24/25 21:22 1 TAB Enoxaparin Sodium 40 mg DAILY SC 07/17/25 02:45 07/25/25 09:18 40 MG Aspirin 81 mg DAILY PO 07/17/25 10:00 07/25/25 09:18 81 MG Citalopram Hydrobromide 20 mg DAILY PO 07/17/25 10:00 07/25/25 09:18 20 MG Cyclobenzaprine HCl 10 mg Q8HP PRN PO 07/17/25 03:00 07/25/25 11:25 10 MG Montelukast Sodium 10 mg DAILY PO 07/17/25 10:00 07/25/25 09:18 10 MG Pantoprazole Sodium 40 mg DAILY PO 07/17/25 10:00 07/25/25 09:18 40 MG Linezolid 300 ml @ 150 mls/hr Q12HR IV 07/17/25 06:00 07/25/25 11:26 150 MLS/HR Ferrous Sulfate 325 mg DAILY PO 07/17/25 10:00 07/25/25 09:18 325 MG Acetazolamide Sodium 250 mg BID IV 07/23/25 22:00 Furosemide 40 mg DAILY IV 07/24/25 10:00 07/25/25 09:17 40 MG Meropenem 50 ml @ 17 mls/hr Q8HR IV 07/25/25 09:00 Laboratory Results Laboratory Tests 07/21/25 18:06 Urinalysis Test 07/17/25 09:00 Urine Color Yellow (Yellow) Urine Clarity Turbid (Clear) H Urine pH 6.0 (5.0-9.0) Urine Specific [place] 1.018 (1.001-1.035) Urine Protein Trace (Negative) H Urine Ketones Negative (Negative) Urine Blood 1+ /uL (Negative) H Urine Nitrite Negative (Negative) Urine Bilirubin Negative (Negative) Urine Urobilinogen 2 mg/dL (Negative) H Urine Leukocyte Esterase Trace /uL (Negative) Urine RBC 9 /hpf (0 - 4) Urine Microscopic WBC 3 /HPF (0-5) Urine Squamous Epithelial Cells Mod /hpf (<5) Urine Bacteria Few /hpf (None Seen) H Urine Mucus Few (None Seen) Urine Glucose Normal mg/dL (Normal) Microbiology Microbiology Date/Time Source Procedure Growth Status 07/22/25 17:00 Leg Right Gram Stain - Final Resulted 07/22/25 17:00 Wound Culture - Preliminary Escherichia coli Resulted 07/16/25 21:24 Blood Blood Culture - Final NO GROWTH AFTER 5 DAYS OF INCUBATION. Complete Labs and/or images reviewed: Labs reviewed by me, Image(s) reviewed by me Assessment/Plan Assessment/Plan Covering for Dr. Godwin 1. Right lower extremity cellulitis with the open wound, wound cultures growing E coli, continue meropenem and Zyvox 2. Acute hypercapnic respiratory failure 3. Respiratory acidosis with a metabolic alkalosis 4. Morbid obesity classIII 5. Chronic asthma 6. GERD 7. Hypertension 8. Anxiety and depression disorder currently compensated 9. Leukocytosis, improved Time spent 52 minutes Plan discussed with: Patient Date of Service: Jul 25, 2025 Billing Provider: RADHA KATHLEEN MD Common Visit Codes: [id number] INP/OBS CARE(HIGH) RADHA KATHLEEN MD Jul 25, 2025 11:38
--- NOTE | 2025-07-25 12:19 | DVHPN2 ---
Progress Note - Dictate Date Seen: Jul 25, 2025 Medical Necessity Reason Pt with a Central, PICC or Fol: No vital signs Vital Sign Date Time Temp Pulse Resp B/P (MAP) Pulse Ox O2 Delivery O2 Flow Rate FiO2 07/25/25 09:17 108/47 07/25/25 09:00 97.6 71 18 97 97.6 07/25/25 08:00 Nasal Cannula* 3 32 Total Intake and Output 07/24/25 07/24/25 07/25/25 14:59 22:59 06:59 Intake Total 350 ml 1000 ml 550 ml Output Total 2500 ml 500 ml Balance 350 ml -1500 ml 50 ml medications Current Medications Medications Dose Ordered Sig/Tello Route Start Time Stop Time Status Last Admin Dose Admin Acetaminophen 325 mg Q4HP PRN PO 07/17/25 02:45 07/24/25 01:05 325 MG Acetaminophen/ Hydrocodone Bitart 1 tab Q4HP PRN PO 07/17/25 02:45 07/24/25 21:22 1 TAB Enoxaparin Sodium 40 mg DAILY SC 07/17/25 02:45 07/25/25 09:18 40 MG Aspirin 81 mg DAILY PO 07/17/25 10:00 07/25/25 09:18 81 MG Citalopram Hydrobromide 20 mg DAILY PO 07/17/25 10:00 07/25/25 09:18 20 MG Cyclobenzaprine HCl 10 mg Q8HP PRN PO 07/17/25 03:00 07/25/25 11:25 10 MG Montelukast Sodium 10 mg DAILY PO 07/17/25 10:00 07/25/25 09:18 10 MG Pantoprazole Sodium 40 mg DAILY PO 07/17/25 10:00 07/25/25 09:18 40 MG Linezolid 300 ml @ 150 mls/hr Q12HR IV 07/17/25 06:00 07/25/25 11:26 150 MLS/HR Ferrous Sulfate 325 mg DAILY PO 07/17/25 10:00 07/25/25 09:18 325 MG Acetazolamide Sodium 250 mg BID IV 07/23/25 22:00 Furosemide 40 mg DAILY IV 07/24/25 10:00 07/25/25 09:17 40 MG Meropenem 50 ml @ 17 mls/hr Q8HR IV 07/25/25 09:00 laboratory and microbiology Laboratory Tests 07/21/25 18:06 Test 07/21/25 18:06 Range/Units Serum Glucose 95 74-106 mg/dL Assessment/Plan Impression Acute hypercapnic respiratory failure Obesity hypoventilation syndrome Chronic leg wounds Cellulitis Patient seen and examined Events Low oxygen requirements On 3 liters nasal cannula No acute events Labs and imaging reviewed ABG reviewed Management Supplemental oxygen Titrate to maintain sats 90% or above Incentive spirometry Okay to use bipap 10/24 during sleep and at night Previously noncompliant with treatment due to claustrophobia Continue antibiotics F/u cultures Bronchodilators Diurese Monitor renal function Monitor electrolytes Supplement as needed Recommend sleep study as outpatient when more stable DVT prophylaxis Dietary Evaluation Review Comments: 1) Initiate MVI @ 1 tb qd 2) Initiate Vitamin C @ 500 mg bid and zinc sulfate @ 220 mg for 7 days 3) Encourage optimal PO intake 4) Refer to outpatient RD for weight management 5) Follow-up with cardiology 6) Continue to monitor I&O, labs, and skin integrity Expected Outcomes/Goals: 1) appetite and labs to improve 2) wounds to improve 3) f/u in 3-5 days Plan discussed with: Patient JEREMIE BAILEY MD Jul 25, 2025 12:19
[2025-07-25] MEDS: MEROPENEM 1GM IVPB 50 ML IV SCH (14:47)
[2025-07-26] VITALS (8 sets, daily range): BP systolic 93–122; BP diastolic 46–81; PULSE 69–83; RESP 16–96; TEMP 97.7–98; O2SAT 96–98
--- NOTE | 2025-07-26 12:01 | DVHPN2 ---
Reviewed: Care Plan, H&P, Labs, Medications, Previous Orders, Radiology Changes from previous H/P or p: No Changes Eyes: No Pain, No Vision change, No Conjunctivae inflammation, No Eyelid inflammation, No Other, No Redness ENT: No Ear pain, No Ear discharge, No Nose pain, No Nose discharge, No Nose congestion, No Mouth pain, No Mouth swelling, No Throat pain, No Throat swelling, No Other Cardiovascular: No Chest Pain, No Palpitations, No Orthopnea, No Paroxysmal Noc. Dyspnea, No Edema, No Lt Headedness, No Other Respiratory: Shortness of breath Genitourinary: No Dysuria, No Frequency, No Incontinence, No Hematuria, No Retention, No Other Musculoskeletal: No other, No neck pain, No shoulder pain, No arm pain, No back pain, No hand pain; leg pain; No foot pain Skin: No Rash, No Lesions, No Jaundice, No Bruising, No Other Objective Vitals Vital Signs Date Time Temp Pulse Resp B/P (MAP) Pulse Ox O2 Delivery O2 Flow Rate FiO2 07/26/25 10:00 97.7 74 96 122/66 (84) 96 97.7 07/26/25 08:00 Nasal Cannula* 3 32 Intake/Output Intake and Output 07/26/25 07:00 Intake Total 1930 ml Output Total 3050 ml Balance -1120 ml Intake Oral 1530 ml IV Total 400 ml Output Urine Total 3050 ml # Bowel Movements 1 Medications Current Medications Medications Dose Ordered Sig/Tello Route Start Time Stop Time Status Last Admin Dose Admin Acetaminophen 325 mg Q4HP PRN PO 07/17/25 02:45 07/24/25 01:05 325 MG Enoxaparin Sodium 40 mg DAILY SC 07/17/25 02:45 07/26/25 09:40 40 MG Aspirin 81 mg DAILY PO 07/17/25 10:00 07/26/25 09:40 81 MG Citalopram Hydrobromide 20 mg DAILY PO 07/17/25 10:00 07/26/25 09:41 20 MG Cyclobenzaprine HCl 10 mg Q8HP PRN PO 07/17/25 03:00 07/25/25 11:25 10 MG Montelukast Sodium 10 mg DAILY PO 07/17/25 10:00 07/26/25 09:41 10 MG Pantoprazole Sodium 40 mg DAILY PO 07/17/25 10:00 9/8/25 09:41 40 MG Linezolid 300 ml @ 150 mls/hr Q12HR IV 07/17/25 06:00 07/26/25 09:40 150 MLS/HR Ferrous Sulfate 325 mg DAILY PO 07/17/25 10:00 07/26/25 09:41 325 MG Acetazolamide Sodium 250 mg BID IV 07/23/25 22:00 Furosemide 40 mg DAILY IV 07/24/25 10:00 07/26/25 09:39 40 MG Meropenem 50 ml @ 17 mls/hr Q8HR IV 07/25/25 09:00 07/26/25 05:03 17 MLS/HR Laboratory Results Laboratory Tests 07/21/25 18:06 Urinalysis Test 07/17/25 09:00 Urine Color Yellow (Yellow) Urine Clarity Turbid (Clear) H Urine pH 6.0 (5.0-9.0) Urine Specific [place] 1.018 (1.001-1.035) Urine Protein Trace (Negative) H Urine Ketones Negative (Negative) Urine Blood 1+ /uL (Negative) H Urine Nitrite Negative (Negative) Urine Bilirubin Negative (Negative) Urine Urobilinogen 2 mg/dL (Negative) H Urine Leukocyte Esterase Trace /uL (Negative) Urine RBC 9 /hpf (0 - 4) Urine Microscopic WBC 3 /HPF (0-5) Urine Squamous Epithelial Cells Mod /hpf (<5) Urine Bacteria Few /hpf (None Seen) H Urine Mucus Few (None Seen) Urine Glucose Normal mg/dL (Normal) Microbiology Microbiology Date/Time Source Procedure Growth Status 07/22/25 17:00 Leg Right Gram Stain - Final Complete 07/22/25 17:00 Wound Culture - Final Escherichia coli Complete 07/16/25 21:24 Blood Blood Culture - Final NO GROWTH AFTER 5 DAYS OF INCUBATION. Complete Labs and/or images reviewed: Labs reviewed by me, Image(s) reviewed by me Assessment/Plan Assessment/Plan Covering for Dr. Godwin 1. Right lower extremity cellulitis with the open wound, wound cultures growing E coli, continue meropenem and Zyvox 2. Acute hypercapnic respiratory failure 3. Respiratory acidosis with a metabolic alkalosis 4. Morbid obesity classIII 5. Chronic asthma 6. GERD 7. Hypertension 8. Anxiety and depression disorder currently compensated 9. Leukocytosis, improved Daughter Kerri [phone] at bedside Time spent 52 minutes Plan discussed with: Patient Date of Service: Jul 26, 2025 Billing Provider: RADHA KATHLEEN MD Common Visit Codes: [id number] INP/OBS CARE(HIGH) RADHA KATHLEEN MD Jul 26, 2025 12:01
--- NOTE | 2025-07-26 12:44 | DVHCONRES ---
Date Seen: Jul 26, 2025 Reason for Consultation Leg wound History of Present Illness Malinda Jeffery is a 60-year-old female with past medical history of asthma, depression, GERD, questionable DvT who came to the ER with chief complaints of severe bilateral leg weakness and burning pain in the right leg, rated 10/10 in intensity since one week. She reports that earlier today, upon attempting to stand, she experienced complete numbness in both legs and was unable to bear weight. Sensation has returned, and she is now able to wiggle her toes.She was recently discharged from [facility] this morning after a 3-week admission for chest pain and shortness of breath. During her hospital stay, she was bed-bound on a water bed. Prior to admission, she was ambulatory with the assistance of a cane.She also experienced two episodes of vomiting and dizziness before arriving at the ER. On arrival patient had tachycardia, tachypnea, the increased WBC, and is on 3.5 L oxygen, increased from her baseline of 2 L at home and 3 L during her hospitalization. Her last bowel movement was yesterday. As patient is allergic to ceftriaxone, vancomycin patient is given IV meropenem and IV Zyvox. Awaiting PICC line. Past Medical History See H&P Past Surgical History See H&P Family History: Diabetes mellitus MOTHER, Onset:Unknown Hypercholesterolemia MOTHER, Onset:Unknown Hypertension MOTHER, Onset:Unknown Allergies: Coded Allergies: Vancomycin (Verified Allergy, Intermediate, 12/25/24) pt became hot and started sweating. redness and swelliong to the IV site. Ceftriaxone (Verified Allergy, Unknown, Rash, 10/01/24) Home Meds Active Scripts Prednisone (Prednisone) 20 Mg Tab, 40 MG PO DAILY for 4 Days, #10 MG Prov:GORDOANDREAGORDO VELAZQUEZMichoacano RESDIENT 05/06/25 Reported Medications Aspirin (Aspirin Low Dose) 81 Mg Tab, 1 TAB PO DAILY 05/04/25 Albuterol Sulfate (Albuterol Sulfate Hfa) 108 Mcg/Act Aer, INH 05/04/25 Citalopram Hydrobromide (Citalopram Hydrobromide) 10 Mg Tab, 1 TAB PO DAILY 05/04/25 Cyclobenzaprine HCl (Cyclobenzaprine Hydrochlo) 10 Mg Tab, 1 TAB PO 05/04/25 Montelukast Sodium (MONTELUKAST SODIUM) 10 Mg Tab, 1 TAB PO DAILY 05/04/25 Tramadol HCl (Tramadol HCl) 50 Mg Tab, 50 MG PO BID for 7 Days, #14 TAB 03/10/25 Pantoprazole Sodium Sesquihydr (Pantoprazole Sodium) 40 Mg Tab, 1 TAB PO DAILY 03/08/25 Albuterol Sulfate (Albuterol Sulfate) 2 Mg Tab, 2 MG IN Q6HP PRN for SHORTNESS OF BREATH, MG 02/29/24 Benazepril HCl (Benazepril Hydrochloride) 10 Mg Tab, 12.5 MG PO DAILY, TAB 02/29/24 Cyclobenzaprine Hcl (Cyclobenzaprine Hcl) 10 Mg Tab, 10 MG PO Q8HP PRN for FOR MUSCLE SPASM for 30 Days, MG 02/29/24 Ketorolac Tromethamine (Ketorolac Tromethamine) 10 Mg Tab, 10 MG PO DAILY, TAB 02/29/24 Citalopram Hydrobromide (Citalopram Hydrobromide) 20 Mg Tab, 20 MG PO DAILY, TAB 02/29/24 Gabapentin (Gabapentin) 600 Mg Tab, 600 MG PO BID, TAB 02/29/24 Vital Signs Vital Signs Date Time Temp Pulse Resp B/P (MAP) Pulse Ox O2 Delivery O2 Flow Rate FiO2 07/26/25 10:00 97.7 74 96 122/66 (84) 96 97.7 07/26/25 08:00 Nasal Cannula* 3 32 Physical Exam Dermatological: Skin is dry with mild erythema and some maceration around the wound site No gross deformities noted Mild non-pitting edema present bilaterally Right lateral blister with sloughing of the skin partial-thickness Vascular: Dorsalis pedis and posterior tibial pulses are 1+ bilaterally Capillary refill is under 2 seconds Skin temperature is warm bilaterally Neurologic: Protective sensation is absent on the plantar forefoot bilaterally Monofilament testing reveals decreased sensation in multiple plantar sites Musculoskeletal: Range of motion at the ankle and MTP joints is within normal limits. Strength is 5/5 in all tested muscle groups. Gait is antalgic due to offloading of the affected limb. Labs/Diagnostic Data Labs Test 07/22/25 18:05 07/21/25 18:06 07/18/25 06:30 07/17/25 22:21 Range/Units Blood Gas Specimen Type Arterial Blood Gas Sample Site Left radial Blood Gas Patient Temperature 37.0 Arterial Blood Date Drawn [id number] Arterial Blood pH 7.425 7.350-7.450 Arterial Blood Partial Pressure CO2 76.6 *H 32.0-45.0 mmHg Arterial Blood Partial Pressure O2 75.7 L 83.0-108.0 mmHg Arterial Blood HCO3 49.1 H 21.0-28.0 mmol/L Arterial Blood Oxygen Saturation 94.9 94.0-98.0 % Arterial Blood Base Excess 21.7 H -2.0-3.0 mmol/L Arterial Blood Oxyhemoglobin 93.2 L 94.0-98.0 % Arterial Blood Carboxyhemoglobin 1.3 0.5-1.5 % Arterial Blood Methemoglobin 0.5 0.0-1.5 % Ko Test Modified Blood Gas Total Hemoglobin 9.20 L 12.0-16.0 g/dL Blood Gas Liter Flow 3.00 Blood Gas Modality Nasal cannula FiO2 % 32.0 Blood Gas Critical Value Read Back Yes Blood Gas Notified Whom sepideh Godwin md Blood Gas Notified Time [id number] Blood Gas Notified By jaylan Valdez rrt White Blood Count 9.2 4.4-10.8 10^3/uL Red Blood Count 3.85 L 4.0-5.20 10^6/uL Hemoglobin 8.5 L 12.2-16.2 g/dL Hematocrit 28.3 #L 36.0-46.0 % Mean Corpuscular Volume 73.6 L 80.0-100.0 fL Mean Corpuscular Hemoglobin 22.1 L 28.0-32.0 pg Mean Corpuscular Hemoglobin Concent 30.0 L 32.0-36.0 g/dL Red Cell Distribution Width 23.5 H 11.8-14.3 % Platelet Count 360 140-450 10^3/uL Mean Platelet Volume 6.9 6.9-10.8 fL Neutrophils (%) (Auto) 80.6 H 37.0-80.0 % Lymphocytes (%) (Auto) 11.8 10.0-50.0 % Monocytes (%) (Auto) 6.1 0.0-12.0 % Eosinophils (%) (Auto) 1.3 0.0-7.0 % Basophils (%) (Auto) 0.2 0.0-2.0 % Neutrophils # (Auto) 7.4 1.6-8.6 10 ^3/uL Lymphocytes # (Auto) 1.1 0.4-5.4 10 ^3/uL Monocytes # (Auto) 0.6 0-1.3 10 ^3/uL Eosinophils # (Auto) 0.1 0-0.8 10 ^3/uL Basophils # (Auto) 0 0-0.2 10 ^3/uL Nucleated Red Blood Cells 0.0 % Sodium Level 139 136-145 mmol/L Potassium Level 4.2 3.5-5.1 mmol/L Chloride Level 91 L 98-107 mmol/L Carbon Dioxide Level > 40 *H 20-31 mmol/L Anion Gap 7.78534 5-15 Blood Urea Nitrogen 9 9-23 mg/dL Creatinine 0.36 L 0.550-1.02 mg/dL Glomerular Filtration Rate Calc 117 >90 mL/min BUN/Creatinine Ratio 25.0 H 10.0-20.0 Serum Glucose 95 74-106 mg/dL Calcium Level 8.6 L 8.7-10.4 mg/dL Platelet Estimate Adequate Hypochromasia (manual) Slight Anisocytosis (manual) Slight Microcytosis Slight Stomatocytes Few Total Bilirubin 1.4 H 0.2-1.0 mg/dL Aspartate Amino Transferase (AST) 14 13-40 U/L Alanine Aminotransferase (ALT) < 9 7-40 U/L Alkaline Phosphatase 87 46-116 U/L Total Protein 6.6 5.7-8.2 g/dL Albumin 3.2 3.2-4.8 g/dL Influenza Type A Antigen Negative Negative Influenza Type B Antigen Negative Negative SARS-CoV-2 Antigen (Rapid) Negative NEGATIVE Test 07/17/25 09:00 07/17/25 06:12 07/17/25 03:12 07/17/25 00:20 Range/Units Urine Color Yellow Yellow Urine Clarity Turbid H Clear Urine pH 6.0 5.0-9.0 Urine Specific [place] 1.018 1.001-1.035 Urine Protein Trace H Negative Urine Ketones Negative Negative Urine Blood 1+ H Negative /uL Urine Nitrite Negative Negative Urine Bilirubin Negative Negative Urine Urobilinogen 2 H Negative mg/dL Urine Leukocyte Esterase Trace Negative /uL Urine RBC 9 0 - 4 /hpf Urine Microscopic WBC 3 0-5 /HPF Urine Squamous Epithelial Cells Mod <5 /hpf Urine Bacteria Few H None Seen /hpf Urine Mucus Few None Seen Urine Glucose Normal Normal mg/dL Iron Level 27 L 50-170 ug/dL Total Iron Binding Capacity 279 250-425 ug/dL Percent Iron Saturation 9.7 L 15-50 % Ferritin 63.5 10-291 ng/mL Urine Opiates Screen Neg NEGATIVE Urine Fentanyl Screen Pos NEGATIVE Urine Barbiturates Screen Neg NEGATIVE Urine Phencyclidine Screen Neg NEGATIVE Urine Amphetamines Screen Neg NEGATIVE Urine Benzodiazepines Screen Neg NEGATIVE Urine Cocaine Screen Neg NEGATIVE Urine Cannabinoids Screen Neg NEGATIVE Troponin I High Sensitivity 9 </=34 ng/L Thyroid Stimulating Hormone (TSH) 2.62 0.55-4.78 uIU/mL Test 07/16/25 21:22 Range/Units Prothrombin Time 12.4 H 9.3-11.8 sec Prothrombin Time INR 1.19 H 0.9-1.15 Activated Partial Thromboplast Time 27.8 24.5-34.5 SEC Lactic Acid Level 1.6 0.4-2.0 mmol/L Magnesium Level 1.3 L 1.6-2.6 mg/dL Microbiology Date/Time Source Procedure Growth Status 07/22/25 17:00 Leg Right Gram Stain - Final Complete 07/22/25 17:00 Wound Culture - Final Escherichia coli Complete 07/16/25 21:24 Blood Blood Culture - Final NO GROWTH AFTER 5 DAYS OF INCUBATION. Complete Problems(with codes): (1) Hyperglycemia (2) Nausea and vomiting (3) Umbilical hernia with obstruction but no gangrene (4) Ventral hernia without obstruction or gangrene (5) Cholelithiasis (6) Urinary tract infection (7) Acute abdominal pain (8) Umbilical hernia (9) Small bowel obstruction (10) Hepatosplenomegaly (11) Left ovarian cyst (12) Sepsis (13) Pneumonia (14) Chronic leg pain (15) Symptomatic anemia (16) Lymphedema (17) Right upper quadrant pain (18) Intractable abdominal pain (19) Hypokalemia (20) Anemia, unspecified (21) Lymphocytosis (22) Morbid obesity (23) Generalized weakness Plan/Recommendation ASSESSMENT: Patient is a 60 year old seen on the floor for a worsening ulcer PLAN: - The patients chart was reviewed, clinical findings were discussed with the patient, the etiologies of the conditions were discussed in detail, and a treatment plan was agreed to at this time, with both oral and written instructions provided. - reviewed advanced imaging - right leg wound appears to be superficial at this point - continue antibiotics for some localized cellulitis - no surgical intervention recommended at this point - no advanced imaging needed - Medihoney on the wound All questions were answered and concerns addressed to the patient's satisfaction. The patient was given the phone number to the clinic and was told how to make contact with the clinic should any concerns or questions arise. Patient understands that if any questions or concerns arise prior to the next appointment, we should be contacted immediately. FOLLOW-UP: Continue to follow while inpatient Plan discussed with: Patient Visit Coding Podiatry Date of Service if different f: Jul 26, 2025 Billing Provider: HONEY OROZCO DPM Podiatry Common Visit Codes: CONSULT ONLY Podiatry Consult Codes: 60552-QL/[id number] NEW/EST HI 80 HONEY OROZCO DPM Jul 26, 2025 12:44
--- NOTE | 2025-07-26 15:52 | MEDREC ---
[facility] ASP Intervention Section I [facility] ASP Intervention: Deescalate AB based on CS (Please de-escalate antibiotics based on culture susceptibility) [facility] N[facility] RESIDENT Jul 26, 2025 15:52
--- NOTE | 2025-07-26 17:23 | DVHPN2 ---
Progress Note - Dictate Date Seen: Jul 26, 2025 Medical Necessity Reason Pt with a Central, PICC or Fol: No vital signs Vital Sign Date Time Temp Pulse Resp B/P (MAP) Pulse Ox O2 Delivery O2 Flow Rate FiO2 07/26/25 17:05 97.7 83 19 106/69 (81) 97 97.7 07/26/25 08:00 Nasal Cannula* 3 32 Total Intake and Output 07/25/25 07/25/25 07/26/25 15:00 23:00 07:00 Intake Total 830 ml 1100 ml Output Total 2450 ml 600 ml Balance -1620 ml 500 ml medications Current Medications Medications Dose Ordered Sig/Tello Route Start Time Stop Time Status Last Admin Dose Admin Acetaminophen 325 mg Q4HP PRN PO 07/17/25 02:45 07/24/25 01:05 325 MG Enoxaparin Sodium 40 mg DAILY SC 07/17/25 02:45 07/26/25 09:40 40 MG Aspirin 81 mg DAILY PO 07/17/25 10:00 07/26/25 09:40 81 MG Citalopram Hydrobromide 20 mg DAILY PO 07/17/25 10:00 07/26/25 09:41 20 MG Cyclobenzaprine HCl 10 mg Q8HP PRN PO 07/17/25 03:00 07/25/25 11:25 10 MG Montelukast Sodium 10 mg DAILY PO 07/17/25 10:00 07/26/25 09:41 10 MG Pantoprazole Sodium 40 mg DAILY PO 07/17/25 10:00 07/26/25 09:41 40 MG Linezolid 300 ml @ 150 mls/hr Q12HR IV 07/17/25 06:00 07/26/25 09:40 150 MLS/HR Ferrous Sulfate 325 mg DAILY PO 07/17/25 10:00 07/26/25 09:41 325 MG Acetazolamide Sodium 250 mg BID IV 07/23/25 22:00 Furosemide 40 mg DAILY IV 07/24/25 10:00 07/26/25 09:39 40 MG Meropenem 50 ml @ 17 mls/hr Q8HR IV 07/25/25 09:00 07/26/25 15:17 17 MLS/HR laboratory and microbiology Laboratory Tests 07/21/25 18:06 Test 9/3/25 18:06 Range/Units Serum Glucose 95 74-106 mg/dL Assessment/Plan Impression Acute hypercapnic respiratory failure Obesity hypoventilation syndrome Chronic leg wounds Cellulitis Patient seen and examined Events Low oxygen requirements On 3 liters nasal cannula No acute events Labs and imaging reviewed ABG reviewed Management Supplemental oxygen Titrate to maintain sats 90% or above Incentive spirometry Okay to use bipap 12/7 during sleep and at night Previously noncompliant with treatment due to claustrophobia Continue antibiotics F/u cultures Bronchodilators Diurese Monitor renal function Monitor electrolytes Supplement as needed Recommend sleep study as outpatient when more stable DVT prophylaxis Dietary Evaluation Review Comments: 1) Initiate MVI @ 1 tb qd 2) Initiate Vitamin C @ 500 mg bid and zinc sulfate @ 220 mg for 7 days 3) Encourage optimal PO intake 4) Refer to outpatient RD for weight management 5) Follow-up with cardiology 6) Continue to monitor I&O, labs, and skin integrity Expected Outcomes/Goals: 1) appetite and labs to improve 2) wounds to improve 3) f/u in 3-5 days Plan discussed with: Patient JEREMIE BAILEY MD Jul 26, 2025 17:23
[2025-07-27] VITALS (9 sets, daily range): BP systolic 99–120; BP diastolic 47–70; PULSE 63–79; RESP 16–20; TEMP 97.4–98.1; O2SAT 97–99
--- NOTE | 2025-07-27 09:52 | DVHPN2 ---
Reviewed: Care Plan, H&P, Labs, Medications, Previous Orders, Radiology Changes from previous H/P or p: No Changes Eyes: No Pain, No Vision change, No Conjunctivae inflammation, No Eyelid inflammation, No Other, No Redness ENT: No Ear pain, No Ear discharge, No Nose pain, No Nose discharge, No Nose congestion, No Mouth pain, No Mouth swelling, No Throat pain, No Throat swelling, No Other Cardiovascular: No Chest Pain, No Palpitations, No Orthopnea, No Paroxysmal Noc. Dyspnea, No Edema, No Lt Headedness, No Other Respiratory: Shortness of breath Genitourinary: No Dysuria, No Frequency, No Incontinence, No Hematuria, No Retention, No Other Musculoskeletal: No other, No neck pain, No shoulder pain, No arm pain, No back pain, No hand pain; leg pain; No foot pain Skin: No Rash, No Lesions, No Jaundice, No Bruising, No Other Objective Vitals Vital Signs Date Time Temp Pulse Resp B/P (MAP) Pulse Ox O2 Delivery O2 Flow Rate FiO2 07/27/25 08:53 97.4 72 16 117/65 (82) 99 97.4 07/27/25 07:35 Nasal Cannula* 3 32 Intake/Output Intake and Output 07/27/25 07:00 Intake Total 1845 ml Output Total 3100 ml Balance -1255 ml Intake Oral 1545 ml IV Total 300 ml Output Urine Total 3100 ml # Bowel Movements 1 Medications Current Medications Medications Dose Ordered Sig/Tello Route Start Time Stop Time Status Last Admin Dose Admin Acetaminophen 325 mg Q4HP PRN PO 07/17/25 02:45 07/24/25 01:05 325 MG Enoxaparin Sodium 40 mg DAILY SC 07/17/25 02:45 07/26/25 09:40 40 MG Aspirin 81 mg DAILY PO 07/17/25 10:00 07/26/25 09:40 81 MG Citalopram Hydrobromide 20 mg DAILY PO 07/17/25 10:00 07/26/25 09:41 20 MG Cyclobenzaprine HCl 10 mg Q8HP PRN PO 07/17/25 03:00 07/27/25 00:29 10 MG Montelukast Sodium 10 mg DAILY PO 07/17/25 10:00 07/26/25 09:41 10 MG Pantoprazole Sodium 40 mg DAILY PO 07/17/25 10:00 9/8/25 09:41 40 MG Linezolid 300 ml @ 150 mls/hr Q12HR IV 07/17/25 06:00 07/26/25 21:35 150 MLS/HR Ferrous Sulfate 325 mg DAILY PO 07/17/25 10:00 07/26/25 09:41 325 MG Acetazolamide Sodium 250 mg BID IV 07/23/25 22:00 07/26/25 21:36 250 MG Furosemide 40 mg DAILY IV 07/24/25 10:00 07/26/25 09:39 40 MG Meropenem 50 ml @ 17 mls/hr Q8HR IV 07/25/25 09:00 07/27/25 05:30 17 MLS/HR Laboratory Results Laboratory Tests 07/21/25 18:06 Urinalysis Test 07/17/25 09:00 Urine Color Yellow (Yellow) Urine Clarity Turbid (Clear) H Urine pH 6.0 (5.0-9.0) Urine Specific [place] 1.018 (1.001-1.035) Urine Protein Trace (Negative) H Urine Ketones Negative (Negative) Urine Blood 1+ /uL (Negative) H Urine Nitrite Negative (Negative) Urine Bilirubin Negative (Negative) Urine Urobilinogen 2 mg/dL (Negative) H Urine Leukocyte Esterase Trace /uL (Negative) Urine RBC 9 /hpf (0 - 4) Urine Microscopic WBC 3 /HPF (0-5) Urine Squamous Epithelial Cells Mod /hpf (<5) Urine Bacteria Few /hpf (None Seen) H Urine Mucus Few (None Seen) Urine Glucose Normal mg/dL (Normal) Microbiology Microbiology Date/Time Source Procedure Growth Status 07/22/25 17:00 Leg Right Gram Stain - Final Complete 07/22/25 17:00 Wound Culture - Final Escherichia coli Complete 07/16/25 21:24 Blood Blood Culture - Final NO GROWTH AFTER 5 DAYS OF INCUBATION. Complete Labs and/or images reviewed: Labs reviewed by me, Image(s) reviewed by me Assessment/Plan Assessment/Plan Covering for Dr. Godwin 1. Right lower extremity cellulitis with the open wound, wound cultures growing E coli, continue meropenem DC Zyvox, patient is allergic to ceftriaxone 2. Acute hypercapnic respiratory failure 3. Respiratory acidosis with metabolic alkalosis 4. Morbid obesity classIII 5. Chronic asthma 6. GERD 7. Hypertension 8. Anxiety and depression disorder 9. Leukocytosis, improved 9. Morbid obesity BMI of 74 Daughter Kerri [phone] at bedside Time spent 52 minutes Plan discussed with: Patient My Orders Orders - RADHA KATHLEEN MD Procedure Category Date Status Time *Podiatry Consult CONS 07/26/25 Transmitted [place]([facility]) 12:01 Date of Service: Jul 27, 2025 Billing Provider: RADHA KATHLEEN MD Common Visit Codes: [id number] INP/OBS CARE(HIGH) RADHA KATHLEEN MD Jul 27, 2025 09:52
[2025-07-27] MEDS ORDERED: ERTAPENEM SOD INJ 1 GM in SODIUM CHL 0.9% 50 ML IV ONE (12:45)
[2025-07-27] MEDS: ERTAPENEM SOD INJ 1 GM in SODIUM CHL 0.9% 50 ML IV ONE (16:58)
--- NOTE | 2025-07-27 17:14 | DVHPN2 ---
Progress Note - Dictate Date Seen: Jul 27, 2025 Medical Necessity Reason Pt with a Central, PICC or Fol: No vital signs Vital Sign Date Time Temp Pulse Resp B/P (MAP) Pulse Ox O2 Delivery O2 Flow Rate FiO2 07/27/25 16:53 98.0 78 18 110/58 (75) 97 98.0 07/27/25 07:35 Nasal Cannula* 3 32 Total Intake and Output 07/26/25 07/26/25 07/27/25 15:00 23:00 07:00 Intake Total 300 ml 945 ml 600 ml Output Total 700 ml 2400 ml Balance 300 ml 245 ml -1800 ml medications Current Medications Medications Dose Ordered Sig/Tello Route Start Time Stop Time Status Last Admin Dose Admin Acetaminophen 325 mg Q4HP PRN PO 07/17/25 02:45 07/24/25 01:05 325 MG Enoxaparin Sodium 40 mg DAILY SC 07/17/25 02:45 07/27/25 10:29 40 MG Aspirin 81 mg DAILY PO 07/17/25 10:00 07/27/25 10:29 81 MG Citalopram Hydrobromide 20 mg DAILY PO 07/17/25 10:00 07/27/25 10:29 20 MG Cyclobenzaprine HCl 10 mg Q8HP PRN PO 07/17/25 03:00 07/27/25 10:29 10 MG Montelukast Sodium 10 mg DAILY PO 07/17/25 10:00 07/27/25 10:29 10 MG Pantoprazole Sodium 40 mg DAILY PO 07/17/25 10:00 07/27/25 10:29 40 MG Ferrous Sulfate 325 mg DAILY PO 07/17/25 10:00 07/27/25 10:29 325 MG Acetazolamide Sodium 250 mg BID IV 07/23/25 22:00 07/26/25 21:36 250 MG Furosemide 40 mg DAILY IV 07/24/25 10:00 07/27/25 10:30 40 MG Ertapenem 1 gm/ Sodium Chloride 50 ml @ 100 mls/hr DAILY IV 07/28/25 10:00 laboratory and microbiology Laboratory Tests 07/21/25 18:06 Test 07/21/25 18:06 Range/Units Serum Glucose 95 74-106 mg/dL Assessment/Plan Impression Acute hypercapnic respiratory failure Obesity hypoventilation syndrome Chronic leg wounds Cellulitis Patient seen and examined Events Low oxygen requirements On 3 liters nasal cannula No acute events Labs and imaging reviewed ABG reviewed Management Supplemental oxygen Titrate to maintain sats 90% or above Incentive spirometry Okay to use bipap 10/24 during sleep and at night Previously noncompliant with treatment due to claustrophobia Continue antibiotics F/u cultures Bronchodilators Diurese Monitor renal function Monitor electrolytes Supplement as needed Recommend sleep study as outpatient when more stable DVT prophylaxis Dietary Evaluation Review Comments: 1) Initiate MVI @ 1 tb qd 2) Initiate Vitamin C @ 500 mg bid and zinc sulfate @ 220 mg for 7 days 3) Encourage optimal PO intake 4) Refer to outpatient RD for weight management 5) Follow-up with cardiology 6) Continue to monitor I&O, labs, and skin integrity Expected Outcomes/Goals: 1) appetite and labs to improve 2) wounds to improve 3) f/u in 3-5 days Plan discussed with: Patient JEREMIE BAILEY MD Jul 27, 2025 17:14
[2025-07-28] VITALS (8 sets, daily range): BP systolic 92–121; BP diastolic 47–64; PULSE 70–77; RESP 18–20; TEMP 97.1–98.9; O2SAT 98–99
--- NOTE | 2025-07-28 11:22 | DVHPN2 ---
Reviewed: Care Plan, H&P, Labs, Medications, Previous Orders, Radiology Changes from previous H/P or p: No Changes Eyes: No Pain, No Vision change, No Conjunctivae inflammation, No Eyelid inflammation, No Other, No Redness ENT: No Ear pain, No Ear discharge, No Nose pain, No Nose discharge, No Nose congestion, No Mouth pain, No Mouth swelling, No Throat pain, No Throat swelling, No Other Cardiovascular: No Chest Pain, No Palpitations, No Orthopnea, No Paroxysmal Noc. Dyspnea, No Edema, No Lt Headedness, No Other Respiratory: Shortness of breath Genitourinary: No Dysuria, No Frequency, No Incontinence, No Hematuria, No Retention, No Other Musculoskeletal: No other, No neck pain, No shoulder pain, No arm pain, No back pain, No hand pain; leg pain; No foot pain Skin: No Rash, No Lesions, No Jaundice, No Bruising, No Other Objective Vitals Vital Signs Date Time Temp Pulse Resp B/P (MAP) Pulse Ox O2 Delivery O2 Flow Rate FiO2 07/28/25 09:00 98.9 72 18 108/64 (79) 98 98.9 07/27/25 20:00 Nasal Cannula* 3 32 Intake/Output Intake and Output 07/28/25 07:00 Intake Total 1975 ml Output Total 4600 ml Balance -2625 ml Intake Oral 1925 ml IV Total 50 ml Output Urine Total 4600 ml Medications Current Medications Medications Dose Ordered Sig/Tello Route Start Time Stop Time Status Last Admin Dose Admin Acetaminophen 325 mg Q4HP PRN PO 07/17/25 02:45 07/28/25 02:09 325 MG Aspirin 81 mg DAILY PO 07/17/25 10:00 07/27/25 10:29 81 MG Citalopram Hydrobromide 20 mg DAILY PO 07/17/25 10:00 07/27/25 10:29 20 MG Cyclobenzaprine HCl 10 mg Q8HP PRN PO 07/17/25 03:00 07/27/25 21:43 10 MG Montelukast Sodium 10 mg DAILY PO 07/17/25 10:00 07/27/25 10:29 10 MG Pantoprazole Sodium 40 mg DAILY PO 07/17/25 10:00 07/27/25 10:29 40 MG Ferrous Sulfate 325 mg DAILY PO 07/17/25 10:00 07/27/25 10:29 325 MG Acetazolamide Sodium 250 mg BID IV 07/23/25 22:00 07/27/25 22:10 250 MG Furosemide 40 mg DAILY IV 07/24/25 10:00 07/27/25 10:30 40 MG Ertapenem 1 gm/ Sodium Chloride 50 ml @ 100 mls/hr DAILY IV 07/28/25 10:00 Laboratory Results Laboratory Tests 07/21/25 18:06 Urinalysis Test 07/17/25 09:00 Urine Color Yellow (Yellow) Urine Clarity Turbid (Clear) H Urine pH 6.0 (5.0-9.0) Urine Specific [place] 1.018 (1.001-1.035) Urine Protein Trace (Negative) H Urine Ketones Negative (Negative) Urine Blood 1+ /uL (Negative) H Urine Nitrite Negative (Negative) Urine Bilirubin Negative (Negative) Urine Urobilinogen 2 mg/dL (Negative) H Urine Leukocyte Esterase Trace /uL (Negative) Urine RBC 9 /hpf (0 - 4) Urine Microscopic WBC 3 /HPF (0-5) Urine Squamous Epithelial Cells Mod /hpf (<5) Urine Bacteria Few /hpf (None Seen) H Urine Mucus Few (None Seen) Urine Glucose Normal mg/dL (Normal) Microbiology Microbiology Date/Time Source Procedure Growth Status 07/22/25 17:00 Leg Right Gram Stain - Final Complete 07/22/25 17:00 Wound Culture - Final Escherichia coli Complete 07/16/25 21:24 Blood Blood Culture - Final NO GROWTH AFTER 5 DAYS OF INCUBATION. Complete Labs and/or images reviewed: Labs reviewed by me, Image(s) reviewed by me Assessment/Plan Assessment/Plan Covering for Dr. Godwin 1. Right lower extremity cellulitis with the open wound, wound cultures growing E coli, placed on Invanz 1 g IV daily, patient is allergic to ceftriaxone 2. Acute hypercapnic respiratory failure 3. Respiratory acidosis with metabolic alkalosis 4. Morbid obesity classIII 5. Chronic asthma 6. GERD 7. Hypertension 8. Anxiety and depression disorder 9. Leukocytosis, improved 9. Morbid obesity BMI of 74 10. DVT right lower extremity ruled out Daughter Kerri [phone] at bedside Time spent 52 minutes Patient will be discharged to [facility] for IV antibiotics for a month. The plan is acceptable to the pt Plan discussed with: Patient My Orders Orders - RADHA KATHLEEN MD Procedure Category Date Status Time * [employer] CONS 07/27/25 Transmitted Consult 12:35 Ertapenem Sod Inj PHA 07/28/25 In Process (Invanz) 10:00 Date of Service: Jul 28, 2025 Billing Provider: RADHA KATHLEEN MD Common Visit Codes: [id number] INP/OBS CARE(HIGH) RADHA KATHLEEN MD Jul 28, 2025 11:22
--- NOTE | 2025-07-28 11:28 | DVHDS2 ---
Discharge Summary Date of Admission Jul 17, 2025 at 02:42 Date of Discharge: Jul 28, 2025 Admitting Diagnosis Nonhealing right leg wound Wounds: Nonhealing right leg wound Labs/Diagnostic Data: Laboratory Results Test 07/22/25 18:05 07/21/25 18:06 07/18/25 06:30 07/17/25 22:21 Blood Gas Specimen Type Arterial Blood Gas Sample Site Left radial Blood Gas Patient Temperature 37.0 Arterial Blood Date Drawn [id number] Arterial Blood pH 7.425 (7.350-7.450) Arterial Blood Partial Pressure CO2 76.6 mmHg (32.0-45.0) Arterial Blood Partial Pressure O2 75.7 mmHg (83.0-108.0) Arterial Blood HCO3 49.1 mmol/L (21.0-28.0) Arterial Blood Oxygen Saturation 94.9 % (94.0-98.0) Arterial Blood Base Excess 21.7 mmol/L (-2.0-3.0) Arterial Blood Oxyhemoglobin 93.2 % (94.0-98.0) Arterial Blood Carboxyhemoglobin 1.3 % (0.5-1.5) Arterial Blood Methemoglobin 0.5 % (0.0-1.5) Ko Test Modified Blood Gas Total Hemoglobin 9.20 g/dL (12.0-16.0) Blood Gas Liter Flow 3.00 Blood Gas Modality Nasal cannula FiO2 % 32.0 Blood Gas Critical Value Read Back Yes Blood Gas Notified Whom sepideh Godwin md Blood Gas Notified Time [id number] Blood Gas Notified By jaylan Valdez rrt White Blood Count 9.2 10^3/uL (4.4-10.8) Red Blood Count 3.85 10^6/uL (4.0-5.20) Hemoglobin 8.5 g/dL (12.2-16.2) Hematocrit 28.3 % (36.0-46.0) Mean Corpuscular Volume 73.6 fL (80.0-100.0) Mean Corpuscular Hemoglobin 22.1 pg (28.0-32.0) Mean Corpuscular Hemoglobin Concent 30.0 g/dL (32.0-36.0) Red Cell Distribution Width 23.5 % (11.8-14.3) Platelet Count 360 10^3/uL (140-450) Mean Platelet Volume 6.9 fL (6.9-10.8) Neutrophils (%) (Auto) 80.6 % (37.0-80.0) Lymphocytes (%) (Auto) 11.8 % (10.0-50.0) Monocytes (%) (Auto) 6.1 % (0.0-12.0) Eosinophils (%) (Auto) 1.3 % (0.0-7.0) Basophils (%) (Auto) 0.2 % (0.0-2.0) Neutrophils # (Auto) 7.4 10 ^3/uL (1.6-8.6) Lymphocytes # (Auto) 1.1 10 ^3/uL (0.4-5.4) Monocytes # (Auto) 0.6 10 ^3/uL (0-1.3) Eosinophils # (Auto) 0.1 10 ^3/uL (0-0.8) Basophils # (Auto) 0 10 ^3/uL (0-0.2) Nucleated Red Blood Cells 0.0 % Sodium Level 139 mmol/L (136-145) Potassium Level 4.2 mmol/L (3.5-5.1) Chloride Level 91 mmol/L (98-107) Carbon Dioxide Level > 40 mmol/L (20-31) Anion Gap 7.61734 (5-15) Blood Urea Nitrogen 9 mg/dL (9-23) Creatinine 0.36 mg/dL (0.550-1.02) Glomerular Filtration Rate Calc 117 mL/min (>90) BUN/Creatinine Ratio 25.0 (10.0-20.0) Serum Glucose 95 mg/dL (74-106) Calcium Level 8.6 mg/dL (8.7-10.4) Platelet Estimate Adequate Hypochromasia (manual) Slight Anisocytosis (manual) Slight Microcytosis Slight Stomatocytes Few Total Bilirubin 1.4 mg/dL (0.2-1.0) Aspartate Amino Transferase (AST) 14 U/L (13-40) Alanine Aminotransferase (ALT) < 9 U/L (7-40) Alkaline Phosphatase 87 U/L (46-116) Total Protein 6.6 g/dL (5.7-8.2) Albumin 3.2 g/dL (3.2-4.8) Influenza Type A Antigen Negative (Negative) Influenza Type B Antigen Negative (Negative) SARS-CoV-2 Antigen (Rapid) Negative (NEGATIVE) Test 07/17/25 09:00 07/17/25 06:12 07/17/25 03:12 07/17/25 00:20 Urine Color Yellow (Yellow) Urine Clarity Turbid (Clear) Urine pH 6.0 (5.0-9.0) Urine Specific [place] 1.018 (1.001-1.035) Urine Protein Trace (Negative) Urine Ketones Negative (Negative) Urine Blood 1+ /uL (Negative) Urine Nitrite Negative (Negative) Urine Bilirubin Negative (Negative) Urine Urobilinogen 2 mg/dL (Negative) Urine Leukocyte Esterase Trace /uL (Negative) Urine RBC 9 /hpf (0 - 4) Urine Microscopic WBC 3 /HPF (0-5) Urine Squamous Epithelial Cells Mod /hpf (<5) Urine Bacteria Few /hpf (None Seen) Urine Mucus Few (None Seen) Urine Glucose Normal mg/dL (Normal) Iron Level 27 ug/dL (50-170) Total Iron Binding Capacity 279 ug/dL (250-425) Percent Iron Saturation 9.7 % (15-50) Ferritin 63.5 ng/mL (10-291) Urine Opiates Screen Neg (NEGATIVE) Urine Fentanyl Screen Pos (NEGATIVE) Urine Barbiturates Screen Neg (NEGATIVE) Urine Phencyclidine Screen Neg (NEGATIVE) Urine Amphetamines Screen Neg (NEGATIVE) Urine Benzodiazepines Screen Neg (NEGATIVE) Urine Cocaine Screen Neg (NEGATIVE) Urine Cannabinoids Screen Neg (NEGATIVE) Troponin I High Sensitivity 9 ng/L (</=34) Thyroid Stimulating Hormone (TSH) 2.62 uIU/mL (0.55-4.78) Test 07/16/25 21:22 Prothrombin Time 12.4 sec (9.3-11.8) Prothrombin Time INR 1.19 (0.9-1.15) Activated Partial Thromboplast Time 27.8 SEC (24.5-34.5) Lactic Acid Level 1.6 mmol/L (0.4-2.0) Magnesium Level 1.3 mg/dL (1.6-2.6) Other Laboratory Tests 07/21/25 18:06 Brief Hx & Hospital Course: 60-year-old female morbidly obese with a BMI of 74 history of asthma hypotension anxiety depression acute on chronic respiratory failure came in for nonhealing right leg wound. Found to be having superficial cellulitis with a open wound wound cultures grew E coli placed on meropenem converted to Invanz 1 g IV daily which she will receive for one month in the residential. She is allergic to the Rocephin she was seen by the podiatric Dr. Marcelino who advised no surgical intervention Patient being discharged to nursing home facility for one month of Invanz IV. Plan is acceptable with the patient Consults/Reason for consult Podiatric Dr. Marcelino Operations or Procedures Arterial ultrasound right lower extremity Venous ultrasound right lower extremity Condition at Discharge: Fair Final Diagnosis/Problems List 1. Right lower extremity cellulitis with the open wound, wound cultures growing E coli, placed on Invanz 1 g IV daily, patient is allergic to ceftriaxone 2. Acute hypercapnic respiratory failure 3. Respiratory acidosis with metabolic alkalosis 4. Morbid obesity classIII 5. Chronic asthma 6. GERD 7. Hypertension 8. Anxiety and depression disorder 9. Leukocytosis, improved 9. Morbid obesity BMI of 74 10. DVT right lower extremity ruled out Discharge Disposition: Assisted Facility Discharge Instruct/Medications Diet: Cardiac 2g Na,low cholest Activity: Bed rest Follow Up/Referral: Follow up with the residential Medications: Invanz 1 g IV daily for one month for right leg wound See list for other meds Scheduled Aspirin (Aspirin Low Dose), 1 TAB PO DAILY, (Reported) Benazepril HCl (Benazepril Hydrochloride), 12.5 MG PO DAILY, (Reported) Citalopram Hydrobromide (Citalopram Hydrobromide), 20 MG PO DAILY, (Reported) Citalopram Hydrobromide (Citalopram Hydrobromide), 1 TAB PO DAILY, (Reported) Gabapentin (Gabapentin), 600 MG PO BID, (Reported) Ketorolac Tromethamine (Ketorolac Tromethamine), 10 MG PO DAILY, (Reported) Montelukast Sodium (Montelukast Sodium), 1 TAB PO DAILY, (Reported) Pantoprazole Sodium Sesquihydr (Pantoprazole Sodium), 1 TAB PO DAILY, (Reported) Prednisone (Prednisone), 40 MG PO DAILY Tramadol HCl (Tramadol HCl), 50 MG PO BID, (Reported) Scheduled PRN Albuterol Sulfate (Albuterol Sulfate), 2 MG IN Q6HP PRN for SHORTNESS OF BREATH, (Reported) Cyclobenzaprine Hcl (Cyclobenzaprine Hcl), 10 MG PO Q8HP PRN for FOR MUSCLE SPASM, (Reported) Miscellaneous Medications Albuterol Sulfate (Albuterol Sulfate Hfa), INH, (Reported) Cyclobenzaprine HCl (Cyclobenzaprine Hydrochlo), 1 TAB PO, (Reported) 39 (Time taken for discharge summary 39 minutes) Discharge Statement: "Patient was advised to return to the ER or call 911 if any headaches, dizziness, shortness of breath, chest pain, abdominal pain, bleeding, fevers, or worsening of medical condition. Patient was counseled about treatment plan, medications, possible side effects, patientverbalized understanding. All questions were answered to the best of my ability. This discharge took greater then 30 minutes in planning, reviewing documentation, counseling the patient, and discussing with other team members." ASSESSMENT ASSESSMENT Hospital Course Marginally improved Assessment 1. Right lower extremity cellulitis with the open wound, wound cultures growing E coli, placed on Invanz 1 g IV daily, patient is allergic to ceftriaxone 2. Acute hypercapnic respiratory failure 3. Respiratory acidosis with metabolic alkalosis 4. Morbid obesity classIII 5. Chronic asthma 6. GERD 7. Hypertension 8. Anxiety and depression disorder 9. Leukocytosis, improved 9. Morbid obesity BMI of 74 10. DVT right lower extremity ruled out Date of Service: Jul 28, 2025 Billing Provider: RADHA KATHLEEN MD Common Visit Codes: 61420-[id number] DISCH DAY >30min RADHA KATHLEEN MD Jul 28, 2025 11:28
[2025-07-28] MEDS: ERTAPENEM SOD INJ 1 GM in SODIUM CHL 0.9% 50 ML IV SCH (12:31)
--- NOTE | 2025-07-28 12:59 | DVH ---
RIGHT Lower Extremity Arterial Duplex Date: 07/28/2025 12:06 PM Clinical History: Nonhealing right foot wound rule out peripheral arterial di Comparison: None Technique: Duplex Doppler evaluation including color Doppler and spectral/pulsed waveform analysis of the RIGHT lower extremity arteries was performed. Finding: RIGHT: Peak systolic velocities are as follows: PORTFOLIO MGR not visualized due to limited exam. Deep femoral not visualized due to limited exam. SFA proximal 165 cm/s SFA mid-portion 139 cm/s SFA distal 130 cm/s Popliteal 124 cm/s Posterior tibial not visualized. Anterior tibial not visualized. Dorsalis pedis not visualized. The waveforms are monophasic in the right proximal superficial femoral artery, right mid superficial femoral artery, right distal superficial femoral artery and right popliteal artery.. REFERENCE VALUES, [facility]) vascular Imaging Lab Criteria: Peak systolic velocity ranges (in cm/sec) are as follows: <150 cm/s - <20 % stenosis 150-200 cm/s - 20-49% stenosis 200-300 cm/s - 50-75% stenosis >300 cm/s -> 75% stenosis IMPRESSION: Extremely limited exam as detailed above. Approximately 30-49% stenosis of the right proximal superfi cial femoral artery with peripheral vascular disease as detailed above. Nonvisualization of multiple right lower extremity arteries due to body habitus and dressing.
[2025-07-28 17:17] LABS: Hemoglobin 8.4 g/dL (12.2-16.2); Mean Corpuscular Volume 74.4 fL (80.0-100.0); Nucleated Red Blood Cells % 0.0 %
[2025-07-28 17:18] LABS: Hematocrit 27.1 % (36.0-46.0); Mean Corpuscular Hemoglobin 23.1 pg (28.0-32.0)
[2025-07-28 17:41] LABS: INR 1.15 (0.9-1.15); Partial Thromboplastin Time 28.4 SEC (24.5-34.5); Prothrombin Time 12.0 sec (9.3-11.8)
--- NOTE | 2025-07-28 19:46 | DVHPN2 ---
Progress Note - Dictate Date Seen: Jul 28, 2025 Medical Necessity Reason Pt with a Central, PICC or Fol: No vital signs Vital Sign Date Time Temp Pulse Resp B/P (MAP) Pulse Ox O2 Delivery O2 Flow Rate FiO2 07/28/25 16:44 98.6 77 20 92/48 (63) 99 98.6 07/28/25 08:00 Nasal Cannula* 3 32 Total Intake and Output 07/27/25 07/27/25 07/28/25 15:00 23:00 07:00 Intake Total 500 ml 975 ml 500 ml Output Total 2100 ml 2500 ml Balance 500 ml -1125 ml -2000 ml medications Current Medications Medications Dose Ordered Sig/Tello Route Start Time Stop Time Status Last Admin Dose Admin Acetaminophen 325 mg Q4HP PRN PO 07/17/25 02:45 07/28/25 02:09 325 MG Aspirin 81 mg DAILY PO 07/17/25 10:00 07/28/25 12:30 81 MG Citalopram Hydrobromide 20 mg DAILY PO 07/17/25 10:00 07/28/25 12:31 20 MG Cyclobenzaprine HCl 10 mg Q8HP PRN PO 07/17/25 03:00 07/28/25 12:41 10 MG Montelukast Sodium 10 mg DAILY PO 07/17/25 10:00 07/28/25 12:30 10 MG Pantoprazole Sodium 40 mg DAILY PO 07/17/25 10:00 07/28/25 12:30 40 MG Ferrous Sulfate 325 mg DAILY PO 07/17/25 10:00 07/28/25 12:30 325 MG Acetazolamide Sodium 250 mg BID IV 07/23/25 22:00 07/27/25 22:10 250 MG Furosemide 40 mg DAILY IV 07/24/25 10:00 07/28/25 12:31 40 MG Ertapenem 1 gm/ Sodium Chloride 50 ml @ 100 mls/hr DAILY IV 07/28/25 10:00 07/28/25 12:31 100 MLS/HR laboratory and microbiology Laboratory Tests 07/28/25 16:41 07/21/25 18:06 Test 07/21/25 18:06 Range/Units Serum Glucose 95 74-106 mg/dL Assessment/Plan Impression Acute hypercapnic respiratory failure Obesity hypoventilation syndrome Chronic leg wounds Cellulitis Patient seen and examined Events Low oxygen requirements On 3 liters nasal cannula No distress Labs and imaging reviewed ABG reviewed Management Supplemental oxygen Titrate to maintain sats 90% or above Incentive spirometry Okay to use bipap 10/24 during sleep and at night Previously noncompliant with treatment due to claustrophobia Continue antibiotics F/u cultures Bronchodilators Diurese Monitor renal function Monitor electrolytes Supplement as needed Recommend sleep study as outpatient when more stable DVT prophylaxis Dietary Evaluation Review Comments: 1) Initiate MVI @ 1 tb qd 2) Initiate Vitamin C @ 500 mg bid and zinc sulfate @ 220 mg for 7 days 3) Encourage optimal PO intake 4) Refer to outpatient RD for weight management 5) Follow-up with cardiology 6) Continue to monitor I&O, labs, and skin integrity Expected Outcomes/Goals: 1) appetite and labs to improve 2) wounds to improve 3) f/u in 3-5 days Plan discussed with: Patient JEREMIE BAILEY MD Jul 28, 2025 19:46
[2025-07-28 19:53] LABS: Anisocytosis Slight
[2025-07-28 19:54] LABS: Stomatocytes Few
[2025-07-29 01:00] VITALS: BP 120/68; PULSE 77; RESP 18; TEMP 97.3; O2SAT 100
[2025-07-29 05:00] VITALS: BP 115/64; PULSE 74; RESP 18; TEMP 97.1; O2SAT 99
[2025-07-29 08:00] VITALS: PULSE 72
[2025-07-29 09:00] VITALS: BP 109/59; PULSE 72; RESP 20; TEMP 97.9; O2SAT 97
--- NOTE | 2025-07-29 11:27 | DVHPN2 ---
Reviewed: Care Plan, H&P, Labs, Medications, Previous Orders, Radiology Changes from previous H/P or p: No Changes Eyes: No Pain, No Vision change, No Conjunctivae inflammation, No Eyelid inflammation, No Other, No Redness ENT: No Ear pain, No Ear discharge, No Nose pain, No Nose discharge, No Nose congestion, No Mouth pain, No Mouth swelling, No Throat pain, No Throat swelling, No Other Cardiovascular: No Chest Pain, No Palpitations, No Orthopnea, No Paroxysmal Noc. Dyspnea, No Edema, No Lt Headedness, No Other Respiratory: Shortness of breath Genitourinary: No Dysuria, No Frequency, No Incontinence, No Hematuria, No Retention, No Other Musculoskeletal: No other, No neck pain, No shoulder pain, No arm pain, No back pain, No hand pain; leg pain; No foot pain Skin: No Rash, No Lesions, No Jaundice, No Bruising, No Other Objective Vitals Vital Signs Date Time Temp Pulse Resp B/P (MAP) Pulse Ox O2 Delivery O2 Flow Rate FiO2 07/29/25 09:00 97.9 72 20 109/59 (76) 97 97.9 07/28/25 20:00 Nasal Cannula* 3 32 Intake/Output Intake and Output 07/29/25 07:00 Intake Total 2550 ml Output Total 3300 ml Balance -750 ml Intake Oral 2500 ml IV Total 50 ml Output Urine Total 3300 ml # Voids 3 Medications Current Medications Medications Dose Ordered Sig/Tello Route Start Time Stop Time Status Last Admin Dose Admin Acetaminophen 325 mg Q4HP PRN PO 07/17/25 02:45 07/29/25 01:31 325 MG Aspirin 81 mg DAILY PO 07/17/25 10:00 07/28/25 12:30 81 MG Citalopram Hydrobromide 20 mg DAILY PO 07/17/25 10:00 07/28/25 12:31 20 MG Cyclobenzaprine HCl 10 mg Q8HP PRN PO 07/17/25 03:00 07/28/25 21:41 10 MG Montelukast Sodium 10 mg DAILY PO 07/17/25 10:00 07/28/25 12:30 10 MG Pantoprazole Sodium 40 mg DAILY PO 07/17/25 10:00 07/28/25 12:30 40 MG Ferrous Sulfate 325 mg DAILY PO 07/17/25 10:00 07/28/25 12:30 325 MG Acetazolamide Sodium 250 mg BID IV 07/23/25 22:00 07/28/25 21:41 250 MG Furosemide 40 mg DAILY IV 07/24/25 10:00 07/28/25 12:31 40 MG Ertapenem 1 gm/ Sodium Chloride 50 ml @ 100 mls/hr DAILY IV 07/28/25 10:00 07/28/25 12:31 100 MLS/HR Laboratory Results Laboratory Tests 07/21/25 18:06 07/28/25 16:41 Coagulation Test 07/28/25 16:41 Prothrombin Time 12.0 sec (9.3-11.8) H Prothrombin Time INR 1.15 (0.9-1.15) Activated Partial Thromboplast Time 28.4 SEC (24.5-34.5) Urinalysis Test 07/17/25 09:00 Urine Color Yellow (Yellow) Urine Clarity Turbid (Clear) H Urine pH 6.0 (5.0-9.0) Urine Specific [place] 1.018 (1.001-1.035) Urine Protein Trace (Negative) H Urine Ketones Negative (Negative) Urine Blood 1+ /uL (Negative) H Urine Nitrite Negative (Negative) Urine Bilirubin Negative (Negative) Urine Urobilinogen 2 mg/dL (Negative) H Urine Leukocyte Esterase Trace /uL (Negative) Urine RBC 9 /hpf (0 - 4) Urine Microscopic WBC 3 /HPF (0-5) Urine Squamous Epithelial Cells Mod /hpf (<5) Urine Bacteria Few /hpf (None Seen) H Urine Mucus Few (None Seen) Urine Glucose Normal mg/dL (Normal) Microbiology Microbiology Date/Time Source Procedure Growth Status 07/22/25 17:00 Leg Right Gram Stain - Final Complete 07/22/25 17:00 Wound Culture - Final Escherichia coli Complete 07/16/25 21:24 Blood Blood Culture - Final NO GROWTH AFTER 5 DAYS OF INCUBATION. Complete Labs and/or images reviewed: Labs reviewed by me, Image(s) reviewed by me Assessment/Plan Assessment/Plan Covering for Dr. Godwin 1. Right lower extremity cellulitis with the open wound, wound cultures growing E coli, placed on Invanz 1 g IV daily, patient is allergic to ceftriaxone 2. Acute hypercapnic respiratory failure 3. Respiratory acidosis with metabolic alkalosis 4. Morbid obesity classIII 5. Chronic asthma 6. GERD 7. Hypertension 8. Anxiety and depression disorder 9. Leukocytosis, improved 9. Morbid obesity BMI of 74 10. DVT right lower extremity ruled out Daughter Kerri [phone] at bedside Time spent 52 minutes Patient will be discharged to [facility] for IV antibiotics for a month. The plan is acceptable to the pt Awaiting bed availability at [facility] Plan discussed with: Patient My Orders Orders - RADHA KATHLEEN MD Procedure Category Date Status Time * Picc Line Consult CONS 07/28/25 Transmitted 11:28 * [employer] CONS 07/28/25 Transmitted Consult Date of Service: Jul 29, 2025 Billing Provider: RADHA KATHLEEN MD Common Visit Codes: [id number] INP/OBS CARE(HIGH) RADHA KATHLEEN MD Jul 29, 2025 11:27
[2025-07-29 13:00] VITALS: BP 112/54; PULSE 72; RESP 19; TEMP 98.3; O2SAT 100
--- NOTE | 2025-07-29 13:58 | DVHPN2 ---
Progress Note - Dictate Date Seen: Jul 29, 2025 Medical Necessity Reason Pt with a Central, PICC or Fol: No vital signs Vital Sign Date Time Temp Pulse Resp B/P (MAP) Pulse Ox O2 Delivery O2 Flow Rate FiO2 07/29/25 11:31 112/54 07/29/25 09:00 97.9 72 20 97 97.9 07/28/25 20:00 Nasal Cannula* 3 32 Total Intake and Output 07/28/25 07/28/25 07/29/25 15:00 23:00 07:00 Intake Total 50 ml 500 ml 2000 ml Output Total 1300 ml 2000 ml Balance 50 ml -800 ml 0 ml medications Current Medications Medications Dose Ordered Sig/Tello Route Start Time Stop Time Status Last Admin Dose Admin Acetaminophen 325 mg Q4HP PRN PO 07/17/25 02:45 07/29/25 01:31 325 MG Aspirin 81 mg DAILY PO 07/17/25 10:00 07/29/25 11:30 81 MG Citalopram Hydrobromide 20 mg DAILY PO 07/17/25 10:00 07/29/25 11:29 20 MG Cyclobenzaprine HCl 10 mg Q8HP PRN PO 07/17/25 03:00 07/28/25 21:41 10 MG Montelukast Sodium 10 mg DAILY PO 07/17/25 10:00 07/29/25 11:30 10 MG Pantoprazole Sodium 40 mg DAILY PO 07/17/25 10:00 07/29/25 11:29 40 MG Ferrous Sulfate 325 mg DAILY PO 07/17/25 10:00 07/29/25 11:30 325 MG Acetazolamide Sodium 250 mg BID IV 07/23/25 22:00 07/28/25 21:41 250 MG Furosemide 40 mg DAILY IV 07/24/25 10:00 07/29/25 11:31 40 MG Ertapenem 1 gm/ Sodium Chloride 50 ml @ 100 mls/hr DAILY IV 07/28/25 10:00 07/29/25 11:31 100 MLS/HR laboratory and microbiology Laboratory Tests 07/28/25 16:41 07/21/25 18:06 Test 07/21/25 18:06 Range/Units Serum Glucose 95 74-106 mg/dL Assessment/Plan Impression Acute hypercapnic respiratory failure Obesity hypoventilation syndrome Chronic leg wounds Cellulitis Patient seen and examined Events Low oxygen requirements On 3 liters nasal cannula No acute events Labs and imaging reviewed ABG reviewed Management Supplemental oxygen Titrate to maintain sats 90% or above Incentive spirometry Okay to use bipap 10/24 during sleep and at night Previously noncompliant with treatment due to claustrophobia Continue antibiotics F/u cultures Bronchodilators Diurese Monitor renal function Monitor electrolytes Supplement as needed Recommend sleep study as outpatient when more stable DVT prophylaxis Dietary Evaluation Review Comments: 1) Initiate MVI @ 1 tb qd 2) Initiate Vitamin C @ 500 mg bid and zinc sulfate @ 220 mg for 7 days 3) Encourage optimal PO intake 4) Refer to outpatient RD for weight management 5) Follow-up with cardiology 6) Continue to monitor I&O, labs, and skin integrity Expected Outcomes/Goals: 1) appetite and labs to improve 2) wounds to improve 3) f/u in 3-5 days Plan discussed with: Patient JEREMIE BAILEY MD Jul 29, 2025 13:58
[2025-07-29 17:00] VITALS: BP 100/55; PULSE 65; RESP 21; TEMP 97.9; O2SAT 99
[2025-07-29] MEDS: LIDOCAINE 1% (LOCAL ANESTH.) PF 5ml SDV ID ONE (18:00)
[2025-07-29] MEDS ORDERED: SODIUM CHLOR 0.9% PF (SALINE LOCK) 10ML VIAL/SYR IV SCH (22:00)
== END 2025-07-29 20:03 | DRG 871 ==
LOC: ER 20:55 → EDBD 20:55 → EDUNIT# 20:55 → OVERFLOW 07-17 02:42 → TELE-EAST 07-17 15:32
PROVIDERS: ADMIT Family Medicine; ATTEND Family Medicine
PROC: 02HV33Z Insertion of Infusion Device into Superior Vena Cava, Percutaneous Approach (ICD-10-PCS; principal; 2025-07-29)
PROC: B548ZZA Ultrasonography of Superior Vena Cava, Guidance (ICD-10-PCS; 2025-07-29)
DX: A41.51 Sepsis due to Escherichia coli [E. coli] (principal); J96.22 Acute and chronic respiratory failure with hypercapnia; L03.115 Cellulitis of right lower limb; E66.2 Morbid (severe) obesity with alveolar hypoventilation; E87.4 Mixed disorder of acid-base balance; Z68.45 Body mass index [BMI] 70 or greater, adult; F32.A Depression, unspecified; F41.9 Anxiety disorder, unspecified; Z20.822 Contact with and (suspected) exposure to COVID-19; I10 Essential (primary) hypertension; I89.0 Lymphedema, not elsewhere classified; J45.909 Unspecified asthma, uncomplicated; K21.9 Gastro-esophageal reflux disease without esophagitis; F40.240 Claustrophobia; D72.820 Lymphocytosis (symptomatic); E83.42 Hypomagnesemia; R16.0 Hepatomegaly, not elsewhere classified; E80.6 Other disorders of bilirubin metabolism; I73.9 Peripheral vascular disease, unspecified; I95.9 Hypotension, unspecified; E66.813 Obesity, class 3; S81.801A Unspecified open wound, right lower leg, initial encounter; Z79.82 Long term (current) use of aspirin; Z79.899 Other long term (current) drug therapy; Z82.49 Family history of ischemic heart disease and other diseases of the circulatory system; Z83.3 Family history of diabetes mellitus; Z87.440 Personal history of urinary (tract) infections; Z88.1 Allergy status to other antibiotic agents; Z91.199 Patient's noncompliance with other medical treatment and regimen due to unspecified reason; Z74.01 Bed confinement status; X58.XXXA Exposure to other specified factors, initial encounter; Y93.89 Activity, other specified; Y92.89 Other specified places as the place of occurrence of the external cause; Y99.8 Other external cause status
CPT/HCPCS: 36415; 36569; 36600; 71045; 76937; 80048; 80053; 80307; 81001; 82728; 82805; 83540; 83550; 83605; 83735; 84443; 84484; 85025; 85610; 85730; 87040; 87077; 87081; 87186; 87205; 87426; 87804; 93005; 93926; 93971; 97110; 97116; 97163; 97530; G0378; J1335; J2185